=== PATIENT | female | born 1945 | race Caucasian/White ===

== ENCOUNTER 2019-06-21 13:32 | Outpatient (CLI) | payer MEDICARE, SELFPAY ==
--- NOTE | ~2019-06-21 | XR_ITS ---
EXAMINATION: XR chest 2V 06/21/2019 13:52 INDICATION: History of bladder cancer PROCEDURE: PA and lateral views of the chest COMPARISON: Comparison to multiple prior studies sequentially, with oldest reviewed study dated 09/29. FINDINGS: The lungs are clear. The cardiomediastinal silhouette is within normal limits. There are no pleural effusions. There is no pneumothorax suspected. IMPRESSION: 1: NO ACUTE CARDIOPULMONARY DISEASE. Reviewed, dictated and finalized at location A.
== END 2019-06-21 13:33 | disposition home or self-care (01) ==
PROVIDERS: PCP Internal Medicine; Visit Provider Urology
DX: Z85.51 Personal history of malignant neoplasm of bladder (principal)
CPT/HCPCS: 71046

== ENCOUNTER 2019-08-10 08:03 | Outpatient (CLI) | payer MEDICARE, SELFPAY ==
--- NOTE | ~2019-08-10 | XR_ITS ---
XR UGIAC wo kub DATE: 08/10/2019 09:15 INDICATION: Dysphagia. Epigastric abdominal pain. TECHNIQUE: Air-contrast upper gastrointestinal series 1.8 minutes fluoroscopy time DAP: [phone] images COMPARISON: 07/07/2014 upper gastrointestinal series with esophagram; small duodenal bulb ulcer and up to 6 cm sliding hiatal hernia were reported FINDINGS: There is a partially reducible mild sliding hiatal hernia. Spontaneous gastroesophageal ref lux up to the thoracic inlet was noted. There are some tertiary contractions of the esophagus. Status post cholecystectomy. No stricture, mucosal fold thickening, erosion, ulceration or intraluminal mass lesion of the esophag us, stomach or duodenum is detected. The proximal small bowel mucosal pattern is normal. IMPRESSION: Mild partially reducible sliding hiatal hernia with spontaneous gastroesophageal reflux t o thoracic inlet Status post cholecystectomy Reviewed, dictated and finalized at Location [facility]. Reviewed, dictated and finalized at location A. IMPRESSION: Mild partially reducible sliding hiatal hernia with spontaneous gas troesophageal reflux to thoracic inlet Status post cholecystectomy
== END 2019-08-10 08:04 | disposition home or self-care (01) ==
PROVIDERS: PCP Internal Medicine; Visit Provider Internal Medicine Gastroenterology
DX: R10.13 Epigastric pain (principal); K44.9 Diaphragmatic hernia without obstruction or gangrene; Z90.49 Acquired absence of other specified parts of digestive tract
CPT/HCPCS: 74246

== ENCOUNTER 2019-10-28 16:54 | Outpatient (CLI) | payer MEDICARE, SELFPAY ==
--- NOTE | ~2019-10-28 | MM_ITS ---
EXAMINATION: MM screening navi BI w tiarra HISTORY: Screening TECHNIQUE: Craniocaudal and mediolateral oblique 3-D tomosynthesis images were obtained and synthetic 2-D images were generated. CAD analysis was submitted and interpreted. COMPARISON: No prior mammogram is available for comparison at this institution. BREAST PARENCHYMAL COMPOSITION: The breasts are heterogeneously dense, which may obscure small masses . FINDINGS: There is architectural distortion in the upper outer quadrant of the left breast. There is no mammographic evidence for malignancy in the right breast. IMPRESSION: 1. Focal architectural distortion upper outer quadrant of the left breast. 2. Additional mammographic views and possible breast ultrasound are recommended. BI-RADS Category 0: Incomplete: Needs additional imaging evaluation. Reviewed, dictated and finalized at location A. IMPRESSION: 1. Focal architectural distortion upper outer quadrant of the left breast. 2. Additional mammographic views and possible breast ultrasound are recommended . BI-RADS Category 0: Incomplete: Needs additional imaging evaluation.
== END 2019-10-28 16:55 | disposition home or self-care (01) ==
LOC: ANHIMG 16:57
PROVIDERS: PCP Internal Medicine
DX: Z12.31 Encounter for screening mammogram for malignant neoplasm of breast (principal)
CPT/HCPCS: 77063; 77067

== ENCOUNTER 2019-11-04 13:39 | Outpatient (CLI) | payer MEDICARE, SELFPAY ==
--- NOTE | ~2019-11-04 | XR_ITS ---
EXAMINATION: XR chest 2V EXAM DATE: 11/04/2019 14:02 INDICATION: Cough for 10 days. History of asthma. TECHNIQUE: Frontal and lateral projections of the chest obtained and reviewed. Comparison is made to prior examination from 06/21/2019. FINDINGS: The lungs are clear. There are no pleural effusions. The cardiomediastinal silhouette is within normal limits. There is no pneumothorax suspected. The bones and soft tissues are unremarkab le. There is aortic arteriosclerosis. There are cholecystectomy clips. There is no significant int erval change. IMPRESSION: No acute cardiopulmonary findings. Reviewed, dictated and finalized at location A.
== END 2019-11-04 13:40 | disposition home or self-care (01) ==
PROVIDERS: PCP Internal Medicine; Visit Provider Internal Medicine
DX: R05 Cough (principal)
CPT/HCPCS: 71046

== ENCOUNTER 2019-11-23 12:30 | Outpatient (CLI) | payer MEDICARE, SELFPAY ==
--- NOTE | ~2019-11-23 | MMUS_ITS ---
EXAMINATION: MM diagnostic mammo unilat LT, US breast LT limited HISTORY: Architectural distortion of the left breast TECHNIQUE: Additional 3-D tomosynthesis images of the left breast were performed and synthetic 2-D im ages were generated. CAD analysis was submitted and interpreted. High resolution left breast ultrasou nd was performed. COMPARISON: Comparison to multiple prior studies sequentially, with oldest reviewed study dated 05/16. BREAST PARENCHYMAL COMPOSITION: The breasts are heterogenously dense, which may obscure small masses. FINDINGS: MAMMOGRAPHIC FINDINGS: Possible subtle architectural distortion upper outer quadrant of the left breast which is less appare nt with spot compression and mediolateral views and on screening examination. No discrete mass is partha ntified. There are no suspicious calcifications. ULTRASOUND: Limited left breast ultrasound: Normal heterogeneous echotexture without focal solid or cystic mass. IMPRESSION: 1. Probable benign findings of the left breast. Possible architectural distortion upper outer quadran t is less apparent with compression views. No sonographic correlate. 2. Recommend 6 month follow-up diagnostic left mammogram. BI-RADS category 3, probably benign findings. Reviewed, dictated and finalized at location A. IMPRESSION: 1. Probable benign findings of the left breast. Possible architectural distorti on upper outer quadrant is less apparent with compression views. No sonographic correlate. 2. Recommend 6 month follow-up diagnostic left mammogram. BI-RADS category 3, probably benign findings.
== END 2019-11-23 12:31 | disposition home or self-care (01) ==
PROVIDERS: PCP Internal Medicine
DX: R92.8 Other abnormal and inconclusive findings on diagnostic imaging of breast (principal)
CPT/HCPCS: 76642; 77065

== ENCOUNTER 2019-12-25 12:26 | Emergency (ER) | payer MEDICARE, SELFPAY ==
--- NOTE | ~2019-12-25 | XR_ITS ---
EXAMINATION: XR wrist RT min 3V INDICATION: Right wrist pain TECHNIQUE: Four views of the right wrist are obtained. COMPARISON: None available FINDINGS: The bones are osteopenic which limits sensitivity for fracture there is subtle cortical irr egularity involving the scaphoid neck. Severe osteoarthritis at the carpometacarpal joint. There are changes related to prior ulnar styloid avulsion fracture with nonunion. There is soft tissue swelling IMPRESSION: 1. Subtle cortical irregularity of the scaphoid which could reflect nondisplaced fracture. Reviewed, dictated and finalized at location A. [employer] IMPRESSION: 1. Subtle cortical irregularity of the scaphoid which could reflect nondisplace d fracture.
[2019-12-25 12:38] VITALS: BP 139/58; PULSE 107; RESP 20; TEMP 37.2; O2SAT 97
[2019-12-25 12:43] VITALS: BP 139/58; PULSE 107; RESP 20; TEMP 37.2; O2SAT 97
--- NOTE | 2019-12-25 13:00 | ED.GENADULT ---
HPI - General Adult General Chief complaint: Extremity Injury, Upper Stated complaint: INJURED R HAND/WRIST Time Seen by Provider: 12/25/19 13:00 Source: patient Mode of arrival: ambulatory Limitations: no limitations History of Present Illness HPI narrative: 74-year-old female patient presents to the [facility] with complaints of right hand and wrist pain. Patient states that she was going up some stairs yesterday holding some laundry and states she missed the top step tripped and fell forward using her hands to brace her fall. Patient states that her right wrist did not hurt right away but as the day went on it started becoming more painful and noticed that it was swollen. Patient states she did try and take some ibuprofen for the pain. Patient denies any numbness or tingling to the fingertips. Related Data Home Medications Medication Instructions Recorded Confirmed budesonide-formoterol HFA 160 2 puff INHALATION Q12H 01/25/19 12/25/19 mcg-4.5 mcg/actuation aerosol inhaler losartan 50 mg tablet 50 mg PO DAILY 01/25/19 12/25/19 valacyclovir 1 gram tablet 1,000 mg PO TID 01/25/19 12/25/19 amitriptyline 10 mg tablet 30 mg PO DAILY tablet 07/15/19 12/25/19 ferrous sulfate 325 mg (65 mg 325 mg PO DAILY 07/15/19 12/25/19 iron) tablet oxybutynin chloride 10 mg 10 mg PO BID tablet 07/15/19 12/25/19 tablet,extended release 24 hr esomeprazole magnesium 40 mg 40 mg PO BID cap 07/29/19 12/25/19 capsule,delayed release Allergies Allergy/AdvReac Type Severity Reaction Status Date / Time azithromycin Allergy Unknown Swelling Verified 12/25/19 12:39 Sulfa (Sulfonamide Allergy Unknown Rash Verified 12/25/19 12:39 Antibiotics) Review of Systems Review of Systems: Narrative: CONSTITUTIONAL: Denies fever, chills, or sweats. EYES: Denies visual changes, redness, or discharge. ENT: Denies rhinorrhea, congestion, sore throat, or otalgia. CARDIOVASCULAR: Denies chest pain, palpitations, or edema. RESPIRATORY: Denies cough or dyspnea. GASTROINTESTINAL: Denies abdominal pain, nausea, vomiting, or diarrhea. GENITOURINARY: Denies dysuria or hematuria. SKIN: Denies rash or itching. MUSCULOSKELETAL: Denies back pain, joint pain, or myalgia. Right wrist pain NEUROLOGIC: Denies headache, numbness, or weakness. PSYCHIATRIC: Denies anxiety or depression. [facility] Past Medical History Medical History (Updated 12/25/19 @ 13:43 by THEODORA Martínez) Anemia Anxiety Arthritis Basal cell carcinoma of arm Bladder cancer Borderline diabetic Bronchitis Carpal tunnel syndrome of right wrist Endometriosis GERD (gastroesophageal reflux disease) Hepatic artery dissection Hiatal hernia History of angina HTN (hypertension) Hyperlipidemia Ovarian cyst Pneumonia Polyp of urethra Rectal polyp Seasonal allergies Ulcer, esophagus UTI (urinary tract infection) UTI symptoms Surgical History Surgical History History of bladder surgery History of cardiac catheterization History of hysterectomy History of mastectomy Hx of cholecystectomy Hx of tonsillectomy S/P left knee arthroscopy S/P trigger finger release x5 Family History Family History Father Family history of coronary artery disease Acute myocardial infarction Mother Family history of coronary artery disease Other Diabetes mellitus Family history of allergic disorder Family history of cardiovascular disease Family history of kidney disease Family history of malignant neoplasm Hypertension Social History Social History Smoking status: Never smoker Second hand tobacco smoke exposure: No Alcohol intake: never Comments At the time of my signature I agree with nursing past medical history, surgical, social, and family history. There is no relevant family history pertinent to the prese
--- NOTE | 2019-12-25 13:41 | ED.GENADULT ---
HPI - General Adult General Chief complaint: Extremity Injury, Upper Stated complaint: INJURED R HAND/WRIST Time Seen by Provider: 12/25/19 13:00 Source: patient Mode of arrival: ambulatory Limitations: no limitations History of Present Illness HPI narrative: 74-year-old female patient presents to the [facility] with plaints of right wrist pain Related Data Home Medications Medication Instructions Recorded Confirmed budesonide-formoterol HFA 160 2 puff INHALATION Q12H 01/25/19 12/25/19 mcg-4.5 mcg/actuation aerosol inhaler losartan 50 mg tablet 50 mg PO DAILY 01/25/19 12/25/19 valacyclovir 1 gram tablet 1,000 mg PO TID 01/25/19 12/25/19 amitriptyline 10 mg tablet 30 mg PO DAILY tablet 07/15/19 12/25/19 ferrous sulfate 325 mg (65 mg 325 mg PO DAILY 07/15/19 12/25/19 iron) tablet oxybutynin chloride 10 mg 10 mg PO BID tablet 07/15/19 12/25/19 tablet,extended release 24 hr esomeprazole magnesium 40 mg 40 mg PO BID cap 07/29/19 12/25/19 capsule,delayed release Allergies Allergy/AdvReac Type Severity Reaction Status Date / Time azithromycin Allergy Unknown Swelling Verified 12/25/19 12:39 Sulfa (Sulfonamide Allergy Unknown Rash Verified 12/25/19 12:39 Antibiotics) [facility] Past Medical History Medical History (Updated 12/25/19 @ 13:43 by THEODORA Martínez) Anemia Anxiety Arthritis Basal cell carcinoma of arm Bladder cancer Borderline diabetic Bronchitis Carpal tunnel syndrome of right wrist Endometriosis GERD (gastroesophageal reflux disease) Hepatic artery dissection Hiatal hernia History of angina HTN (hypertension) Hyperlipidemia Ovarian cyst Pneumonia Polyp of urethra Rectal polyp Seasonal allergies Ulcer, esophagus UTI (urinary tract infection) UTI symptoms Surgical History Surgical History History of bladder surgery History of cardiac catheterization History of hysterectomy History of mastectomy Hx of cholecystectomy Hx of tonsillectomy S/P left knee arthroscopy S/P trigger finger release x5 Family History Family History Father Family history of coronary artery disease Acute myocardial infarction Mother Family history of coronary artery disease Other Diabetes mellitus Family history of allergic disorder Family history of cardiovascular disease Family history of kidney disease Family history of malignant neoplasm Hypertension Social History Social History Smoking status: Never smoker Second hand tobacco smoke exposure: No Alcohol intake: never Course Reevaluation(s) Date: 12/25/19 Time: 13:44 Vital Signs Vital signs: Vital Signs Temperature 37.2 C 12/25/19 12:38 Pulse Rate 107 H 12/25/19 12:38 Respiratory Rate 12/25/19 12:38 Blood Pressure 139/58 L 12/25/19 12:38 Pulse Oximetry 97 12/25/19 12:38 Temperature 37.2 C 12/25/19 12:43 Pulse Rate 107 H 12/25/19 12:43 Respiratory Rate 20 12/25/19 12:43 Blood Pressure 139/58 L 12/25/19 12:43 Pulse Oximetry 97 12/25/19 12:43 Medical Decision Making Vital Signs Vital Signs: Vital Signs Temperature 37.2 C 12/25/19 12:38 Pulse Rate 107 H 12/25/19 12:38 Respiratory Rate 12/25/19 12:38 Blood Pressure 139/58 L 12/25/19 12:38 Pulse Oximetry 97 12/25/19 12:38 Temperature 37.2 C 12/25/19 12:43 Pulse Rate 107 H 12/25/19 12:43 Respiratory Rate 20 12/25/19 12:43 Blood Pressure 139/58 L 12/25/19 12:43 Pulse Oximetry 97 12/25/19 12:43 Discharge Plan Discharge Clinical Impression: Closed fracture of scaphoid of right wrist Qualifiers: Encounter type: initial encounter Scaphoid bone location: unspecified portion of scaphoid Fracture alignment: nondisplaced Qualified Code(s): S62.001A - Unspecified fracture of navicular [scaphoid] bone of right wrist, initial en
== END 2019-12-25 14:02 | disposition home or self-care (01) ==
PROVIDERS: Emergency Provider Nurse Practitioner Family; PCP Internal Medicine
DX: S62.001A Unspecified fracture of navicular [scaphoid] bone of right wrist, initial encounter for closed fracture (principal); W10.9XXA Fall (on) (from) unspecified stairs and steps, initial encounter; E78.5 Hyperlipidemia, unspecified; I10 Essential (primary) hypertension; K21.9 Gastro-esophageal reflux disease without esophagitis; M19.90 Unspecified osteoarthritis, unspecified site; D64.9 Anemia, unspecified; Z85.51 Personal history of malignant neoplasm of bladder; Z85.828 Personal history of other malignant neoplasm of skin; Z90.10 Acquired absence of unspecified breast and nipple
CPT/HCPCS: 29125; 73110; 99214; G0463

== ENCOUNTER 2020-01-08 11:17 | Outpatient (NON) | payer MEDICARE, SELFPAY ==
[2020-01-09 22:24] LABS: SARS-CoV-2 RNA PCR Negative
== END 2020-01-08 11:18 ==
LOC: ANHCOVIDDT 11:18
PROVIDERS: PCP Internal Medicine; Visit Provider Internal Medicine
DX: R68.89 Other general symptoms and signs (principal); Z20.828 Contact with and (suspected) exposure to other viral communicable diseases
CPT/HCPCS: 87635; C9803; U0003

== ENCOUNTER 2020-03-09 12:35 | Outpatient (CLI) | payer MEDICARE, SELFPAY ==
--- NOTE | ~2020-03-09 | DEXA_ITS ---
Bone Density Report Name: Mouna Rodriguez Age: 74 Sex: Female Ethnicity: White Date of : 1945 Indication: postmenopausal; cancer; asthma or emphysema; hysterectomy; Referring Provider: LIANNA SOLO Study: Bone densitometry was performed. Exam Date: March 09, 2020 Accession number: [id number] Bone Density: Region BMD T-score Z-score Classification AP Spine (L1-L4) 1.016 -0.3 2.1 Normal Femoral Neck (Left) 0.716 -1.2 0.8 Osteopenia Total Hip (Left) 0.838 -0.9 0.9 Normal Total Hip Bilateral Avg 0.802 -1.1 0.6 Osteopenia Femoral Neck (Right) 0.659 -1.7 0.3 Osteopenia Total Hip (Right) 0.766 -1.4 0.3 Osteopenia World Health Organization criteria for BMD impression classify patients as: Normal (T-score at or above -1.0), Osteopenia (T-score between -1.0 and -2.5), or Osteoporosis (T-score at or below -2.5). 10-year Fracture Risk(1): Major Osteoporotic Fracture 11% Hip Fracture 2.3% Reported Risk Factors: [place] (), Neck BMD=0.659, BMI=31.4 (1) FRAX(R) Version 3.08. Fracture probability calculated for an untreated patient. Fracture probability may be lower if the patient has received treatment. Previous Exams: Region Exam Age BMD T-score BMD Change BMD Change Date g/cm2 vs Baseline vs Previous AP Spine(L1-L4) 03/09/2020 74 1.016 -0.3 -0.115(-10.2%) -0.071(-6.5%)# 01/14/2006 60 1.087 0.4 -0.045(-3.9%)* -0.045(-3.9%)* 10/26/2002 56 1.131 0.8 Total Hip(Left) 03/09/2020 74 0.838 -0.9 -0.067(-7.4%)# -0.086(-9.3%)# 01/14/2006 60 0.924 -0.1 0.019(2.1%) 0.019(2.1%) 10/26/2002 56 0.905 -0.3 Total Hip(Right) 03/09/2020 74 0.766 -1.4 -0.125(-14.0%) -0.093(-10.8%) 01/14/2006 60 0.859 -0.7 -0.032(-3.6%)* -0.032(-3.6%)* 10/26/2002 56 0.891 -0.4 *Denotes significance at 95% confidence level, LSC for AP Spine = 0.022 g/cm2, LSC for Total Hip = 0.027 g/cm2 Clinical Information Provided by Patient: Has the following medical conditions: Asthma or Emphysema, Cancer, Hysterectomy Patient maximum height was 64 Menopause Age: 51 Onset of menses at age 14 Number of children 2 Impression: The patient has low bone mass, based on the Right Femoral Neck T-score. The patient has an estimated ten-year risk of hip fracture of 2.3% and an estimated ten-year risk of major fracture of 11%, based on the WHO FRAX algorithm. No significant bone loss was observed. Discussion: BONE DENSITY IS
== END 2020-03-09 12:36 | disposition home or self-care (01) ==
PROVIDERS: PCP Internal Medicine; Visit Provider Internal Medicine
DX: Z78.0 Asymptomatic menopausal state (principal); M85.852 Other specified disorders of bone density and structure, left thigh; M85.851 Other specified disorders of bone density and structure, right thigh
CPT/HCPCS: 77080

== ENCOUNTER 2020-07-31 12:40 | Outpatient (CLI) | payer MEDICARE, SELFPAY ==
--- NOTE | ~2020-07-31 | MM_ITS ---
EXAMINATION: MM diagnostic navi LT w tiarra HISTORY: Follow-up for probably benign left breast architectural distortion. TECHNIQUE: Craniocaudal, mediolateral, and mediolateral oblique 3-D tomosynthesis images of the left breast were performed and synthetic 2-D images were generated. CAD analysis was submitted and interpr eted. COMPARISON: 11/23/2019, 10/28/2019, 05/16/2017 BREAST PARENCHYMAL COMPOSITION: The breasts are heterogeneously dense, which may obscure small masses . FINDINGS: There is an area of stable architectural distortion in the middle third of the outer left b reast at the 3:00 to 4:00 location adjacent to a scar marker, most consistent with changes from prior benign excisional biopsy. There has been no suspicious interval change. No suspicious mass or calcif ication are identified. IMPRESSION: 1. No mammographic evidence of malignancy. 2. Recommend routine screening mammography. BI-RADS Category 2: Benign finding(s). Reviewed, dictated and finalized at location A.
== END 2020-07-31 12:41 | disposition home or self-care (01) ==
LOC: ANHIMG 12:46
PROVIDERS: PCP Internal Medicine
DX: R92.8 Other abnormal and inconclusive findings on diagnostic imaging of breast (principal)
CPT/HCPCS: 77061; 77065; G0279

== ENCOUNTER 2020-11-28 13:19 | Emergency (ER) | payer MEDICARE, SELFPAY ==
[2020-11-28 13:24] VITALS: BP 129/63; PULSE 109; RESP 16; TEMP 37.2; O2SAT 97
--- NOTE | 2020-11-28 13:24 | ED.LOWEXIN ---
HPI - Extremity Injury (Lower) General Chief Complaint: Wound/Laceration Stated Complaint: INJURED R LEG Source: patient and RN notes reviewed Limitations: no limitations History of Present Illness HPI Narrative: The patient, on several medications including for AODM, presents with wound check. Patient states she slipped nearly a week ago and a chair struck her right archibald. This resulted in an abrasion and apparent proximal based flap avulsion. She would like a tetanus shot, and is the wound checked-which is fairly well approximated but slightly red. No fever, streaking, drainage/discharge. Related Data Home Medications Medication Instructions Recorded Confirmed budesonide-formoterol HFA 160 2 puff INHALATION Q12H 01/25/19 09/01/20 mcg-4.5 mcg/actuation aerosol inhaler amitriptyline 10 mg tablet 30 mg PO DAILY tablet 07/15/19 09/01/20 ferrous sulfate 325 mg (65 mg 325 mg PO DAILY 07/15/19 09/01/20 iron) tablet oxybutynin chloride 10 mg 10 mg PO BID tablet 07/15/19 09/01/20 tablet,extended release 24 hr esomeprazole magnesium 40 mg 40 mg PO BID cap 07/29/19 09/01/20 capsule,delayed release valacyclovir 1 gram tablet 1,000 mg PO DAILY 02/23/20 09/01/20 albuterol sulfate 90 mcg/actuation 2 puff INHALATION Q4H PRN g 07/19/20 09/01/20 aerosol inhaler metformin 1,000 mg tablet 1,000 mg PO DAILY tablet 07/19/20 09/01/20 Allergies Allergy/AdvReac Type Severity Reaction Status Date / Time azithromycin Allergy Unknown Swelling Verified 09/01/20 13:03 Sulfa (Sulfonamide Allergy Unknown Rash Verified 09/01/20 13:03 Antibiotics) Review of Systems Review of Systems: General/Constitutional: No weight loss,fever Eyes: N0: Redness,discharge Ears/Nose/Throat: No: Epistaxis,ear discharge Respiratory: Denies: Hemoptysis Gastrointestinal: No Vomiting, Bleeding-rectal Skin: No Lumps, eruption Neurologic: No Focal Weakness,Sz Hematologic: Denies: Petechiae/Purpura Psychiatric: No: Suicida ideationl All Other Systems: Reviewed and Negative [facility] Past Medical History Medical History Anemia Anxiety Arthritis Basal cell carcinoma of arm Bladder cancer Borderline diabetic Bronchitis Carpal tunnel syndrome of right wrist Closed nondisplaced fracture of fifth metatarsal bone of left foot Endometriosis GERD (gastroesophageal reflux disease) Hepatic artery dissection Hiatal hernia History of angina Hoarseness HTN (hypertension) Hyperlipidemia Other fracture of left foot, initial encounter for closed fracture Ovarian cyst Palpitations Pneumonia Pneumonia of left lower lobe due to infectious organism Polyp of urethra Rectal polyp RUQ pain Seasonal allergies Skin cancer Skin neoplasm Ulcer, esophagus UTI (urinary tract infection) UTI symptoms Vision abnormalities Weight loss Surgical History Surgical History History of bladder surgery History of cardiac catheterization History of carpal tunnel release History of hysterectomy History of mastectomy Hx of cholecystectomy Hx of tonsillectomy S/P left knee arthroscopy S/P trigger finger release x5 Family History Family History Father Family history of coronary artery disease Acute myocardial infarction Mother Family history of coronary artery disease Other Arthritis Diabetes mellitus Family history of allergic disorder Family history of cardiovascular disease Family history of kidney disease Family history of malignant neoplasm Hypertension Social History Social History Smoking status: Never smoker Second hand tobacco smoke exposure: No Alcohol intake: current Drinks per week: 2 Comments At time of signature, agree with nursing past medical, surgical, social and family history. There
[2020-11-28] MEDS: TETANUS,DIPHTHERIA,AC PERTUSSIS ADULT (0.5 ML) BOOSTRIX IM (13:38)
== END 2020-11-28 14:04 | disposition home or self-care (01) ==
PROVIDERS: Emergency Provider Emergency Medicine; PCP Internal Medicine
DX: S81.802A Unspecified open wound, left lower leg, initial encounter (principal); W22.8XXA Striking against or struck by other objects, initial encounter; D64.9 Anemia, unspecified; M19.90 Unspecified osteoarthritis, unspecified site; Z85.828 Personal history of other malignant neoplasm of skin; Z85.51 Personal history of malignant neoplasm of bladder; N80.9 Endometriosis, unspecified; K21.9 Gastro-esophageal reflux disease without esophagitis; I20.9 Angina pectoris, unspecified; I10 Essential (primary) hypertension; E78.5 Hyperlipidemia, unspecified
CPT/HCPCS: 90471; 90715; 99213; G0463

== ENCOUNTER 2021-03-26 15:52 | Emergency (ER) | payer MEDICARE, SELFPAY ==
--- NOTE | ~2021-03-26 | XR_ITS ---
XR chest 2V DATE: 03/26/2021 16:47 INDICATION: Cough, diminished breath sounds TECHNIQUE: PA and lateral views COMPARISON: 11/04/2019 PA and lateral chest FINDINGS: Normal heart size. Aortic arch calcification. No hilar or mediastinal enlargement. There is patchy mild infiltrate in the base of the right lower lobe which may be consistent with post erior basilar pneumonia or aspiration pneumonitis. The lungs otherwise appear clear. No pleural effusion or pulmonary vascular congestion or pneumothorax. Status post cholecystectomy. IMPRESSION: Right posterior basilar mild infiltrate, right lower lobe Aortic atherosclerosis Reviewed, dictated and finalized at location A. OF DESIGN
[2021-03-26 16:07] VITALS: BP 142/73; PULSE 107; RESP 16; TEMP 36.7; O2SAT 91
--- NOTE | 2021-03-26 16:07 | ED.URI ---
HPI - URI/Sore Throat General Chief Complaint: Upper Respiratory Infection Stated Complaint: Cough Time Seen by Provider: 03/26/21 16:07 Source: patient and RN notes reviewed History of Present Illness HPI Narrative: Patient is a 75-year-old female who presents the urgent care with complaints of cough and intermittent shortness of breath. Patient states that she has had a nonproductive cough for the last 3 weeks and her transportation security screener is placed her on doxycycline without any improvement. Patient states that she has been taking Mucinex with mild improvement. Patient reports of a history of asthma which caused intermittent shortness of breath at times. Patient has been using her inhaler as needed. Denies of any chest pain, fever, nausea or vomiting. No other acute complaints. No acute distress noted. Patient aware of the plan of care. Some parts of this dictation were generated by voice recognition software and may contain typographical and/or grammatical inaccuracies. Related Data Home Medications Medication Instructions Recorded Confirmed budesonide-formoterol HFA 160 2 puff INHALATION Q12H 01/25/19 03/26/21 mcg-4.5 mcg/actuation aerosol inhaler amitriptyline 10 mg tablet 30 mg PO DAILY tablet 07/15/19 03/26/21 ferrous sulfate 325 mg (65 mg 325 mg PO DAILY 07/15/19 03/26/21 iron) tablet oxybutynin chloride 10 mg 10 mg PO BID tablet 07/15/19 03/26/21 tablet,extended release 24 hr valacyclovir 1 gram tablet 1,000 mg PO DAILY 02/23/20 03/26/21 albuterol sulfate 90 mcg/actuation 2 puff INHALATION Q4H PRN g 07/19/20 03/26/21 aerosol inhaler ascorbic acid (vitamin C) 1,000 mg 1 g PO DAILY 03/13/21 03/26/21 tablet cholecalciferol (vitamin D3) 50 50 mcg PO DAILY 03/13/21 03/26/21 mcg (2,000 unit) capsule Allergies Allergy/AdvReac Type Severity Reaction Status Date / Time azithromycin Allergy Unknown Swelling Verified 03/26/21 15:56 Sulfa (Sulfonamide Allergy Unknown Rash Verified 03/26/21 15:56 Antibiotics) Review of Systems Review of Systems: CONSTITUTIONAL: Denies fever, chills, or sweats. EYES: Denies visual changes, redness, or discharge. ENT: Reports of rhinorrhea, sinus drainage, postnasal drainage CARDIOVASCULAR: Denies chest pain, palpitations, or edema. RESPIRATORY: Reports of harsh cough with intermittent dyspnea GASTROINTESTINAL: Denies abdominal pain, nausea, vomiting, or diarrhea. GENITOURINARY: Denies dysuria or hematuria. SKIN: Denies rash or itching. MUSCULOSKELETAL: Denies back pain, joint pain, or myalgia. NEUROLOGIC: Denies headache, numbness, or weakness. All other systems reviewed are negative, except as documented in HPI. [facility] Past Medical History Medical History Anemia Anxiety Arthritis Basal cell carcinoma of arm Bladder cancer Borderline diabetic Bronchitis Carpal tunnel syndrome of right wrist Closed nondisplaced fracture of fifth metatarsal bone of left foot Endometriosis GERD (gastroesophageal reflux disease) Hepatic artery dissection Hiatal hernia History of angina Hoarseness HTN (hypertension) Hyperlipidemia Other fracture of left foot, initial encounter for closed fracture Ovarian cyst Palpitations Pneumonia Pneumonia of left lower lobe due to infectious organism Polyp of urethra Rectal polyp RUQ pain Seasonal allergies Skin cancer Skin neoplasm Ulcer, esophagus UTI (urinary tract infection) UTI symptoms Vision abnormalities Weight loss Surgical History Surgical History History of bladder surgery History of cardiac catheterization History of carpal tunnel release History of hysterectomy History of mastectomy Hx of cholecystectomy Hx of tonsillectomy S/P left knee arthroscopy S/P trigger finger release x5 Family History Family History Father Family history of coronary chichi
== END 2021-03-26 17:15 | disposition home or self-care (01) ==
PROVIDERS: Emergency Provider Nurse Practitioner Family
DX: J18.1 Lobar pneumonia, unspecified organism (principal); M19.90 Unspecified osteoarthritis, unspecified site; Z85.828 Personal history of other malignant neoplasm of skin; Z85.51 Personal history of malignant neoplasm of bladder; N80.9 Endometriosis, unspecified; K21.9 Gastro-esophageal reflux disease without esophagitis; I10 Essential (primary) hypertension; E78.5 Hyperlipidemia, unspecified; Z90.10 Acquired absence of unspecified breast and nipple
CPT/HCPCS: 71046; 99213; G0463

== ENCOUNTER 2021-03-28 23:53 | Observation (INO) | payer MEDICARE, SELFPAY ==
--- NOTE | ~2021-03-28 | XR_ITS ---
EXAMINATION: XR chest 2V DATE: 03/29/2021 00:53 INDICATION: Shortness of breath TECHNIQUE: PA and lateral views of the chest were obtained. COMPARISON: Chest radiograph dated 03/26/2021 FINDINGS: Mild streaky lingular atelectasis/scarring. No other airspace opacities, pulmonary edema, pleural eff usion or pneumothorax. The cardiomediastinal silhouette is normal. Cholecystectomy clips in the right upper quadrant. IMPRESSION: 1. Mild lingular atelectasis/scarring. Reviewed, dictated and finalized at location A. ARCHITECT
--- NOTE | ~2021-03-28 | CT_ITS ---
EXAMINATION: CT diagnostic chest wo con DATE: 03/29/2021 09:54 INDICATION: Pneumonia with right-sided chest pain TECHNIQUE: Computed tomography (CT) of the chest was performed without intravenous contrast. Addition al 3D reconstructions utilizing coronal maximum intensity projection (MIP) were performed. Automated exposure control and iterative reconstruction technique were employed. The dose-length product was 28 8.19 mGy-cm. COMPARISON: 04/10/2015 FINDINGS: Calcified left lower lobe nodule along with calcified left hilar and mediastinal lymph nodes and a fe w small splenic calcifications, all consistent with old granulomatous disease. Mild discoid atelectas is/scarring at the lingula. Additional minimal linear subpleural atelectasis at the lateral periphery of the right lower lobe. No pneumonia, pulmonary edema or pleural effusion. Heart size is normal. No pericardial effusion. Thoracic aorta is normal in caliber. No pathologically enlarged thoracic lymph adenopathy. Small sliding-type hiatal hernia. Cholecystectomy clips the gallbladder fossa. Bones are unremarkable. IMPRESSION: 1. No pneumonia or other acute cardiopulmonary disease. 2. Small sliding-type hiatal hernia. Reviewed, dictated and finalized at location A. ENGINE OPERATOR
--- NOTE | ~2021-03-28 | NM_ITS ---
EXAMINATION: NM ro stress w perfusion DATE: 03/30/2021 13:58 INDICATION: Left bundle branch block. Epigastric pain. TECHNIQUE: Rest images were obtained following intravenous administration of 10.9 mCi Tc99m tetrofosm in (Myoview). The patient was infused intravenously with Lexiscan (Regadenoson). Then, 33 mCi Tc99m t etrofosmin (Myoview) was administered intravenously, and stress images were obtained. Data was recons tructed into short axis and horizontal and vertical long axis SPECT images. Gated SPECT images were a lso obtained. COMPARISON: None. FINDINGS: Fixed mild to moderate severity perfusion defect involving the apical, apical septal, infer ior apical, lateral apical, mid inferior and mid inferolateral segments consistent with infarct. No r eversible ischemia. There is normal left ventricular chamber size, wall motion and ejection fraction. Left ventricular ejection fraction measures 58%. IMPRESSION: 1. Fixed mild to moderate severity perfusion defect consistent with infarct involving the apical, api stephanie septal, inferior apical, lateral apical, mid inferior and mid inferolateral segments consistent w ith infarct. No reversible ischemia. 2. Left ventricular ejection fraction measuring 58%. Reviewed, dictated and finalized at location A. F ENGINEER IMPRESSION: 1. Fixed mild to moderate severity perfusion defect consistent with infarct inv olving the apical, apical septal, inferior apical, lateral apical, mid inferior and mid inferolateral segments consistent with infarct. No reversible ischemia . 2. Left ventricular ejection fraction measuring 58%.
[2021-03-28 23:55] VITALS: BP 151/76; PULSE 130; RESP 18; TEMP 36.6; O2SAT 98
[2021-03-29] VITALS (61 sets, daily range): BP systolic 116–148; BP diastolic 58–77; PULSE 61–117; RESP 6–28; TEMP 36.4; O2SAT 89–99; BMI 30.8
--- NOTE | 2021-03-29 00:25 | ECG_ITS ---
Measurements Intervals [place] Rate: 107 P: 54 MD: 156 QRS: 47 QRSD: 150 T: 74 QT: 373 QTc: 499 Interpretive Statements SINUS TACHYCARDIA LEFT BUNDLE BRANCH BLOCK BASELINE ARTIFACT- I, II, III, AVR, AVL, AVF, V1-V6 ABNORMAL ECG Electronically Signed On 03-29-2021 6:28:42 [employer]ICE [employer]OP FOREM[employer] by Brennan Worrell D.O.
[2021-03-29 00:45] LABS: Basophils Absolute Auto 0.1 K/mm3 (0.0-0.1); Basophils Percent Auto 0.5 % (0.2-1.2); Eosinophils Percent Auto 0.2 % (0-4.4); Hematocrit 45.8 % (37.0-47.0); Hemoglobin 15.1 g/dL (12.0-15.0); Immature Granulocyte Absolute 0.07 K/mm3 (0.00-0.031); Immature Granulocyte Percent A 0.5 % (0-0.5); Lymphocytes Absolute Auto 3.73 K/mm3 (0.9-3.2); Lymphocytes Percent Auto 28.6 % (18.3-44.2); Mean Corpuscular Hemoglobin 31.9 pg (26-34); Mean Corpuscular Volume 96.8 fl (80-100); Mean Platelet Volume 9.5 fl (7.4-10.4); Monocytes Absolute Auto 0.8 K/mm3 (0.1-0.6); Monocytes Percent Auto 5.9 % (2.6-8.5); Neutrophils Absolute Auto 8.4 K/mm3 (1.3-6.7); Neutrophils Percent Auto 64.3 % (45.5-73.1); Platelet Count Result 407 k/mm3 (150-375); Red Blood Count 4.73 M/mm3 (4.2-5.4); Red Cell Distribution Width 13.4 % (11.5-14.5)
[2021-03-29 01:21] LABS: Alanine Aminotransferase 22 U/L (4-35); Albumin Level 4.4 g/dL (3.5-5.1); Alkaline Phosphatase 103 U/L (38-126); Anion Gap 10 mmol/L (8-16); Aspartate Amino Transferase 24 U/L (14-36); Bilirubin,Total 0.2 mg/dL (0.2-1.3); Blood Urea Nitrogen 22 mg/dL (7-17); Calcium 10.3 mg/dL (8.4-10.2); Carbon Dioxide 24 mmol/L (22-30); Chloride 100 mmol/L (98-107); Estimated CRCL calculation 69 ml/min; Estimated Glomerular Filt Rate > 60; Glucose 127 mg/dL (65-110); Potassium 3.5 mmol/L (3.4-5.0); Sodium 134 mmol/L (137-145)
--- NOTE | 2021-03-29 01:24 | ED.GENADULT ---
HPI - General Adult General Chief complaint: Shortness of Breath/Dyspnea Stated complaint: rt chest pain, recent pneumonia Time Seen by Provider: 03/29/21 00:28 Source: patient Mode of arrival: EMS Limitations: no limitations History of Present Illness HPI narrative: 75-year-old with a history of hypertension, diabetes, anxiety disorder here with complaints of right-sided chest and back pain. Patient states that she woke up with severe pain in the back. She states that she was seen in urgent care and was told that she had pneumonia she denies any pain at this time. No history of nausea or vomiting fever or chills at this time Onset (ago): hour(s) (2) Severity: moderate Pain Consistency: now resolved Exacerbating factors: none Associated symptoms: denies other symptoms Related Data Home Medications Medication Instructions Recorded Confirmed budesonide-formoterol HFA 160 2 puff INHALATION Q12H 01/25/19 03/26/21 mcg-4.5 mcg/actuation aerosol inhaler amitriptyline 10 mg tablet 30 mg PO DAILY tablet 07/15/19 03/26/21 ferrous sulfate 325 mg (65 mg 325 mg PO DAILY 07/15/19 03/26/21 iron) tablet oxybutynin chloride 10 mg 10 mg PO BID tablet 07/15/19 03/26/21 tablet,extended release 24 hr valacyclovir 1 gram tablet 1,000 mg PO DAILY 02/23/20 03/26/21 albuterol sulfate 90 mcg/actuation 2 puff INHALATION Q4H PRN g 07/19/20 03/26/21 aerosol inhaler ascorbic acid (vitamin C) 1,000 mg 1 g PO DAILY 03/13/21 03/26/21 tablet cholecalciferol (vitamin D3) 50 50 mcg PO DAILY 03/13/21 03/26/21 mcg (2,000 unit) capsule Allergies Allergy/AdvReac Type Severity Reaction Status Date / Time azithromycin Allergy Unknown Swelling Verified 03/26/21 15:56 Sulfa (Sulfonamide Allergy Unknown Rash Verified 03/26/21 15:56 Antibiotics) Review of Systems Review of Systems: All systems reviewed & are unremarkable except as noted in HPI and below Constitutional: Constitutional: Reports no additional constitutional complaints Eyes: Eyes: Reports no additional eye complaints ENT: Reports system reviewed and no additional complaints, except as documented Cardiovascular: Cardiovascular: Reports no additional cardiovascular complaints Respiratory: Respiratory: Reports as per HPI Gastrointestinal: Gastrointestinal: Reports no additional gastrointestinal complaints Musculoskeletal: Musculoskeletal: Reports no additional musculoskeletal complaints Integumentary/Breasts: Skin/Breast: Reports system reviewed and no additional complaints, except as docu PMFSH Past Medical History Medical History Anemia Anxiety Arthritis Basal cell carcinoma of arm Bladder cancer Borderline diabetic Bronchitis Carpal tunnel syndrome of right wrist Closed nondisplaced fracture of fifth metatarsal bone of left foot Endometriosis GERD (gastroesophageal reflux disease) Hepatic artery dissection Hiatal hernia History of angina Hoarseness HTN (hypertension) Hyperlipidemia Other fracture of left foot, initial encounter for closed fracture Ovarian cyst Palpitations Pneumonia Pneumonia of left lower lobe due to infectious organism Polyp of urethra Rectal polyp RUQ pain Seasonal allergies Skin cancer Skin neoplasm Ulcer, esophagus UTI (urinary tract infection) UTI symptoms Vision abnormalities Weight loss Surgical History Surgical History History of bladder surgery History of cardiac catheterization History of carpal tunnel release History of hysterectomy History of mastectomy Hx of cholecystectomy Hx of tonsillectomy S/P left knee arthroscopy S/P trigger finger release x5 Family History Family History Father Family history of coronary artery disease Acute myocardial infarction Mother Family history of coronary artery disease Other Arthritis Diabetes mellitus
[2021-03-29 01:33] LABS: NT Pro B Type Natriuretic Pept 218 pg/mL (5-100); Troponin I < 0.012 ng/mL (0.000-0.034)
[2021-03-29 01:39] LABS: D Dimer 0.27 ug/mL (<0.48)
[2021-03-29 01:41] LABS: INR 0.8; Prothrombin Time 11.3 Seconds (11.1-14.7)
[2021-03-29] MEDS: NITROGLYCERIN SL 0.4 MG TABLET SUBLINGUAL (01:58)
[2021-03-29] MEDS: ASPIRIN 81 MG CHEWABLE TABLET 324 MG PO (02:18)
[2021-03-29] MEDS: ENOXAPARIN 80 MG/0.8 ML SYRINGE SUB-Q (02:19)
--- NOTE | 2021-03-29 03:35 | PC.NURSE ---
Pt to nuc med at this time.
[2021-03-29 03:47] LABS: SARS-CoV-2 RNA PCR Negative
[2021-03-29] MEDS: NITROGLYCERIN OINTMENT 1 INCH DOSE TRANSDERM ×2 (06:06→12:28)
[2021-03-29] MEDS: SODIUM CHLORIDE 0.9% IV 1,000 ML 75 ML IV CONT ×2 (06:08→18:10)
[2021-03-29 06:24] LABS: Troponin I < 0.012 ng/mL (0.000-0.034)
--- NOTE | 2021-03-29 08:22 | PC.NURSE ---
Lynda, Cardiology notified of consult for patient.
[2021-03-29 09:14] LABS: Troponin I 0.015 ng/mL (0.000-0.034)
[2021-03-29] MEDS: FAMOTIDINE 20 MG/2 ML VIAL IV PUSH (09:41)
[2021-03-29] MEDS: ASPIRIN 81 MG CHEWABLE TABLET PO (09:41)
--- NOTE | 2021-03-29 14:14 | PC.NURSE ---
dr hoang at bedside
--- NOTE | 2021-03-29 14:31 | PM.CNCAR ---
Assessment and Plan Assessment and plan (1) Flank pain: Code(s): R10.9 - Unspecified abdominal pain Status: Acute Assessment and Plan: Highly atypical for cardiac etiology. She has incidentally found to have left bundle-branch block. She has a normal cardiac catheterization performed in this hospital a few years ago. Because of her new left bundle, will perform a Lexiscan perfusion study tomorrow (2) Benign essential hypertension: Code(s): I10 - Essential (primary) hypertension Status: Acute Assessment and Plan: Continue home meds (3) Left bundle branch block: Code(s): I44.7 - Left bundle-branch block, unspecified Status: Acute Assessment and Plan: New diagnosis. Stress test to be performed and will check a 2D echocardiogram with Doppler (4) Cough: Code(s): R05.9 - Cough, unspecified Status: Acute (5) Hyperlipidemia: Code(s): E78.5 - Hyperlipidemia, unspecified Status: Acute Assessment and Plan: Continue statin History of Present Illness History of Present Illness Consult date/time: 03/29/21 14:31 Requesting physician: Enrrique Pleitez MD Consult reason: chest pain Reason For Visit: chest pain, new onset LBBB Narrative: Date of service 03/29/2021 Reason consultation: Chest pain, left bundle-branch block Requesting provider: Dr. Pleitez History: She is a 75-year-old female who has had a cardiac catheterization the past which has been essentially normal. Catheterization was performed in this hospital less than 10 years ago. She also was admitted and seen by Dr. Skinner in 2019 and had a stress test performed at that time. She came to the hospital because of some posterior right back burning sensation. She has been having some issues with coughing for about [address] Kamara her regular naphthol soaping machine operator sent her to urgent care where she was diagnosed with pneumonia. She was put on prednisone and amoxicillin. She has been coughing severely for several weeks. Last night she developed some right-sided posterior burning/hurting which lasted about 20 minutes. She also checked her heart rate at the time heart rate was elevated. Because of these concerns she came to the hospital for further workup and evaluation. Upon walking into the ER she did feel somewhat short of breath she states that she has been short of breath for several weeks. She has ruled out for myocardial infarction. EKG did show left bundle-branch block. She denies any syncope, presyncope, paroxysmal nocturnal dyspnea, orthopnea, edema or palpitations. She sometimes does have some epigastric pain it radiates into her back and up into her neck. That pain will last for several hours and she drinks soda and she burps and her symptoms are resolved. Review of Systems Review of Systems: All systems reviewed & are unremarkable except as noted in HPI and below Constitutional: Constitutional: Denies weakness Eyes: Eyes: Denies blurry vision ENT: Reports Normal hearing present and Denies tinnitus Cardiovascular: Cardiovascular: Denies chest pain and Reports palpitations Respiratory: Respiratory: Reports cough and Reports dyspnea on exertion Gastrointestinal: Gastrointestinal: Denies abdominal pain Genitourinary: Genitourinary: Denies flank pain Musculoskeletal: Musculoskeletal: Denies back pain and Denies neck pain Integumentary/Breasts: Skin/Breast: Denies dry skin and Denies unusual bruising Neurologic: Denies headache(s) Psychiatric: Psychiatric: Denies anxiety Endocrine: Endocrine: Denies excessive sweating Hematologic/Lymphatic: Hematologic/Lymphatic: Denies easy bleeding Allergic/Immunologic: Allergic/Immunologic: Denies GI upset with certain foods PMFSH Past Medical History Medical History (Updated 03/29/21 @ 14:42 by Jeff Rich MD) Anemia Anxiety Arthritis Basal cell carcinoma of arm Bladder cancer Borderline diabetic Bronchitis
--- NOTE | 2021-03-29 15:57 | PM.IMHP ---
H&P: HPI History of Present Illness Date/Time: 03/29/21 10:57 Chief Complaint: Cough, epigastric pain radiating to chest back stomach Narrative: 75-year-old female with anxiety, hypertension, hyperlipidemia, diabetes, asthma moderate to persistent, GERD, hiatal hernia, iron deficiency anemia, chronic sinusitis, history of bladder cancer, glaucoma, bilateral cataracts, presents to the hospital with chief complaint of cough. She states that she was treated with antibiotics and steroids in the outpatient setting but her cough has not improved over the last 2 months. Cough is present throughout the day and night and is not noted to be more frequent when patient is lying down. She sought medical attention at an urgent care clinic and was told that she had pneumonia she was given additional antibiotic therapy. She presents to the hospital today for ongoing cough and for recurrent pain that radiates to her chest back and abdomen. This pain has been intermittent for approximately 3 years. Pain occurs usually when patient is lying down. She has been seen by multiple physicians and was told that it was likely a symptom associated with her GERD by her GI doctor. She has had negative cardiac catheterization and stress test in the past. Imaging in the ER reveals a sliding hiatal hernia on CT imaging, however, it fails to reveal pneumonic process. Patient is found to have left bundle-branch block on EKG and admission is recommended for cardiology consult. Review of Systems Review of Systems: All systems reviewed & are unremarkable except as noted in HPI and below PMFSH Past Medical History Medical History (Updated 03/29/21 @ 16:34 by Iliana Pacheco MD) Anemia Anxiety Arthritis Basal cell carcinoma of arm Bladder cancer Borderline diabetic Bronchitis Carpal tunnel syndrome of right wrist Closed nondisplaced fracture of fifth metatarsal bone of left foot Endometriosis GERD (gastroesophageal reflux disease) Hepatic artery dissection Hiatal hernia History of angina History of bladder cancer Hoarseness HTN (hypertension) Hyperlipidemia Left bundle branch block Other fracture of left foot, initial encounter for closed fracture Ovarian cyst Palpitations Pneumonia Pneumonia of left lower lobe due to infectious organism Polyp of urethra Rectal polyp RUQ pain Seasonal allergies Skin cancer Skin neoplasm Transitional cell bladder cancer Ulcer, esophagus UTI (urinary tract infection) UTI symptoms Vision abnormalities Weight loss Surgical History Surgical History (Updated 03/29/21 @ 16:34 by Iliana Pacheco MD) H/O transurethral destruction of bladder lesion History of bladder surgery History of cardiac catheterization History of carpal tunnel release History of hysterectomy History of mastectomy Hx of cholecystectomy Hx of tonsillectomy S/P cholecystectomy S/P left knee arthroscopy S/P trigger finger release x5 Family History Family History Father Family history of coronary artery disease Acute myocardial infarction Mother Family history of coronary artery disease Other Arthritis Diabetes mellitus Family history of allergic disorder Family history of cardiovascular disease Family history of kidney disease Family history of malignant neoplasm Hypertension Social History Social History Second hand tobacco smoke exposure: No Alcohol intake: current Drinks per week: 2 Substance use: never Substance use type: does not use Meds Home Medications and Allergies Home Medications Medication Instructions Recorded Confirmed Type budesonide-formoterol HFA 160 2 puff INHALATION Q12H 01/25/19 03/29/21 History mcg-4.5 mcg/actuation aerosol inhaler omega-3 fatty acids 1,000 mg 1,000 mg PO DAILY #90 cap 03/02/19 03/29/21 Rx capsule blood sugar diagnostic #200 each 07/13/19
[2021-03-29] MEDS: hydroCHLOROthiazide 25 MG TABLET BY MOUTH (16:12)
[2021-03-29] MEDS: PANTOPRAZOLE 40 MG TABLET PO (16:12)
[2021-03-29] MEDS: ALPRAZolam (*CRX) 0.5 MG TABLET PO ×2 (16:12→22:16)
[2021-03-29] MEDS: POTASSIUM CHLORIDE 20 MEQ TABLET 40 MEQ PO (16:50)
--- NOTE | 2021-03-29 17:22 | ADMGEN ---
This patient, Mouna Rodriguez, was admitted to IMU Room 213-01. Patient/family oriented to hospital policies and general routines including ID bracelet, bed and alarms, visiting hours, pain management, procedures, bathroom and other care routines, personal items, smoking policy, room service/diet, and visiting hours. Information on how to activate the Rapid Response Team has been discussed. Patient/Family are encouraged to report perceived risks to care and to ask questions if they do not understand what they are told or what they should do.
[2021-03-29 17:37] LABS: Alveolar/Arterial O2 Gradient 31.5 mmHg; Carboxyhemoglobin 0.3 % THb (0-2.0); Device ROOM AIR; Fractional Inspired Oxygen 21 %; HCO3 ABG 27.4 mEq/l (22.0-26.0); Methemoglobin ABG 0.5 %THb (0-1.5); Modified Allen's Test Pass; Oxygen Saturation ABG 94.4 % (95.0-100.0); Oxyhemoglobin 92.2 % THb (90.0-100.0); PCO2 ABG 41.3 mmHg (35.0-45.0); PO2 ABG 68.8 mmHg (80.0-100.0); PO2 FiO2 Ratio Arterial Blood 3.28 %; Site Drawn RIGHT RADIAL; Total Hemoglobin 13.9 g/dL (12.0-18.0)
[2021-03-29] MEDS: methylPREDNISolone SOD SUCC 40 MG VIAL IV PUSH (17:55)
[2021-03-29] MEDS: ATORVASTATIN 40 MG TABLET 80 MG BY MOUTH (17:57)
[2021-03-29] MEDS: ACETAMINOPHEN 325 MG TABLET 650 MG PO (18:05)
[2021-03-29] MEDS: FLUTICASONE/SALMETEROL 115-21 MCG INHALER 1 PUFF 2 PUFF INHALATION (20:14)
[2021-03-29 21:06] LABS: Hemoglobin A1C 6.7 % (<5.7)
[2021-03-29 21:14] LABS: Glucose Point of Care 213 mg/dl (65-105)
[2021-03-29] MEDS: HEPARIN SODIUM 5,000 UNITS/ML VIAL 5000 UNITS SUB-Q (22:15)
[2021-03-30] VITALS (9 sets, daily range): BP systolic 116–143; BP diastolic 43–72; PULSE 70–105; RESP 18–20; TEMP 35.7–36.7; O2SAT 93–100
--- NOTE | 2021-03-30 | ECHO_ITS ---
Patient Info Name: Mouna Rodriguez Age: 75 years : 1945 Gender: Female Ht: 64 in Wt: 169 lbs BSA: 1.88 m2 HR: 78 bpm BP: 116 / 53 mmHg Heart Rhythm: Sinus Rhythm Technical Quality: Good Exam Date: 03/30/2021 8:13 AM Exam Location: [facility] Patient Status: Outpatient Admit Date: 03/29/2021 Staff Ordering Physician: Jeff Rich MD Senior Consultant: Lyubov Mathews RDCS Attending Provider: Haile Ogden MD Referring Physician: Hilario BUSH; Exam Type: CA echo doppler color flow Study Info Indications - LEFT BUNDLE BRANCH BLOCK Complete two-dimensional, color flow and Doppler transthoracic echocardiogram is performed. Strain analysis performed. Summary 1. Complete two-dimensional, color flow and Doppler transthoracic echocardiogram is performed. 2. Strain analysis performed. 3. Left ventricular systolic function is low normal, estimated at 50-55%. 4. Left ventricular chamber dimension is normal. 5. There is mildly increased left ventricular wall thickness. 6. Left ventricular septal wall motion is abnormal with septal motion related to bundle branch block. 7. The left ventricular diastolic function is grade I diastolic dysfunction. 8. Global longitudinal strain is abnormal at -13 %. 9. Left atrial chamber dimension is mildly enlarged. 10. There is mild aortic valve regurgitation. 11. There is mild aortic valve calcification. 12. There is mild mitral valve regurgitation. 13. There is mild tricuspid valve regurgitation. 14. Mild pulmonary hypertension, estimated pulmonary arterial systolic pressure is 36 mmHg. 15. There is mild pulmonic regurgitation. Left Ventricle Left ventricular systolic function is low normal, estimated at 50-55%. Left ventricular chamber dimension is normal. There is mildly increased left ventricular wall thickness. Left ventricular septal wall motion is abnormal with septal motion related to bundle branch block. The left ventricular diastolic function is grade I diastolic dysfunction. Global longitudinal strain is abnormal at -13 %. Right Ventricle Right ventricular chamber dimension is normal. Right ventricular systolic function is normal. Left Atria Left atrial chamber dimension is mildly enlarged. Right Atria Right atrial chamber dimension is normal. Atrial Septum Intact interatrial septum visualized by color flow imaging. Aortic Valve The aortic valve is trileaflet. There is moderate aortic valve sclerosis. There is no aortic valve stenosis. There is mild aortic valve regurgitation. There is mild aortic valve calcification. Pulmonic Valve The pulmonic valve is normal. There is no pulmonic valve stenosis. There is mild pulmonic regurgitation. Mitral Valve The mitral valve has normal leaflets. There is no mitral valve stenosis. There is mild mitral valve regurgitation. Tricuspid Valve The tricuspid valve leaflets are normal. There is no significant tricuspid valve stenosis. There is mild tricuspid valve regurgitation. Mild pulmonary hypertension, estimated pulmonary arterial systolic pressure is 36 mmHg. Pericardium/Pleural The pericardium appears normal. There is no pericardial effusion. Inferior Vena Cava Normal inferior vena cava with <50% collapse upon inspiration consistent with elevated right atrial pressure, 10 mmHg. Aorta The aortic root size at the sinus of Valsalva is normal. Left Ventricular Outflow Tract
--- NOTE | 2021-03-30 08:00 | EST_ITS ---
Patient Info Name: Mouna Rodriguez Age: 75 years : 1945 Gender: Female Ht: 64 in Wt: 179 lbs BSA: 1.94 m2 HR: 96 bpm BP: 148 / 73 mmHg Heart Rhythm: Sinus Rhythm Exam Date: 03/30/2021 11:34 AM Exam Location: [facility] Stress Patient Status: Outpatient Admit Date: 03/29/2021 Staff Ordering Physician: Jeff Rich MD Attending Provider: Haile Ogden MD Exercise Technologist: Griselda Sutherland, CT Nurse: JADEN WALDRON Exam Type: CA stress ro w NM Study Info Indications I44.7 - Left bundle-branch block, unspecified A regadenoson stress test was performed. Summary 1. Please correlate with nuclear medicine images, reported separately. 2. No abnormal ST-T wave changes with lexiscan. 3. Non-diagnostic ECG due to left bundle branch block. Protocol: Lexiscan Stress ECG Details Stage: REST Duration (min): 0 min : 47 sec HR (bpm): 93 SBP (mmHg): 148 DBP (mmHg): 73 Stage: REST Duration (min): 9 min : 34 sec HR (bpm): 100 SBP (mmHg): 148 DBP (mmHg): 73 Stage: STAGE 1 Duration (min): 0 min : 59 sec HR (bpm): 109 SBP (mmHg): 140 DBP (mmHg): 51 Stage: RECOVERY Duration (min): 1 min : 0 sec HR (bpm): 110 SBP (mmHg): 140 DBP (mmHg): 51 Stage: RECOVERY Duration (min): 2 min : 0 sec HR (bpm): 109 SBP (mmHg): 140 DBP (mmHg): 51 Stage: RECOVERY Duration (min): 3 min : 0 sec HR (bpm): 107 SBP (mmHg): 144 DBP (mmHg): 53 Stage: RECOVERY Duration (min): 4 min : 0 sec HR (bpm): 107 SBP (mmHg): 144 DBP (mmHg): 53 Stage: RECOVERY Duration (min): 4 min : 45 sec HR (bpm): 104 SBP (mmHg): 143 DBP (mmHg): 57 Rest HR: 100 bpm Peak HR: 111 bpm Rest Sys BP: 148 mmHg Peak Sys BP: 144 mmHg Max Pred HR: 145 bpm % Max Pred HR: 77 % Target HR: 123 bpm Max RPP: 15,984 bpm*mmHg Target HR Summary: Hemodynamic response to exercise was normal BP Response: Normal blood pressure response Termination Reason: Completed protocol Cardiac Symptoms: None Total Time: 1 min : 0 sec Rest Dash BP: 73 mmHg Peak Dash BP: 53 mmHg Total Dose: 0.4 mg Resting ECG Normal sinus rhythm. Left bundle branch block. Stress ECG No abnormal ST/T wave changes with Lexiscan. Non-diagnostic ECG due to left bundle branch block. Arrhythmias Occasional PVCs. Report Signatures
[2021-03-30] MEDS: HEPARIN SODIUM 5,000 UNITS/ML VIAL 5000 UNITS SUB-Q (08:40)
[2021-03-30] MEDS: OMEGA 3 POLYUNSAT FATTY ACIDS 1 GM CAP PO (08:41)
[2021-03-30] MEDS: ASPIRIN 81 MG CHEWABLE TABLET PO (08:41)
[2021-03-30] MEDS: methylPREDNISolone SOD SUCC 40 MG VIAL IV PUSH (08:41)
[2021-03-30] MEDS: ATORVASTATIN 40 MG TABLET 80 MG BY MOUTH (08:41)
[2021-03-30] MEDS: PANTOPRAZOLE 40 MG TABLET PO (08:41)
[2021-03-30] MEDS: hydroCHLOROthiazide 25 MG TABLET BY MOUTH (08:41)
[2021-03-30] MEDS: amLODIPine BESYLATE 5 MG TABLET PO (08:42)
[2021-03-30] MEDS: FLUTICASONE PROPIONATE 0.05% NA SPR 16 GM BTL (*BKC) 2 SPRAY NASAL (08:42)
[2021-03-30] MEDS: AMITRIPTYLINE HCL 10 MG TABLET 30 MG PO (08:47)
[2021-03-30] MEDS: FLUTICASONE/SALMETEROL 115-21 MCG INHALER 1 PUFF 2 PUFF INHALATION (08:48)
[2021-03-30 09:09] LABS: Glucose Point of Care 99 mg/dl (65-105)
--- NOTE | 2021-03-30 09:14 | PM.PNCARD ---
Progress Note: A&P Assessment and Plan (1) Flank pain: Code(s): R10.9 - Unspecified abdominal pain Status: Acute Assessment and Plan: Highly atypical for cardiac etiology. She has incidentally found to have left bundle-branch block. She has a normal cardiac catheterization performed in this hospital a few years ago. Because of her new left bundle, Lexiscan to be performed this morning. Discontinue nitroglycerin paste. Cardiac workup is benign, she can be discharged from cardiac perspective (2) Benign essential hypertension: Code(s): I10 - Essential (primary) hypertension Status: Acute Assessment and Plan: Continue home meds (3) Left bundle branch block: Code(s): I44.7 - Left bundle-branch block, unspecified Status: Acute Assessment and Plan: New diagnosis. Echo pending (4) Cough: Code(s): R05.9 - Cough, unspecified Status: Deleted (5) Hyperlipidemia: Code(s): E78.5 - Hyperlipidemia, unspecified Status: Acute Assessment and Plan: Continue statin Subjective Date/time seen: 03/30/21 09:14 Interval history: 75-year-old admitted for right posterior burning pain in her back. Also left bundle-branch block noted Date of service 03/30/2021: Feels well today. No chest pain or back pain. No shortness of breath Review of Systems Review of Systems: All systems reviewed & are unremarkable except as noted in HPI and below Constitutional: Constitutional: Denies excessive sweating, Denies headache(s) and Denies weakness Eyes: Eyes: Denies blurry vision ENT: Reports Normal hearing present, Denies headache(s), Denies neck pain and Denies tinnitus Cardiovascular: Cardiovascular: Denies chest pain, Reports palpitations and Reports dyspnea on exertion Respiratory: Respiratory: Reports cough and Reports dyspnea on exertion Gastrointestinal: Gastrointestinal: Denies abdominal pain Genitourinary: Genitourinary: Denies flank pain Musculoskeletal: Musculoskeletal: Denies back pain and Denies neck pain Integumentary/Breasts: Skin/Breast: Denies dry skin and Denies unusual bruising Neurologic: Reports Normal hearing present, Denies headache(s) and Denies weakness Psychiatric: Psychiatric: Denies anxiety Endocrine: Endocrine: Denies excessive sweating and Reports palpitations Hematologic/Lymphatic: Hematologic/Lymphatic: Denies easy bleeding Allergic/Immunologic: Allergic/Immunologic: Denies GI upset with certain foods Exam Narrative: Awake alert. Appears in no acute distress. Appears stated age Const: General: comfortable and no acute distress HENMT: General nose exam: Normal nares present Eyes: Sclera: sclerae normal Neck: Neck: supple and no JVD Lymphatic: lymphadenopathy not noted Chest: Other: No reproducible chest wall pain to palpation Resp: Auscultation: clear to auscultation bilaterally Cardio: Rate: regular rate Rhythm: regular rhythm GI: Auscultation: bowels sounds not normal Skin: General skin exam: normal color Neuro: Cranial nerves: Yes Normal hearing present Cognition (Neuro): normal cognition Speech: normal speech Extrem: General: normal to inspection and no edema Psych: Mental Status: mental status grossly normal Objective Data Vital Signs Vital Signs: Vital Signs - 24 hr 03/29/21 09:15 03/29/21 09:30 03/29/21 09:56 Temperature Pulse Rate 92 85 87 Respiratory Rate 14 14 19 Blood Pressure Pulse Oximetry 95 95 97 03/29/21 10:00 03/29/21 10:15 03/29/21 10:30 Temperature Pulse Rate 89 66 101 H Respiratory Rate 19 14 26 H Blood Pressure Pulse Oximetry 98 95 97 03/29/21 10:45 03/29/21 11:00 03/29/21 11:28 Temperature Pulse Rate 74 61 81 Respiratory Rate 13 16 19 Blood Pressure Pulse Oximetry 95 92 95 03/29/21 11:30 03/29/21 11:46 03/29/21 12:51 Temperature Pulse Rate 86 99 86 Respiratory Rate 21 H 22 H 16 Blood Pressure Pulse Oxime
[2021-03-30 12:34] LABS: Glucose Point of Care 197 mg/dl (65-105)
--- NOTE | 2021-03-30 13:11 | PM.DS ---
DS: Admitting Diagnosis Discharge Date 03/30/21 Admitting Diagnosis (1) Hyperlipidemia: Code(s): E78.5 - Hyperlipidemia, unspecified Status: Acute (2) Left bundle branch block: Code(s): I44.7 - Left bundle-branch block, unspecified Status: Acute (3) Chronic cough: Code(s): R05.3 - Chronic cough Status: Acute (4) DM w/o complication type II: Code(s): E11.9 - Type 2 diabetes mellitus without complications Status: Acute (5) Glaucoma: Code(s): H40.9 - Unspecified glaucoma Status: Acute (6) Moderate persistent asthma: Code(s): J45.40 - Moderate persistent asthma, uncomplicated Status: Acute (7) GERD (gastroesophageal reflux disease): Code(s): K21.9 - Gastro-esophageal reflux disease without esophagitis Status: Acute (8) Obesity: Code(s): E66.9 - Obesity, unspecified Status: Acute (9) Anxiety: Code(s): F41.9 - Anxiety disorder, unspecified Status: Acute (10) Benign essential hypertension: Code(s): I10 - Essential (primary) hypertension Status: Acute Assessment and Plan: DS: Discharge Diagnosis Discharge Diagnosis (1) Moderate persistent asthma: Code(s): J45.40 - Moderate persistent asthma, uncomplicated Status: Acute (2) Chronic cough: Code(s): R05.3 - Chronic cough Status: Acute (3) Hyperlipidemia: Code(s): E78.5 - Hyperlipidemia, unspecified Status: Acute (4) Left bundle branch block: Code(s): I44.7 - Left bundle-branch block, unspecified Status: Acute (5) GERD (gastroesophageal reflux disease): Code(s): K21.9 - Gastro-esophageal reflux disease without esophagitis Status: Acute (6) DM w/o complication type II: Code(s): E11.9 - Type 2 diabetes mellitus without complications Status: Acute (7) Benign essential hypertension: Code(s): I10 - Essential (primary) hypertension Status: Acute (8) Anxiety: Code(s): F41.9 - Anxiety disorder, unspecified Status: Acute (9) Obesity: Code(s): E66.9 - Obesity, unspecified Status: Acute (10) Hiatal hernia: Code(s): K44.9 - Diaphragmatic hernia without obstruction or gangrene Status: Acute DS: Summary Hospital Course Reason for hospitalization: cough and chest pain Hospital Course: 03/29/21 Admit to med surg with tele New LBBB extensive review of medical chart no prior EKGs with this arrhythmia Consult cardiology Serial troponins Change ARB to other class of medication may be contributing to cough Amlodipine 5 mg likely will need to be increased Continue steroids for persistent asthma probable that this is the reason for her chronic cough Patient advised to 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 pt was seen by cardiology and cleared for dc home in stable condition after ACS ruled out and ECHO nonrevealing w lexiscan w poor study quality findings reviewed by cardiology. pt to follow up w Cardiology, Light Cleaner, and PCP after dc cont steroid taper and change of BP med for improvement of chronic cough Status at Discharge Functional status at discharge: independent ambulation Overall status at discharge: patient is back to baseline Time Spent with Patient Time attestation: Total time spent providing and/or coordinating discharge services: Time spent: Greater than 30 minutes Exam Const: General: comfortable and no acute distress HENMT: General nose exam: Normal nares present Mouth: Yes moist mucous membranes Eyes: General: appearance normal, both eyes and all related structures Sclera: sclerae normal EOM: EOMs intact bilaterally Neck: Neck: no JVD Resp: Effort & Inspection: normal respiratory effort Auscultation
== END 2021-03-30 16:13 | disposition home or self-care (01) ==
LOC: ANHED 03-29 02:52 → ANHIMU 03-29 03:47
PROVIDERS: Admitting Provider Internal Medicine; Emergency Provider Family Medicine; PCP Internal Medicine; Visit Provider Hospitalist
DX: J45.40 Moderate persistent asthma, uncomplicated (principal); R05.3 Chronic cough; R10.13 Epigastric pain; R06.02 Shortness of breath; I10 Essential (primary) hypertension; I44.7 Left bundle-branch block, unspecified; E11.9 Type 2 diabetes mellitus without complications; F41.9 Anxiety disorder, unspecified; D64.9 Anemia, unspecified; K21.9 Gastro-esophageal reflux disease without esophagitis; E78.5 Hyperlipidemia, unspecified; K44.9 Diaphragmatic hernia without obstruction or gangrene; D50.9 Iron deficiency anemia, unspecified; H40.9 Unspecified glaucoma; Z85.51 Personal history of malignant neoplasm of bladder; E66.9 Obesity, unspecified; Z68.30 Body mass index [BMI] 30.0-30.9, adult; Z79.51 Long term (current) use of inhaled steroids; Z79.84 Long term (current) use of oral hypoglycemic drugs; Z20.822 Contact with and (suspected) exposure to COVID-19
CPT/HCPCS: 36415; 36600; 71046; 71250; 78452; 80053; 82375; 82805; 82948; 83036; 83050; 83880; 84484; 85025; 85380; 85610; 93005; 93017; 93306; 94640; 96361; 96372; 96374; 96376; 99285; A9270; A9502; C9803; G0378; J1644; J1650; J2785; J2920; J7030; U0003; U0005

== ENCOUNTER 2021-04-25 00:30 | Emergency (ER) | payer MEDICARE, SELFPAY ==
[2021-04-25] VITALS (29 sets, daily range): BP systolic 122–155; BP diastolic 58–104; PULSE 95–122; RESP 10–28; TEMP 36.8; O2SAT 92–98
--- NOTE | ~2021-04-25 | CT_ITS ---
EXAMINATION: CTA chest PE protocol DATE: 04/25/2021 02:08 INDICATION: Chest pain. Tachycardia. TECHNIQUE: Computed tomography angiography (CTA) of the chest was performed with 100 mL Omnipaque-350 intravenous contrast timed to evaluate the pulmonary arteries. Coronal maximum intensity projection 3D-reconstructions were created by the technologist. Automated exposure control and iterative reconst ruction technique were employed. The dose-length product was 693.23 mGy-cm. COMPARISON: Chest CT 03/29/2021 FINDINGS: The lungs demonstrate mild atelectasis. Calcified left lung nodules and calcified left izabella r lymph nodes are consistent with old granulomatous disease. There is mild scarring at the lung apice s. No pleural effusion. The heart size is normal. No pericardial effusion. There is no pulmonary embo jinny. There are changes of cholecystectomy. There is a small sliding hiatal hernia. There is mild thor acic spondylosis. There are benign bone islands in T4 spinous process and T6 vertebral body. IMPRESSION: 1. No pulmonary embolus. 2. Small sliding hiatal hernia. Reviewed, dictated and finalized at location A. ORK SYSTEMS INTEGRATOR
--- NOTE | ~2021-04-25 | XR_ITS ---
EXAMINATION: XR chest 2V DATE: 04/25/2021 01:20 INDICATION: Weakness. TECHNIQUE: Frontal and lateral views of the chest were obtained. COMPARISON: Chest 2 views 03/29/2021, chest CT 04/25/2021 FINDINGS: There is mild scarring at the lung apices. There is mild atelectasis at the lung bases. No pleural effusion or pneumothorax. The heart size is normal. Surgical clips in the right upper quadran t are likely from cholecystectomy. IMPRESSION: 1. Mild atelectasis at the lung bases and mild scarring at the lung apices. Reviewed, dictated and finalized at location A. E FARM AGENT TEAM MEMBER
--- NOTE | 2021-04-25 00:40 | ECG_ITS ---
Measurements Intervals [place] Rate: 115 P: 70 KS: 166 QRS: 35 QRSD: 148 T: 63 QT: 361 QTc: 501 Interpretive Statements SINUS TACHYCARDIA LEFT BUNDLE BRANCH BLOCK [120+ ms QRS DURATION, 80+ ms Q/S IN V1/V2, 85+ ms R IN I/aVL/V5/V6] ABNORMAL ECG COMPARED TO ECG 03/29/2021 00:31:03 NO SIGNIFICANT CHANGES Electronically Signed On 04-25-2021 13:14:04 ORACLE DATABASE ANALYST by Munir Rodriguez M.D.
[2021-04-25 01:11] LABS: Basophils Percent Auto 0.3 % (0.2-1.2); Eosinophils Percent Auto 0.1 % (0-4.4); Hematocrit 42.9 % (37.0-47.0); Hemoglobin 14.1 g/dL (12.0-15.0); Immature Granulocyte Absolute 0.03 K/mm3 (0.00-0.031); Immature Granulocyte Percent A 0.4 % (0-0.5); Lymphocytes Absolute Auto 1.47 K/mm3 (0.9-3.2); Lymphocytes Percent Auto 21.8 % (18.3-44.2); Mean Corpuscular HGB Conc 32.9 g/dl (32-36); Mean Corpuscular Hemoglobin 31.7 pg (26-34); Mean Corpuscular Volume 96.4 fl (80-100); Mean Platelet Volume 8.7 fl (7.4-10.4); Monocytes Absolute Auto 0.2 K/mm3 (0.1-0.6); Monocytes Percent Auto 3.1 % (2.6-8.5); Neutrophils Percent Auto 74.3 % (45.5-73.1); Platelet Count Result 420 k/mm3 (150-375); Red Blood Count 4.45 M/mm3 (4.2-5.4); Red Cell Distribution Width 13.2 % (11.5-14.5); White Blood Count 6.8 K/mm3 (4.5-10.0)
[2021-04-25] MEDS: SODIUM CHLORIDE 0.9% IV 1,000 ML 999 ML IV CONT (01:12)
--- NOTE | 2021-04-25 01:12 | ED.ARRPALP ---
HPI - Arrhythmia/Palpitations General Chief Complaint: Arrhythmia/Palpitations Stated Complaint: fast heart rate Time Seen by Provider: 04/25/21 00:45 Source: patient, RN notes reviewed and old records reviewed Mode of arrival: ambulatory Limitations: no limitations History of Present Illness HPI narrative: This is a 75 year old female with history anxiety, hyperlipidemia who presents for evaluation of rapid heart rate. Patient states she was sitting when she felt weak. She reports sweating so she checked her heart rate. She reports heart rate of 135 on her monitor. She denies having chest pain, shortness of breath, or palpitations with these symptoms. She could not feel her heart racing. She reports lightheadedness when she stood she. She was afraid because she lives at home alone so she came to hospital. She took 1 of her xanax and she feels much better. Related Data Home Medications Medication Instructions Recorded Confirmed budesonide-formoterol HFA 160 2 puff INHALATION Q12H 01/25/19 04/17/21 mcg-4.5 mcg/actuation aerosol inhaler ferrous sulfate 325 mg (65 mg 325 mg PO DAILY 07/15/19 04/17/21 iron) tablet oxybutynin chloride 10 mg 10 mg PO BID tablet 07/15/19 04/17/21 tablet,extended release 24 hr valacyclovir 1 gram tablet 1,000 mg PO DAILY 02/23/20 04/17/21 albuterol sulfate 90 mcg/actuation 2 puff INHALATION Q4H PRN g 07/19/20 04/17/21 aerosol inhaler ascorbic acid (vitamin C) 1,000 mg 1 g PO DAILY 03/13/21 04/17/21 tablet cholecalciferol (vitamin D3) 50 50 mcg PO DAILY 03/13/21 04/17/21 mcg (2,000 unit) capsule amitriptyline 100 mg PO HS 04/25/21 04/25/21 Allergies Allergy/AdvReac Type Severity Reaction Status Date / Time azithromycin Allergy Unknown Swelling Verified 04/25/21 00:44 Sulfa (Sulfonamide Allergy Unknown Rash Verified 04/25/21 00:44 Antibiotics) Review of Systems Review of Systems: All systems reviewed & are unremarkable except as noted in HPI and below Constitutional: Constitutional: Denies chills, Reports fatigue and Denies fever(s) Cardiovascular: Cardiovascular: Denies chest pain, Reports rapid heart rate and Denies radiating jaw, neck or arm pain Respiratory: Respiratory: Denies cough and Denies dyspnea Gastrointestinal: Gastrointestinal: Denies abdominal pain, Denies diarrhea, Denies nausea and Denies vomiting Musculoskeletal: Musculoskeletal: Denies back pain [facility] Past Medical History Medical History Anemia Anxiety Arthritis Basal cell carcinoma of arm Bladder cancer Borderline diabetic Bronchitis Carpal tunnel syndrome of right wrist Closed nondisplaced fracture of fifth metatarsal bone of left foot Endometriosis GERD (gastroesophageal reflux disease) Hepatic artery dissection Hiatal hernia History of angina History of bladder cancer Hoarseness HTN (hypertension) Hyperlipidemia Left bundle branch block Other fracture of left foot, initial encounter for closed fracture Ovarian cyst Palpitations Pneumonia Pneumonia of left lower lobe due to infectious organism Polyp of urethra Rectal polyp RUQ pain Seasonal allergies Skin cancer Skin neoplasm Transitional cell bladder cancer Ulcer, esophagus UTI (urinary tract infection) UTI symptoms Vision abnormalities Weight loss Surgical History Surgical History H/O transurethral destruction of bladder lesion History of bladder surgery History of cardiac catheterization History of carpal tunnel release History of hysterectomy History of mastectomy Hx of cholecystectomy Hx of tonsillectomy S/P cholecystectomy S/P left knee arthroscopy S/P trigger finger release x5 Family History Family History Father Family history of coronary artery disease Acute myocardial infarction Mother Family history of coronary artery
[2021-04-25 01:23] LABS: Partial Thromboplastin Time 28.6 SECONDS (22.3-36.8)
[2021-04-25 01:24] LABS: Alanine Aminotransferase 26 U/L (4-35); Albumin Level 4.6 g/dL (3.5-5.1); Alkaline Phosphatase 110 U/L (38-126); Anion Gap 12 mmol/L (8-16); Aspartate Amino Transferase 28 U/L (14-36); Bilirubin,Total 0.3 mg/dL (0.2-1.3); Blood Urea Nitrogen 13 mg/dL (7-17); Calcium 10.1 mg/dL (8.4-10.2); Carbon Dioxide 26 mmol/L (22-30); Chloride 96 mmol/L (98-107); Estimated CRCL calculation 82 ml/min; Estimated Glomerular Filt Rate > 60; Glucose 271 mg/dL (65-110); Magnesium 1.5 mg/dL (1.6-2.3); Potassium 3.8 mmol/L (3.4-5.0); Sodium 134 mmol/L (137-145)
[2021-04-25 01:28] LABS: INR 0.9; Prothrombin Time 11.4 Seconds (11.1-14.7)
[2021-04-25 01:33] LABS: Glucose Point of Care 247 mg/dl (65-105)
[2021-04-25 01:35] LABS: Troponin I < 0.012 ng/mL (0.000-0.034)
[2021-04-25 01:38] LABS: Lactic Acid Reflex 2.8 mmol/L (0.7-2.1)
[2021-04-25 01:40] LABS: D Dimer 0.51 ug/mL (<0.48)
[2021-04-25] MEDS: MAGNESIUM SULF 1 GM/D5W 100 ML 1 GM/100 ML BAG IVPB (01:57)
[2021-04-25 02:29] LABS: Thyroid Stimulating Hormone Reflex 0.498 uIU/mL (0.465-4.68)
[2021-04-25 04:24] LABS: Reflex Lactic Acid Yes or No Add Lactic
== END 2021-04-25 03:40 | disposition home or self-care (01) ==
PROVIDERS: Emergency Provider General Practice; PCP Internal Medicine
DX: R00.0 Tachycardia, unspecified (principal); J42 Unspecified chronic bronchitis; E83.42 Hypomagnesemia; R73.9 Hyperglycemia, unspecified; D64.9 Anemia, unspecified; K21.9 Gastro-esophageal reflux disease without esophagitis; I10 Essential (primary) hypertension; E78.5 Hyperlipidemia, unspecified; M19.90 Unspecified osteoarthritis, unspecified site; F41.9 Anxiety disorder, unspecified; Z85.828 Personal history of other malignant neoplasm of skin; R73.03 Prediabetes; Z87.01 Personal history of pneumonia (recurrent); Z87.442 Personal history of urinary calculi; Z85.51 Personal history of malignant neoplasm of bladder; Z90.10 Acquired absence of unspecified breast and nipple; Z79.82 Long term (current) use of aspirin; Z79.84 Long term (current) use of oral hypoglycemic drugs; I44.7 Left bundle-branch block, unspecified; K44.9 Diaphragmatic hernia without obstruction or gangrene
CPT/HCPCS: 36415; 71046; 71275; 80053; 82948; 83605; 83735; 84443; 84484; 85025; 85380; 85610; 85730; 93005; 96365; 99284; J3475; J7030; Q9967

== ENCOUNTER → 2021-09-11 13:25 | Outpatient (REF) | payer MEDICARE, SELFPAY | LOC: ANHLAB 13:25 | PROVIDERS: PCP Internal Medicine; Visit Provider Nurse Practitioner | DX: D49.2 Neoplasm of unspecified behavior of bone, soft tissue, and skin (principal) | CPT/HCPCS: 88305 ==

== ENCOUNTER 2021-09-27 18:14 | Emergency (ER) | payer MEDICARE, SELFPAY ==
--- NOTE | ~2021-09-27 | XR_ITS ---
XR ankle LT min 3V 09/27/2021 18:39 INDICATION: Left ankle pain PROCEDURE: 4 views left ankle COMPARISON: No prior studies for comparison. FINDINGS: Fracture, dislocation or subluxation is not identified. There is a small degenerative calca shade enthesophyte. There is mild lateral soft tissue swelling. No foreign bodies are identified. IMPRESSION: 1: NO ACUTE BONE OR JOINT ABNORMALITY IDENTIFIED. Reviewed, dictated and finalized at location A.
[2021-09-27 18:21] VITALS: BP 139/67; PULSE 110; RESP 18; TEMP 37.7; O2SAT 93
--- NOTE | 2021-09-27 18:21 | ED.EXTPRO ---
HPI - Extremity Problem General Chief complaint: Extremity Problem,Nontraumatic Stated complaint: left ankle/foot swelling/pain Time Seen by Provider: 09/27/21 18:23 Source: patient and RN notes reviewed Mode of arrival: ambulatory Limitations: no limitations History of Present Illness HPI Narrative: 75-year-old female presents with concern for left ankle and foot pain. She reports noticing it was swollen yesterday but not necessarily painful. Reports that she woke up today and the pain started, and then continued to worsen throughout the day. She reports after walking in [employer] this evening she could hardly walk on it . She reports over the weekend she was at an event wearing heels, standing on her feet all day, reports yesterday she stood up and slightly rolled her ankle, however it was not painful immediately afterwards she reports ibuprofen helps the pain. She denies fever, open skin, rash. She denies general malaise. MD Complaint: extremity pain Related Data Home Medications Medication Instructions Recorded Confirmed oxybutynin chloride 10 mg 10 mg PO BID 07/15/19 09/27/21 tablet,extended release 24 hr valacyclovir 1 gram tablet 1,000 mg PO DAILY 02/23/20 09/27/21 ascorbic acid (vitamin C) 1,000 mg 1 g PO DAILY 03/13/21 09/27/21 tablet cholecalciferol (vitamin D3) 50 50 mcg PO DAILY 03/13/21 09/27/21 mcg (2,000 unit) capsule amitriptyline 100 mg tablet 100 mg PO HS 04/25/21 09/27/21 albuterol sulfate 90 mcg/actuation inhalation 09/27/21 aerosol inhaler fluticasone fur. 200 mcg-umeclid inhalation 09/27/21 62.5 mcg-vilant 25 mcg inhalat.powder (Trelegy Ellipta) Allergies Allergy/AdvReac Type Severity Reaction Status Date / Time azithromycin Allergy Unknown Swelling Verified 09/27/21 18:20 Sulfa (Sulfonamide Allergy Unknown Rash Verified 09/27/21 18:20 Antibiotics) Review of Systems Review of Systems: CONSTITUTIONAL: Reports malaise, fatigue. Denies chills, sweats, or fever. CARDIOVASCULAR: Denies chest pain, palpitations, or edema. HEENT: Reports mild rhinorrhea RESPIRATORY: Denies cough or dyspnea. SKIN: Denies rash or itching, bruising, redness, swelling. MUSCULOSKELETAL: Reports left ankle pain, swelling, foot swelling NEUROLOGIC: Denies numbness, weakness All systems reviewed & are unremarkable except as noted in HPI and below PMFSH Past Medical History Medical History Anemia Anxiety Arthritis Basal cell carcinoma of arm Bladder cancer Borderline diabetic Bronchitis Carpal tunnel syndrome of right wrist Closed nondisplaced fracture of fifth metatarsal bone of left foot Endometriosis GERD (gastroesophageal reflux disease) Hepatic artery dissection Hiatal hernia History of angina History of bladder cancer Hoarseness HTN (hypertension) Hyperlipidemia Left bundle branch block Other fracture of left foot, initial encounter for closed fracture Ovarian cyst Palpitations Pneumonia Pneumonia of left lower lobe due to infectious organism Polyp of urethra Rectal polyp RUQ pain Seasonal allergies Skin cancer Skin neoplasm Transitional cell bladder cancer Ulcer, esophagus UTI (urinary tract infection) UTI symptoms Vision abnormalities Weight loss Surgical History Surgical History H/O transurethral destruction of bladder lesion History of bladder surgery History of cardiac catheterization History of carpal tunnel release History of hysterectomy History of mastectomy Hx of cholecystectomy Hx of tonsillectomy S/P cholecystectomy S/P left knee arthroscopy S/P trigger finger release x5 Family History Family History Father Family history of coronary artery disease Acute myocardial infarction Mother Family history of coronary artery disease Other Arthritis Diabetes mellitus Family history of
== END 2021-09-27 19:30 | disposition home or self-care (01) ==
PROVIDERS: Emergency Provider Nurse Practitioner; PCP Internal Medicine
DX: M25.572 Pain in left ankle and joints of left foot (principal); M25.472 Effusion, left ankle; Z20.822 Contact with and (suspected) exposure to COVID-19; N80.9 Endometriosis, unspecified; K21.9 Gastro-esophageal reflux disease without esophagitis; I10 Essential (primary) hypertension; E78.5 Hyperlipidemia, unspecified; Z85.828 Personal history of other malignant neoplasm of skin; Z85.51 Personal history of malignant neoplasm of bladder; I20.9 Angina pectoris, unspecified
CPT/HCPCS: 73610; 87426; 99213; C9803; G0463

== ENCOUNTER 2022-12-02 12:53 | Outpatient (NON) | payer MEDICARE, SELFPAY | END 2022-12-02 12:54 | disposition home or self-care (01) | LOC: ANHLAB 12-04 12:57 | PROVIDERS: PCP Nurse Practitioner Family; Visit Provider Nurse Practitioner | DX: D48.5 Neoplasm of uncertain behavior of skin (principal) | CPT/HCPCS: 88305 ==

== ENCOUNTER 2024-01-01 01:41 | Day surgery (SDC) | payer MEDICARE, SELFPAY ==
[2023-12-23 13:52] VITALS: BMI 23.9
--- NOTE | 2024-01-01 10:16 | WPDANESEPPF ---
Anes - Initial Pre Proc Eval Procedure: Operation Date: 01/01/24 11:30 Proposed Procedures p Colonoscopy - Flaco Reddy MD Date/Time: 01/01/24 10:16 Surgeon: Flaco Reddy MD Pre Op Diagnosis: Personal Hx. Colon polyps Patient Data Age: 78 Gender: F Height: 1.63 m Weight: 63.3 kg Allergies Allergy/AdvReac Type Severity Reaction Status Date / Time azithromycin Allergy Unknown Swelling Verified 01/01/24 10:11 Sulfa (Sulfonamide Allergy Unknown Rash Verified 01/01/24 10:11 Antibiotics) Home Medications Medication Instructions Recorded Confirmed Type blood sugar diagnostic #200 ea 07/13/19 01/01/24 Rx oxybutynin chloride 10 mg 10 mg PO BID 07/15/19 01/01/24 History tablet,extended release 24 hr lancets (OneTouch UltraSoft #50 ea 12/24/19 01/01/24 Rx Lancets) aspirin 81 mg chewable tablet 81 mg PO DAILY@0800 30 days #30 03/30/21 01/01/24 Rx (Children's Aspirin) tabs amitriptyline 100 mg tablet 100 mg PO HS 04/25/21 01/01/24 History fluticasone fur. 200 mcg-umeclid 200 inh inhalation DAILY 03/01/22 01/01/24 History 62.5 mcg-vilant 25 mcg inhalat.powder (Trelegy Ellipta) fluticasone propionate 50 2 spray intranasal DAILY PRN 03/19/22 01/01/24 History mcg/actuation nasal Allergy Symptoms spray,suspension (Flonase Allergy Relief) valacyclovir 1 gram tablet 1,000 mg PO DAILY PRN Cold Sores 03/19/22 01/01/24 History blood sugar diagnostic #100 ea 06/23/23 01/01/24 Rx fluconazole 150 mg tablet 150 mg PO ONCE #3 tabs 06/25/23 01/01/24 Rx atorvastatin 80 mg tablet See Rx Instructions .Route 08/04/23 01/01/24 Rx .COMPLEX #100 tabs triamcinolone acetonide 0.1 % 1 applic topical BID PRN rash #30 09/17/23 01/01/24 Rx topical cream grams hydrochlorothiazide 25 mg tablet See Rx Instructions .Route 10/16/23 01/01/24 Rx .COMPLEX #90 tabs albuterol sulfate 90 mcg/actuation 2 inh inhalation ONCE PRN 12/03/23 01/01/24 Rx aerosol inhaler shortness of breath #8.5 grams metformin 1,000 mg tablet 1,000 mg PO DAILY #100 tabs 12/03/23 01/01/24 Rx alprazolam 0.5 mg tablet 0.5 mg PO TID PRN anxiety #90 tabs 12/17/23 01/01/24 Rx losartan 50 mg tablet See Rx Instructions .Route 12/17/23 01/01/24 Rx .COMPLEX #100 tabs sennosides 8.6 mg tablet (Senna 17.2 mg PO PC PRN constipation 12/23/23 01/01/24 History Laxative) Patient hx anesthesia problems: none Family hx anesthesia problems: none Results Review: All pre-operative results and documents have been reviewed as part of the pre-operative evaluation. [facility] Past Medical History Medical History Anemia Anxiety Arthritis Basal cell carcinoma of arm Bladder cancer Borderline diabetic Bronchitis Carpal tunnel syndrome of right wrist Chronic cholecystitis without calculus Closed nondisplaced fracture of fifth metatarsal bone of left foot DM type 2 (diabetes mellitus, type 2) Dysfunctional gallbladder Endometriosis GERD (gastroesophageal reflux disease) Hepatic artery dissection Hiatal hernia History of angina History of bladder cancer Hoarseness HTN (hypertension) Left bundle branch block Other fracture of left foot, initial encounter for closed fracture Ovarian cyst Palpitations Pneumonia Pneumonia of left lower lobe due to infectious organism Polyp of urethra Rectal polyp RUQ pain Seasonal allergies Skin cancer Skin neoplasm Transitional cell bladder cancer Ulcer, esophagus UTI (urinary tract infection) UTI symptoms Vision abnormalities Weight loss Surgical History Surgical History H/O transurethral destruction of bladder lesion History of bladder surgery History of cardiac catheterization History of carpal tunnel release History of hysterectomy History of mastectomy Hx of cholecystectomy Hx of tonsillectomy S/P cholecystectomy S/P left knee arthroscopy S/P trigger finger release x5 Family History Family History Father Family history of coronary artery disease Acute myocardial infarction Mother Family history of coronary artery disease Other Arthritis Diabetes mellitus Family history of allergic disorder Family history of cardiovascular disease Family history of kidney disease Family history of malignant neoplasm Hypertension Social History Social History Smoking status: Never smoker Second hand tobacco smoke exposure: No Alcohol intake: current Drinks per week: 3 Alcohol use details: wine occas Substance use: never Substance use type: does not use Do You Feel Safe in your Home?: Yes Lack of Transportation: No Lack of Food: Never True Current Housing: I Have Housing Concerned About Future Housing: No Difficulty Paying Gas/Electric Bills: No Difficulty Paying for Meds: No Currently Unemployed: No Education: High School Diploma/GED Difficulty w/ Childcare or Family Care: No Living arrangements: alone Spiritual care concerns: No Anes - Eval Final PreProcedure Day of Procedure 01/01/24 10:16 Patient weight: normal Heart: regular rate and rhythm Lungs: clear to auscultation Airway: Mallampati scale class II Neurological: alert and oriented Last oral intake: >/= 8 hours ASA classification: III Emergent: no Anesthetic plan: proceed Anesthesia type and monitoring: general GIVS and standard monitoring Results Review: All pre-operative results and documents have been reviewed as part of the pre-operative evaluation. Informed Consent: The patient's anesthetic plan and its attendant risks and benefits were discussed with the patient/family/POA. Questions were solicited and answers provided to the satisfaction of the patient/family/POA.
[2024-01-01] MEDS: LACTATED RINGERS 1,000 ML 150 ML IV CONT (10:19)
[2024-01-01 10:21] VITALS: BP 116/44; PULSE 96; RESP 16; TEMP 35.9; O2SAT 96; BMI 24.5
--- NOTE | 2024-01-01 10:26 | PM.HPGS ---
History of Present Illness History of Present Illness Consent: Risks, benefits, and alternatives have been discussed and questions answered. Patient agrees to proceed with procedure. Chief complaint: Personal Hx. Colon polyps Narrative: Mouna Rodriguez is a 78 year old female with colon polyp in 2019 Review of Systems Review of Systems: All systems reviewed & are unremarkable except as noted in HPI and below PMFSH Past Medical History Medical History Anemia Anxiety Arthritis Basal cell carcinoma of arm Bladder cancer Borderline diabetic Bronchitis Carpal tunnel syndrome of right wrist Chronic cholecystitis without calculus Closed nondisplaced fracture of fifth metatarsal bone of left foot DM type 2 (diabetes mellitus, type 2) Dysfunctional gallbladder Endometriosis GERD (gastroesophageal reflux disease) Hepatic artery dissection Hiatal hernia History of angina History of bladder cancer Hoarseness HTN (hypertension) Left bundle branch block Other fracture of left foot, initial encounter for closed fracture Ovarian cyst Palpitations Pneumonia Pneumonia of left lower lobe due to infectious organism Polyp of urethra Rectal polyp RUQ pain Seasonal allergies Skin cancer Skin neoplasm Transitional cell bladder cancer Ulcer, esophagus UTI (urinary tract infection) UTI symptoms Vision abnormalities Weight loss Surgical History Surgical History H/O transurethral destruction of bladder lesion History of bladder surgery History of cardiac catheterization History of carpal tunnel release History of hysterectomy History of mastectomy Hx of cholecystectomy Hx of tonsillectomy S/P cholecystectomy S/P left knee arthroscopy S/P trigger finger release x5 Family History Family History Father Family history of coronary artery disease Acute myocardial infarction Mother Family history of coronary artery disease Other Arthritis Diabetes mellitus Family history of allergic disorder Family history of cardiovascular disease Family history of kidney disease Family history of malignant neoplasm Hypertension Social History Social History Smoking status: Never smoker Second hand tobacco smoke exposure: No Alcohol intake: current Drinks per week: 3 Alcohol use details: wine occas Substance use: never Substance use type: does not use Do You Feel Safe in your Home?: Yes Lack of Transportation: No Lack of Food: Never True Current Housing: I Have Housing Concerned About Future Housing: No Difficulty Paying Gas/Electric Bills: No Difficulty Paying for Meds: No Currently Unemployed: No Education: High School Diploma/GED Difficulty w/ Childcare or Family Care: No Living arrangements: alone Spiritual care concerns: No Meds Home Medications and Allergies Home Medications Medication Instructions Recorded Confirmed Type blood sugar diagnostic #200 ea 07/13/19 01/01/24 Rx oxybutynin chloride 10 mg 10 mg PO BID 07/15/19 01/01/24 History tablet,extended release 24 hr lancets (OneTouch UltraSoft #50 ea 12/24/19 01/01/24 Rx Lancets) aspirin 81 mg chewable tablet 81 mg PO DAILY@0800 30 days #30 03/30/21 01/01/24 Rx (Children's Aspirin) tabs amitriptyline 100 mg tablet 100 mg PO HS 04/25/21 01/01/24 History fluticasone fur. 200 mcg-umeclid 200 inh inhalation DAILY 03/01/22 01/01/24 History 62.5 mcg-vilant 25 mcg inhalat.powder (Trelegy Ellipta) fluticasone propionate 50 2 spray intranasal DAILY PRN 03/19/22 01/01/24 History mcg/actuation nasal Allergy Symptoms spray,suspension (Flonase Allergy Relief) valacyclovir 1 gram tablet 1,000 mg PO DAILY PRN Cold Sores 03/19/22 01/01/24 History blood sugar diagnostic #100 ea 06/23/23 01/01/24 Rx fluconazole 150 mg tablet 150 mg PO ONCE #3 tabs 06/25/23 01/01/24 Rx atorvastatin 80 mg tablet See Rx Instructions .Route 08/04/23 01/01/24 Rx .COMPLEX #100 tabs triamcinolone acetonide 0.1 % 1 applic topical BID PRN rash #30 09/17/23 01/01/24 Rx topical cream grams hydrochlorothiazide 25 mg tablet See Rx Instructions .Route 10/16/23 01/01/24 Rx .COMPLEX #90 tabs albuterol sulfate 90 mcg/actuation 2 inh inhalation ONCE PRN 12/03/23 01/01/24 Rx aerosol inhaler shortness of breath #8.5 grams metformin 1,000 mg tablet 1,000 mg PO DAILY #100 tabs 12/03/23 01/01/24 Rx alprazolam 0.5 mg tablet 0.5 mg PO TID PRN anxiety #90 tabs 12/17/23 01/01/24 Rx losartan 50 mg tablet See Rx Instructions .Route 12/17/23 01/01/24 Rx .COMPLEX #100 tabs sennosides 8.6 mg tablet (Senna 17.2 mg PO PC PRN constipation 12/23/23 01/01/24 History Laxative) Allergies Allergy/AdvReac Type Severity Reaction Status Date / Time azithromycin Allergy Unknown Swelling Verified 01/01/24 10:11 Sulfa (Sulfonamide Allergy Unknown Rash Verified 01/01/24 10:11 Antibiotics) Exam Const: General: comfortable and no acute distress HENMT: Face/Nose/Sinus: Normal nares present Eyes: General: appearance normal, both eyes and all related structures Neck: Neck: no JVD Resp: Auscultation: clear to auscultation bilaterally Cardio: Rate: regular rate Rhythm: regular rhythm GI: Inspection: non-distended GI Palp: Yes Soft to palpation Skin: General skin exam: normal color Neuro: General: gait normal Speech: normal speech Extrem: General: normal to inspection Psych: Mental Status: mental status grossly normal Assessment and Plan Assessment and plan (1) Hx of adenomatous colonic polyps: Code(s): Z86.010 - Personal history of colon polyps Status: Acute Assessment and Plan: colonoscopy
[2024-01-01 10:28] LABS: Glucose Point of Care 85 mg/dl (65-105)
[2024-01-01 10:54] VITALS: BP 94/47; PULSE 85; RESP 16; O2SAT 95
[2024-01-01 11:04] VITALS: BP 113/48; PULSE 82; RESP 18; O2SAT 96
[2024-01-01 11:14] VITALS: BP 121/56; PULSE 83; RESP 16; O2SAT 100
== END 2024-01-01 11:34 | disposition home or self-care (01) ==
PROVIDERS: PCP Nurse Practitioner Family; Referring Provider Nurse Practitioner; Visit Provider Internal Medicine Gastroenterology
PROC: 0DJD8ZZ Inspection of Lower Intestinal Tract, Via Natural or Artificial Opening Endoscopic (ICD-10-PCS; CPT 45378; principal; 2024-01-01 11:30)
DX: Z12.11 Encounter for screening for malignant neoplasm of colon (principal); K63.5 Polyp of colon; K57.30 Diverticulosis of large intestine without perforation or abscess without bleeding; Z79.82 Long term (current) use of aspirin; Z79.51 Long term (current) use of inhaled steroids; Z79.84 Long term (current) use of oral hypoglycemic drugs; I10 Essential (primary) hypertension; E11.9 Type 2 diabetes mellitus without complications; K21.9 Gastro-esophageal reflux disease without esophagitis; F41.9 Anxiety disorder, unspecified; Z85.51 Personal history of malignant neoplasm of bladder
CPT/HCPCS: 45385; 82948; 88305; J2003; J2704; J7120

== ENCOUNTER 2024-03-12 14:31 | Emergency (ER) | payer MEDICARE, SELFPAY ==
--- NOTE | ~2024-03-12 | XR_ITS ---
EXAMINATION: XR hip LT 2V w AP pelvis DATE: 03/12/2024 15:30 INDICATION: Left hip pain post fall TECHNIQUE: Anteroposterior view of the pelvis and anteroposterior and frog-leg lateral views of the l eft hip were obtained. COMPARISON: CT dated 01/28/2019 FINDINGS: Bone alignment is normal. No fracture. Moderate osteoarthritis at the bilateral glenohumeral joints. Mild bilateral sacral iliac osteoarthritis. Mild lower lumbar spondylosis. IMPRESSION: 1. Moderate bilateral hip osteoarthritis. No acute osseous abnormality. Reviewed, dictated and finalized at location A. RACTOR BUYER
[2024-03-12 14:33] VITALS: BP 107/39; PULSE 91; RESP 16; TEMP 36.4; O2SAT 100
--- OUTSIDE RECORDS SUMMARY | 2024-03-12 14:34 | XMS_ITS | Encounter Summary ---
Author Organization [facility] Healthcare Address [address] [place] [address] Care Team Providers Care Appeals Board Referee Name Role Phone LexAxel jenkins Primary Care Provider [phone] Suellen Martinez NP Primary Care Provider [phone] Encounter Details Date Type Department Care Team (Late st Contact Info) Description 10/06/2019 E-Visit [facility] Health[facility]/ Physicians [address] [place], [place] [id number] Latricia Chun, DRY PAN OPERATOR [address] [address] RE: COVID-19 Evaluation Social History Tobacco Use Types Packs/Day Years Used Date Smoking Tobacco: Never Smokeless Tobacco: Never Alcohol Use Standard Drinks/Week Comments Yes 0 (1 standard drink = 0.6 oz pur e alcohol) occasional Comments No Sex and Gender Information Value Date Recorded Sex Assigned at Not on file Legal Sex Female 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 10/07/2019 10/07/2019 10/21/2019 3:0 7 AM CDT documented as of this encounter Care Teams Appeals Board Referee Relationship Specialty Start Date End Date Axel Burnett DO PCP - General Internal Medicine 02/03/19 07/01/23 Suellen Martinez NP [address] [place] [address] PCP - General Nurse Practitioner 07/02/23 documented as of this encounter
--- OUTSIDE RECORDS SUMMARY | 2024-03-12 14:35 | XMS_ITS | Encounter Summary ---
Author Organization [facility] Address [address] [place] [address] Care Team Providers Care End Frazer Name Role Phone Axel Burnett DO Primary Care Provider [phone] Lion Allen MD Primary Care Provider [phone] Encounter Details Date Type Department Care Team (Late Contact Info) Description 03/06/2021 Telephone [facility] [address] [place] [address] Harriet Cazares MD [address] [place] [id number] Social History Tobacco Use Types Packs/Day Years Used Date Smoking Tobacco: Never Smokeless Tobacco: Never Sex and Gender Information Value Date Recorded Sex Assigned at Not on file Gender Identity Not on file Sexual Orientation Not on file documented as of this encounter Plan of Treatment Upcoming Encounters Date Type Department Care Team (Late Contact Info) Description 04/13/2024 2:40 PM GLASS VIAL FILLER Office Visit [facility] [address] [address] [place] [address] Harriet Cazares MD [address] [facility] [address] [place] [address] documented as of this encounter Visit Diagnoses Not on filedocumented in this encounter Care Teams End Frazer Relationship Specialty Start Date End Date Axel Burnett DO [address] [place] [address] PCP - General 11/09/18 12/23/22 Lion Allen [place] [address] PCP - General Ophthalmology 12/24/22 documented as of this encounter
--- OUTSIDE RECORDS SUMMARY | 2024-03-12 14:35 | XMS_ITS | Encounter Summary ---
Author Organization [facility] Address [address] [place] [address] Phone Care Team Providers Care Burlap Spreader Name Role Phone Axel Burnett DO Primary Care Provider [phone] Suellen Martinez NP Primary Care Provider [phone] Encounter Details Date Type Department Care Team (Latest Contact Info) Description 03/30/2021 Orders Only [facility] Scanning, Provider Social History Tobacco Use Types Packs/Day Years Used Date Smoking Tobacco: Never Smokeless Tobacco: Never Alcohol Use Standard Drinks/Week Comments Yes 0 (1 standard drink = 0.6 oz pur e alcohol) occasional Comments No Sex and Gender Information Value Date Recorded Sex Assigned at Not on file Legal Sex Female 2:34 AM 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 Gender Identity Not on file Sexual Orientation Not on file documented as of this encounter Plan of Treatment Not on file documented as of this encounter Procedures Procedure Name Priority Date/Time Associated Diagnosis Comments CARDIOLOGY DOCUMENT SCAN 03/30/2021 documented in this encounter Results * Cardiology Document Scan (03/30/2021) Anatomical Region Laterality Modality Other us Provider Scanning CV CARDIAC SERVICES PROCEDURES Final Result documented in this encounter Visit Diagnoses Not on filedocumented in this encounter Care Teams Burlap Spreader Relationship Specialty Start Date End Date Axel Burnett DO PCP - General Internal Medicine 02/03/19 07/01/23 Suellen Martinez NP [address] [place] [address] PCP - General Nurse Practitioner 07/02/23 documented as of this encounter
--- OUTSIDE RECORDS SUMMARY | 2024-03-12 14:35 | XMS_ITS | Clinical Summary ---
Author Organization [facility] Address [address] [place] [phone] Phone Care Team Providers Care Veterinary Nurse Name Role Phone Jeremy Bal MD Primary Care Provider + Social History Tobacco Use Types Packs/Day Years Used Date Smoking Tobacco: Never Assessed Comments Unknown Sex and Gender Information Value Date Recorded Sex Assigned at Not on file Legal Sex Female 5:29 AM PROCESS AUTOMATION ENGINEER Gender Identity Not on file Sexual Orientation Not on file Plan of Treatment Health Maintenance Due Date Last Done Comments DTAP/TDAP/TD VACCINES (1 - Tdap) 1964 PNEUMOCOCCAL VACCINE 65+ YEARS (1 of 1 - PCV) 12/07/18 96 ZOSTER VACCINE (1 of 2) 12/08/1995 OSTEOPOROSIS SCREENING 2010 RSV VACCINE (60+ or ) (1 - 1-dose 75+ series) 2020 INFLUENZA VACCINE (#1) 2023 Insurance MEDICARE PART A AND B [facility] [facility] Care Teams Veterinary Nurse Relationship Specialty Start Date End Date Jeremy Bal MD PCP - General Internal Medicine 03/02/12
--- OUTSIDE RECORDS SUMMARY | 2024-03-12 14:35 | XMS_ITS | Referral Summary ---
Author Organization [facility] Address [address] [facility] [place] [address] Care Team Providers Care Coating Operator Name Role Phone Lion Allen MD Primary Care Provider [phone] Source Comments [facility],non-owned Affiliates and Associated Physician Practices is amultiple site organization consisting of ambulatory clinics and hospital sitesin [place], [place], [place] and [place]. This disclosure is being madepursuant to the Care Everywhere program and may not contain all information available regarding this patient. Last updated 17.[facility] Encounters Date Type Department Care Team Description 03/02/2024 Telephone [facility] - WELDING ROBOT OPERATOR [address] [place] [address] Harriet Cazares MD Patient Requested Call 01/28/2024 Travel 01/09/2024 Telephone [facility] - WELDING ROBOT OPERATOR [address] [place] [address] Harriet Cazares MD Refill Request 12/17/2023 Refill [facility] - WELDING ROBOT OPERATOR [address] [place] [address] Harriet Cazares MD Refill Request from Last 3 Months Allergies Active Allergy Reactions Criticality Noted Date Comments Sulfa Drugs Rash Medium 07/18/2017 Azithromycin Swelling Medium 07/18/2017 Medications * Be aware that medications may not be up to date on this document. Alwaysverify current medications with the patient. Medication Sig Dispensed Refills Start Date End Date Status oxybutynin (DITROPAN) 5 MG tablet Take 1 (one) tablet by mouth 3 times daily Active metFORMIN (GLUCOPHAGE) 1000 MG tablet Take 1 (one) tablet by mouth 2 times daily with morning and evening meal Active atorvastatin (LIPITOR) 80 MG tablet Take 1 (one) tablet by mouth at bedtime Active fluticasone propionate (Flonase) 50 MCG/ACT nasal spray [place] 2 (two) sprays into each nostril once daily Active latanoprost (XALATAN) 0.005 % ophthalmic solution Instill 1 (one) drop into both eyes at bedtime 03/25/2020 Active ALPRAZolam (XANAX) 0.5 MG tablet Take 1 (one) tablet by mouth anxiety 04/02/2020 Active hydroCHLOROthiazid e (HYDRODIURIL) 25 MG tablet Take 1 (one) tablet by mouth once daily 05/17/2020 Active potassium chloride ER (KLOR-CON) 10 MEQ tablet Take 1 (one) tablet by mouth once daily 05/17/2020 Active amLODIPine (NORVASC) 10 MG tablet Take 1 (one) tablet by mouth once daily 03/30/2021 Active ferrous sulfate 325 (65 FE) MG tablet Take 1 (one) tablet by mouth once daily 11/07/2021 Active glipiZIDE (Glucotrol) 5 MG tablet Take 0.5 (one-half) tablet by mouth every morning 11/09/2021 Active naproxen (Naprosyn) 500 MG tablet Take 1 (one) tablet by mouth 2 times daily as needed 03/19/2022 Active losartan (Cozaar) 50 MG tablet Take 1 (one) tablet by mouth once daily 05/18/2022 Active famotidine (Pepcid) 40 MG tablet Take 1 (one) tablet by mouth once daily Active triamcinolone acetonide (Kenalog) 0.1 % ointmentIndication s:History of candidiasis MIX WITH THE NYSTATIN OINTMENT AND APPLY DAILY 30 g 3 06/04/2022 Active Trelegy Ellipta 200-62.5-25 MCG/ACT inhaler Inhale 1 (one) puff by mouth once daily 11/25/2022 Active amitriptyline (Elavil) 100 MG tabletIndications: Vulvodynia One tablet by mouth twice daily 180 tablet 3 10/29/2023 Active fluconazole (Diflucan) 200 MG tabletIndications: History of candidiasis One by mouth every other day for three doses. 3 tablet 11/10/2023 Active nystatin (Mycostatin) 267244 UNIT/GM ointmentIndication s:History of candidiasis MIX WITH TRIAMCINOLONE OINTMENT AND APPLY TO VULVAR TISSUES ONCE DAILY 30 g 3 12/03/2023 Active valACYclovir (Valtrex) 1 GM tabletIndications: Herpes simplex infection of genitourinary system TAKE 1 TABLET BY MOUTH EVERY DAY 90 tablet 12/17/2023 Active boric acid 600 mg capsuleIndications :History of candidiasis Compounded Boric Acid vaginal suppositories. Poison if taken by mouth. Use one in the vagina as directed. 15 capsule 03/02/2024 Active boric acid 600 mg capsuleIndications :History of candidiasis Compounded Boric Acid vaginal suppositories. Poison if taken by mouth. Use one in the vagina as directed. 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 (FLUAD QUADRIVALENT; 65Y+) (AIIV4) 11/08/2019 INFLUENZA VACCINE, ADJUVANTE D, TRIV. (FLUAD TRIVALENT; 65Y+) (AIIV3) 11/19/2017 INFLUENZA VACCINE, HIGH-DOSE , QUADR. (FLUZONE HIGH-DOSE QUADRIVALENT; 65Y+), 0.7 ML (HD-IIV4) 12/11/2018 Zoster Hzv Vacc Recombinant Inj Im 07/11/2018 Social History Tobacco Use Types Packs/Day Years Used Date Smoking Tobacco: Never Passive Smoke Exposure: Never Smokeless Tobacco: Never Tobacco Cessation:Counseling Given: Not Answered PHQ-2 Answer Date Recorded Patient Health Questionnaire-2 Score 1 01/21/2024 Sex and Gender Information Value Date Recorded Sex Assigned at Not on file Gender Identity Not on file Sexual Orientation Not on file Last Filed Vital Signs Vital Sign Reading Time Taken Comments Blood Pressure 120/64 12/24/2022 1:58 PM MOBILE HOME SERVICER Pulse - - Temperature 36.6 ??C (97.9 ??F) 12/24/2022 1:58 PM CS T Respiratory Rate - - Oxygen Saturation - - Inhaled Oxygen Concentration - - Weight 81.5 kg (179 lb 9.6 oz) 12/24/2022 1:58 P M MOBILE HOME SERVICER Height 162.6 cm (5' 4.02 ) 12/24/2022 1:58 PM CS T Body Mass Index 30.81 12/24/2022 1:58 PM MOBILE HOME SERVICER Plan of Treatment Upcoming Encounters Date Type Department Care Team (Late st Contact Info) Description 04/13/2024 2:40 PM MOBILE HOME SERVICER Office Visit [facility] - WELDING ROBOT OPERATOR [address], [facility] [address] [place] [address] Harriet Cazares MD [address] [facility] [address] [place] [address] Care Teams Coating Operator Relationship Specialty Start Date End Date Lion Allen MD [place] [address] PCP - General Ophthalmology 12/24/22
--- OUTSIDE RECORDS SUMMARY | 2024-03-12 14:35 | XMS_ITS | Encounter Summary ---
Author Organization [facility] Address [address] [place] [address] Phone Care Team Providers Care Clay Products Machine Operator Name Role Phone Jeremy Bal MD Primary Care Provider [phone] Axel Burnett DO Primary Care Provider [phone] Suellen Martinez NP Primary Care Provider [phone] Encounter Details Date Type Department Care Team (Latest Contact Info) Description 04/22/2013 Orders Only [facility] Scanning, Provider Social History Tobacco Use Types Packs/Day Years Used Date Smoking Tobacco: Never Comments Unknown Sex and Gender Information Value Date Recorded Sex Assigned at Not on file Legal Sex Female 2:34 AM PLASTERER HELPER Gender Identity Not on file Sexual Orientation Not on file documented as of this encounter Plan of Treatment Not on file documented as of this encounter Procedures Procedure Name Priority Date/Time Associated Diagnosis Comments CARDIOLOGY DOCUMENT SCAN 04/22/2013 documented in this encounter Results * Cardiology Document Scan (04/22/2013) Anatomical Region Laterality Modality Other us Provider Scanning CV CARDIAC SERVICES PROCEDURES Final Result documented in this encounter Visit Diagnoses Not on filedocumented in this encounter Additional Health Concerns Infection Onset Date Last Indicated Resolved Time COVID: Suspected 10/07/2019 10/07/2019 10/07/2019 10:41 PM CDT Respiratory Infection (VLADIMIR), contact + droplet Comment:Automatically added due to negative COVID-19 result. 10/07/2019 10/07/2019 10/21/2019 3:0 7 AM CDT documented as of this encounter Care Teams Clay Products Machine Operator Relationship Specialty Start Date End Date Jeremy Bal MD [address] [place] [address] PCP - General 10/30/11 02/02/19 Axel Burnett DO [address] [place] [address] PCP - General Internal Medicine 02/03/19 07/01/23 Suellen Martinez NP [address] [place] [address] PCP - General Nurse Practitioner 07/02/23 documented as of this encounter
--- OUTSIDE RECORDS SUMMARY | 2024-03-12 14:35 | XMS_ITS | Encounter Summary ---
Author Organization [facility] Address [address] [place] [address] Care Team Providers Care Bulb Inspector Name Role Phone Jeremy Bal MD Primary Care Provider + Encounter Details Date Type Department Care Team (Latest Contact Info) Description 02/13/2007 Outpatient Historical HIS COMPLIANCE TESTER Joon Ji MD [address] [place] [address] Nonspecific Abnormal Electrocardiogram (ECG) (EKG) Social History Tobacco Use Types Packs/Day Years Used Date Smoking Tobacco: Never Assessed Comments Unknown Sex and Gender Information Value Date Recorded Sex Assigned at Not on file Legal Sex Female 5:29 AM DIRECTOR MEDICAL Gender Identity Not on file Sexual Orientation Not on file documented as of this encounter Plan of Treatment Not on file documented as of this encounter Visit Diagnoses Diagnosis Nonspecific abnormal electrocardiogram (ECG) (EKG) documented in this encounter Care Teams Bulb Inspector Relationship Specialty Start Date End Date Jeremy Bal MD PCP - General Internal Medicine 03/02/12 documented as of this encounter
--- OUTSIDE RECORDS SUMMARY | 2024-03-12 14:35 | XMS_ITS | Clinical Summary ---
Author Organization [facility] Address Formerly [facility] [place] [address] Care Team Providers Care Title I Assistant Name Role Phone MichelleSuellen Casandra MORENO Primary Care Provider [phone] Allergies Active Allergy Reactions Criticality Noted Date Comments Azithromycin Other (See comments),Swelling Medium 07/18/2017 Reaction: SWELLING OF MOUTH AND TONGUE, Sulfa (Sulfonamide Antibiotics) Rash,Other (See comments) Low 09/10/2022 Reaction: RASH, Medications ALPRAZolam (XANAX) 0.5 mg tabletIndication s:anxiety Take 1 tablet (0.5 mg total) by mouth nightly as needed 05/27/19 19 Active atorvastatin (LIPITOR) 80 mg tabletIndication s:hyperlipidemia Take 1 tablet (80 mg total) by mouth nightly 1 03/13/19 19 Active fluticasone (FLONASE) 50 mcg/actuation nasal sprayIndications :Allergic Rhinitis Administer 1 spray into each nostril ranch cook before breakfast 2 05/07/19 19 Active hydroCHLOROthiaz partha (HYDRODIURIL) 25 mg tabletIndication s:hypertension Take 1 tablet (25 mg total) by mouth ranch cook before breakfast 0 04/13/19 19 Active latanoprost (XALATAN) 0.005 % ophthalmic solutionIndicati ons:ocular hypertension Administer 1 drop into both eyes nightly 11 04/23/19 19 Active metFORMIN (GLUCOPHAGE) 1,000 mg tabletIndication s:type 2 diabetes mellitus Take 1 tablet (1,000 mg total) by mouth 2 (two) times a day with meals 0 05/14/19 19 Active albuterol HFA (PROVENTIL HFA,VENTOLIN HFA,PROAIR HFA) 90 mcg/actuation inhalerIndicatio ns:Acute Asthma Attack Inhale 2 puffs every 4 (four) hours as needed Active esomeprazole DR (NexIUM) 40 mg capsule Take 1 capsule (40 mg total) by mouth daily before breakfast 11/26/19 18 Active nystatin ointmentIndicati ons:cutaneous candidiasis Apply 1 application (deactivated) topically 2 (two) times a day as needed 11/12/19 19 Active triamcinolone (KENALOG) 0.1 % ointmentIndicati ons:Skin Inflammation Apply 1 application (deactivated) topically daily as needed 3 11/12/19 19 Active valACYclovir (VALTREX) 1 gram tabletIndication s:fever blisters Take 1 tablet (1,000 mg total) by mouth ranch cook before breakfast 12/02/19 19 Active OneTouch Delica Plus Lancet 33 gauge misc 09/26/19 20 Active potassium chloride ER 10 mEq CR tablet 08/26/19 20 Active amitriptyline (ELAVIL) 10 mg tablet 1 tablet (10 mg total) 09/26/19 20 Active aspirin 81 mg chewable tablet TAKE 1 TABLET BY MOUTH EVERY DAY FOR 30 DAYS 03/30/19 22 Active ascorbic acid (VITAMIN C) 1,000 mg tablet Take 1 tablet (1,000 mg total) by mouth daily Active ferrous sulfate 325 mg (65 mg of elemental iron) tabletIndication s:Iron Deficiency Anemia Take 1 tablet (325 mg total) by mouth daily with breakfast Active jccsa-3-pev-epa- dpa-fish oil 1,050-1,200 mg capsule 1 capsule Active amphotericin B, bulk, powder INSERT ONE IN THE VAGINA NIGHTLY FOR 14 DAYS. 10/07/19 21 Active fluticasone-umec lidin-vilanter (Trelegy Ellipta) 200-62.5-25 mcg inhaler 09/14/19 22 Active OneTouch Ultra Test strip USE (1) STRIP TO TEST BLOOD SUGAR TWICE A DAY 10/02/19 22 Active colchicine (COLCRYS) 0.6 mg tablet TAKE 2 TABLETS BY MOUTH NOW THEN TAKE 1 TABLET IN 1 HOUR 09/28/19 22 Active ipratropium (ATROVENT) 42 mcg (0.06 %) nasal spray SPRAY 2 SPRAYS BY INTRANASAL ROUTE 3 TIMES A DAY NEEDED 10/10/19 22 Active losartan (COZAAR) 50 mg tablet Take 1 tablet (50 mg total) by mouth daily 08/27/19 22 Active traZODone (DESYREL) 50 mg tablet 50 MG ORALLY EVERY DAY AT BEDTIME NEEDED FOR SLEEP 09/15/19 22 Active glipiZIDE (GLUCOTROL) 5 mg tablet Take 0.5 tablets (2.5 mg total) by mouth ranch cook before breakfast 11/10/19 22 Active fluconazole (DIFLUCAN) 150 mg tabletIndication s:Antibiotic-ind uced yeast infection Take 1 tablet (150 mg total) by mouth as directed Take one tab at end of antibiotic treatment if you have yeast infection symptoms. Repeat in 7 days if symptoms persist. 2 tablet 02/04/20 22 Active oxybutynin (DITROPAN) 5 mg tablet 01/31/20 22 Active levoFLOXacin (LEVAQUIN) 500 mg tablet Take 1 tablet (500 mg total) by mouth daily 03/04/19 24 Active Linzess 72 mcg capsule 05/14/19 24 Active neomycin-polymyx in B-dexAMETHasone (MAXITROL) 3.5 mg/g-10,000 unit/g-0.1 % ointment APPLY SMALL AMOUNT TO THE EYELID TWICE DAILY Active Mounjaro 2.5 mg/0.5 mL pen injector INJECT 2.5 MG (0.5 ML) SUBCUTANEOUSLY WEEKLY FOR 4 WEEKS 02/19/19 24 Active diclofenac sodium (Voltaren) 1 % gelIndications:A cute pain of left knee Apply 2 g topically 4 (four) times a day for 7 days 100 g 07/02/19 24 Active Active Problems Problem Noted Date Diagnosed Date Anxiety 12/09/2022 Hyperlipidemia 12/09/2022 COVID 09/10/2022 Type 2 diabetes mellitus 12/04/2021 Allergic rhinitis 09/13/2021 Essential hypertension 09/13/2021 Moderate persistent asthma 09/13/2021 LBBB (left bundle branch block) 05/28/2021 Fracture of lower leg 10/01/2019 Closed fracture of metatarsal bone 10/01/2019 Left carpal tunnel syndrome 09/03/2019 Overview (09/03/2019): Added automatically from request for surgery [id number] Trigger finger, left index finger 09/03/2019 Overview (09/03/2019): Added automatically from request for surgery [id number] 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 History of candidiasis 11/25/2017 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 Jennifer glabrata infection 04/20/2014 Arthralgia of hip 06/19/2011 Encounters Date Type Department Care Team Description 01/26/2024 1:15 PM CHECKING DEPARTMENT SUPERVISOR Office Visit [facility] [address] [facility] 2[address] Floor [address] [place] [phone] Derek Parsons PA Primary osteoarthritis of left knee (Primary Dx) 01/05/2024 5:30 PM CHECKING DEPARTMENT SUPERVISOR Office Visit [facility] Medical [facility] at [address] [address] Basilia Daniels NP Foreign body in nose, initial encounter (Primary Dx) 12/26/2023 2:28 PM CHECKING DEPARTMENT SUPERVISOR - 12/26/2023 11:59 PM CHECKING DEPARTMENT SUPERVISOR Hospital Encounter [facility] ([facility]) [address] [place] [address] Discharge Disposition: Discharge to home or self care 12/26/2023 11:30 AM CHECKING DEPARTMENT SUPERVISOR Office Visit [facility] [address] [place] [address] [facility] [address]th [place] [address] [place] [address] Joon Srivastava MD PhD LBBB (left bundle branch block) (Primary Dx); Essential hypertension; Type 2 diabetes mellitus without complication, unspecified whether television receiver analyzer insulin use (HCC) 12/26/2023 Telephone [facility] [address] [place] [address] [facility] [address] [place] [address] [place] [address] Jono Srivastava MD PhD Medical Records Request 12/24/2023 6:20 PM CHECKING DEPARTMENT SUPERVISOR - 12/24/2023 11:59 PM CHECKING DEPARTMENT SUPERVISOR Hospital Encounter [facility] ([facility]) [address] [place] [address] Discharge Disposition: Discharge to home or self care 12/23/2023 Telephone [facility] [address] [facility] 8th [place] [address] [place] [id number] Jenae Pérez from Last 3 Months Surgical History Surgery Date Site/Laterality Comments CARPAL TUNNEL RELEASE Right CHOLECYSTECTOMY HYSTERECTOMY BLADDER SURGERY 02/17/2014 - 02/16/2015 TONSILECTOMY, ADENOIDECTOMY, BILATERAL MYRINGOTOMY AND TUBES 02/17/1949 - 02/16/1950 Bilateral TRIGGER FINGER RELEASE Multiple KNEE SURGERY 02/18/2000 - 02/16/2001 Left Medical History Medical History Date Comments Asthma Diabetes mellitus (HCC) GERD (gastroesophageal reflux disease) Hiatal hernia Hypercholesteremia Hypertension Anemia Bladder cancer (HCC) Skin cancer LBBB (left bundle branch block) Family History Medical History Relation Name Comments Arthritis Brother Hypertension Brother Arthritis Father Heart disease Father Hypertension Father Heart disease Mother Arthritis Sister Anesthesia problems Neg Hx Relation Name Status Comments Brother Father (Age 76) Mother (Age 83) Sister Social History Tobacco Use Types Packs/Day Years Used Date Smoking Tobacco: Never Smokeless Tobacco: Never Tobacco Cessation:Counseling Given: Not Answered Alcohol Use Standard Drinks/Week Comments Yes 0 (1 standard drink = 0.6 oz pur e alcohol) occasional Comments No Sex and Gender Information Value Date Recorded Sex Assigned at Not on file Legal Sex Female 2:34 AM CHECKING DEPARTMENT SUPERVISOR Gender Identity Not on file Sexual Orientation Not on file Obstetrics History Last Filed Vital Signs Vital Sign Reading Time Taken Comments Blood Pressure 108/62 01/05/2024 5:32 PM CHECKING DEPARTMENT SUPERVISOR Pulse 92 01/05/2024 5:32 PM CHECKING DEPARTMENT SUPERVISOR Temperature 36.9 ??C (98.4 ??F) 01/05/2024 5:32 PM CS T Respiratory Rate 16 01/05/2024 5:32 PM CHECKING DEPARTMENT SUPERVISOR Oxygen Saturation 96% 01/05/2024 5:32 PM CHECKING DEPARTMENT SUPERVISOR Inhaled Oxygen Concentration - - Weight 64.4 kg (142 lb) 01/05/2024 5:32 PM CHECKING DEPARTMENT SUPERVISOR Height 162.6 cm (5' 4 ) 12/26/2023 11:01 AM CHECKING DEPARTMENT SUPERVISOR Body Mass Index 24.37 12/26/2023 11:01 AM CHECKING DEPARTMENT SUPERVISOR Plan of Treatment Health Maintenance Due Date Last Done Comments Albumin Creatinine Ratio, Urine 1945 Depression Screening 1945 Hemoglobin A1C 1945 Hepatitis C Screening 1945 Osteoporosis Screening-Bone Density Scan 1945 eGFR 1945 Dilated Eye Exam 1945 Foot Exam 1945 Pneumococcal vaccine 65+ (1 of 2 - PCV) 12/08/1951 DTaP/Tdap/Td Vaccine (1 - Tdap) 1956 Hepatitis B Screening 12/08/1963 Well Visit 65+ 2010 Fall Risk Assessment 09/21/2020 09/22/2019 Lipid Panel 05/16/2022 05/16/2021 Influenza Vaccine (#1) 2023 0, 11/19/2017, 12/22/2016, Additional history exists Zoster Vaccine Completed 07/16/2018, 06/18, 11/18/2017 Procedures Procedure Name Priority Date/Time Associated Diagnosis Comments VA ARTHROCENTESIS ASPIR&/INJ MAJOR JT/BURSA W/O US Routine 01/26/2024 1:15 PM CHECKING DEPARTMENT SUPERVISOR Primary osteoarthritis of left knee NM OUTSIDE REFERENCE Routine 12/26/2023 2:28 PM CHECKING DEPARTMENT SUPERVISOR IR OUTSIDE REFERENCE Routine 12/24/2023 6:20 PM CHECKING DEPARTMENT SUPERVISOR POCT LIPID PANEL Routine 05/16/2021 3:44 PM CDT Lipid screening from Last 3 Months or Most Recently Relevant to Health Maintenance Results * VA ARTHROCENTESIS ASPIR&/INJ MAJOR JT/BURSA W/O US (01/26/2024 1:15 PM CHECKING DEPARTMENT SUPERVISOR) Narrative Bola Moulton MD - 01/26/2024 1:15 PM CHECKING DEPARTMENT SUPERVISOR Derek Parsons PA ? 01/26/2024 ??2:01 PM Large Joint Injection: L knee Performed by: Derek Parsons PA Authorized by: Derek Parsons PA ?? Large Joint Injection/Aspiration: ??Consent Given by: ??Patient ??Timeout: prior to procedure the correct patient, procedure, and site was verified ?Verbal consent obtained: Yes ?? Supporting Documentation: ??Indications: ??Pain Procedure Details: ??Location: ??Knee ??Site: ??L knee ??Prep: patient was prepped using a clean technique (Betadine and alcohol) ??Needle Size: ??22 G ??Approach: ??Posterior ??Ultrasound guided: No ?Fluroscopic guidance: No ?Medications: ??40 mg methylPREDNISolone acetate 40 mg/mL; 2 mL BUPivacaine HCl 0.25 % (2.5 mg/mL) ??Patient tolerance: ??Patient tolerated the procedure well with no immediate complications Derek DAS IN CLINIC/BEDSIDE ORDERABLES Fi nal Result * NM Outside Reference (12/26/2023 2:28 PM CHECKING DEPARTMENT SUPERVISOR) Impressions [facility] - 12/26/2023 2:28 PM CHECKING DEPARTMENT SUPERVISOR These images are for Reference purposes only and have not been reviewed by [facility]. ??There will be no report generated by a [facility]. Narrative [facility] - 12/26/2023 2:28 PM CHECKING DEPARTMENT SUPERVISOR EXAMINATION: ??Images For Reference Purposes Only Joon Srivastava MD PhD IMG NM PROCEDURES Final Result Performing Organization Address [facility] de Phone Number [email or web address] * IR Outside Reference (12/24/2023 6:20 PM CHECKING DEPARTMENT SUPERVISOR) Impressions [facility] - 12/24/2023 6:20 PM CHECKING DEPARTMENT SUPERVISOR These images are for Reference purposes only and have not been reviewed by [facility]. ??There will be no report generated by a [facility]iologist. Narrative [facility] - 12/24/2023 6:20 PM CHECKING DEPARTMENT SUPERVISOR EXAMINATION: ??Images For Reference Purposes Only Joon Srivastava MD PhD IMG IR PROCEDURES Final Result Performing Organization Address [facility] de Phone Number [email or web address] * POCT lipid panel (05/16/2021 3:44 PM CDT) Cholesterol, POC 175 mg/dL Comment:GLU = 125 HDL, POC 51 mg/dL Triglycerides, POC 191 mg/dL LDL Cholesterol POC 86 mg/dL Chol/HDL Ratio, POC 3.4 Non-HDL Cholesterol, POC 124 mg/dL Cholesterol Total, POC 175 mg/dL Capillary blood 05/16/2021 3 :44 PM CDT Ana Laura Wallace NP POINT OF CARE TEST ORDERABLE S Final Result from Last 3 Months or Most Recently Relevant to Health Maintenance Insurance [facility] MEDICARE GOLD [facility] MEDICARE GOLD [employer] MEDICARE GOLD Care Teams Title I Assistant Relationship Specialty Start Date End Date Suellen Martinez NP [address] [place] [address] PCP - General Nurse Practitioner 07/02/23
--- OUTSIDE RECORDS SUMMARY | 2024-03-12 14:35 | XMS_ITS | Data Portability ---
Author Organization [facility] Address [address] [place] [address] Assessment No assessment recorded. Plan of Treatment Reminders Order Date Submit Date Provider Last Modified By Organization Details Last Modified Time Details Appointments None recorded. 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 Procedures None recorded. Surgeries None recorded. Imaging None recorded. Medication Orders None recorded. Patient TargetsNo targets recorded. Patient Instructions Encounter Date Encounter Id Patient Instructions Last Modified By Organization Details Last Modified Time 07/08/2019 [id number] Reviewed the following recommendations: -Stay home and separate from others as much as possible. -Monitor your symptoms and seek medical attention for trouble breathing, persistent chest pain, confusion, or bluish lips or face. -Wear a mask if you must be around other people. -Wash your hands often for 20 seconds with soap and water and clean high-touch surfaces daily -You may discontinue home isolation if your symptoms are improving, it has been 7 days since symptoms started, and you have been fever free for at least 3 days. [email or web address] Not available 07/08/2019 13:03:33 Reason for Referral None Reported. 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 A negat shari resul t does not precl ude the possi bilit y of 2019- nCoV infec tion since the adequ acy of sampl e colle ction and/o r low viral burde n may resul t in the prese nce of viral nucle ic acids level s below the jackie tical sensi tivit y of this test metho d. 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 Emerg ency Use Autho rizat ion and has been verif ied by [facility] . This test is only autho rized for the durat ion of the decla ratio n and the circu mstan tj that exist to justi fy the autho rizat ion of the emerg ency use of in vitro diagn ostic tests for the detec tion of SARS- CoV-2 virus and/o r diagn osis of COVID -19 infec tion under secti on 564 (b) (1) of the Act. 11 U.S.C . 360bb b-3 (b) (1), unles s the autho rizat ion is termi nated or revok ed soone r. 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 This testi ng was perfo rmed in the [facility] [employer] [place] [address] (CLIA Licen se #[id number] 5, CAP #[id number], AU-ID #[id number]). 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 Medical Equipment None Reported. Medications Name Sig Start Date Stop Date Status Note LastModified by Organization Details LastModified Time losartan 50 mg tablet TAKE 1 TABLET BY MOUTH DAILY active Not Available Not Available Not Available latanoprost 0.005 % eye drops INSTILL 1 DROP IN BOTH EYES EVERY NIGHT AT BEDTIME active Not Available Not Available N ot Available fluconazole 100 mg tablet active Not Available Not Available Not Available atorvastatin 80 mg tablet TAKE 1 TABLET BY MOUTH DAILY active Not Available Not Available Not Available doxycycline hyclate 100 mg capsule TAKE 1 CAPSULE BY MOUTH TWICE DAILY active Not Available Not Available No t Available nystatin 100,000 unit/gram topical ointment MIX WITH TRIAMCINOLO NE OINTMENT AND APPLY TO VULVAR TISSUES ONCE DAILY active Not Available Not Available N ot Available fluconazole 150 mg tablet TAKE 1 TABLET BY MOUTH 1 TIME active Not Available Not Available No t Available valacyclovir 1 gram tablet TAKE 1 TABLET BY MOUTH EVERY DAY active Not Available Not Available No t Available fluconazole 200 mg tablet TAKE 1 TABLET BY MOUTH EVERY OTHER DAY FOR 3 DOSES active Not Available Not Available Not Available famotidine 40 mg tablet TK 1 T PO D active Not Available Not Avail able Not Available prednisone 20 mg tablet TAKE 2 TABLETS BY MOUTH DAILY FOR 5 DAYS THEN TAKE 1 TABLET BY MOUTH DAILY FOR 5 DAYS active Not Available Not Available N ot Available penicillin V potassium 500 mg tablet TAKE 1 TABLET BY MOUTH EVERY 6 HOURS UNTIL ALL TAKEN active Not Available Not Available No t Available potassium chloride ER 10 mEq tablet,exten ded release TAKE 1 TABLET BY MOUTH DAILY WITH A MEAL active Not Available Not Available Not Available ciprofloxaci n 500 mg tablet TAKE 1 TABLET BY MOUTH TWICE DAILY FOR 5 DAYS active Not Available Not Available No t Available amitriptylin e 50 mg tablet TAKE 1 TABLET BY MOUTH AT BEDTIME active Not Available Not Available No t Available alprazolam 0.5 mg tablet TAKE 1 TABLET BY MOUTH THREE TIMES DAILY NEEDED FOR ANXIETY active Not Available Not Available Not Available amitriptylin e 25 mg tablet active Not Available Not Available Not Available doxycycline monohydrate 100 mg capsule TK 1 C PO BID active Not Available Not Available No t Available metformin 1,000 mg tablet TAKE 1 TABLET BY MOUTH TWICE DAILY active Not Available Not Available No t Available esomeprazole magnesium 40 mg capsule,nicolás yed release TAKE 1 CAPSULE BY MOUTH TWICE DAILY active Not Available Not Available No t Available triamcinolon e acetonide 0.1 % topical ointment MIX WITH THE NYSTATIN OINTMENT AND APPLY TO THE AFFECTED AREA DAILY active Not Available Not Available N ot Available hydrochlorot hiazide 25 mg tablet TAKE 1 TABLET BY MOUTH DAILY active Not Available Not Available Not Available methylpredni solone 4 mg tablets in a dose pack FOLLOW PACKAGE DIRECTIONS active Not Available Not Available N ot Available albuterol sulfate HFA 90 mcg/actuatio n aerosol inhaler INHALE 2 PUFFS BY MOUTH EVERY 4 HOURS NEEDED active Not Available Not Available No t Available oxybutynin chloride 5 mg tablet TAKE 1 TABLET BY MOUTH THREE TIMES DAILY active Not Available Not Available Not Available cefdinir 300 mg capsule TAKE 1 CAPSULE BY MOUTH EVERY 12 HOURS. DO NOT TAKE WITHIN 4 HOURS OF IRON TABLETS active Not Available Not Available No t Available fluticasone propionate 50 mcg/actuatio n nasal spray,suspen darcie USE 2 SPRAYS INTO EACH NOSTRIL ONCE DAILY active Not Available Not Available N ot Available amitriptylin e 100 mg tablet TAKE 1 TABLET BY MOUTH AT BEDTIME active Not Available Not Available No t Available amoxicillin 875 mg-potassium clavulanate 125 mg tablet TAKE 1 TABLET BY MOUTH TWICE DAILY WITH THE MORNING AND EVENING MEAL FOR 5 DAYS active Not Available Not Available No t Available neomycin 3.5 mg/g-polymyx in B 10,000 unit/g-dexam eth 0.1 % eye oint APPLY SMALL AMOUNT TO THE EYELID TWICE DAILY active Not Available Not Available Not Available nitrofuranto in monohydrate/ macrocrystal s 100 mg capsule TAKE 1 CAPSULE BY MOUTH TWICE DAILY FOR 7 DAYS active Not Available Not Available No t Available Symbicort 160 mcg-4.5 mcg/actuatio n HFA aerosol inhaler INHALE 2 PUFFS BY MOUTH TWICE DAILY active Not Available Not Available No t Available Vitals None Recorded Social History None recorded. Functional Status None recorded. Mental Status None recorded. Family History Nothing Reported. Medical History No medical history recorded. Past Encounters Encounter ID Performer Location Encounter Start Date Encounter Closed Date Diagnosis/Indication Diagnosis SNOMED-CT Code Diagnosis ICD10 Code Diagnosis Note [id number] NEISHA FERRO NP [employer] [address] [place] [address] 07/08/2019 11:51:39 07/09/2019 07:40:59 Viral screening 966995820 Z11.59 Health Concerns Section Related Observation LastModified by Organization Detai ls LastModified Time None Recorded Concern Status LastModified by Organization Details LastModified Time None Recorded Advance Directives Directive None Recorded Payers Encounter Date Sequence Insurance Name Policy Number Policy Barker Covered Member ID Barker Member ID Guarantor Name 07/08/2019 2 AETYOLANDE (O) [id number] Mouna Rodriguez [id number] Monua Rodirguez Notes Date Note Type Note Provider Name and Address Organization Details Recorded Time 07/08/2019 text/html COVID ScreeningReported bypatient.Onset/Durati on of fever:no fever Associated Symptoms:no cough; no shortness of breath ComorbiditiesDiabetes; age greater than 65 years oldCOVID-19 Symptoms June 2019Reported bypatient.COVID-19 Signs and Symptomscough resolved; fever resolved; shortness of breath resolved; chills resolved; repeated shaking with chills resolved; muscle pain resolved; headache resolved; sore throat resolved; loss of taste or smell resolved; vomiting or diarrhea resolved; fatigue resolved; anorexia resolved Associated Symptoms:no sputum production; no wheezing; no runny nose; no vomiting; no diarrhea; no body aches; no nausea; no change in mental status; no hypotension; no tachycardia pt has a hx of diabetes and wants testing NEISHA FERRO NP Attn: Accounting,[address] [facility], [place], [address], [facility] 07/08/2019 13:04:26
--- OUTSIDE RECORDS SUMMARY | 2024-03-12 14:35 | XMS_ITS | Data Portability ---
Author Organization [place] [facility],, Renetta manzano Address [address] [place] [address] Assessment No assessment recorded. Plan of Treatment Reminders Order Date Submit Date Provider Last Modified By Organization Details Last Modified Time Details Appointments ESTABLISH ED PATIENT VISIT 2024 02:00P M ABDOUL Jackson Not available Not available Not available Lab None recorded. Referral None recorded. Procedures None recorded. Surgeries None recorded. Imaging None recorded. Medication Orders Trelegy Ellipta 200 mcg-62.5 mcg-25 mcg powder for inhalatio n [address]/[facility]259, [address] [place], [address], 05/15/2022 14:29:21 prednison e 20 mg tablet [facility] [address], [address] [place], [address], 06/10/2023 20:39:57 fluconazo le 200 mg tablet 2022 [facility]23 [facility] [address], [address] [place], [address], 12/10/2023 17:25:35 amoxicill in 875 mg-potass ium clavulana te 125 mg tablet 2022 023 [facility] [address], [address] [place], [address], 12/10/2023 17:25:14 Trelegy Ellipta 200 mcg-62.5 mcg-25 mcg powder for inhalatio n [address]/[facility]acy #3259, [address] [place], [address], 12/04/2022 16:43:17 prednison e 20 mg tablet [address]/Ph[facility]acy #3259, [address] [place], [address], 06/10/2023 20:39:57 Trelegy Ellipta 200 mcg-62.5 mcg-25 mcg powder for inhalatio n [address]/[facility] #3259, [address] [place], [address], 06/10/2023 15:30:03 Patient TargetsNo targets recorded. Patient Instructions Encounter Date Encounter Id Patient Instructions Last Modified By Organization Details Last Modified Time 05/15/2022 [id number] spirometry testing* Not avai lable 05/15/2022 14:25:37 Side effects of inhaled corticosteroids were reviewed with emphasis placed on oral candidiasis and dysphonia. Rinsing the mouth after utilization should decrease the incidence of oral candidiasis significantly. Sometimes use of the spacer may improve symptoms of dysphonia. Not available 05/15/2022 14:29:09 12/04/2022 [id number] Penicillin and cephalosporin side effects were reviewed with emphasis on gastrointestinal problems such as diarrhea and allergic reactions.Probiotics maybe helpful in preventing the GI side effects. Allergic reactions may be severe. Discontinue the medication and call the office if rash, fever, or mouth sores develop. Oral steroids side effects were reviewed with emphasis on weight gain, increased appetite, mood changes, heartburn, hypertension, diabetes, thinning of the bones, hip damage such as aseptic necrosis, glaucoma, cataracts, and infection. Side effects of inhaled corticosteroids were reviewed with emphasis placed on oral candidiasis and dysphonia. Rinsing the mouth after utilization should decrease the incidence of oral candidiasis significantly. Sometimes use of the spacer may improve symptoms of dysphonia. Not available 12/09/2022 06:56:36 06/10/2023 [id number] spirometry testing* Not avai lable 06/10/2023 15:43:21 Side effects of inhaled corticosteroids were reviewed with emphasis placed on oral candidiasis and dysphonia. Rinsing the mouth after utilization should decrease the incidence of oral candidiasis significantly. Sometimes use of the spacer may improve symptoms of dysphonia. Not available 06/10/2023 20:43:50 12/10/2023 [id number] spirometry testing* Not avai lable 12/10/2023 17:28:31 Reason for Referral None Reported. Results Created Date Observation Date Name Description Value Unit Range Abnormal Flag Note LastModifiedBy Organization Detail LastModifiedTime 05/16/1905/15/2022 aylin metry testi ng* fev1 101 Not Available [facility] [address] [facility] [address], [place], [address], 05/15/2022 14:10:47 05/16/19 23 05/15/2022 aylin metry testi ng* fvc 98 Not Available [facility] [address] [facility] [address], [place], [address], 05/15/2022 14:10:47 05/16/19 23 05/15/2022 aylin metry testi ng* % reversibilit y Not Available [facility] [address] [facility] [address], [place], [address], 05/15/2022 14:10:47 06/10/19 24 06/10/2023 aylin metry testi ng* fev1 82 Not Available [facility] [address] [facility] [address], [place], [address], 06/10/2023 15:30:14 06/10/19 24 06/10/2023 aylin metry testi ng* fvc 79 Not Available [facility] [address], [place], [address], 06/10/2023 15:30:14 06/10/1906/10/2023 aylin metry testi ng* % reversibilit y Not Available [facility] [address], [place], [address], 06/10/2023 15:30:14 12/10/1912/10/2023 aylin metry testi ng* fev1 101 Not Available [facility] [address], [place], [address], 12/10/2023 16:08:53 12/10/1912/10/2023 aylin metry testi ng* fvc 96 Not Available [facility] [address], [place], [address], 12/10/2023 16:08:53 12/10/1912/10/2023 aylin metry testi ng* % reversibilit y Not Available [facility] [address], [place], [address], 12/10/2023 16:08:53 05/16/19 aylin metry testi ng* No observ ation record ed. Not Available 05/15 14:25:10 06/10/19 aylin metry testi ng* No observ ation record ed. Not Available 06/09 15:43:09 12/10/19 aylin metry testi ng* No observ ation record ed. Not Available 12/09 16:39:42 Result Notes None recorded. Problems Name Problem SNOMED Code Status Onset Date Resolution Date Notes Provider Name and Address Organization Details Recorded Time Type 2 diabetes mellitus 69139172 Active 2022 ABDOUL Jackson [address], [place], [address], [place] [facility], 3 07:02:32 Hyperlipidemia 37026927 Active [address], [place], [address], [place] [facility], 3 07:03:12 Anxiety 41257882 Active [address], [place], [address], [place] [facility], 3 07:03:18 Moderate persistent asthma 049224754 Active [address], [place], [address], [place] [facility], 2 13:04:26 Allergic rhinitis 29444980 Active [address], [place], [address], [place] [facility], 2 13:04:46 Essential hypertension 15413947 Active [address], [place], [address], [place] [facility], 2 13:04:54 Problem Notes None recorded. Procedures Surgical History None recorded. Imaging Results Imaging Date Name Status LastModified by Organiz ation Details LastModified Time 05/15/2022 spirometry testing* completed Information not available 05/15/2022 14:25:10 06/10/2023 spirometry testing* completed Information not available 06/10/2023 15:43:09 12/10/2023 spirometry testing* completed Information not available 12/10/2023 16:39:42 Procedure Notes None recorded. Medical Equipment None Reported. Allergies Allergen ID Allergen Name Allergen Category Reaction Reaction Severity Criticality Documentation Date Start Date Code Code System Note Provider Name and Address Organization Details Recorded Time 13370 Substance with sulfonami de structure and antibacte rial mechanism of action (substanc e) medicatio n Not available Not available Not available 09/13/2021 77401 8003 SNOMED charisma escobar [place], [place] [facility], 2 12:46:48 [id number] azithromy alexandre medicatio n Not available Not available Not available 09/13/2021 [id number] RxNorm charisma escobar [place] [facility], 2 12:47:00 Medications Name Sig Start Date Stop Date Status Note LastModified by Organization Details LastModified Time boric acid 600mg caps use vaginally as directed, poison if taken by mouth active Not Available Not Available No t Available boric acid 600mg capsules Compounde d Boric Acid vaginal supposito huy. Poison if taken by mouth. Use one in the vagina as directed. 12/09 completed Not Available Not Available Not Available losartan 50 mg tablet TAKE 1 TABLET BY MOUTH EVERY DAY active Not Available Not Available No t Available latanoprost 0.005 % eye drops INSTILL 1 DROP INTO BOTH EYES AT BEDTIME active Not Available Not Available No t Available fluconazole 100 mg tablet TAKE 1 TABLET BY MOUTH ONCE 12/09 completed Not Available Not Available Not Available atorvastati n 80 mg tablet TAKE 1 TABLET BY MOUTH EVERY DAY active Not Available Not Available No t Available prednisone 10 mg tablet PLEASE SEE ATTACHED FOR DETAILED DIRECTION S 09/13 completed Not Available Not Available Not Available doxycycline hyclate 100 mg capsule TAKE 1 CAPSULE BY MOUTH TWICE DAILY 09/13 completed Not Available Not Available Not Available clindamycin HCl 300 mg capsule TAKE 1 CAPSULE BY MOUTH THREE TIMES A DAY FOR 10 DAYS 12/09 completed Not Available Not Available Not Available albuterol sulfate 2.5 mg/3 mL (0.083 %) solution for nebulizatio n USE 1 VIAL VIA NEBULIZER EVERY 4 TO 6 HOURS NEEDED J45.40 06/09 completed Not Available Not Available Not Available trazodone 50 mg tablet 50 MG ORALLY EVERY DAY AT BEDTIME NEEDED FOR SLEEP 12/09 completed Not Available Not Available Not Available nystatin 100,000 unit/gram topical ointment MIX WITH TRIAMCINO LONE OINTMENT AND APPLY TO VULVAR TISSUES ONCE DAILY active Not Available Not Available No t Available fluconazole 150 mg tablet TAKE 1 TABLET BY MOUTH ONCE. MAY REPEAT IN 72 HOURS IF STILL SYMPTOMAT IC 12/09 completed Not Available Not Available Not Available benzonatate 200 mg capsule TAKE 1 CAPSULE BY MOUTH THREE TIMES A DAY NEEDED FOR COUGH 06/09 completed Not Available Not Available Not Available valacyclovi r 1 gram tablet TAKE 1 TABLET BY MOUTH EVERY DAY active Not Available Not Available No t Available fluconazole 200 mg tablet ONE BY MOUTH EVERY OTHER DAY FOR THREE DOSES. 12/09 completed Not Available Not Available Not Available famotidine 40 mg tablet TAKE 1 TABLET BY MOUTH EVERY DAY AT BEDTIME active Not Available Not Available No t Available prednisone 20 mg tablet TAKE 2 TABLETS BY MOUTH EVERY DAY FOR 5 DAYS 06/09 completed Not Available Not Available Not Available potassium chloride ER 10 mEq tablet,exte nded release TAKE 1 TABLET BY MOUTH DAILY WITH A MEAL 12/09 completed Not Available Not Available Not Available amitriptyli ne 50 mg tablet TAKE 1 TABLET BY MOUTH EVERYDAY AT BEDTIME 12/09 completed Not Available Not Available Not Available triamcinolo ne acetonide 0.1 % topical cream APPLY TOPICALLY TWICE A DAY NEEDED FOR RASH active Not Available Not Available No t Available alprazolam 0.5 mg tablet TAKE 1 TABLET BY MOUTH THREE TIMES A DAY NEEDED FOR ANXIETY active Not Available Not Available No t Available amitriptyli ne 25 mg tablet TAKE 1 TABLET BY MOUTH EVERY DAY AT LUNCH TIME. 09/13 completed Not Available Not Available Not Available OneTouch Ultra Test strips USE (1) STRIP TO TEST BLOOD SUGAR TWICE A DAY active Not Available Not Available No t Available amlodipine 10 mg tablet TAKE 1 TABLET BY MOUTH EVERY DAY 12/09 completed Not Available Not Available Not Available benzonatate 100 mg capsule TAKE 1 CAPSULE BY MOUTH THREE TIMES A DAY NEEDED FOR COUGH 06/09 completed Not Available Not Available Not Available doxycycline monohydrate 100 mg capsule TAKE 1 CAPSULE BY MOUTH TWICE A DAY 09/13 completed Not Available Not Available Not Available cephalexin 500 mg capsule TAKE ONE CAPSULE (500MG) BY MOUTH FOUR TIMES DAILY FOR 7 DAYS 12/09 completed Not Available Not Available Not Available ferrous sulfate 325 mg (65 mg iron) tablet TAKE 1 TABLET BY MOUTH EVERY DAY active Not Available Not Available No t Available metformin 1,000 mg tablet TAKE 1 TABLET BY MOUTH EVERY DAY active Not Available Not Available No t Available esomeprazol e magnesium 40 mg capsule,del ayed release TAKE 1 CAPSULE BY MOUTH EVERY DAY active Not Available Not Available No t Available triamcinolo ne acetonide 0.1 % topical ointment MIX WITH THE NYSTATIN OINTMENT AND APPLY DAILY 06/09 completed Not Available Not Available Not Available Advair Diskus 500 mcg-50 mcg/dose powder for inhalation Inhale 1 puff twice a day by inhalatio n route. 06/09 completed Not Available Not Available Not Available gabapentin 300 mg capsule TAKE 2 (TWO) CAPSULES BY MOUTH 2 TIMES DAILY 06/09 completed Not Available Not Available Not Available Senna Laxative 8.6 mg tablet TAKE 2 TABLETS BY MOUTH TWICE A DAY NEEDED FOR CONSTIPAT ION 06/09 completed Not Available Not Available Not Available magnesium citrate oral solution 150 ML ORALLY ONCE A SINGLE DOSE. MAY REPEAT IN 8 HOURS IF NO BM. active Not Available Not Available No t Available aspirin 81 mg chewable tablet TAKE 1 TABLET BY MOUTH EVERY DAY FOR 30 DAYS active Not Available Not Available No t Available hydrochloro thiazide 25 mg tablet TAKE 1 TABLET BY MOUTH EVERY DAY active Not Available Not Available No t Available mupirocin 2 % topical ointment APPLY TO AFFECTED AREA 3 TIMES A DAY 09/13 completed Not Available Not Available Not Available levofloxaci n 500 mg tablet TAKE 1 TABLET BY MOUTH EVERY DAY 06/09 completed Not Available Not Available Not Available methylpredn isolone 4 mg tablets in a dose pack TAKE 6 TABLETS ON DAY 1 DIRECTED ON PACKAGE AND DECREASE BY 1 TAB EACH DAY FOR A TOTAL OF 6 DAYS 12/09 completed Not Available Not Available Not Available albuterol sulfate HFA 90 mcg/actuati on aerosol inhaler INHALE 2 PUFFS ONCE NEEDED FOR SHORTNESS OF BREATH active Not Available Not Available No t Available ipratropium bromide 42 mcg (0.06 %) nasal spray USE 2 SPRAYS INTRANASA LLY FOUR TIMES DAILY ADMINISTE R INTO EACH NOSTRIL active Not Available Not Available No t Available colchicine 0.6 mg tablet TAKE 2 TABLETS BY MOUTH NOW THEN TAKE 1 TABLET IN 1 HOUR 12/09 completed Not Available Not Available Not Available oxybutynin chloride 5 mg tablet TAKE 1 TABLET BY MOUTH THREE TIMES A DAY NEEDED active Not Available Not Available No t Available fluticasone propionate 50 mcg/actuati on nasal spray,suspe nsion USE2 SPRAYS BOTH NOSTRILS DAILY 06/09 completed Not Available Not Available Not Available amitriptyli ne 100 mg tablet TAKE 1 TABLET BY MOUTH TWICE A DAY active Not Available Not Available No t Available glipizide 5 mg tablet TAKE 1/2 TABLET (2.5 MG) BY MOUTH IN THE MORNING WITH BREAKFAST 06/09 completed Not Available Not Available Not Available naproxen 500 mg tablet TAKE 1 TABLET BY MOUTH TWICE A DAY NEEDED FOR PAIN 12/09 completed Not Available Not Available Not Available amoxicillin 875 mg-potassiu m clavulanate 125 mg tablet TAKE 1 TABLET BY MOUTH TWICE A DAY 12/09 completed Not Available Not Available Not Available amoxicillin 500 mg-potassiu m clavulanate 125 mg tablet TAKE 1 TABLET BY MOUTH TWICE A DAY 09/13 completed Not Available Not Available Not Available neomycin 3.5 mg/g-polymy javier B 10,000 unit/g-dexa meth 0.1 % eye oint APPLY SMALL AMOUNT TO THE EYELID TWICE DAILY 09/13 completed Not Available Not Available Not Available nitrofurant oin monohydrate /macrocryst als 100 mg capsule TAKE 1 CAPSULE BY MOUTH TWICE A DAY 12/09 completed Not Available Not Available Not Available Symbicort 160 mcg-4.5 mcg/actuati on HFA aerosol inhaler INHALE 2 PUFFS BY MOUTH TWICE A DAY DIRECTED 10/21 completed Not Available Not Available Not Available diclofenac 1 % topical gel APPLY 2 G TOPICALLY 4 (FOUR) TIMES A DAY FOR 7 DAYS active Not Available Not Available No t Available Purelax 17 gram/dose oral powder 17 G BY MOUTH DAILY 06/09 completed Not Available Not Available Not Available Spiriva Respimat 1.25 mcg/actuati on solution for inhalation INHALE 2 PUFFS INTO THE LUNGS EVERY DAY 06/09 completed Not Available Not Available Not Available Trelegy Ellipta 200 mcg-62.5 mcg-25 mcg powder for inhalation INHALE 1 PUFF EVERY DAY BY INHALATIO N ROUTE active Not Available Not Available No t Available BinaxNOW COVID-19 Ag Self Test kit TEST DIRECTED TODAY 05/15 completed Not Available Not Available Not Available Paxlovid 300 mg (150 mg x 2)-100 mg tablets in a dose pack TAKE 2 TABLETS (NIRMATRE LVIR) AND TAKE 1 TABLET (RITONAVI R) BY MOUTH TWICE A DAY FOR 5 DAYS 12/09 completed Not Available Not Available Not Available Mounjaro 7.5 mg/0.5 mL subcutaneou s pen injector INJECT 7.5 MG (0.5 ML) SUBCUTANE OUSLY WEEKLY active Not Available Not Available No t Available Mounjaro 5 mg/0.5 mL subcutaneou s pen injector INJECT 5MG (0.5ML) BY SUBCUTANE OUS ROUTE WEEKLY active Not Available Not Available No t Available Mounjaro 2.5 mg/0.5 mL subcutaneou s pen injector INJECT 2.5 MG (0.5 ML) SUBCUTANE OUSLY WEEKLY FOR 4 WEEKS active Not Available Not Available No t Available Vitals Date Recorded Body height Body mass index (BMI) Body weight Heart rate Oxygen saturation Oxygen saturation in Arterial blood by Pulse oximetry Respiratory rate Body temperature Systolic blood pressure Diastolic blood pressure Provider Name and Address Organization Details Last Updated DateTime 3 162.56 cm 31.4 kg/m2 73228.4 g 95 /min 95 % 95 % 18 /min 97.1 [degF] 138 mm[Hg] 70 mm[Hg] dwayne [place] [facility], 3 14:00:10 Date Recorded Body height Heart rate Oxygen saturation Oxygen saturation in Arterial blood by Pulse oximetry Respiratory rate Body temperature Systolic blood pressure Diastolic blood pressure Provider Name and Address Organization Details Last Updated DateTime 3 162.56 cm 86 /min 95 % 95 % 18 /min 97.9 [degF] 140 mm[Hg] 86 mm[Hg] dwayne [place] [facility], 3 16:44:23 Date Recorded Body height Body mass index (BMI) Body weight Heart rate Oxygen saturation Oxygen saturation in Arterial blood by Pulse oximetry Respiratory rate Body temperature Systolic blood pressure Diastolic blood pressure Provider Name and Address Organization Details Last Updated DateTime 3 162.56 cm 31.2 kg/m2 94034.8 1 g 105 /min 95 % 95 % 18 /min 97.1 [degF] 126 mm[Hg] 74 mm[Hg] [place] [facility], 3 16:31:00 Date Recorded Body height Body mass index (BMI) Body weight Heart rate Oxygen saturation Oxygen saturation in Arterial blood by Pulse oximetry Respiratory rate Body temperature Systolic blood pressure Diastolic blood pressure Provider Name and Address Organization Details Last Updated DateTime 4 162.56 cm 28.3 kg/m2 46016.7 4 g 100 /min 99 % 99 % 18 /min 97 [degF] 122 mm[Hg] 80 mm[Hg] [place] [facility], 4 15:12:50 Date Recorded Body height Body mass index (BMI) Body weight Heart rate Oxygen saturation Oxygen saturation in Arterial blood by Pulse oximetry Respiratory rate Systolic blood pressure Diastolic blood pressure Provider Name and Address Organization Details Last Updated DateTime 4 162.56 cm 25.4 kg/m2 65348.6 7 g 107 /min 96 % 96 % 18 /min 100 mm[Hg] 60 mm[Hg] Jackie Srivastava [place] [facility], 4 15:52:17 Social History Question Answer Notes LastModified by Organizat ion Details LastModified Time Tobacco Smoking Status Never Smoker dwayne marquez [place] [facility], 05/15/2022 14:00:34 Do You Have An Advance Directive? Yes Information not available 12/09/2022 What Is Your Level Of Alcohol Consumption? Occasional [email or web address] Information not available 05/15/2022 What Was The Date Of Your Most Recent Tobacco Screening? 12/10/2023 Information not available 12/10/2023 Do You Use Any Illicit Or Recreational Drugs? No [email or web address] Information not available 09/13/2021 Do You Or Have You Ever Used Any Other Forms Of Tobacco Or Nicotine? No [email or web address] Information not available 09/13/2021 Sex: Unknown Functional Status None recorded. Mental Status None recorded. Family History Nothing Reported. Medical History Condition Response Diabetes Y Anxiety Disorder Y Coronary Artery Disease N Gout N Arthritis N Kidney Stones N Hyperthyroidism N Tuberculosis N Cancer N Diverticulitis N Stroke N Asthma Y Allergies Y COPD N Depression N Stress N Hypothyroidism N GERD/Reflux Y High Cholesterol Y Liver Disease N Heart Disease N Pulmonary Embolism N Fibromyalgia N Hypertension Y Osteoporosis N Kidney Disease N Gynecological HistoryNo gynecological history recorded. Obstetrics History GPAL:G 0 P 0 0 0 0 Past Encounters Encounter ID Performer Location Encounter Start Date Encounter Closed Date Diagnosis/Indication Diagnosis SNOMED-CT Code Diagnosis ICD10 Code Diagnosis Note [id number] ABDOUL Jackson OFFICE [address] [place] [id number] 09/13/2021 12:14:47 09/13/2021 15:00:34 Allergic rhinitis 15502620 J30.9 The patient's symptoms are compatible with allergic rhinitis. Skin testing confirmed the allergic nature of this condition. The three fundamenta l therapeuti c strategies were discussed with the patient. These include allergen avoidance, pharmacolo gic interventi on with intranasal corticoste roids, antihistam dahiana, and potentiall y intranasal antihistam dahiana. She will continue on her fluticason e nasal spray and try Zee 180 mg tablets; 1 tablet by mouth twice daily. Moderate p ersistent asthma 214653504 J45.40 Patient was placed on a 2-week sample of Trelegy 200/62.5/2 5 mcg with directions on use; 1 inhalation once daily. She was instructed to stop her Symbicort while taking the Trelegy. She will return in 2 weeks to obtain repeat PFTs. Although her PFTs obtained during today's visit showed stable lung function, she reports a lot of symptoms. She will call prior to then should her symptoms increase or worsen. [id number] ABDOUL Jackson OFFICE [address] [place] [id number] 10/09/2021 14:58:18 10/09/2021 15:43:44 Allergic rhinitis 08855750 J30.9 She will continue on her fluticason e nasal spray and try Zee 180 mg tablets; 1 tablet by mouth twice daily. Posterior rhinorrhea 758 95757 R09.82 Patient prescribed ipratropiu m bromide 0.06% nasal spray with instructio ns on use. She will call the office should her copious amounts of nasal drip. Asthma 713222172 J45.90 9 PFTs show increased lung function. She denies any increased albuterol use nor does she have any night time awakenings due to her asthma symptoms since starting on the Trelegy. Therefore she will continue on Trelegy 200/62.5/2 5 mcg; 1 inhalation once daily. She will return in 6 months for her asthma evaluation . [id number] ABDOUL Jackson OFFICE [address] [place] [id number] 11/06/2021 14:34:49 11/06/2021 17:09:00 Moderate persistent asthma 761314223 J45.40 PFTs show increased lung function. She denies any night time awakenings due to her asthma symptoms and her albuterol use throughout the day is limited. She will therefore continue on her current treatment regimen including Trelegy 200/62.5/2 5 mcg; 1 inhalation once daily. She will return to the office in 6 months for follow up. Allergic rhinitis 060735 04 J30.9 She will continue on her fluticason e and ipratropiu m bromide 0.06% nasal sprays and try Zee 180 mg tablets; 1 tablet by mouth twice daily. [id number] Nemo Lockett MD OFFICE [address] [place] [id number] 01/17/2022 09:42:27 01/17/2022 10:30:19 Viral upper respiratory tract infection 553881629 J06.9 This is day 4 of an upper respirator y infection and she is improving. She should use guaifenesi n with plenty of water as an expectoran t. She can use Tylenol for muscle aches and headache. She should continue her fluticason e nasal spray but avoid the ipratropiu m now while the mucus is very thick. Moderate p ersistent asthma 781913178 J45.40 Unable to afford Trelegy. I converted her to Advair plus Spiriva yesterday. If these options remain unaffordab le she will call her insurance plan and ask about most affordable ICS/LABA and LAMA options. I shared these terms with the patient [id number] ABDOUL Jackson OFFICE [address] [place] [id number] 8 05/15/2022 13:23:32 05/15/2022 14:29:17 Moderate persistent asthma 678904513 J45.40 PFTs show increased lung function. She denies any night time awakenings due to her asthma symptoms and her albuterol use throughout the day is limited. She will therefore continue on her current treatment regimen including Trelegy 200/62.5/2 5 mcg; 1 inhalation once daily. She will return to the office in 6 months for follow up. Allergic rhinitis [id number] J30.9 She will continue on her fluticason e and ipratropiu m bromide 0.06% nasal sprays and try Zee 180 mg tablets; 1 tablet by mouth twice daily. [id number] Rafita holcomb MD OFFICE [address] [place] [address] [id number] 8 08/08/2022 16:01:54 08/08/2022 16:57:36 Moderate persistent asthma [id number] J45.40 Appears to be at baseline. She is going to be heading on a cruise between [facility] in [place] and was wondering if she had some prednisone e so she can take this with her. She will continue on her baseline medicines [id number] ABDOUL Jackson OFFICE [address] [place] [address] [id number] 8 12/04/2022 15:44:21 12/04/2022 17:04:27 Moderate persistent asthma [id number] J45.40 The patient is having a flare in her asthma. This is characteri zed by increased beta agonist use, cough, and wheezing. This probably been triggered by a viral infection. Therapy will consist of a burst of oral corticoste roids as well as increasing doses of short acting beta agonist. An antibiotic will be added because of purulent sputum production . She will call with any persistent or worsening symptoms. Acute bronchitis [id number] J20.9 The patient's symptoms are most compatible with an acute bronchitis with cough productive of purulent secretions , fever and chills. The patient was begun on an antibiotic . If symptoms do not respond promptly a chest x-ray will be obtained. She will call with any persistent or worsening symptoms. Candidiasis of vagina [id number] B37.31 Patient prescribed fluconazol e200 mg to treat her symptoms. [id number] ABDOUL Jackson OFFICE [address] [place] [address] [id number] 06/10/2023 14:35:28 06/10/2023 15:55:07 Moderate persistent asthma [id number] J45.40 The patient is having a flare in her asthma. This is characteri zed by increased beta agonist use, cough, and wheezing. This probably been triggered by a viral infection. Therapy will consist of a burst of oral corticoste roids as well as increasing doses of short acting beta agonist. An antibiotic will be added because of purulent sputum production . She will call with any persistent or worsening symptoms. [id number] ABDOUL Jackson OFFICE [address] [place] [address] [id number] 8 12/10/2023 15:30:38 12/10/2023 16:31:51 Moderate persistent asthma [id number] J45.40 The patient's asthma is doing extremely well. She is not having any nocturnal awakenings and her short acting beta agonist use during the day is limited. I will continue the patient on Trelegy 200/62.5/2 5 mcg; 1 inhalation once daily and albuterol as needed.She will return to the office in 6 months for follow up. Allergic rhinitis [id number] J30.9 She will try Zee 180 mg tablets; 1 - 2 times daily. Type 2 tessa betes mellitus [id number] E11.9 Congratula kelly on recent weight loss. Health Concerns Section Related Observation LastModified by Organization Detai ls LastModified Time None Recorded Concern Status LastModified by Organization Details LastModified Time None Recorded Advance Directives Directive Y: Payers Encounter Date Sequence Insurance Name Policy Number Policy Barker Covered Member ID Barker Member ID Guarantor Name 05/15/2022 1 [employer] (MEDICARE REPLACEMENT HMO) [id number] L Mouna Rodriguez [id number] Mouna Rodriguez 08/08/2022 1 [employer] (MEDICARE REPLACEMENT HMO) [id number] L Mouna Rodriguez [id number] Mouna Rodriguez 12/04/2022 1 [employer] (MEDICARE REPLACEMENT HMO) [id number] L Mouna Rodriguez [id number] Mouna Rodriguez 06/10/2023 1 [employer] (MEDICARE REPLACEMENT HMO) [id number] Taylor Rodriguez [id number] Mouna Rodriguez 12/10/2023 1 [employer] (MEDICARE REPLACEMENT HMO) [id number] Taylor Rodriguez [id number] Mouna Rodriguez Notes Date Note Type Note Provider Name and Address Organization Details Recorded Time 05/15/2022 text/html ACT TestReported bypatient.Asthma Control TestIn the past 4 weeks, how much time did your asthma keep you from getting as much done as you would like? (5); How often have you had shortness of breath5; How often did your asthma symptoms wake you up5; How often did you use your rescue inhaler5; How would you rate your asthma control5; total score 25 Mouna, a delightful 76 year-old female comes to the office for follow up of her moderate persistent asthma. She currently controls her asthma symptoms with Trelegy 200/62.5/25 mcg; 1 inhalation once daily. She denies any night time awakenings due to her asthma symptoms and her albuterol use throughout the day is limited. She credits her good control of her asthma symptoms with her Trelegy use.She also has a PMH of allergic rhinitis for which she controls with medications. She denies any increase in her allergic rhinitis symptoms currently.She denies any other health concerns at this visit. Renetta Manzano NP-C [address], [place], [address], [facility], 05/15/2022 14:42:34 08/08/2022 text/html ACT TestReported bypatient.Asthma Control TestIn the past 4 weeks, how much time did your asthma keep you from getting as much done as you would like? (5); How often have you had shortness of breath3; How often did your asthma symptoms wake you up5; How often did you use your rescue inhaler3; How would you rate your asthma control4; total score 20 Mouna comes in for follow-up of her asthma. She has been doing relatively well but did require a burst of steroids for a presumed sinus infection/asthma exacerbation. She is presently taking trelegy 1 puff per day But needing her short acting beta agonist once to twice a day. Does sleep through the night. Rafita Birch MD [address], [place], [address], [facility], 08/08/2022 17:15:03 12/04/2022 text/html ACT TestReported bypatient.Asthma Control TestIn the past 4 weeks, how much time did your asthma keep you from getting as much done as you would like? (3); How often have you had shortness of breath3; How often did your asthma symptoms wake you up3; How often did you use your rescue inhaler3; How would you rate your asthma control3; total score 15 Mouna, a delightful 77 year-old female returns to the office with concerns of increased cough, wheezing, and shortness of breath. She denies any fever but notes that her asthma is flaring. She has a PMH of moderate persistent asthma for which she controls with Trelegy 200/62.5/25 mcg; 1 inhalation once daily. Her asthma symptoms have disrupted her sleep. She has been using a lot more albuterol lately as well due to her increased asthma symptoms.She notes that when she coughs she produces discolored mucus. She recalls having a fever about one week ago but hasn't had one since then.No other health concerns were discussed at this visit. [address], [place], [address], [facility], 12/09/2022 07:05:27 06/10/2023 text/html ACT TestReported bypatient.Asthma Control TestIn the past 4 weeks, how much time did your asthma keep you from getting as much done as you would like? (5); How often have you had shortness of breath5; How often did your asthma symptoms wake you up5; How often did you use your rescue inhaler4; How would you rate your asthma control4; total score 23 Mouna, a delightful 77 year-old female returns to the office for follow up of her moderate persistent asthma for which she controls with Trelegy 200/62.5/25 mcg; 1 inhalation once daily. She notes that although she loves the Trelegy it is becoming too expensive for her. She notes that when she is on the Trelegy she has no symptoms nor does she have any increase in albuterol use. She notes that she had an upper respiratory infection at the end of February and early March this year. She was treated with Levaquin and benzonatate. She notes that her symptoms completely resolved.She denies any other health concerns at this visit. [address], [place], [address], [facility], 06/10/2023 20:46:25 12/10/2023 text/html ACT TestReported bypatient.Asthma Control TestIn the past 4 weeks, how much time did your asthma keep you from getting as much done as you would like? (4); How often have you had shortness of breath4; How often did your asthma symptoms wake you up4; How often did you use your rescue inhaler4; How would you rate your asthma control4; total score 20 Mouna, a delightful 78 year-old female returns to the office for follow up of her moderate persistent asthma and allergic rhinitis. She notes that she went on two different trips over the summer and Fall, one to [facility] in [place] and the other to [place]. On both trips she was able to breathe better through her nose and her lungs. However she notes that once back in [place], her symptoms seem to return almost immediately. She notes that her post nasal drip is the worst of the symptoms.She controls her PMH of moderate persistent asthma with Trelegy 200/62.5/25 mcg; 1 inhalation once daily and albuterol as needed. She denies any night time awakenings and her albuterol use throughout the day is limited.She is curious what she can take to control her allergic rhinitis symptoms.She denies any symptoms consistent with an infection including discolored secretions, fever, or chills.To note, she has lost well over 50 pounds since starting Mounjaro several months ago. Obviously she feels good about this.No other health concerns were discussed at this visit. [address], [place], [address], [place] [facility], 12/10/2023 17:32:51 OBGyn Episode No OBEpisode recorded.
--- OUTSIDE RECORDS SUMMARY | 2024-03-12 14:35 | XMS_ITS | Patient Health Summary ---
Author Organization [facility] Address [address] [place] [address] Care Team Providers Care Traffic Control Technician Name Role Phone Lion Allen MD Primary Care Provider [phone] Note from [facility],non-owned Affiliates and Associated Physician Practices is amultiple site organization consisting of ambulatory clinics and hospital sitesin [place], [place], [place]. This disclosure is being madepursuant to the Care Everywhere program and may not contain all information available regarding this patient. Last updated 17.[facility] Allergies * Sulfa Drugs(Rash) -Medium Criticality * Azithromycin(Swelling) -Medium Criticality Medications * Be aware that medications may not be up to date on this document. Always verify current medications with the patient. * oxybutynin (DITROPAN) 5 MG tablet Take 1 (one) tablet by mouth 3 times daily * metFORMIN (GLUCOPHAGE) 1000 MG tablet Take 1 (one) tablet by mouth 2 times daily with morning and evening meal * atorvastatin (LIPITOR) 80 MG tablet Take 1 (one) tablet by mouth at bedtime * fluticasone propionate (Flonase) 50 MCG/ACT nasal spray Creede 2 (two) sprays into each nostril once daily * latanoprost (XALATAN) 0.005 % ophthalmic solution(Started 03/25/2020) Instill 1 (one) drop into both eyes at bedtime * ALPRAZolam (XANAX) 0.5 MG tablet(Started 04/02/2020) Take 1 (one) tablet by mouth anxiety * hydroCHLOROthiazide (HYDRODIURIL) 25 MG tablet(Started 05/17/2020) Take 1 (one) tablet by mouth once daily * potassium chloride ER (KLOR-CON) 10 MEQ tablet(Started 05/17/2020) Take 1 (one) tablet by mouth once daily * amLODIPine (NORVASC) 10 MG tablet(Started 03/30/2021) Take 1 (one) tablet by mouth once daily * ferrous sulfate 325 (65 FE) MG tablet(Started 11/07/2021) Take 1 (one) tablet by mouth once daily * glipiZIDE (Glucotrol) 5 MG tablet(Started 11/09/2021) Take 0.5 (one-half) tablet by mouth every morning * naproxen (Naprosyn) 500 MG tablet(Started 03/19/2022) Take 1 (one) tablet by mouth 2 times daily as needed * losartan (Cozaar) 50 MG tablet(Started 05/18/2022) Take 1 (one) tablet by mouth once daily * famotidine (Pepcid) 40 MG tablet Take 1 (one) tablet by mouth once daily * triamcinolone acetonide (Kenalog) 0.1 % ointment(Started 06/04/2022) MIX WITH THE NYSTATIN OINTMENT AND APPLY DAILY 3 refills by 06/04/2023 * Trelegy Ellipta 200-62.5-25 MCG/ACT inhaler(Started 11/25/2022) Inhale 1 (one) puff by mouth once daily * amitriptyline (Elavil) 100 MG tablet(Started 10/29/2023) One tablet by mouth twice daily 3 refills by 10/28/2024 * fluconazole (Diflucan) 200 MG tablet(Started 11/10/2023) One by mouth every other day for three doses. * nystatin (Mycostatin) 470745 UNIT/GM ointment(Started 12/03/2023) MIX WITH TRIAMCINOLONE OINTMENT AND APPLY TO VULVAR TISSUES ONCE DAILY 3 refills by 12/02/2024 * valACYclovir (Valtrex) 1 GM tablet(Started 12/17/2023) TAKE 1 TABLET BY MOUTH EVERY DAY * boric acid 600 mg capsule(Started 03/02/2024) Compounded Boric Acid vaginal suppositories. Poison if taken by mouth. Use one in the vagina as directed. Ended Medications* boric acid 600 mg capsule(Started 01/09/2024)(Discontinued) Compounded Boric Acid vaginal suppositories. Poison if taken by mouth. Use one in the vagina as directed. 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 (FLUAD QUADRIVALENT; 65Y+) (AIIV4)(Given 11/08/2019) * INFLUENZA VACCINE, ADJUVANTED, TRIV. (FLUAD TRIVALENT; 65Y+) (AIIV3)(Given 11/19/2017) * INFLUENZA VACCINE, HIGH-DOSE, QUADR. (FLUZONE HIGH-DOSE QUADRIVALENT; 65Y+), 0.7 ML (HD-IIV4)(Given 12/11/2018) * Zoster Hzv Vacc Recombinant Inj Im(Given 07/11/2018) Social History Tobacco Use Types Packs/Day Years [...] Comments Blood Pressure 120/64 12/24/2022 1:58 PM FUEL CELL BUILDER Pulse - - Temperature 36.6 ??C (97.9 ??F) 12/24/2022 1:58 PM CS T Respiratory Rate - - Oxygen Saturation - - Inhaled Oxygen Concentration - - Weight 81.5 kg (179 lb 9.6 oz) 12/24/2022 1:58 P M FUEL CELL BUILDER Height 162.6 cm (5' 4.02 ) 12/24/2022 1:58 PM CS T Body Mass Index 30.81 12/24/2022 1:58 PM FUEL CELL BUILDER Procedures * CULTURE YEAST WITH DIRECT FLUORESCENT JUAN(Performed 12/24/2022) Performed for Herpes simplex infection of genitourinary system * CULTURE URINE(Performed 06/24/2022) Performed for Acute cystitis without hematuria * CULTURE URINE(Performed 04/26/2022) Performed for Acute cystitis without hematuria * WET PREP - POINT OF CARE (AMB) [facility](Performed 08/30/2020) Performed for Natalee glabrata infection * PH FLUID - POCT (AMB) [facility](Performed 08/30/2020) Performed for Natalee glabrata infection * FUNGUS UJAN - POINT OF CARE (AMB) [facility](Performed 08/30/2020) Performed for Natalee glabrata infection * MAMMOGRAM(Performed 07/31/2020) * CULTURE URINE(Performed 04/25/2020) Performed for Dysuria * PROC INCISION AND DRAINAGE(Performed 04/18/2020) Performed for Vulvar abscess * MAMMOGRAM(Performed 11/23/2019) * CULTURE URINE(Performed 11/09/2018) Performed for Dysuria * PH FLUID - POCT (AMB) [facility](Performed 07/12/2014) * FUNGUS JUAN - POINT OF CARE (AMB) [facility](Performed 07/12/2014) * WET PREP - POINT OF CARE (AMB) [facility](Performed 07/12/2014) * CULTURE FUNGUS OTHER+FUNGUS SMEAR(Performed 06/01/2014) * CULTURE FUNGUS OTHER+FUNGUS SMEAR(Performed 05/12/2014) * SUSCEPTIBILITY YEAST(Performed 05/12/2014) * FUNGUS JUAN - POINT OF CARE (AMB) [facility](Performed 05/03/2014) * WET PREP - POINT OF CARE (AMB) [facility](Performed 05/03/2014) * PH FLUID - POCT (AMB) [facility](Performed 05/03/2014) * CULTURE FUNGUS OTHER+FUNGUS SMEAR(Performed 04/12/2014) * FUNGUS JUAN - POINT OF CARE (AMB) [facility](Performed 04/11/2014) * WET PREP - POINT OF CARE (AMB) [facility](Performed 04/11/2014) * PH FLUID - POCT (AMB) [facility](Performed 04/11/2014) * FUNGUS JUAN - POINT OF CARE (AMB) [facility](Performed 03/14/2014) * WET PREP - POINT OF CARE (AMB) [facility](Performed 03/14/2014) * CULTURE URINE COMPREHENSIVE(Performed 01/18/2014) * FUNGUS JUAN - POINT OF CARE (AMB) [facility](Performed 01/04/2014) * WET PREP - POINT OF CARE (AMB) [facility](Performed 01/04/2014) * PH FLUID - POCT (AMB) [facility](Performed 01/04/2014) * CULTURE FUNGUS OTHER+FUNGUS SMEAR(Performed 01/04/2014) * GROSS + MICRO EXAM(Performed 11/21/1998) Results * CULTURE YEAST WITH DIRECT FLUORESCENT JUAN (12/24/2022 2:02 PM FUEL CELL BUILDER) Smear [facility] Comment: ??CULTURE, YEAST, W/DIRECT FLUORESCENT JUAN ?Micro Number: ?[id number] ??Test Status: ? Final ??Specimen Source: ?? Genital ??Specimen Quality: ??Adequate ??Smear: ? No yeast seen ??Result: ?No yeast isolated Test Performed at: [id number] ??[id number] PATRICE VALENCIA MD Microbiology SPECIMEN FROM GENITAL SYSTEM / Unknown 12/24/2022 2:02 PM FUEL CELL BUILDER 12/25/2022 4:46 AM FUEL CELL BUILDER Harriet Cazares MD LAB - MICROBIOLOGY ORDERABLES [address] [address] * CULTURE URINE (06/24/2022 2:16 PM CDT) Only the most recent of4 resultswithin the time period is included. Urine Culture Routine Final report [facility] INSURANCE BILL Result 1 No growth [facility] INSURANCE BILL Urine URINE SPECIMEN OBTAINED BY CLEAN CATCH PROCEDURE / Unknown 06/24/2022 2:16 PM CDT 06/24/2022 Narrative Resulting Agency Comment Lab Testing performed at: [facility] [address] ??[facility] [id number] Harriet Cazares MD LAB - MICROBIOLOGY ORDERABLES [facility] INSURANCE BILL [address] [place] [address] * PH FLUID - POCT (AMB) [facility] (08/30/2020) Only the most recent of5 resultswithin the time period is included. pH Vaginal 4.5 Fluid ENTIRE VAGINA / Unknown 08/30/2020 Harriet Cazares MD LAB - POINT OF CAR E ORDERABLES * WET PREP - POINT OF CARE (AMB) [facility] (08/30/2020) Only the most recent of6 resultswithin the time period is included. pH Wet Prep 4.5 Yeast Wet Prep buds Trichomonas Wet Prep None Bacteria Wet Prep neg Whiff Test neg BODY FLUID SPECIMEN / Unknown 08/30/2020 Harriet Cazares MD LAB - POINT OF CAR E ORDERABLES * FUNGUS JUAN - POINT OF CARE ([facility]) [facility] (08/30/2020) Only the most recent of6 resultswithin the time period is included. JUAN Prep Yes Comment:bud Fluid BODY FLUID SPECIMEN / Unknown 08/30/2020 Harriet Cazares MD LAB - POINT OF CAR E ORDERABLES * MAMMOGRAM (07/31/2020) Only the most recent of2 resultswithin the time period is included. Anatomical Region Laterality Modality Other Historical Provider SCANNING ONLY * PROC INCISION AND DRAINAGE (04/18/2020 9:18 AM FUEL CELL BUILDER) Narrative Harriet Harding MD - 04/18/2020 9:18 AM FUEL CELL BUILDER Harriet Harding MD ? 04/18/2020 ??9:20 AM Procedure Note: Pre-operative diagnosis: ??Vulvar abscess Post-operative diagnosis: ZAIRE Procedure Details: The risks, benefits, and alternatives were discussed in detail with the patient ??She states understanding of the risks, and requests to proceed with the procedure. All her questions were answered to her satisfaction, and she understands and agrees to appropriate follow up appointments. ??ICF obtained. The patient was placed in a dorsal lithotomy position. ??The abscess site was cleaned with multiple swabs of Betadine (unless allergic to topical iodine, in which case hibiclens was used). The abscess site was infiltrated with 1% lidocaine. ?? A scalpel was used to incise the abscess and purulent material expressed. ?? Assessment and Plan 1. ??Vulvar abscess: ??Drained. 2. ??Post care instructions: Keep site clean. ??Rinse with water after urination. To do sitz baths twice daily. ??Cautioned that small amount of bleeding with increased activity could occur. To call for increasing size, pain or swelling. 3. ??The patient tolerated the procedure well. Harriet Cazares MD PROCEDURE/MINOR GRIMES RGICAL ORDERABLES * CULTURE FUNGUS OTHER+FUNGUS SMEAR (06/01/2014 6:00 AM CDT) Only the most recent of4 resultswithin the time period is included. Smear SEE NOTE [facility] ([facility]) Comment: ??CULTURE, FUNGUS W/SMEAR NOT HAIR, SKIN, BLOOD ?MICRO NUMBER: ?[id number] ??TEST STATUS: ? FINAL ??SPECIMEN SOURCE: ?? VULVA ??SPECIMEN QUALITY: ??ADEQUATE ??SMEAR: ? No fungal elements seen. ??RESULT: ?No fungal growth at 4 Weeks NO COLLECTION DATE RECEIVED. WE HAVE USED THE DATE THE SPECIMEN WAS RECEIVED BY THIS LABORATORY THE COLLECTION DATE. IF THIS IS INCORRECT, PLEASE CONTACT CLIENT SERVICES. PHONE NUMBER: [phone] Test Performed at: [id number] ??[id number] PATRICE VALENCIA MD Other (qualifier value) 06/01/2014 6:00 AM CDT 05/04/2014 6:19 AM CDT Narrative [facility] ([facility]) - 06/01/2014 6:00 AM CDT Please check for all natalee species including natalee glabrata Please check for sensitivities even for natalee albicans result Please check for sensitivities for these drugs: 1. Anidulafungin 2. Micafungin 3. Caspofungin 4. 5-Flucytosine 5. Posaconazole 6. Voriconazole 7. Itraconazole 8. Fluconazole 9. Amphotericin B Specimen Type->Other vulvar Harriet Cazares MD LAB - MICROBIOLOGY ORDERABLES [facility] ([facility]) * SUSCEPTIBILITY YEAST (05/12/2014 7:00 AM CDT) Specimen Source VULVAR [facility] ([facility]) Identification NATALEE GLABRATA [facility] ([facility]) Amphotericin B 0.500 mcg/mL [facility] ([facility]) Anidulafungin FABIOLA 0.030 S mcg/mL [facility] ([facility]) Caspofungin 0.060 S mcg/mL [facility] ([facility]) Fluconazole 16 SD mcg/mL [facility] ([facility]) Flucytosine <=0.060 S mcg/mL [facility] ([facility]) Itraconazole 0.500 SD mcg/mL [facility] ([facility]) Micafungin FABIOLA <=0.008 S mcg/mL [facility]) Posaconazole 1 S mcg/mL [facility] ([facility]) Voriconazole 0.250 S mcg/mL [facility] ([facility]) Additional Information [facility] ([facility]) Comment: Drug concentrations are expressed in mcg/mL. S = Susceptible SD = Susceptible, Dose Dependent I = Intermediate R = Resistant NS = Non Susceptible FABIOLA interpretations are based on recent publications and CLSI guidelines. Amphotericin MICs >1 mcg/mL are considered R, lower MICs are reported with no interpretation. Susceptible-Dose Dependent (SD): susceptibility of the azole is dependent on achieving maximum blood levels. This test was performed using a kit that has not been cleared or approved by the FDA. The analytical performance characteristics of this test have been determined by [facility]. This test should not be used for diagnosis without confirmation by other medically established means. Test Performed at: [facility] [address] [place] [address] ??[id number] HORTENCIA ROY MD 05/12/2014 7:00 AM CDT 04/11/2014 11:06 PM FUEL CELL BUILDER Harriet Cazares MD LAB - MICROBIOLOGY ORDERABLES Performing Organization Address [facility]/ZIP Co de Phone Number [facility] ([facility]) * (ABNORMAL) CULTURE URINE COMPREHENSIVE (01/18/2014 12:42 PM FUEL CELL BUILDER) Culture SEE NOTE(A) [facility] ([facility]) Comment: ??CULTURE, URINE, SPECIAL ?MICRO NUMBER: ?[id number] ??TEST STATUS: ? FINAL ??SPECIMEN SOURCE: ?? OTHER (SPECIFY) ??SPECIMEN QUALITY: ??ADEQUATE ??RESULT: ?1,000-10,000 CFU/mL of Gram negative bacilli isolated ? 1,000-10,000 CFU/mL of Gram positive cocci isolated ? Strain 1 ? 1,000-10,000 CFU/mL of Gram positive cocci isolated ? Strain 2 ??COMMENT: ? May represent colonizers from external and ? internal genitalia. No further testing (including ? susceptibility) will be performed. Test Performed at: [id number] ??[id number] PATRICE VALENCIA MD Urine specimen (specimen) 01/18/2014 12:42 PM FUEL CELL BUILDER 01/18/2014 12:43 PM FUEL CELL BUILDER Harriet Cazares MD LAB - MICROBIOLOGY ORDERABLES Performing Organization Address [facility] Co de Phone Number [facility] ([facility]) * GROSS + MICRO EXAM (11/21/1998 1:10 PM CDT) Result CASE NUMBER [id number] Comment: ORDERING PHYSICIAN ??HIRAM CASTILLO SPECIMEN TYPE ?Uterus w/wo tubes Date ? 11/21/1998 Physician ?Thatch Gross Description ? The specimen is received in a formalin-filled container, labeled with the patient's name and cervix, uterus, right and left fallopian tubes and ovaries . ??The specimen consists of a uterus with attached cervix and left fallopian tube and ovary. ??The right fallopian tube and ovary are received separate. ??The uterus measures approximately 5.5 x 6 x 4 cm. ??The cervix measures approximately 3.5 cm long. ??The ectocervix measures approximately 3.5 cm in diameter. ??The ectocervical mucosa is grossly free of lesions. ??The left fallopian tube measures 5 cm long x approximately 0.6 cm in diameter and is grossly unremarkable. ??The left ovary measures approximately 3 cm in largest diameter and is grossly unremarkable. ??The uterine serosal surface is shiny and glistening without focal lesions. ??The right fallopian tube measures approximately 5.5 cm long x 1.2 cm in largest diameter. ??The right ovary measures approximately 3 cm in largest diameter and is grossly unremarkable. ?? Sections of the right ovary and right fallopian tube are submitted in cassette A. ??Random sections of the left ovary and fallopian tube are submitted in cassette B. ??The uterus weighs 160 grams. ??The endocervical canal is mucoid and homogeneous without focal lesions. ?? Cassette C has cervix at 12 o'clock ??cassette D has cervix at 6 o'clock. ??The endometrial cavity measures approximately 3 x 4 x less than 1 cm. ??The endometrial mucosa is irregular with areas of hyperemia. ??The posterior transmural sections are submitted in cassettes E and F. ??Anterior transmural sections are submitted in cassettes G, H and I. ??A single rounded well-circumscribed whorled rubbery mass is identified on the posterior myometrium, it measures approximately 1.5 cm in largeset diameter. ??A technical sales representative section of this mass is submitted in cassette J. ? /lmj Microscopic Exam ? Both ovaries and fallopian tubes are histologically unremarkable. The ectocervical stratified squamous epithelium and the stroma are histologically unremarkable. ??There is a mild chronic inflammatory infiltrate in the endocervix. ??Small focus of endocervical duct hyperplasia is identified. ??There is no evidence of atypia or dysplasia. The endometrial mucosa is thick with tortuous glands lined by tall epithelium with abundant eosinophilic cytoplasm. ??Subnuclear vacuoles are identified (consistent with secretory endometrium). ?? Endometrial polyps are identified in sections H and I. ?? The myometrium reveals foci of adenomyosis. ??The myometrial mass consists of interlacing bundles of smooth muscle cells without evidence of atypia or increased mitotic activity. Diagnosis ?I. ??Uterus and bilateral adnexa, hysterectomy, bilateral ?salpingo-oophorectomy ?A. ??Ovaries and fallopian tubes, bilateral ?1. ??No pathologic diagnosis. ?B. ??Endometrium ?1. ??Endometrial polyps ?2. ??secretory endometrium. ?C. ??Myometrium ?1. ??Adenomyosis. ?2. ??Leiomyoma (1.5 cm.). ?D. ??Cervix ?1. ??Chronic cervicitis, mild. Clinical Quality Assurance Associate ? bk Pathologist ?Ema Arthur M.D. [place]. ?11/22/1998 1532 <6> CPT code ? 8307/81928 MISCELLANEOUS SAMPLES / Unknown 11/21/1998 1:10 PM CDT 11/21/1998 1:10 PM CDT Historical Provider LAB - PATHOLOGY/C YTOLOGY ORDERABLES Care Teams Traffic Control Technician Relationship Specialty Start Date End Date Lion Allen MD [address] [place] [address] PCP - General Ophthalmology 12/24/22
--- OUTSIDE RECORDS SUMMARY | 2024-03-12 14:35 | XMS_ITS | Continuity of Care Document ---
Author Organization [facility] Address [address] [place] [address] Phone Care Team Providers Care Chemical Compounder Helper Name Role Phone Bren Juarez Unavailable Unavailable Procedures Procedure Date Office/outpatient Visit, Est Office/outpatient Visit, Est Visual Field Examination(s) Office/outpatient Visit, Est Office/outpatient Visit, Est Visual Field Examination(s) Office/outpatient Visit, Est Office/outpatient Visit, Est Office/outpatient Visit, Est Corneal Pachymetry Fundus Photography W/ Report Visual Field Examination(s) Advance Directives Directive Yes / No Effective Date File Name No Information Encounters Encounter Description Practice Location Reason(s) For Visit Diagnoses Date Provider Providers Copied on Encounter Office/outpat ient Visit, [facility], [address] [place] [address] [address], [place], [place], [id number], [place] tel:[phone] [facility] [place] No Information 2-201 0 Ann Correia. [address] [facility] [place] , [address], [place], [address], [place]. tel:[phone] Office/outpat ient Visit, [facility], [address] [place] [address] [address], [place], [place], [id number], [place] tel:[phone] SEC [place] [facility] No Information 201 0 Ann Duckworth [address] , [address], [place], [place], [facility], [place]. tel:[phone] [facility], [address] [place] [address] [address], [place], [place], [id number], [place] tel:[phone] [facility] [place] No Information 200 9 Ann Duck[address] , [address], [place], [place], [facility], [place]. tel:[phone] Referring Provider: Bren Hylton, [facility] [address], [place], [facility]. tel:[phone] Office/outpat ient Visit, [facility], [address] [place] [address] [address], [place], [place], [address], [place] tel:[phone] [facility] [place] No Information 9 Ann Duckworth [facility] , [address], [place], [facility], [place]. tel:[phone] Office/outpat ient Visit, [facility], [address] [place] [address] [address], [place], [place], [id number], [place] tel:[phone] [facility] [place] No Information 9 Lianne Alvarez. [address] , [address], [place], [facility], [place]. tel:[phone] [facility], [address] [place] [address] [address], [place], [place], [address], [place] tel:[phone] [facility] No Information 9-200 8 Ann Coreria. [address] , [address], [place], [facility], [place]. tel:[phone] Referring Provider: Archana [facility] [address], [place], [facility]. tel:[phone] [facility], [address] [place] [address] [address], [place], [place], [address], [phone] SEC [facility] No Information Dimitry-0 5-200 8 Juarez Bren. [address] [facility] , [address], [place], [facility], . tel:[phone] Office/outpat ient Visit, [facility], [address] [place] [address] [address], [place], [place], [id number], tel:[phone] [facility] [place] No Information Dec-2 0-200 7 Juarez Bren. [address] [place], [place] [address]ate [place] , [address], [place], [facility], . tel:[phone] Office/outpat ient Visit, [facility], [address] [place] [address] [address], [place], [place], [address], [place] [phone] [facility] No Information Jasson-1 6-200 7 Lianne Alvarez. [address] [place] [address] , [address], [place], [place], [facility], . tel:[phone] Referring Provider: Antonio Boggs [facility] [address], [place], [facility]. tel:[phone] [facility], [address] [place] [address] [address], [place], [place], [address], [place] tel:[phone] SEC [facility] No Information Mar-0 8-200 7 Lianne Alvarez. [facility] [address], [place], [facility], . tel:[phone] Referring Provider: Antonio Boggs [facility] [address], [place], [facility]. tel:[phone] Family History Family Member Type Diagnosis Age At Onset No Information Payers Payer name Insurance type Covered democrat ID Authoriza tion(s) No Information Social History Type Description Quantity Date Captured Comments Sex Female Smoking Status No Information Chief Complaint And Reason For Visit No Information Reason For Referral Reason For Referral No Information History Of Present Illness Encounter Date Complaint History Of Prese nt Illness No Information Functional Status Date Functional Assessmen t No Information Instructions Date Instruction Additional Infor mation No Information Assessments Type Assessment Date No Information Patient Care Teams Name Effective Dates (start - stop) Status Members No Information
--- OUTSIDE RECORDS SUMMARY | 2024-03-12 14:35 | XMS_ITS | Clinical Summary ---
Author Organization [facility] Address [address] [place] [address] Care Team Providers Care Assistant Teacher Primary Name Role Phone Lion Allen MD Primary Care Provider [phone] Source Comments [facility],non-owned Affiliates and Associated Physician Practices is amultiple site organization consisting of ambulatory clinics and hospital sitesin [place], [place], [place] and [place]. This disclosure is being madepursuant to the Care Everywhere program and may not contain all information available regarding this patient. Last updated 17.[facility] Allergies Active Allergy Reactions Criticality Noted Date [...] fluticasone propionate (Flonase) 50 MCG/ACT nasal spray [place] 2 (two) sprays into each nostril once [...] doses. 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 Encounters Date Type Department Care Team Description 03/02/2024 Telephone [facility] - INVESTIGATION SPECIALIST [address] [facility] [address] [place] [address] Harriet Cazares MD Patient Requested Call 01/28/2024 Travel 01/09/2024 Telephone [facility] - INVESTIGATION SPECIALIST [address] [place] [address] Harriet Cazares MD Refill Request 12/17/2023 Refill [facility] - INVESTIGATION SPECIALIST [address] [place] [address] Harriet Cazares MD Refill Request from Last 3 Months Immunizations Name Administration Dates Next Due INFLUENZA [...] Comments Blood Pressure 120/64 12/24/2022 1:58 PM GUN STOCK MAKER Pulse - - Temperature 36.6 ??C (97.9 ??F) 12/24/2022 1:58 PM CS T Respiratory Rate - - Oxygen Saturation - - Inhaled Oxygen Concentration - - Weight 81.5 kg (179 lb 9.6 oz) 12/24/2022 1:58 P M GUN STOCK MAKER Height 162.6 cm (5' 4.02 ) 12/24/2022 1:58 PM CS T Body Mass Index 30.81 12/24/2022 1:58 PM GUN STOCK MAKER Plan of Treatment Upcoming Encounters Date Type Department Care Team (Late st Contact Info) Description 04/13/2024 2:40 PM GUN STOCK MAKER Office Visit [facility] - INVESTIGATION SPECIALIST [address], [facility] [address] [place] [address] Harriet Cazares MD [address] [address] [place] [address] Health Maintenance Due Date Last Done Comments BONE DENSITY TESTING 1945 HEPATITIS C SCREENING 12/03/1963 DTAP/TDAP/TD VACCINES (1 - Tdap) 1964 PNEUMOCOCCAL VACCINE 50+ (1 of 2 - PCV) 1964 ZOSTER VACCINE (2 of 2) 09/05/2018 07/11/2018 Respiratory Syncytial Virus (RSV) Vaccine Pt: or over 60 yrs (1 - 1-dose 75+ series) 2020 DIABETES RETINOPATHY SCREENING 12/04/2021 10/26/2018 DIABETES-FOOT EXAM WITH MONOFILAMENT 12/04/2021 DIABETES-HGB A1C 12/04/2021 DIABETES-SERUM CREATININE 09/11/2023 09/10/2022 COVID-19 VACCINE ( season) 2023 11/17/2021, 05/27/2021, 12/14/2020, Additional history exists INFLUENZA VACCINE (#1) 2023 2, 11/28/2020, 11/08/2019, Additional history exists DEPRESSION SCREENING 02/18/2024 12/24/2022 DIABETES - URINE PROTEIN SCREENING 02/18/2024 MEDICARE AWV ? CALENDAR YEAR 2024 HEPATITIS B VACCINE Aged Out No longe r eligible based on patient's age to complete this topic HIB VACCINE Aged Out No longer eligi ble based on patient's age to complete this topic HPV VACCINE Aged Out No longer eligi ble based on patient's age to complete this topic MENINGOCOCCAL (Group B) VACCINE Aged Out No longer eligible based on patient's age to complete this topic MENINGOCOCCAL VACCINE Aged Out No claudy lucho eligible based on patient's age to complete this topic Care Teams Assistant Teacher Primary Relationship Specialty Start Date End Date Lion Allen MD [address] [place] [address] [place] [address] PCP - General Ophthalmology 12/24/22
--- OUTSIDE RECORDS SUMMARY | 2024-03-12 14:35 | XMS_ITS | Referral Summary ---
Author Organization [facility] Address [address] [place] [address] Care Team Providers Care Intervention Teacher Name Role Phone Michelle Suellensai Guajardo NP Primary Care Provider [phone] Encounters Date Type Department Care Team Description 01/26/2024 1:15 PM LEAVE MANAGER Office Visit [facility] Orthopaedic Surgery [address] 2nd [address] [place] [address] Derek Parsons PA Primary osteoarthritis of left knee (Primary Dx) 01/05/2024 5:30 PM LEAVE MANAGER Office Visit [facility] Care at [address] [address] Basilia Daniels NP Foreign body in nose, initial encounter (Primary Dx) 12/26/2023 2:28 PM LEAVE MANAGER - 12/26/2023 11:59 PM LEAVE MANAGER Hospital Encounter [facility] [address] [place] [address] Discharge Disposition: Discharge to home or self care 12/26/2023 Telephone [facility] Cardiology [address] [place] [address] 8th [place] [address] [place] [address] Joon Srivastava MD PhD Medical Records Request 12/26/2023 11:30 AM LEAVE MANAGER Office Visit [facility] Cardiology [address] [place] [address] 8th [place] [address] [place] [address] Joon Srivastava MD PhD LBBB (left bundle branch block) (Primary Dx); Essential hypertension; Type 2 diabetes mellitus without complication, unspecified whether snf insulin use (HCC) 12/24/2023 6:20 PM LEAVE MANAGER - 12/24/2023 11:59 PM LEAVE MANAGER Hospital Encounter [facility] [address] [place] [address] Discharge Disposition: Discharge to home or self care 12/23/2023 Telephone [facility] Cardiology [address] [facility] 8th [place] [address] [place] [address] Jenae Pérez from Last 3 Months Allergies Active Allergy [...] Rhinitis Administer 1 spray into each nostril automation design engineer before breakfast 2 05/07/19 19 Active hydroCHLOROthiaz partha (HYDRODIURIL) 25 mg tabletIndication s:hypertension Take 1 tablet (25 mg total) by mouth automation design engineer before breakfast 0 04/13/19 19 Active latanoprost [...] 1 tablet (1,000 mg total) by mouth automation design engineer before breakfast 12/02/19 19 Active OneTouch Delica [...] total) by mouth daily with breakfast Active mllvq-[id number]-qjw-epa- dpa-fish oil 1,050-1,200 mg capsule 1 capsule [...] 0.5 tablets (2.5 mg total) by mouth automation design engineer before breakfast 11/10/19 22 Active fluconazole (DIFLUCAN) [...] (09/03/2019): Added automatically from request for surgery [id number] Trigger finger, left index finger 09/03/2019 Overview (09/03/2019): Added automatically from request for surgery [id number] 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 History of candidiasis 11/25/2017 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 Jennifer glabrata infection 04/20/2014 Arthralgia of hip 06/19/2011 Social History Tobacco Use Types Packs/Day Years Used Date Smoking Tobacco: Never Smokeless Tobacco: Never Tobacco Cessation:Counseling Given: Not Answered Alcohol Use Standard Drinks/Week Comments Yes 0 (1 standard drink = 0.6 oz pur e alcohol) occasional Comments No Sex and Gender Information Value Date Recorded Sex Assigned at Not on file Legal Sex Female 2:34 AM LEAVE MANAGER Gender Identity Not on file Sexual Orientation Not on file Last Filed Vital Signs Vital Sign Reading Time Taken Comments Blood Pressure 108/62 01/05/2024 5:32 PM LEAVE MANAGER Pulse 92 01/05/2024 5:32 PM LEAVE MANAGER Temperature 36.9 ??C (98.4 ??F) 01/05/2024 5:32 PM CS T Respiratory Rate 16 01/05/2024 5:32 PM LEAVE MANAGER Oxygen Saturation 96% 01/05/2024 5:32 PM LEAVE MANAGER Inhaled Oxygen Concentration - - Weight 64.4 kg (142 lb) 01/05/2024 5:32 PM LEAVE MANAGER Height 162.6 cm (5' 4 ) 12/26/2023 11:01 AM LEAVE MANAGER Body Mass Index 24.37 12/26/2023 11:01 AM LEAVE MANAGER Plan of Treatment Not on file Procedures Procedure Name Priority Date/Time Associated Diagnosis Comments MS ARTHROCENTESIS ASPIR&/INJ MAJOR JT/BURSA W/O US Routine 01/26/2024 1:15 PM LEAVE MANAGER Primary osteoarthritis of left knee NM OUTSIDE REFERENCE Routine 12/26/2023 2:28 PM LEAVE MANAGER IR OUTSIDE REFERENCE Routine 12/24/2023 6:20 PM LEAVE MANAGER POCT LIPID PANEL Routine 05/16/2021 3:44 PM CDT Lipid screening from Last 3 Months or Most Recently Relevant to Health Maintenance Results * MS ARTHROCENTESIS ASPIR&/INJ MAJOR JT/BURSA W/O US (01/26/2024 1:15 PM LEAVE MANAGER) Narrative Bola Moulton MD - 01/26/2024 1:15 PM LEAVE MANAGER Derek Parsons PA ? 01/26/2024 ??2:01 PM [...] the procedure well with no immediate complications us Derek DAS IN CLINIC/BEDSIDE ORDERABLES Fi nal Result * NM Outside Reference (12/26/2023 2:28 PM LEAVE MANAGER) Impressions [facility] - 12/26/2023 2:28 PM LEAVE MANAGER These images are for Reference purposes only and have not been reviewed by [facility]. ??There will be no report generated by a [facility] Radiologist. Narrative [facility] - 12/26/2023 2:28 PM LEAVE MANAGER EXAMINATION: ??Images For Reference Purposes Only us Joon Srivastava MD PhD IMG NM PROCEDURES Final Result [facility] * IR Outside Reference (12/24/2023 6:20 PM LEAVE MANAGER) Impressions [facility] - 12/24/2023 6:20 PM LEAVE MANAGER These images are for Reference purposes only and have not been reviewed by [facility]. ??There will be no report generated by a [facility] Radiologist. Narrative [facility] - 12/24/2023 6:20 PM LEAVE MANAGER EXAMINATION: ??Images For Reference Purposes Only us Joon Srivastava MD PhD IMG IR PROCEDURES Final Result [facility] * POCT lipid panel (05/16/2021 3:44 PM CDT) Cholesterol, POC 175 mg/dL Comment:GLU = 125 HDL, POC 51 mg/dL Triglycerides, POC 191 mg/dL LDL Cholesterol POC 86 mg/dL Chol/HDL Ratio, POC 3.4 Non-HDL Cholesterol, POC 124 mg/dL Cholesterol Total, POC 175 mg/dL Capillary blood 05/16/2021 3 :44 PM CDT us Ana Laura Wallace NP POINT OF CARE TEST ORDERABLE S Final Result from Last 3 Months or Most Recently Relevant to Health Maintenance Insurance [facility] MEDICARE GOLD [facility] MEDICARE GOLD [employer] MEDICARE GOLD Care Teams Intervention Teacher Relationship Specialty Start Date End Date Suellen Martinez NP [address] [place] [address] PCP - General Nurse Practitioner 07/02/23
--- NOTE | 2024-03-12 14:51 | ED.FALL ---
HPI - Fall General Chief Complaint: Fall Stated Complaint: glf, left hip pain Time Seen by Provider: 03/12/24 14:40 Focused HPI: Patient is a 78-year-old female who presents to the ER following a fall. She reports she stumbled over her own feet and landed on her left hip. Patient endorses left hip pain and is having difficulty with range of motion. She also endorses of laceration on her left forearm but has full range of motion. Patient denies hitting her head, loss of consciousness. She denies use of blood thinners and reports she has a history of low blood pressure. Patient rates her hip pain at a 2/10 when she is not moving. She denies any neurological changes, one-sided weakness/tingling, abdominal pain, chest pain, recent signs/symptoms of illness. GENERAL: Well-appearing, well-nourished, and in no acute distress. HEAD: Normocephalic, atraumatic. CHEST: Clear to auscultation. ?No respiratory distress. HEART: Regular rate and rhythm.? NEURO: ?Alert and oriented x3. Patient screened in triage and initial orders placed.? ?Additional care and disposition to be based upon?diagnostic testing and treatment. Related Data Home Medications ?Medication ?Instructions ?Recorded ?Confirmed ?Last Taken ?Type oxybutynin chloride 10 mg 10 mg PO BID 07/15/19 03/02/24 12/30/23 History tablet,extended release 24 hr amitriptyline 100 mg tablet 100 mg PO HS 04/25/21 03/02/24 12/30/23 History fluticasone fur. 200 mcg-umeclid 200 inh inhalation DAILY 03/01/22 03/02/24 12/31/23 History 62.5 mcg-vilant 25 mcg inhalat.powder (Trelegy Ellipta) fluticasone propionate 50 2 spray intranasal DAILY PRN 03/19/22 03/02/24 12/31/23 History mcg/actuation nasal Allergy Symptoms spray,suspension (Flonase Allergy Relief) valacyclovir 1 gram tablet 1,000 mg PO DAILY PRN Cold Sores 03/19/22 03/02/24 Unknown History sennosides 8.6 mg tablet (Senna 17.2 mg PO PC PRN constipation 12/23/23 03/02/24 Unknown History Laxative) tirzepatide 7.5 mg/0.5 mL 7.5 mg subcut WEEKLY 03/02/24 03/02/24 Unknown History subcutaneous pen injector (Mounjaro) Allergies Allergy/AdvReac Type Severity Reaction Status Date / Time azithromycin Allergy Unknown Swelling Verified 03/12/24 14:32 Sulfa (Sulfonamide Allergy Unknown Rash Verified 03/12/24 14:32 Antibiotics) [facility] Past Medical History Medical History DM type 2 (diabetes mellitus, type 2) Left bundle branch block Other fracture of left foot, initial encounter for closed fracture Closed nondisplaced fracture of fifth metatarsal bone of left foot Palpitations Pneumonia of left lower lobe due to infectious organism RUQ pain Skin neoplasm Skin cancer Hoarseness Vision abnormalities Weight loss UTI symptoms Hepatic artery dissection Chronic cholecystitis without calculus Dysfunctional gallbladder History of bladder cancer Transitional cell bladder cancer Basal cell carcinoma of arm Anxiety Borderline diabetic Carpal tunnel syndrome of right wrist Arthritis Bladder cancer UTI (urinary tract infection) Polyp of urethra Ovarian cyst Endometriosis GERD (gastroesophageal reflux disease) Hiatal hernia Rectal polyp Ulcer, esophagus Pneumonia Bronchitis HTN (hypertension) Seasonal allergies History of angina Anemia Surgical History Surgical History H/O transurethral destruction of bladder lesion History of carpal tunnel release S/P cholecystectomy S/P trigger finger release x5 S/P left knee arthroscopy History of bladder surgery History of mastectomy History of cardiac catheterization Hx of tonsillectomy History of hysterectomy Hx of cholecystectomy Family History Family History Father Family history of coronary artery disease Acute myocardial infarction Mother Family history of coronary artery disease Other Arthritis Diabetes mellitus Family history of allergic disorder Family history of cardiovascular disease Family history of kidney disease Family history of malignant neoplasm Hypertension Social History Social History Smoking status: Never smoker Second hand tobacco smoke exposure: No Alcohol intake: current Drinks per week: 3 Alcohol use details: wine occas Substance use: never Substance use type: does not use Do You Feel Safe in your Home?: Yes Lack of Transportation: No Lack of Food: Never True Current Housing: I Have Housing Concerned About Future Housing: No Difficulty Paying Gas/Electric Bills: No Difficulty Paying for Meds: No Currently Unemployed: No Education: High School Diploma/GED Difficulty w/ Childcare or Family Care: No Living arrangements: alone Occupation/Education: retired Gender identity (if verbalized by the patient): Female Sexual Orientation (if Verbalized by the Patient): Straight or Heterosexual Spiritual care concerns: No Agree to blood products: Yes Course Vital Signs Vital signs: Vital Signs Temperature 36.4 C 03/12/24 14:33 Pulse Rate 91 03/12/24 14:33 Respiratory Rate 16 03/12/24 14:33 Blood Pressure 107/39 L 03/12/24 14:33 Pulse Oximetry 100 03/12/24 14:33 Oxygen Delivery Room Air 03/12/24 14:33 Temperature 36.4 C 03/12/24 14:33 Pulse Rate 85 03/12/24 15:45 Respiratory Rate 16 03/12/24 15:45 Blood Pressure 111/49 L 03/12/24 15:45 Pulse Oximetry 100 03/12/24 15:45 Oxygen Delivery Room Air 03/12/24 14:33 Discharge Plan Discharge Clinical Impression: Fall, Hip pain, left Patient Disposition: Home, Self-Care Condition: Stable Instructions: Hip Pain (ED) Additional Instructions: RETURN IF SYMPTOMS ARE WORSENING , CALL YOUR FAMILY PHYSICIAN FOR APPOINTMENT, TAKE TYLENOL, IBUPROFEN NEEDED FOR ACHES AND PAIN, CONTINUE HOME MEDICATIONS. Patient Language: Nepali Prescriptions: No Action Trelegy Ellipta 200-62.5-25 mcg blister with device 200 inh INHALATION DAILY valacyclovir 1 gram tablet 1,000 mg PO DAILY PRN (Reason: Cold Sores) Mounjaro 7.5 mg/0.5 mL pen injector 7.5 mg subcut WEEKLY esomeprazole magnesium 40 mg capsule,delayed release(DR/EC) 40 mg PO DAILY Qty: 90 4RF oxybutynin chloride 10 mg tablet extended release 24hr 10 mg PO BID fluticasone propionate [Flonase Allergy Relief] 50 mcg/actuation spray,suspension 2 spray intranasal DAILY PRN (Reason: Allergy Symptoms) Rx Instructions: administer into each nostril aspirin [Children's Aspirin] 81 mg Tablet,Chewable 81 mg PO DAILY@0800 30 Days Qty: 30 0RF sennosides [Senna Laxative] 8.6 mg tablet 17.2 mg PO PC PRN (Reason: constipation) amitriptyline 100 mg tablet 100 mg PO HS (DME) blood sugar diagnostic Strip See Rx Instructions .ROUTE .MEDSUPPLY Qty: 200 1RF Rx Instructions: Test Blood Sugar twice daily (DME) lancets [OneTouch UltraSoft Lancets] [facility] See Rx Instructions .ROUTE .MEDSUPPLY Qty: 50 0RF Rx Instructions: Use to check blood sugars twice daily (DME) blood sugar diagnostic Strip See Rx Instructions .ROUTE .MEDSUPPLY Qty: 100 1RF Rx Instructions: Use (1) strip to test blood sugar twice a day atorvastatin 80 mg tablet See Rx Instructions .ROUTE .COMPLEX Qty: 100 1RF Dose Instruction: TAKE 1 TABLET BY MOUTH EVERY DAY Rx Instructions: TAKE 1 TABLET BY MOUTH EVERY DAY hydrochlorothiazide 25 mg tablet See Rx Instructions .ROUTE .COMPLEX Qty: 90 1RF Dose Instruction: TAKE 1 TABLET BY MOUTH EVERY DAY Rx Instructions: TAKE 1 TABLET BY MOUTH EVERY DAY albuterol sulfate 90 mcg/actuation HFA aerosol inhaler 2 inh INHALATION ONCE PRN (Reason: shortness of breath) Qty: 8.5 1RF metformin 1,000 mg tablet 1,000 mg PO DAILY Qty: 100 1RF losartan 50 mg tablet See Rx Instructions .ROUTE .COMPLEX Qty: 100 1RF Dose Instruction: TAKE 1 TABLET BY MOUTH EVERY DAY Rx Instructions: TAKE 1 TABLET BY MOUTH EVERY DAY polyethylene glycol 3350 [Miralax] 17 gram/dose powder 17 g PO DAILY Qty: 510 1RF triamcinolone acetonide 0.1 % cream See Rx Instructions .ROUTE .COMPLEX Qty: 30 3RF Dose Instruction: APPLY TOPICALLY TWICE A DAY NEEDED FOR RASH Rx Instructions: APPLY TOPICALLY TWICE A DAY NEEDED FOR RASH alprazolam 0.5 mg tablet 0.5 mg PO TID PRN (Reason: anxiety) Qty: 90 0RF Follow-up/Referrals: Suellen Martinez APRN [Primary Care Provider] -
[2024-03-12 15:45] VITALS: BP 111/49; PULSE 85; RESP 16; O2SAT 100
[2024-03-12] MEDS: KETOROLAC (*BKC) 60 MG/2 ML VIAL IM (15:46)
--- NOTE | 2024-03-12 16:26 | ED.FALL ---
HPI - Fall General Chief Complaint: Fall Stated Complaint: glf, left hip pain Time Seen by Provider: 03/12/24 14:40 Source: patient and family Mode of arrival: ambulatory Limitations: no limitations History of Present Illness HPI Narrative: PATIENT TRIPPED ON HER OWN FEET AT HOME LANDED ON THE LEFT HIP. DENIES OTHER INJURIES. PRIOR TO ARRIVAL. Related Data Home Medications ?Medication ?Instructions ?Recorded ?Confirmed ?Last Taken ?Type oxybutynin chloride 10 mg 10 mg PO BID 07/15/19 03/02/24 12/30/23 History tablet,extended release 24 hr amitriptyline 100 mg tablet 100 mg PO HS 04/25/21 03/02/24 12/30/23 History fluticasone fur. 200 mcg-umeclid 200 inh inhalation DAILY 03/01/22 03/02/24 12/31/23 History 62.5 mcg-vilant 25 mcg inhalat.powder (Trelegy Ellipta) fluticasone propionate 50 2 spray intranasal DAILY PRN 03/19/22 03/02/24 12/31/23 History mcg/actuation nasal Allergy Symptoms spray,suspension (Flonase Allergy Relief) valacyclovir 1 gram tablet 1,000 mg PO DAILY PRN Cold Sores 03/19/22 03/02/24 Unknown History sennosides 8.6 mg tablet (Senna 17.2 mg PO PC PRN constipation 12/23/23 03/02/24 Unknown History Laxative) tirzepatide 7.5 mg/0.5 mL 7.5 mg subcut WEEKLY 03/02/24 03/02/24 Unknown History subcutaneous pen injector (Mounjaro) Allergies Allergy/AdvReac Type Severity Reaction Status Date / Time azithromycin Allergy Unknown Swelling Verified 03/12/24 14:32 Sulfa (Sulfonamide Allergy Unknown Rash Verified 03/12/24 14:32 Antibiotics) Review of Systems Review of Systems: All systems reviewed & are unremarkable except as noted in HPI and below PMFSH Past Medical History Medical History DM type 2 (diabetes mellitus, type 2) Left bundle branch block Other fracture of left foot, initial encounter for closed fracture Closed nondisplaced fracture of fifth metatarsal bone of left foot Palpitations Pneumonia of left lower lobe due to infectious organism RUQ pain Skin neoplasm Skin cancer Hoarseness Vision abnormalities Weight loss UTI symptoms Hepatic artery dissection Chronic cholecystitis without calculus Dysfunctional gallbladder History of bladder cancer Transitional cell bladder cancer Basal cell carcinoma of arm Anxiety Borderline diabetic Carpal tunnel syndrome of right wrist Arthritis Bladder cancer UTI (urinary tract infection) Polyp of urethra Ovarian cyst Endometriosis GERD (gastroesophageal reflux disease) Hiatal hernia Rectal polyp Ulcer, esophagus Pneumonia Bronchitis HTN (hypertension) Seasonal allergies History of angina Anemia Surgical History Surgical History H/O transurethral destruction of bladder lesion History of carpal tunnel release S/P cholecystectomy S/P trigger finger release x5 S/P left knee arthroscopy History of bladder surgery History of mastectomy History of cardiac catheterization Hx of tonsillectomy History of hysterectomy Hx of cholecystectomy Family History Family History Father Family history of coronary artery disease Acute myocardial infarction Mother Family history of coronary artery disease Other Arthritis Diabetes mellitus Family history of allergic disorder Family history of cardiovascular disease Family history of kidney disease Family history of malignant neoplasm Hypertension Social History Social History Smoking status: Never smoker Second hand tobacco smoke exposure: No Alcohol intake: current Drinks per week: 3 Alcohol use details: wine occas Substance use: never Substance use type: does not use Do You Feel Safe in your Home?: Yes Lack of Transportation: No Lack of Food: Never True Current Housing: I Have Housing Concerned About Future Housing: No Difficulty Paying Gas/Electric Bills: No Difficulty Paying for Meds: No Currently Unemployed: No Education: High School Diploma/GED Difficulty w/ Childcare or Family Care: No Living arrangements: alone Occupation/Education: retired Gender identity (if verbalized by the patient): Female Sexual Orientation (if Verbalized by the Patient): Straight or Heterosexual Spiritual care concerns: No Agree to blood products: Yes Exam Narrative: GENERAL APPEARANCE: WELL-DEVELOPED, WELL-NOURISHED SKIN: NORMAL COLOR HEAD: NORMOCEPHALIC, NONTRAUMATIC EYES: CLEAR CONJUNCTIVA ENT: OROPHARYNX NORMAL, EARS NORMAL, NOSE NORMAL NECK: SUPPLE, NONTENDER CHEST AND RESPIRATORY: AIRWAY PATENT, NO RESPIRATORY DISTRESS, NO ACCESSORY MUSCLE USE HEART: REGULAR RATE/RHYTHM ABDOMEN: SOFT, NONTENDER, NO ORGANOMEGALY, QUIET BOWEL SOUNDS VASCULAR: NORMAL PERIPHERAL PULSES, NORMAL CAPILLARY REFILL. MUSCULOSKELETAL: NORMAL RANGE OF MOTION, NONTENDER BACK NEUROLOGIC: ALERT AND ORIENTED ?3, INTERNAL SALES IS NORMAL TESTED, NO GROSS MOTOR DEFICIT Course Vital Signs Vital signs: Vital Signs Temperature 36.4 C 03/12/24 14:33 Pulse Rate 91 03/12/24 14:33 Respiratory Rate 16 03/12/24 14:33 Blood Pressure 107/39 L 03/12/24 14:33 Pulse Oximetry 100 03/12/24 14:33 Oxygen Delivery Room Air 03/12/24 14:33 Temperature 36.4 C 03/12/24 14:33 Pulse Rate 85 03/12/24 15:45 Respiratory Rate 16 03/12/24 15:45 Blood Pressure 111/49 L 03/12/24 15:45 Pulse Oximetry 100 03/12/24 15:45 Oxygen Delivery Room Air 03/12/24 14:33 MDM - Fall Imaging Data Radiologist's impression: Impressions Hip/Pelvis X-Ray 03/12/24 15:34 IMPRESSION: 1. Moderate bilateral hip osteoarthritis. No acute osseous abnormality. Discharge Plan Discharge Clinical Impression: Fall, Hip pain, left Patient Disposition: Home, Self-Care Condition: Stable Instructions: Hip Pain (ED) Additional Instructions: RETURN IF SYMPTOMS ARE WORSENING , CALL YOUR FAMILY PHYSICIAN FOR APPOINTMENT, TAKE TYLENOL, IBUPROFEN NEEDED FOR ACHES AND PAIN, CONTINUE HOME MEDICATIONS. Patient Language: Occitan Prescriptions: No Action Trelegy Ellipta 200-62.5-25 mcg blister with device 200 inh INHALATION DAILY valacyclovir 1 gram tablet 1,000 mg PO DAILY PRN (Reason: Cold Sores) Mounjaro 7.5 mg/0.5 mL pen injector 7.5 mg subcut WEEKLY esomeprazole magnesium 40 mg capsule,delayed release(DR/EC) 40 mg PO DAILY Qty: 90 4RF oxybutynin chloride 10 mg tablet extended release 24hr 10 mg PO BID fluticasone propionate [Flonase Allergy Relief] 50 mcg/actuation spray,suspension 2 spray intranasal DAILY PRN (Reason: Allergy Symptoms) Rx Instructions: administer into each nostril aspirin [Children's Aspirin] 81 mg Tablet,Chewable 81 mg PO DAILY@0800 30 Days Qty: 30 0RF sennosides [Senna Laxative] 8.6 mg tablet 17.2 mg PO PC PRN (Reason: constipation) amitriptyline 100 mg tablet 100 mg PO HS (DME) blood sugar diagnostic Strip See Rx Instructions .ROUTE .MEDSUPPLY Qty: 200 1RF Rx Instructions: Test Blood Sugar twice daily (DME) lancets [OneTouch UltraSoft Lancets] [facility] See Rx Instructions .ROUTE .MEDSUPPLY Qty: 50 0RF Rx Instructions: Use to check blood sugars twice daily (DME) blood sugar diagnostic Strip See Rx Instructions .ROUTE .MEDSUPPLY Qty: 100 1RF Rx Instructions: Use (1) strip to test blood sugar twice a day atorvastatin 80 mg tablet See Rx Instructions .ROUTE .COMPLEX Qty: 100 1RF Dose Instruction: TAKE 1 TABLET BY MOUTH EVERY DAY Rx Instructions: TAKE 1 TABLET BY MOUTH EVERY DAY hydrochlorothiazide 25 mg tablet See Rx Instructions .ROUTE .COMPLEX Qty: 90 1RF Dose Instruction: TAKE 1 TABLET BY MOUTH EVERY DAY Rx Instructions: TAKE 1 TABLET BY MOUTH EVERY DAY albuterol sulfate 90 mcg/actuation HFA aerosol inhaler 2 inh INHALATION ONCE PRN (Reason: shortness of breath) Qty: 8.5 1RF metformin 1,000 mg tablet 1,000 mg PO DAILY Qty: 100 1RF losartan 50 mg tablet See Rx Instructions .ROUTE .COMPLEX Qty: 100 1RF Dose Instruction: TAKE 1 TABLET BY MOUTH EVERY DAY Rx Instructions: TAKE 1 TABLET BY MOUTH EVERY DAY polyethylene glycol 3350 [Miralax] 17 gram/dose powder 17 g PO DAILY Qty: 510 1RF triamcinolone acetonide 0.1 % cream See Rx Instructions .ROUTE .COMPLEX Qty: 30 3RF Dose Instruction: APPLY TOPICALLY TWICE A DAY NEEDED FOR RASH Rx Instructions: APPLY TOPICALLY TWICE A DAY NEEDED FOR RASH alprazolam 0.5 mg tablet 0.5 mg PO TID PRN (Reason: anxiety) Qty: 90 0RF Follow-up/Referrals: Suellen Martinez APRN [Primary Care Provider] -
--- OUTSIDE RECORDS SUMMARY | 2024-03-12 16:41 | XMS_ITS | Continuity of Care Document ---
Author Organization [facility] Address [address] [place] [address] Phone Care Team Providers Care Civil Estimator Name Role Phone Bren Juarez Unavailable Unavailable [...] Providers Copied on Encounter Office/outpat ient Visit, [facility], [address] [place] [address] [address], [place], [place], [id number], [place] tel:[phone] [facility] [place] No Information 2-201 0 Ann Correia. [address] [facility] [place] , [address], [place], [address], [place]. tel:[phone] Office/outpat ient Visit, [facility], [id number] [place] [address] [address], [place], [place], [id number], [place] tel:[phone] SEC [facility] No Information 201 0 Ann Duck[address] , [address], [place], [place], [facility], [place]. tel:[phone] [facility], [address] [place] [address] [address], [place], [place], [id number], [place] tel:[phone] [facility] [place] No Information 200 9 Ann [address] , [address], [place], [place], [facility], [place]. tel:[phone] Referring Provider: Bren Hylton, [facility] [address], [place], [place], [facility]. tel:[phone] Office/outpat ient Visit, [facility], [id number] [place] [address] [address], [place], [place], [id number], [place] tel:[phone] [facility] [place] No Information 9 Ann Duckworth [facility] , [address], [place], [place], [facility], [place]. tel:[phone] Office/outpat ient Visit, [facility], [address] [place] [address] [address], [place], [place], [id number], [place] tel:[phone] [facility] [place] No Information 9 Lianne Alvarez. [address] , [address], [place], [place], [facility], [place]. tel:[phone] [facility], [address] [place] [address] [address], [place], [place], [address], [place] tel:[phone] [facility] No Information 9-200 8 Ann Correia. [address] , [address], [place], [place], [facility], [place]. tel:[phone] Referring Provider: Archana [facility] [address], [place], [place], [facility]. tel:[phone] [facility], [address] [place] [address] [address], [place], [place], [id number], [phone] SEC [facility] No Information Dimitry-0 5-200 8 Juarez Bren. [address] [facility] , [address], [place], [place], [facility], . tel:[phone] Office/outpat ient Visit, [facility], [address] [place] [address] [address], [place], [place], [id number], tel:[phone] SEC [facility] [place] No Information Dec-2 0-200 7 Juarez Bren. [address] [place] [address]ate [place] , [address], [place], [place], [facility], . tel:[phone] Office/outpat ient Visit, [facility], [address] [place] [address] [address], [place], [place], [id number], [place] [phone] [facility] No Information Jasson-1 6-200 7 Lianne Alvarez. [address] [place] [address] , [address], [place], [place], [facility], . tel:[phone] Referring Provider: Antonio Boggs [facility] [address], [place], [place], [facility]. tel:[phone] [facility], [address] [place] [address] [address], [place], [place], [id number], [place] tel:[phone] SEC [facility] No Information Mar-0 8-200 7 Lianne Alvarez. [facility] [address], [place], [facility], . tel:[phone] Referring Provider: Antonio Boggs [facility] [address], [place], [place], [facility]. tel:[phone] Family History Family Member Type Diagnosis Age At Onset No Information Payers Payer name Insurance type Covered green party ID Authoriza tion(s) No Information Social History [...]
--- OUTSIDE RECORDS SUMMARY | 2024-03-12 16:41 | XMS_ITS | Encounter Summary ---
Author Organization [facility] Address [address] [place] [address] Phone Care Team Providers Care Cooker Meal Name Role Phone Jeremy Bal MD Primary Care Provider [phone] Axel Burnett DO Primary Care Provider [phone] Suellen Martinez NP Primary Care Provider [phone] Encounter Details Date Type Department Care Team (Latest Contact Info) Description 04/22/2013 Orders Only [facility] Scanning, Provider Social History Tobacco Use Types Packs/Day Years Used Date Smoking Tobacco: Never Comments Unknown Sex and Gender Information Value Date Recorded Sex Assigned at Not on file Legal 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
--- OUTSIDE RECORDS SUMMARY | 2024-03-12 16:41 | XMS_ITS | Encounter Summary ---
Author Organization [facility] Address [address] [place] [address] Care Team Providers Care Speaker Mounter Name Role Phone LexAxel jenkins Primary Care Provider Suellen Martinez NP Primary Care Provider [phone] Encounter Details Date Type Department Care Team (Late st Contact Info) Description 10/06/2019 E-Visit [facility] [address] [place], [place] [id number] Latricia Chun, EQUIPMENT PLANNER [address] [address] RE: COVID-19 Evaluation Social History Tobacco Use Types Packs/Day Years Used Date Smoking Tobacco: Never Smokeless Tobacco: Never Alcohol Use Standard Drinks/Week Comments Yes 0 (1 standard drink = 0.6 oz pur e alcohol) occasional Comments No Sex and Gender Information Value Date Recorded Sex Assigned at Not on file 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
--- OUTSIDE RECORDS SUMMARY | 2024-03-12 16:41 | XMS_ITS | Encounter Summary ---
Author Organization [facility] Address [address] [place] [address] Care Team Providers Care Electrotype Finisher Name Role Phone Axel Burnett DO Primary Care Provider [phone] Lion Allen MD Primary Care Provider [phone] Encounter Details Date Type Department Care Team (Late Contact Info) Description 03/06/2021 Telephone [facility] [address] [place] [address] Harriet Cazares MD [address] [phone] Social History Tobacco Use Types Packs/Day Years Used Date Smoking Tobacco: Never Smokeless Tobacco: Never Sex and Gender Information Value Date Recorded Sex Assigned at Not on file Gender Identity Not on file Sexual Orientation Not on file documented as of this encounter Plan of Treatment Upcoming Encounters Date Type Department Care Team (Late Contact Info) Description 04/13/2024 2:40 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 SOFTWARE 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 Office Visit [facility] - PARKING OFFICER [address] [address] [place] [address] Harriet Cazares MD [address] [facility] [address] [place] [address] documented as of this encounter Visit Diagnoses Not on filedocumented in this encounter Care Teams Electrotype Finisher Relationship Specialty Start Date End Date Axel Burnett DO [address] [place] [address] PCP - General 11/09/18 12/23/22 Lion Allen MD [facility] [place] [address] PCP - General Ophthalmology 12/24/22 documented as of this encounter
--- OUTSIDE RECORDS SUMMARY | 2024-03-12 16:41 | XMS_ITS | Encounter Summary ---
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
--- OUTSIDE RECORDS SUMMARY | 2024-03-12 16:41 | XMS_ITS | Clinical Summary ---
Author Organization [facility] Address [address] [place] [phone] Phone Care Team Providers Care Design Engineer Products Name Role Phone Jeremy Bal MD Primary Care Provider + Social History Tobacco Use Types Packs/Day Years Used Date Smoking Tobacco: Never Assessed Comments Unknown Sex and Gender Information Value Date Recorded Sex Assigned at Not on file Legal Sex Female 5:29 AM SENIOR LOSS CONTROL SPECIALIST Gender Identity Not on file Sexual [...] 2023 Insurance MEDICARE PART A AND B [employer] [facility] Care Teams Design Engineer Products Relationship Specialty Start Date End Date Jeremy Bal MD PCP - General Internal Medicine 03/02/12
--- OUTSIDE RECORDS SUMMARY | 2024-03-12 16:43 | XMS_ITS | Patient Health Summary ---
Author Organization [facility] Address [address] [facility] [place] [address] Care Team Providers Care Digester Cook Name Role Phone Lion Allen MD Primary Care Provider [phone] Note from [facility] [place],non-owned Affiliates and Associated Physician Practices is amultiple site organization consisting of ambulatory clinics and hospital sitesin [place], [place], [place] and [place]. This disclosure is being madepursuant to the Care Everywhere program and may not contain all information available regarding this patient. Last updated 17.[facility] Allergies * Sulfa Drugs(Rash) -Medium Criticality * [...] fluticasone propionate (Flonase) 50 MCG/ACT nasal spray [place] 2 (two) sprays into each nostril once [...] day for three doses. * nystatin (Mycostatin) 187775 UNIT/GM ointment(Started 12/03/2023) MIX WITH TRIAMCINOLONE OINTMENT [...] Comments Blood Pressure 120/64 12/24/2022 1:58 PM BLOCK HAND Pulse - - Temperature 36.6 ??C (97.9 ??F) 12/24/2022 1:58 PM CS T Respiratory Rate - - Oxygen Saturation - - Inhaled Oxygen Concentration - - Weight 81.5 kg (179 lb 9.6 oz) 12/24/2022 1:58 P M BLOCK HAND Height 162.6 cm (5' 4.02 ) 12/24/2022 1:58 PM CS T Body Mass Index 30.81 12/24/2022 1:58 PM BLOCK HAND Procedures * CULTURE YEAST WITH DIRECT FLUORESCENT [...] Performed for Natalee glabrata infection * FUNGUS JUAN - POINT OF CARE (AMB) [facility](Performed 08/30/2020) [...] WITH DIRECT FLUORESCENT JUAN (12/24/2022 2:02 PM BLOCK HAND) Smear [facility] Comment: ??CULTURE, YEAST, W/DIRECT FLUORESCENT JUAN ?Micro Number: ?[id number] ??Test Status: ? Final ??Specimen Source: ?? Genital ??Specimen Quality: ??Adequate ??Smear: ? No yeast seen ??Result: ?No yeast isolated Test Performed at: [facility] ??[id number] PATRICE VALENCIA MD Microbiology SPECIMEN FROM GENITAL SYSTEM / Unknown 12/24/2022 2:02 PM BLOCK HAND 12/25/2022 4:46 AM BLOCK HAND Harriet Cazares MD LAB - MICROBIOLOGY ORDERABLES [address] [address] * CULTURE URINE (06/24/2022 2:16 PM CDT) Only the most recent of4 resultswithin the time period is included. Urine Culture Routine Final report [facility] INSURANCE BILL Result 1 No growth [facility] INSURANCE BILL Urine URINE SPECIMEN OBTAINED BY CLEAN CATCH PROCEDURE / Unknown 06/24/2022 2:16 PM CDT 06/24/2022 Narrative Resulting Agency Comment Lab [facility] performed at: [facility] [address] [facility] ??[facility] [id number] Harriet Cazares MD LAB - MICROBIOLOGY ORDERABLES [facility] INSURANCE BILL [address] [place] [address] * PH FLUID - POCT (AMB) [facility] [...] FUNGUS JUAN - POINT OF CARE ([facility]) [facility] (08/30/2020) Only the most recent of6 [...] PROC INCISION AND DRAINAGE (04/18/2020 9:18 AM BLOCK HAND) Narrative Harriet Harding MD - 04/18/2020 9:18 AM BLOCK HAND Harriet Harding MD ? 04/18/2020 ??9:20 AM [...] period is included. Smear SEE NOTE [facility] ([facility]) Comment: ??CULTURE, FUNGUS W/SMEAR NOT HAIR, SKIN, BLOOD ?MICRO NUMBER: ?[id number] ??TEST STATUS: ? FINAL ??SPECIMEN SOURCE: ?? VULVA ??SPECIMEN QUALITY: ??ADEQUATE ??SMEAR: ? No fungal elements seen. ??RESULT: ?No fungal growth at 4 Weeks NO COLLECTION DATE RECEIVED. WE HAVE USED THE DATE THE SPECIMEN WAS RECEIVED BY THIS LABORATORY THE COLLECTION DATE. IF THIS IS INCORRECT, PLEASE CONTACT CLIENT SERVICES. PHONE NUMBER: [phone] Test Performed at: [facility] ??[id number] PATRICE VALENCIA MD Other (qualifier value) 06/01/2014 6:00 AM CDT 05/04/2014 6:19 AM CDT Narrative [facility] ([facility]) - 06/01/2014 6:00 AM CDT Please check for all natalee species including natalee glabrata Please check for sensitivities even for natalee albicans result Please check for sensitivities for these drugs: 1. Anidulafungin 2. Micafungin 3. Caspofungin 4. 5-Flucytosine 5. Posaconazole 6. Voriconazole 7. Itraconazole 8. Fluconazole 9. Amphotericin B Specimen Type->Other vulvar Harriet Cazares MD LAB - MICROBIOLOGY ORDERABLES [facility] ([facility]) * SUSCEPTIBILITY YEAST (05/12/2014 7:00 AM CDT) Specimen Source VULVAR [facility] ([facility]) Identification NATALEE GLABRATA [facility] ([facility]) Amphotericin B 0.500 mcg/mL [facility] ([facility]) Anidulafungin FABIOLA 0.030 S mcg/mL [facility] ([facility]) Caspofungin 0.060 S mcg/mL [facility] ([facility]) Fluconazole 16 SD mcg/mL [facility] ([facility]) Flucytosine <=0.060 S mcg/mL [facility] ([facility]) Itraconazole 0.500 SD mcg/mL [facility] ([facility]) Micafungin FABIOLA <=0.008 S mcg/mL [facility] ([facility]) Posaconazole 1 S mcg/mL [facility]) Voriconazole 0.250 S mcg/mL [facility] ([facility]) Additional Information [facility] ([facility]) Comment: Drug concentrations are expressed in [...] of this test have been determined by [facility]. This test should not be used for diagnosis without confirmation by other medically established means. Test Performed at: [facility] [address] [place] [address] ??[id number] HORTENCIA ROY MD 05/12/2014 7:00 AM CDT 04/11/2014 11:06 PM BLOCK HAND Harriet Cazares MD LAB - MICROBIOLOGY ORDERABLES Performing Organization Address [facility]/ZIP Co de Phone Number [facility] ([facility]) * (ABNORMAL) CULTURE URINE COMPREHENSIVE (01/18/2014 12:42 PM BLOCK HAND) Culture SEE NOTE(A) [facility] ([facility]) Comment: ??CULTURE, URINE, SPECIAL ?MICRO NUMBER: ?[id number] ??TEST STATUS: ? FINAL ??SPECIMEN SOURCE: ?? [...] susceptibility) will be performed. Test Performed at: [facility] ??[id number] PATRICE VALENCIA MD Urine specimen (specimen) 01/18/2014 12:42 PM BLOCK HAND 01/18/2014 12:43 PM BLOCK HAND Harriet Cazares MD LAB - MICROBIOLOGY ORDERABLES Performing Organization Address [facility] Co de Phone Number [facility] ([facility]) * GROSS + MICRO EXAM (11/21/1998 [...] approximately 1.5 cm in largeset diameter. ??A telesales representative section of this mass is submitted [...] cm.). ?D. ??Cervix ?1. ??Chronic cervicitis, mild. Health Administration Teacher ? bk Pathologist ?Ema Arthur M.D. [place]. ?11/22/1998 1532 <6> CPT code ? 8307/18494 MISCELLANEOUS SAMPLES / Unknown 11/21/1998 1:10 PM CDT 11/21/1998 1:10 PM CDT Historical Provider LAB - PATHOLOGY/C YTOLOGY ORDERABLES Care Teams Digester Cook Relationship Specialty Start Date End Date Lion Allen MD [address] [place] [address] PCP - General Ophthalmology 12/24/22
--- OUTSIDE RECORDS SUMMARY | 2024-03-12 16:43 | XMS_ITS | Clinical Summary ---
Author Organization [facility] Address [facility] [place] [address] Care Team Providers Care Pharmaceutical Sales Specialist Name Role Phone MichelleSuellen Casandra MORENO Primary Care Provider Allergies Active Allergy Reactions Criticality Noted Date [...] Rhinitis Administer 1 spray into each nostril utilities ground worker before breakfast 2 05/07/19 19 Active hydroCHLOROthiaz partha (HYDRODIURIL) 25 mg tabletIndication s:hypertension Take 1 tablet (25 mg total) by mouth utilities ground worker before breakfast 0 04/13/19 19 Active latanoprost [...] 1 tablet (1,000 mg total) by mouth utilities ground worker before breakfast 12/02/19 19 Active OneTouch Delica [...] total) by mouth daily with breakfast Active xnsuy-7-bhp-epa- dpa-fish oil 1,050-1,200 mg capsule 1 capsule [...] 0.5 tablets (2.5 mg total) by mouth utilities ground worker before breakfast 11/10/19 22 Active fluconazole (DIFLUCAN) [...] (09/03/2019): Added automatically from request for surgery [id number] Trigger finger, left index finger 09/03/2019 Overview (09/03/2019): Added automatically from request for surgery [id number] 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 History of candidiasis 11/25/2017 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 Jennifer glabrata infection 04/20/2014 Arthralgia of hip 06/19/2011 Encounters Date Type Department Care Team Description 01/26/2024 1:15 PM LABOR CREW SUPERVISOR Office Visit [facility] Orthopaedic Surgery [address] [facility] 2nd Floor [address] [place] [phone] Derek Parsons PA Primary osteoarthritis of left knee (Primary Dx) 01/05/2024 5:30 PM LABOR CREW SUPERVISOR Office Visit [facility] Medical [facility] at [address] [address] Basilia Daniels NP Foreign body in nose, initial encounter (Primary Dx) 12/26/2023 2:28 PM LABOR CREW SUPERVISOR - 12/26/2023 11:59 PM LABOR CREW SUPERVISOR Hospital Encounter [facility] ([facility]) [address] [place] [address] Discharge Disposition: Discharge to home or self care 12/26/2023 11:30 AM LABOR CREW SUPERVISOR Office Visit [facility] Cardiology [address] [place] [address] Advanced Medicine 8th [place] [address] [place] [address] Joon Srivastava MD PhD LBBB (left bundle branch block) (Primary Dx); Essential hypertension; Type 2 diabetes mellitus without complication, unspecified whether long term care phlebotomist insulin use (HCC) 12/26/2023 Telephone [facility] Cardiology [address] [place] [address] Advanced Medicine 8th [place] [address] [place] [address] Joon Srivastava MD PhD Medical Records Request 12/24/2023 6:20 PM LABOR CREW SUPERVISOR - 12/24/2023 11:59 PM LABOR CREW SUPERVISOR Hospital Encounter [facility] ([facility]) [address] [place] [address] Discharge Disposition: Discharge to home or self care 12/23/2023 Telephone [facility] Cardiology [address] [facility] 8th [place] [address] [place] [phone] Jenae Pérez from Last 3 Months Surgical [...] on file Legal Sex Female 2:34 AM LABOR CREW SUPERVISOR Gender Identity Not on file Sexual Orientation Not on file Obstetrics History Last Filed Vital Signs Vital Sign Reading Time Taken Comments Blood Pressure 108/62 01/05/2024 5:32 PM LABOR CREW SUPERVISOR Pulse 92 01/05/2024 5:32 PM LABOR CREW SUPERVISOR Temperature 36.9 ??C (98.4 ??F) 01/05/2024 5:32 PM CS T Respiratory Rate 16 01/05/2024 5:32 PM LABOR CREW SUPERVISOR Oxygen Saturation 96% 01/05/2024 5:32 PM LABOR CREW SUPERVISOR Inhaled Oxygen Concentration - - Weight 64.4 kg (142 lb) 01/05/2024 5:32 PM LABOR CREW SUPERVISOR Height 162.6 cm (5' 4 ) 12/26/2023 11:01 AM LABOR CREW SUPERVISOR Body Mass Index 24.37 12/26/2023 11:01 AM LABOR CREW SUPERVISOR Plan of Treatment Health Maintenance Due [...] Procedure Name Priority Date/Time Associated Diagnosis Comments [place] ARTHROCENTESIS ASPIR&/INJ MAJOR JT/BURSA W/O US Routine 01/26/2024 1:15 PM LABOR CREW SUPERVISOR Primary osteoarthritis of left knee NM OUTSIDE REFERENCE Routine 12/26/2023 2:28 PM LABOR CREW SUPERVISOR IR OUTSIDE REFERENCE Routine 12/24/2023 6:20 PM LABOR CREW SUPERVISOR POCT LIPID PANEL Routine 05/16/2021 3:44 PM CDT Lipid screening from Last 3 Months or Most Recently Relevant to Health Maintenance Results * [place] ARTHROCENTESIS ASPIR&/INJ MAJOR JT/BURSA W/O US (01/26/2024 1:15 PM LABOR CREW SUPERVISOR) Narrative Bola Moulton MD - 01/26/2024 1:15 PM LABOR CREW SUPERVISOR Derek Parsons PA ? 01/26/2024 ??2:01 [...] * NM Outside Reference (12/26/2023 2:28 PM LABOR CREW SUPERVISOR) Impressions [facility] - 12/26/2023 2:28 PM LABOR CREW SUPERVISOR These images are for Reference purposes only and have not been reviewed by [facility] Radiology. ??There will be no report generated by a [facility] Radiologist. Narrative [facility] - 12/26/2023 2:28 PM LABOR CREW SUPERVISOR EXAMINATION: ??Images For Reference Purposes Only Joon Srivastava MD PhD IMG NM PROCEDURES Final Result Performing Organization Address [facility] de Phone Number [email or web address] * IR Outside Reference (12/24/2023 6:20 PM LABOR CREW SUPERVISOR) Impressions [facility] - 12/24/2023 6:20 PM LABOR CREW SUPERVISOR These images are for Reference purposes only and have not been reviewed by [facility] Radiology. ??There will be no report generated by a [facility] Radiologist. Narrative [facility] - 12/24/2023 6:20 PM LABOR CREW SUPERVISOR EXAMINATION: ??Images For Reference Purposes Only Joon Srivastava MD PhD IMG IR PROCEDURES Final Result Performing Organization Address [facility] de Phone Number [email or web address] * POCT lipid [...] Most Recently Relevant to Health Maintenance Insurance [employer] MEDICARE GOLD [employer] MEDICARE GOLD [employer] MEDICARE GOLD Care Teams Pharmaceutical Sales Specialist Relationship Specialty Start Date End Date Suellen Martinez NP [address] [place] [address] PCP - General Nurse Practitioner 07/02/23
--- OUTSIDE RECORDS SUMMARY | 2024-03-12 16:43 | XMS_ITS | Referral Summary ---
Author Organization [facility] Address [address] [place] [address] Care Team Providers Care Senior Staff Psychologist Name Role Phone Michelle Suellensai Guajardo NP Primary Care Provider [phone] Encounters Date Type Department Care Team Description 01/26/2024 1:15 PM TEAR DOWN MAN Office Visit [facility] Orthopaedic Surgery [address] [facility] 2nd Floor [address] [place] [address] Derek Parsons PA Primary osteoarthritis of left knee (Primary Dx) 01/05/2024 5:30 PM TEAR DOWN MAN Office Visit [facility] at [address] [address] Basilia Daniels NP Foreign body in nose, initial encounter (Primary Dx) 12/26/2023 2:28 PM TEAR DOWN MAN - 12/26/2023 11:59 PM TEAR DOWN MAN Hospital Encounter [facility] [address] [place] [address] Discharge Disposition: Discharge to home or self care 12/26/2023 Telephone [facility] Cardiology [address] [place] [address] 8th [place] [address] [place] [address] Joon Srivastava MD PhD Medical Records Request 12/26/2023 11:30 AM TEAR DOWN MAN Office Visit [facility] Cardiology [address] [place] [address] 8th [place] [address] [place] [address] Joon Srivastava MD PhD LBBB (left bundle branch block) (Primary Dx); Essential hypertension; Type 2 diabetes mellitus without complication, unspecified whether retirement insulin use (HCC) 12/24/2023 6:20 PM TEAR DOWN MAN - 12/24/2023 11:59 PM TEAR DOWN MAN Hospital Encounter [facility]) [address] [place] [address] Discharge Disposition: Discharge to home or self care 12/23/2023 Telephone [facility] Cardiology [address] [facility] 8th [place] [address] [place] [address] Jenae Pérez from Last 3 Months Allergies [...] Rhinitis Administer 1 spray into each nostril bladder changer before breakfast 2 05/07/19 19 Active hydroCHLOROthiaz partha (HYDRODIURIL) 25 mg tabletIndication s:hypertension Take 1 tablet (25 mg total) by mouth bladder changer before breakfast 0 04/13/19 19 Active latanoprost [...] 1 tablet (1,000 mg total) by mouth bladder changer before breakfast 12/02/19 19 Active OneTouch Delica [...] total) by mouth daily with breakfast Active mmkwi-1-gqz-epa- dpa-fish oil 1,050-1,200 mg capsule 1 capsule [...] 0.5 tablets (2.5 mg total) by mouth bladder changer before breakfast 11/10/19 22 Active fluconazole (DIFLUCAN) [...] (09/03/2019): Added automatically from request for surgery [id number] Trigger finger, left index finger 09/03/2019 Overview (09/03/2019): Added automatically from request for surgery [id number] 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 History of candidiasis [...] on file Legal Sex Female 2:34 AM TEAR DOWN MAN Gender Identity Not on file Sexual Orientation Not on file Last Filed Vital Signs Vital Sign Reading Time Taken Comments Blood Pressure 108/62 01/05/2024 5:32 PM TEAR DOWN MAN Pulse 92 01/05/2024 5:32 PM TEAR DOWN MAN Temperature 36.9 ??C (98.4 ??F) 01/05/2024 5:32 PM CS T Respiratory Rate 16 01/05/2024 5:32 PM TEAR DOWN MAN Oxygen Saturation 96% 01/05/2024 5:32 PM TEAR DOWN MAN Inhaled Oxygen Concentration - - Weight 64.4 kg (142 lb) 01/05/2024 5:32 PM TEAR DOWN MAN Height 162.6 cm (5' 4 ) 12/26/2023 11:01 AM TEAR DOWN MAN Body Mass Index 24.37 12/26/2023 11:01 AM TEAR DOWN MAN Plan of Treatment Not on file Procedures Procedure Name Priority Date/Time Associated Diagnosis Comments [place] ARTHROCENTESIS ASPIR&/INJ MAJOR JT/BURSA W/O US Routine 01/26/2024 1:15 PM TEAR DOWN MAN Primary osteoarthritis of left knee NM OUTSIDE REFERENCE Routine 12/26/2023 2:28 PM TEAR DOWN MAN IR OUTSIDE REFERENCE Routine 12/24/2023 6:20 PM TEAR DOWN MAN POCT LIPID PANEL Routine 05/16/2021 3:44 PM CDT Lipid screening from Last 3 Months or Most Recently Relevant to Health Maintenance Results * [place] ARTHROCENTESIS ASPIR&/INJ MAJOR JT/BURSA W/O US (01/26/2024 1:15 PM TEAR DOWN MAN) Narrative Bola Moulton MD - 01/26/2024 1:15 PM TEAR DOWN MAN Derek Parsons PA ? 01/26/2024 ??2:01 PM [...] * NM Outside Reference (12/26/2023 2:28 PM TEAR DOWN MAN) Impressions [facility] - 12/26/2023 2:28 PM TEAR DOWN MAN These images are for Reference purposes only and have not been reviewed by [facility] Radiology. ??There will be no report generated by a [facility] Radiologist. Narrative [facility] - 12/26/2023 2:28 PM TEAR DOWN MAN EXAMINATION: ??Images For Reference Purposes Only us Joon Srivastava MD PhD IMG NM PROCEDURES Final Result [email or web address] * IR Outside Reference (12/24/2023 6:20 PM TEAR DOWN MAN) Impressions [facility] - 12/24/2023 6:20 PM TEAR DOWN MAN These images are for Reference purposes only and have not been reviewed by [facility] Radiology. ??There will be no report generated by a [facility] Radiologist. Narrative [facility] - 12/24/2023 6:20 PM TEAR DOWN MAN EXAMINATION: ??Images For Reference Purposes Only us [...] Most Recently Relevant to Health Maintenance Insurance [employer] MEDIC[employer] GOLD [employer] MEDIC[employer] GOLD [employer] MEDICARE GOLD Care Teams Senior Staff Psychologist Relationship Specialty Start Date End Date Suellen Martinez NP [address] [place] [address] PCP - General Nurse Practitioner 07/02/23
--- OUTSIDE RECORDS SUMMARY | 2024-03-12 16:43 | XMS_ITS | Referral Summary ---
Author Organization [facility] Address [address] [facility] [address] Care Team Providers Care Care Provider Name Role Phone Lion Allen MD Primary Care Provider [phone] Source Comments [facility],non-owned Affiliates and Associated Physician Practices is amultiple site organization consisting of ambulatory clinics and hospital sitesin [place], [place], [place] and [place]. This disclosure is being madepursuant to the Care Everywhere program and may not contain all information available regarding this patient. Last updated 17.[facility] Encounters Date Type Department Care Team Description 03/02/2024 Telephone [facility] - INVESTMENT ACCOUNTANT [address] [place] [address] Harriet Cazares MD Patient Requested Call 01/28/2024 Travel 01/09/2024 Telephone [facility] - INVESTMENT ACCOUNTANT [address] [place] [address] Harriet Cazares MD Refill Request 12/17/2023 Refill [facility] - INVESTMENT ACCOUNTANT [address], [address] [place] [address] Harriet Cazares MD Refill Request [...] fluticasone propionate (Flonase) 50 MCG/ACT nasal spray [place] 2 (two) sprays into each nostril once [...] doses. 3 tablet 11/10/2023 Active nystatin (Mycostatin) 133816 UNIT/GM ointmentIndication s:History of candidiasis MIX WITH [...] Comments Blood Pressure 120/64 12/24/2022 1:58 PM LINING REPAIRER Pulse - - Temperature 36.6 ??C (97.9 ??F) 12/24/2022 1:58 PM CS T Respiratory Rate - - Oxygen Saturation - - Inhaled Oxygen Concentration - - Weight 81.5 kg (179 lb 9.6 oz) 12/24/2022 1:58 P M LINING REPAIRER Height 162.6 cm (5' 4.02 ) 12/24/2022 1:58 PM CS T Body Mass Index 30.81 12/24/2022 1:58 PM LINING REPAIRER Plan of Treatment Upcoming Encounters Date Type Department Care Team (Late st Contact Info) Description 04/13/2024 2:40 PM LINING REPAIRER Office Visit [facility] - INVESTMENT ACCOUNTANT [address], [facility] [address] [place] [address] Harriet Cazares MD [address] [facility] [address] [place] [address] Care Teams Care Provider Relationship Specialty Start Date End Date Lion Allen [place] [address] PCP - General Ophthalmology 12/24/22
--- OUTSIDE RECORDS SUMMARY | 2024-03-12 16:43 | XMS_ITS | Encounter Summary ---
Author Organization [facility] Address [address] [place] [address] Care Team Providers Care Spring Bender Name Role Phone Jeremy Bal MD Primary Care Provider + Encounter Details Date Type Department Care Team (Latest Contact Info) Description 02/13/2007 Outpatient Historical HIS CARD AUTOMOTIVE GENERAL SALES MANAGER Joon Rolle MD [address] [facility] [address] [place] [address] Nonspecific Abnormal Electrocardiogram (ECG) (EKG) Social History Tobacco Use Types Packs/Day Years Used Date Smoking Tobacco: Never Assessed Comments Unknown Sex and Gender Information Value Date Recorded Sex Assigned at Not on file Legal Sex Female 5:29 AM GASTROINTESTINAL TECHNICIAN Gender Identity Not on file Sexual Orientation Not on file documented as of this encounter Plan of Treatment Not on file documented as of this encounter Visit Diagnoses Diagnosis Nonspecific abnormal electrocardiogram (ECG) (EKG) documented in this encounter Care Teams Spring Bender Relationship Specialty Start Date End Date Jeremy Bal MD PCP - General Internal Medicine 03/02/12 documented as of this encounter
--- OUTSIDE RECORDS SUMMARY | 2024-03-12 16:43 | XMS_ITS | Clinical Summary ---
Author Organization [facility] Address [address] [place] [address] Care Team Providers Care Co Op Name Role Phone Lion Allen MD Primary Care Provider [phone] Source Comments [facility],non-owned Affiliates and Associated Physician Practices is amultiple site organization consisting of ambulatory clinics and hospital sitesin [place], [place], [place] and [place]. This disclosure is being madepursuant to the Care Everywhere program and may not contain all information available regarding this patient. Last updated 17.[facility] Allergies Active Allergy Reactions Criticality Noted Date [...] fluticasone propionate (Flonase) 50 MCG/ACT nasal spray [place] 2 (two) sprays into each nostril once [...] doses. 3 tablet 11/10/2023 Active nystatin (Mycostatin) 980791 UNIT/GM ointmentIndication s:History of candidiasis MIX WITH [...] Description 03/02/2024 Telephone [facility] - TECHNICAL INTERN [address] [facility] [address] [place] [address] Harriet Cazares MD Patient Requested Call 01/28/2024 Travel 01/09/2024 Telephone [facility] - TECHNICAL INTERN [address] [place] [address] Harriet Cazares MD Refill Request 12/17/2023 Refill [facility] - TECHNICAL INTERN [address] [place] [address] Harriet Cazares MD Refill Request from Last [...] Comments Blood Pressure 120/64 12/24/2022 1:58 PM FRAME CLEANER Pulse - - Temperature 36.6 ??C (97.9 ??F) 12/24/2022 1:58 PM CS T Respiratory Rate - - Oxygen Saturation - - Inhaled Oxygen Concentration - - Weight 81.5 kg (179 lb 9.6 oz) 12/24/2022 1:58 P M FRAME CLEANER Height 162.6 cm (5' 4.02 ) 12/24/2022 1:58 PM CS T Body Mass Index 30.81 12/24/2022 1:58 PM FRAME CLEANER Plan of Treatment Upcoming Encounters Date Type Department Care Team (Late st Contact Info) Description 04/13/2024 2:40 PM FRAME CLEANER Office Visit [facility] - TECHNICAL INTERN [address], [facility] [address] [place] [address] Harriet Cazares MD [address] [facility] [address] [place] [address] Health Maintenance Due Date Last [...] age to complete this topic Care Teams Co Op Relationship Specialty Start Date End Date Lion Allen MD [address] [place] [address] [place] [address] PCP - General Ophthalmology 12/24/22
--- OUTSIDE RECORDS SUMMARY | 2024-03-12 16:43 | XMS_ITS | Encounter Summary ---
Author Organization [facility] Address [address] [place] [address] Care Team Providers Care Slitting And Shipping Supervisor Name Role Phone Jeremy Bal MD Primary Care Provider + Encounter Details Date Type Department Care Team (Latest Contact Info) Description 02/13/2007 Outpatient Historical HIS HAND ALMOND BLANCHER Joon Ji MD [address] [facility] [address] [place] [address] Nonspecific Abnormal Electrocardiogram (ECG) (EKG) Social History Tobacco Use Types Packs/Day Years Used Date Smoking Tobacco: Never Assessed Comments Unknown Sex and Gender Information Value Date Recorded Sex Assigned at Not on file Legal Sex Female 5:[address] MAGISTRATE Gender Identity Not on file Sexual Orientation Not on file documented as of this encounter Plan of Treatment Not on file documented as of this encounter Visit Diagnoses Diagnosis Nonspecific abnormal electrocardiogram (ECG) (EKG) documented in this encounter Care Teams Slitting And Shipping Supervisor Relationship Specialty Start Date End Date Jeremy Bal MD PCP - General Internal Medicine 03/02/12 documented as of this encounter
== END 2024-03-12 19:29 | disposition home or self-care (01) ==
PROVIDERS: Emergency Provider Emergency Medicine; PCP Nurse Practitioner Family
DX: S79.912A Unspecified injury of left hip, initial encounter (principal); E11.9 Type 2 diabetes mellitus without complications; I10 Essential (primary) hypertension; K21.9 Gastro-esophageal reflux disease without esophagitis; K44.9 Diaphragmatic hernia without obstruction or gangrene; M16.0 Bilateral primary osteoarthritis of hip; Z87.01 Personal history of pneumonia (recurrent); Z85.828 Personal history of other malignant neoplasm of skin; Z85.51 Personal history of malignant neoplasm of bladder; Z86.0100 Personal history of colon polyps, unspecified; Z87.440 Personal history of urinary (tract) infections; Z86.2 Personal history of diseases of the blood and blood-forming organs and certain disorders involving the immune mechanism; Z90.49 Acquired absence of other specified parts of digestive tract; Z90.10 Acquired absence of unspecified breast and nipple; Z90.710 Acquired absence of both cervix and uterus; W01.0XXA Fall on same level from slipping, tripping and stumbling without subsequent striking against object, initial encounter
CPT/HCPCS: 73502; 96372; 99283; J1885

== ENCOUNTER 2024-03-31 11:22 | Outpatient (CLI) | payer MEDICARE, SELFPAY ==
--- NOTE | ~2024-03-31 | XR_ITS ---
EXAMINATION: XR hip LT 2V w AP pelvis DATE: 03/31/2024 11:48 INDICATION: Unspecified fall. TECHNIQUE: An anteroposterior view of the pelvis and 2 views of left hip were obtained. COMPARISON: Pelvis and left hip radiographs 03/12/2024 FINDINGS: Alignment is normal. No fracture. There is moderate osteoarthritis of the hips. There is mi ld lumbar spondylosis. IMPRESSION: 1. Moderate osteoarthritis of the hips. Reviewed, dictated and finalized at location A. E REPAIRER RECLAMATION
--- NOTE | ~2024-03-31 | XR_ITS ---
EXAMINATION: XR lumbar spine 2-3V DATE: 03/31/2024 11:48 INDICATION: Fall TECHNIQUE: Anteroposterior and lateral views of the lumbar spine, and cone-down lateral view of the l umbosacral junction were obtained. COMPARISON: CT dated 10/14/2015 FINDINGS: Alignment is normal. Vertebral body heights are normal. Small degenerative endplate osteophytes with relatively preserved disc spaces throughout the lumbar spine. Moderate to severe lower lumbar facet o steoarthritis with mild to moderate facet osteoarthritis in the mid to upper lumbar spine. Chronic cecilia ne island at the L1 spinous process. Cholecystectomy clips in right upper quadrant. Moderate osteoart hritis at the bilateral hips and mild osteoarthritis at the bilateral sacral iliac joints. IMPRESSION: 1. Mild lumbar spondylosis with moderate to severe lower lumbar facet osteoarthritis. Reviewed, dictated and finalized at location A. NING MULE OPERATOR IMPRESSION: 1. Mild lumbar spondylosis with moderate to severe lower lumbar facet osteoarth ritis.
--- OUTSIDE RECORDS SUMMARY | 2024-03-31 12:10 | XMS_ITS | Encounter Summary ---
Author Organization [facility] Address [address] [place] [address] Care Team Providers Care Braker Passenger Train Name Role Phone LexAxel jenkins Primary Care Provider Suellen Martinez NP Primary Care Provider Encounter Details Date Type Department Care Team (Late st Contact Info) Description 10/06/2019 E-Visit [facility] HealthCare/ Physicians [address] [place], [place] [id number] Latricia Chun, LIFTER [address] [address] RE: COVID-19 Evaluation Social History Tobacco Use Types Packs/Day Years Used Date Smoking Tobacco: Never Smokeless Tobacco: Never Alcohol Use Standard Drinks/Week Comments Yes 0 (1 standard drink = 0.6 oz pur e alcohol) occasional Comments No Sex and Gender Information Value Date Recorded Sex Assigned at Not on file Legal Sex Female 2:34 AM DIMENSION SPECIFICATION INSPECTOR Gender Identity Not on file Sexual Orientation [...] documented as of this encounter Care Teams Braker Passenger Train Relationship Specialty Start Date End Date Axel Burnett DO PCP - General Internal Medicine 02/03/19 07/01/23 Suellen Martinez NP [address] [place] [address] PCP - General Nurse Practitioner 07/02/23 documented as of this encounter
--- OUTSIDE RECORDS SUMMARY | 2024-03-31 12:10 | XMS_ITS | Referral Summary ---
Author Organization [facility] Address [address] [place] [address] Care Team Providers Care Construction Rigger Name Role Phone Suellen Martinez NP Primary Care Provider [phone] Encounters Date Type Department Care Team Description 01/26/2024 1:15 PM MARINE DESIGNER Office Visit [facility] Orthopaedic Surgery [address] [place] [address] [address]nd [address] [place] [address] Derek Parsons PA Primary osteoarthritis of left knee (Primary Dx) 01/05/2024 5:30 PM MARINE DESIGNER Office Visit [facility] Medical Group [facility] Care at [address] [address] Basilia Daniels NP Foreign body in nose, initial encounter (Primary Dx) from Last 3 Months Allergies Active Allergy [...] Rhinitis Administer 1 spray into each nostril director wholesale before breakfast 2 05/07/19 19 Active hydroCHLOROthiaz partha (HYDRODIURIL) 25 mg tabletIndication s:hypertension Take 1 tablet (25 mg total) by mouth director wholesale before breakfast 0 04/13/19 19 Active latanoprost [...] 1 tablet (1,000 mg total) by mouth director wholesale before breakfast 12/02/19 19 Active OneTouch Delica [...] total) by mouth daily with breakfast Active baxcq-8-pxe-epa- dpa-fish oil 1,050-1,200 mg capsule 1 capsule [...] 0.5 tablets (2.5 mg total) by mouth director wholesale before breakfast 11/10/19 22 Active fluconazole (DIFLUCAN) [...] (09/03/2019): Added automatically from request for surgery [id number] Trigger finger, left index finger 09/03/2019 Overview (09/03/2019): Added automatically from request for surgery [id number] 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 History of candidiasis [...] on file Legal Sex Female 2:34 AM MARINE DESIGNER Gender Identity Not on file Sexual Orientation Not on file Last Filed Vital Signs Vital Sign Reading Time Taken Comments Blood Pressure 108/62 01/05/2024 5:32 PM MARINE DESIGNER Pulse 92 01/05/2024 5:32 PM MARINE DESIGNER Temperature 36.9 C (98.4 F) 01/05/2024 5:32 PM MARINE DESIGNER Respiratory Rate 16 01/05/2024 5:32 PM MARINE DESIGNER Oxygen Saturation 96% 01/05/2024 5:32 PM MARINE DESIGNER Inhaled Oxygen Concentration - - Weight 64.4 kg (142 lb) 01/05/2024 5:32 PM MARINE DESIGNER Height 162.6 cm (5' 4 ) 12/26/2023 11:01 AM MARINE DESIGNER Body Mass Index 24.37 12/26/2023 11:01 AM MARINE DESIGNER Plan of Treatment Not on file Procedures Procedure Name Priority Date/Time Associated Diagnosis Comments NM ARTHROCENTESIS ASPIR&/INJ MAJOR JT/BURSA W/O US Routine 01/26/2024 1:15 PM MARINE DESIGNER Primary osteoarthritis of left knee POCT LIPID PANEL Routine 05/16/2021 3:44 PM CDT Lipid screening from Last 3 Months or Most Recently Relevant to Health Maintenance Results * NM ARTHROCENTESIS ASPIR&/INJ MAJOR JT/BURSA W/O US (01/26/2024 1:15 PM MARINE DESIGNER) Narrative Bola Moulton MD - 01/26/2024 1:15 PM MARINE DESIGNER Derek Parsons PA 01/26/2024 2:01 PM Large Joint Injection: L knee Performed by: Derek Parsons PA Authorized by: Derek Parsons PA Large Joint Injection/Aspiration: Consent Given by: Patient Timeout: prior to procedure the correct patient, procedure, and site was verified Verbal consent obtained: Yes Supporting Documentation: Indications: Pain Procedure Details: Location: Knee Site: L knee Prep: patient was prepped using a clean technique (Betadine and alcohol) Needle Size: 22 G Approach: Posterior Ultrasound guided: No Fluroscopic guidance: No Medications: 40 mg methylPREDNISolone acetate 40 mg/mL; 2 mL BUPivacaine HCl 0.25 % (2.5 mg/mL) Patient tolerance: Patient tolerated the procedure well with no immediate complications Result [facility] Derek DAS IN CLINIC/BEDSIDE ORDERABLES Fi nal Result * POCT lipid panel (05/16/2021 3:44 PM CDT) Cholesterol, POC 175 mg/dL Comment:GLU = 125 HDL, POC 51 mg/dL Triglycerides, POC 191 mg/dL LDL Cholesterol POC 86 mg/dL Chol/HDL Ratio, POC 3.4 Non-HDL Cholesterol, POC 124 mg/dL Cholesterol Total, POC 175 mg/dL Capillary blood 05/16/2021 3 :44 PM CDT Ana Laura Wallace RAZOR SHARPENER POINT OF CARE TEST ORDERABLE S Final Result from Last 3 Months or Most Recently Relevant to Health Maintenance Insurance AETNA MEDICARE GOLD AETNA MEDICARE GOLD AETNA MEDICARE GOLD Care Teams Construction Rigger Relationship Specialty Start Date End Date Suellen Martinez NP [address] [place] [address] PCP - General Nurse Practitioner 07/02/23
--- OUTSIDE RECORDS SUMMARY | 2024-03-31 12:10 | XMS_ITS | Encounter Summary ---
Author Organization [facility] Address [address] [facility] [place] [address] Care Team Providers Care Asphalt Surface Heater Operator Name Role Phone Axel Burnett DO Primary Care Provider [phone] Lion Allen MD Primary Care Provider [phone] Encounter Details Date Type Department Care Team (Late Contact Info) Description 03/06/2021 Telephone [facility] [address] [place] [address] Harriet Cazares MD [address] [place] [phone] Social History Tobacco Use Types Packs/Day Years Used Date Smoking Tobacco: Never Smokeless Tobacco: Never Sex and Gender Information Value Date Recorded Sex Assigned at Not on file Gender Identity Not on file Sexual Orientation Not on file documented as of this encounter Plan of Treatment Upcoming Encounters Date Type Department Care Team (Late Contact Info) Description 04/13/2024 2:40 PM CREW MANAGER Office Visit [facility] - LUMBER PILER OPERATOR [address] [address] [place] [address] Harriet Cazares MD [address] [facility] [address] [place] [address] documented as of this encounter Visit Diagnoses Not on filedocumented in this encounter Care Teams Asphalt Surface Heater Operator Relationship Specialty Start Date End Date Axel Burnett DO [address] [place] [address] PCP - General 11/09/18 12/23/22 Lion [place] [address] PCP - General Ophthalmology 12/24/22 documented as of this encounter
--- OUTSIDE RECORDS SUMMARY | 2024-03-31 12:10 | XMS_ITS | Clinical Summary ---
Author Organization [facility] Address [facility] [place] [address] Care Team Providers Care Diesel Scoop Operator Name Role Phone MichelleSuellen Casandra MORENO Primary Care Provider [phone] Allergies Active Allergy Reactions Criticality Noted Date [...] Administer 1 spray into each nostril director executive communications before breakfast 2 05/07/19 19 Active hydroCHLOROthiaz partha (HYDRODIURIL) 25 mg tabletIndication s:hypertension Take 1 tablet (25 mg total) by mouth director executive communications before breakfast 0 04/13/19 19 Active latanoprost [...] tablet (1,000 mg total) by mouth director executive communications before breakfast 12/02/19 19 Active OneTouch Delica [...] total) by mouth daily with breakfast Active temvv-9-ava-epa- dpa-fish oil 1,050-1,200 mg capsule 1 capsule [...] tablets (2.5 mg total) by mouth director executive communications before breakfast 11/10/19 22 Active fluconazole (DIFLUCAN) [...] (09/03/2019): Added automatically from request for surgery [id number] Trigger finger, left index finger 09/03/2019 Overview (09/03/2019): Added automatically from request for surgery [id number] 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 History of candidiasis 11/25/2017 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 Jennifer glabrata infection 04/20/2014 Arthralgia of hip 06/19/2011 Encounters Date Type Department Care Team Description 01/26/2024 1:15 PM CORPORATE COMMUNICATIONS INTERN Office Visit [facility] Orthopaedic Surgery [address] [facility] [address] [place] [address] Derek Parsons PA Primary osteoarthritis of left knee (Primary Dx) 01/05/2024 5:30 PM CORPORATE COMMUNICATIONS INTERN Office Visit [facility] Medical Group [facility] Care at [address] [phone] Basilia Daniels, JOSH Foreign body in nose, initial encounter (Primary Dx) from Last 3 Months Surgical History Surgery [...] on file Legal Sex Female 2:34 AM CORPORATE COMMUNICATIONS INTERN Gender Identity Not on file Sexual Orientation Not on file Obstetrics History Last Filed Vital Signs Vital Sign Reading Time Taken Comments Blood Pressure 108/62 01/05/2024 5:32 PM CORPORATE COMMUNICATIONS INTERN Pulse 92 01/05/2024 5:32 PM CORPORATE COMMUNICATIONS INTERN Temperature 36.9 C (98.4 F) 01/05/2024 5:32 PM CORPORATE COMMUNICATIONS INTERN Respiratory Rate 16 01/05/2024 5:32 PM CORPORATE COMMUNICATIONS INTERN Oxygen Saturation 96% 01/05/2024 5:32 PM CORPORATE COMMUNICATIONS INTERN Inhaled Oxygen Concentration - - Weight 64.4 kg (142 lb) 01/05/2024 5:32 PM CORPORATE COMMUNICATIONS INTERN Height 162.6 cm (5' 4 ) 12/26/2023 11:01 AM CORPORATE COMMUNICATIONS INTERN Body Mass Index 24.37 12/26/2023 11:01 AM CORPORATE COMMUNICATIONS INTERN Plan of Treatment Health Maintenance Due Date [...] Procedure Name Priority Date/Time Associated Diagnosis Comments [place] ARTHROCENTESIS ASPIR&/INJ MAJOR JT/BURSA W/O US Routine 01/26/2024 1:15 PM CORPORATE COMMUNICATIONS INTERN Primary osteoarthritis of left knee POCT LIPID PANEL Routine 05/16/2021 3:44 PM CDT Lipid screening from Last 3 Months or Most Recently Relevant to Health Maintenance Results * [place] ARTHROCENTESIS ASPIR&/INJ MAJOR JT/BURSA W/O US (01/26/2024 1:15 PM CORPORATE COMMUNICATIONS INTERN) Narrative Bola Moulton MD - 01/26/2024 1:15 PM CORPORATE COMMUNICATIONS INTERN Derek Parsons PA 01/26/2024 2:01 PM Large [...] to Health Maintenance Insurance AETNA MEDICARE GOLD [facility] MEDICARE [facility] AETNA MEDICARE GOLD Care Teams Diesel Scoop Operator Relationship Specialty Start Date End Date Suellen Martinez NP [address] [place] [address] PCP - General Nurse Practitioner 07/02/23
--- OUTSIDE RECORDS SUMMARY | 2024-03-31 12:10 | XMS_ITS | Encounter Summary ---
Author Organization [facility] Address [address] [place] [address] Care Team Providers Care Laborer Starch Factory Name Role Phone Jeremy Bal MD Primary Care Provider + Encounter Details Date Type Department Care Team (Latest Contact Info) Description 02/13/2007 Outpatient Historical HIS INTERNET MARKETING DIRECTOR Joon Ji MD [address] [facility] [address] [place] [address] Nonspecific Abnormal Electrocardiogram (ECG) (EKG) Social History Tobacco Use Types Packs/Day Years Used Date Smoking Tobacco: Never Assessed Comments Unknown Sex and Gender Information Value Date Recorded Sex Assigned at Not on file Legal Sex Female 5:29 AM MDS RN Gender Identity Not on file Sexual Orientation Not on file documented as of this encounter Plan of Treatment Not on file documented as of this encounter Visit Diagnoses Diagnosis Nonspecific abnormal electrocardiogram (ECG) (EKG) documented in this encounter Care Teams Laborer Starch Factory Relationship Specialty Start Date End Date Jeremy Bal MD PCP - General Internal Medicine 03/02/12 documented as of this encounter
--- OUTSIDE RECORDS SUMMARY | 2024-03-31 12:10 | XMS_ITS | Continuity of Care Document ---
Author Organization [facility] Address [address] [facility] [address] [place] [address] Phone Care Team Providers Care Obiee Lead Developer Name Role Phone Bren Juarez Unavailable Unavailable [...] Providers Copied on Encounter Office/outpat ient Visit, [facility] [place] [facility], [address] [place] [address] [address], [place], [place], [address], [place] tel:[phone] [facility] [place] No Information 2-201 0 Ann Correia. [address] [facility] [place] , [address], [place], [address], [place]. tel:[phone] Office/outpat ient Visit, [facility] [place], [address] [place] [address] [address], [place], [place], [address], [place] tel:[phone] SEC [place] [facility] No Information 201 0 Ann Duckworth [address] , [address], [place], [place], [facility], [place]. tel:[phone] [facility], [address] [place] [address] [address], [place], [place], [address], [place] tel:[phone] [facility] [place] No Information 200 9 Ann Duck[address] , [address], [place], [facility], [place]. tel:[phone] Referring Provider: Bren Hylton, [facility] [address], [place], [facility]. tel:[phone] Office/outpat ient Visit, [facility] [place] [facility], [address] [place] [address] [address], [place], [place], [address], [place] tel:[phone] [facility] [place] No Information 9 Ann Duckworth [facility] , [address], [place], [facility], [place]. tel:[phone] Office/outpat ient Visit, [facility] [place], [address] [place] [address] [address], [place], [place], [address], [place] tel:[phone] [facility] [place] No Information 9 Lianne Alvarez. [address] , [address], [place], [facility], [place]. tel:[phone] [facility], [address] [place] [address] [address], [place], [place], [address], [place] tel:[phone] [facility] No Information 9-200 8 Ann Correia. [address] , [address], [place], [facility], [place]. tel:[phone] Referring Provider: [facility] [address], [place], [facility]. tel:[phone] [facility], [address] [place] [address] [address], [place], [place], [address], [phone] SEC [facility] No Information Dimitry-0 5-200 8 Juarez Bren. [address] [facility] , [address], [place], [facility], . tel:[phone] Office/outpat ient Visit, [facility], [address] [place] [address] [address], [place], [place], [address], tel:[phone] SEC [facility] [place] No Information Dec-2 0-200 7 Juarez Bren. [address] [place], [place] [address]ate [place] , [address], [place], [facility], . tel:[phone] Office/outpat ient Visit, [facility], [address] [place] [address] [address], [place], [place], [address], [place] [phone] SEC [facility] No Information Jasson-1 6-200 7 Lianne Alvarez. [address] [place] [address] , [address], [place], [facility], . tel:[phone] Referring Provider: Antonio Boggs [facility] [address], [place], [facility]. tel:[phone] [facility], [address] [place] [address] [address], [place], [place], [address], [place] tel:[phone] SEC [facility] No Information Mar-0 8-200 7 Lianne Alvarez. [facility] [address], [place], [facility], . tel:[phone] Referring Provider: Antonio Boggs [facility] [address], [place], [facility]. tel:[phone] Family History Family Member Type Diagnosis Age [...]
--- OUTSIDE RECORDS SUMMARY | 2024-03-31 12:10 | XMS_ITS | Clinical Summary ---
Author Organization [facility] Address [address] [place] [address] Care Team Providers Care Aquaculture Farmer Name Role Phone Lion Allen MD Primary Care Provider [phone] Source Comments [facility],non-owned Affiliates and Associated Physician Practices is amultiple site organization consisting of ambulatory clinics and hospital sitesin [place], [place], [place] and [place]. This disclosure is being madepursuant to the Care Everywhere program and may not contain all information available regarding this patient. Last updated 17.[facility] Allergies Active Allergy Reactions Criticality Noted Date [...] fluticasone propionate (Flonase) 50 MCG/ACT nasal spray [place] 2 (two) sprays into each nostril once [...] twice daily 180 tablet 3 10/29/2023 Active nystatin (Mycostatin) 876251 UNIT/GM ointmentIndication s:History of candidiasis MIX WITH TRIAMCINOLONE OINTMENT AND APPLY TO VULVAR TISSUES ONCE DAILY 30 g 3 12/03/2023 Active valACYclovir (Valtrex) 1 GM tabletIndications: Herpes simplex infection of genitourinary system TAKE 1 TABLET BY MOUTH EVERY DAY 90 tablet 12/17/2023 Active fluconazole (Diflucan) 200 MG tabletIndications: History of candidiasis One by mouth every other day for three doses. 3 tablet 03/29/2024 Active boric acid 600 mg capsuleIndications :History of candidiasis On capsule in the vagina as needed. 15 capsule 2 03/30/2024 Active fluconazole (Diflucan) 200 MG tabletIndications: History of candidiasis One by mouth every other day for three doses. 3 tablet 11/10/2023 03/29/19 25 Discontinu ed(Reorder ) boric acid 600 mg capsuleIndications :History of candidiasis Compounded Boric Acid vaginal suppositories. Poison if taken by mouth. Use one in the vagina as directed. 30 capsule 01/09/2024 03/02/19 25 Discontinu ed(Reorder ) boric acid 600 mg capsuleIndications :History of candidiasis Compounded Boric Acid vaginal suppositories. Poison if taken by mouth. Use one in the vagina as directed. 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 Encounters Date Type Department Care Team Description 03/30/2024 Refill [facility] - HOLE DIGGER OPERATOR [address] [place] [address] Harriet Cazares MD MEDICATION REFILL 03/29/2024 Telephone [facility] - HOLE DIGGER OPERATOR [address] [place] [address] Harriet Cazares MD Med Question 03/02/2024 Telephone [facility] - HOLE DIGGER OPERATOR [address] [place] [address] Harriet Cazares MD Patient Requested Call 01/28/2024 Travel 01/09/2024 Telephone [facility] - HOLE DIGGER OPERATOR [address] [place] [address] Harriet Cazares MD Refill Request from Last [...] Comments Blood Pressure 120/64 12/24/2022 1:58 PM HOUSING DIRECTOR Pulse - - Temperature 36.6 C (97.9 F) 12/24/2022 1:58 PM HOUSING DIRECTOR Respiratory Rate - - Oxygen Saturation - - Inhaled Oxygen Concentration - - Weight 81.5 kg (179 lb 9.6 oz) 12/24/2022 1:58 P M HOUSING DIRECTOR Height 162.6 cm (5' 4.02 ) 12/24/2022 1:58 PM CS T Body Mass Index 30.81 12/24/2022 1:58 PM HOUSING DIRECTOR Plan of Treatment Upcoming Encounters Date Type Department Care Team (Late st Contact Info) Description 04/13/2024 2:40 PM HOUSING DIRECTOR Office Visit [facility] - HOLE DIGGER OPERATOR [address], [facility] [address] [place] [address] Harriet Cazares MD [address] [facility] [address] [place] [address] Health Maintenance Due Date Last [...] Additional history exists INFLUENZA VACCINE (#1) 2023 , 11/28/2020, 11/08/2019, Additional history exists DEPRESSION SCREENING 02/18/2024 12/24/2022 DIABETES - URINE PROTEIN SCREENING 02/18/2024 MEDICARE AWV CALENDAR YEAR 2024 HEPATITIS B VACCINE Aged [...] age to complete this topic Care Teams Aquaculture Farmer Relationship Specialty Start Date End Date Lion Allen MD [address] [place] [address] PCP - General Ophthalmology 12/24/22
--- OUTSIDE RECORDS SUMMARY | 2024-03-31 12:10 | XMS_ITS | Data Portability ---
Author Organization [place] [facility],, Renetta manzano Address [address] [place] [address] Assessment No assessment recorded. Plan of Treatment [...] mcg powder for inhalatio n [address] [address], [address] [place], [address], 05/15/2022 14:29:21 prednison e 20 mg tablet 2022 023 [facility], [address] [place], [address], 06/10/2023 20:39:57 fluconazo le 200 mg tablet 2022 023 [facility], [address] [place], [address], 12/10/2023 17:25:35 amoxicill in 875 mg-potass ium clavulana te 125 mg tablet 2022 023 [facility], [address] [place], [address], 12/10/2023 17:25:14 Trelegy Ellipta 200 mcg-62.5 mcg-25 mcg powder for inhalatio n [address], [address] [place], [address], 12/04/2022 16:43:17 prednison e 20 mg tablet [address], [address] [place], [address], 06/10/2023 20:39:57 Trelegy Ellipta 200 mcg-62.5 mcg-25 mcg powder for inhalatio n [address], [address] [place], [address], 06/10/2023 15:30:03 Patient TargetsNo targets recorded. Patient Instructions Encounter Date Encounter Id Patient Instructions Last Modified By Organization Details Last Modified Time 05/15/2022 [id number] spirometry testing* Not avai lable 05/15/2022 14:25:37 Side effects of inhaled corticosteroids were reviewed with emphasis placed on oral candidiasis and dysphonia. Rinsing the mouth after utilization should decrease the incidence of oral candidiasis significantly. Sometimes use of the spacer may improve symptoms of dysphonia. Not available 05/15/2022 14:29:09 12/04/2022 [id number] Penicillin and cephalosporin side effects were reviewed [...] of dysphonia. Not available 12/09/2022 06:56:36 06/10/2023 [id number] spirometry testing* Not avai lable 06/10/2023 15:43:21 Side effects of inhaled corticosteroids were reviewed with emphasis placed on oral candidiasis and dysphonia. Rinsing the mouth after utilization should decrease the incidence of oral candidiasis significantly. Sometimes use of the spacer may improve symptoms of dysphonia. Not available 06/10/2023 20:43:50 12/10/2023 [id number] spirometry testing* Not avai lable 12/10/2023 17:28:31 Reason for Referral None Reported. Results Created Date Observation Date Name Description Value Unit Range Abnormal Flag Note LastModifiedBy Organization Detail LastModifiedTime 05/16/1905/15/2022 aylin metry testi ng* fev1 101 Not Available [facility] [address] [facility] [address], [place], [address], 05/15/2022 14:10:47 05/16/19 23 05/15/2022 aylni metry testi ng* fvc 98 Not Available [facility] [address] [facility] [address], [place], [address], 05/15/2022 14:10:47 05/16/19 23 05/15/2022 aylin metry testi ng* % reversibilit y Not Available [facility] [address] [facility] [address], [place], [address], 05/15/2022 14:10:47 06/10/19 24 06/10/2023 aylin metry testi ng* fev1 82 Not Available [facility] [address] [facility] [address], [place], [address], 06/10/2023 15:30:14 06/10/19 24 06/10/2023 aylin metry testi ng* fvc 79 Not Available [facility] [address], [place], [address], 06/10/2023 15:30:14 06/10/1906/10/2023 aylin metry testi ng* % reversibilit y Not Available [facility] [address], [place], [address], 06/10/2023 15:30:14 12/10/1912/10/2023 aylin metry testi ng* fev1 101 Not Available [facility] [address], [place], [address], 12/10/2023 16:08:53 12/10/1912/10/2023 aylin metry testi ng* fvc 96 Not Available [facility] [address], [place], [address], 12/10/2023 16:08:53 12/10/1912/10/2023 aylin metry testi ng* % reversibilit y Not Available [facility] [address], [place], [address], 12/10/2023 16:08:53 05/16/19 aylin metry testi ng* [...] Details Recorded Time Type 2 diabetes mellitus 58440876 Active 2022 ABDOUL Jackson [address], [place], [address], [place] [facility], 3 07:02:32 Hyperlipidemia 75842183 Active [address], [place], [address], [place] [facility], 3 07:03:12 Anxiety 38330645 Active [address], [place], [address], [place] [facility], 3 07:03:18 Moderate persistent asthma 388635360 Active [address], [place], [address], [place] [facility], 2 13:04:26 Allergic rhinitis 26887593 Active [address], [place], [address], [place] [facility], 2 13:04:46 Essential hypertension 04745491 Active [address], [place], [address], [place] [facility], [...] Name and Address Organization Details Recorded Time 83356 Substance with sulfonami de structure and antibacte rial mechanism of action (substanc e) medicatio n Not available Not available Not available 09/13/2021 29710 8003 SNOMED charisma escobar [place], [place] [facility], 2 12:46:48 04236 azithromy alexandre medicatio n Not available Not available Not available 09/13/2021 84062 RxNorm charisma escobar [place], [place] [facility] [...] Updated DateTime 3 162.56 cm 31.4 kg/m2 22872.4 g 95 /min 95 % 95 % [...] Updated DateTime 3 162.56 cm 31.2 kg/m2 30781.8 1 g 105 /min 95 % 95 [...] Updated DateTime 4 162.56 cm 28.3 kg/m2 51880.7 4 g 100 /min 99 % 99 [...] Updated DateTime 4 162.56 cm 25.4 kg/m2 38212.6 7 g 107 /min 96 % 96 [...] Is Your Level Of Alcohol Consumption? Occasional [email or web address] Information not available 05/15/2022 What Was The Date Of Your Most Recent Tobacco Screening? 12/10/2023 [email or web address] Information not available 12/10/2023 Do You Use Any Illicit Or Recreational Drugs? No [email or web address] Information not available 09/13/2021 Do You Or Have You Ever Used Any Other Forms Of Tobacco Or Nicotine? No [email or web address] Information not available 09/13/2021 Sex: Unknown Functional Status None recorded. Mental Status None recorded. Family History Nothing Reported. Medical History Condition Response Anxiety Disorder Y Diabetes Y Coronary Artery Disease N Gout N Arthritis N Kidney Stones N Hyperthyroidism N Tuberculosis N Cancer N Stroke N Diverticulitis N Asthma Y Allergies Y Hypothyroidism N Stress N Depression N COPD N GERD/Reflux Y High Cholesterol Y Liver Disease N Heart Disease N Pulmonary Embolism N Fibromyalgia N Hypertension Y Osteoporosis N Kidney Disease N Gynecological HistoryNo gynecological history recorded. Obstetrics History GPAL:G 0 P 0 0 0 0 Past Encounters Encounter ID Performer Location Encounter Start Date Encounter Closed Date Diagnosis/Indication Diagnosis SNOMED-CT Code Diagnosis ICD10 Code Diagnosis Note [id number] A[facility]OUL Jackson OFFICE [address] [place] [address] 09/13/2021 12:14:47 09/13/2021 15:00:34 Allergic rhinitis 15308444 J30.9 The patient's symptoms are compatible with [...] mouth twice daily. Moderate p ersistent asthma 730453049 J45.40 Patient was placed on a 2-week [...] then should her symptoms increase or worsen. [id number] ABDOUL Jackson OFFICE [address] [place] [address] 8 10/09/2021 14:58:18 10/09/2021 15:43:44 Allergic rhinitis 90601683 J30.9 She will continue on her fluticason e nasal spray and try Zee 180 mg tablets; 1 tablet by mouth twice daily. Posterior rhinorrhea 758 96436 R09.82 Patient prescribed ipratropiu m bromide 0.06% nasal spray with instructio ns on use. She will call the office should her copious amounts of nasal drip. Asthma 634303649 J45.90 9 PFTs show increased lung function. She denies any increased albuterol use nor does she have any night time awakenings due to her asthma symptoms since starting on the Trelegy. Therefore she will continue on Trelegy 200/62.5/2 5 mcg; 1 inhalation once daily. She will return in 6 months for her asthma evaluation . [id number] ABDOUL Jackson OFFICE [address] [place] [address] 11/06/2021 14:34:49 11/06/2021 17:09:00 Moderate persistent asthma 835472753 J45.40 PFTs show increased lung function. She denies any night time awakenings due to her asthma symptoms and her albuterol use throughout the day is limited. She will therefore continue on her current treatment regimen including Trelegy 200/62.5/2 5 mcg; 1 inhalation once daily. She will return to the office in 6 months for follow up. Allergic rhinitis 948636 04 J30.9 She will continue on her fluticason e and ipratropiu m bromide 0.06% nasal sprays and try Zee 180 mg tablets; 1 tablet by mouth twice daily. [id number] Nemo Lockett MD OFFICE [address] [place] [address] 01/17/2022 09:42:27 01/17/2022 10:30:19 Viral upper respiratory tract infection 480094719 J06.9 This is day 4 of an upper respirator y infection and she is improving. She should use guaifenesi n with plenty of water as an expectoran t. She can use Tylenol for muscle aches and headache. She should continue her fluticason e nasal spray but avoid the ipratropiu m now while the mucus is very thick. Moderate p ersistent asthma 801341259 J45.40 Unable to afford Trelegy. I converted her to Advair plus Spiriva yesterday. If these options remain unaffordab le she will call her insurance plan and ask about most affordable ICS/LABA and LAMA options. I shared these terms with the patient [id number] ABDOUL Jackson OFFICE [address] [place] [id number] 8 05/15/2022 13:23:32 05/15/2022 14:29:17 Moderate persistent asthma 274414416 J45.40 PFTs show increased lung function. She denies any night time awakenings due to her asthma symptoms and her albuterol use throughout the day is limited. She will therefore continue on her current treatment regimen including Trelegy 200/62.5/2 5 mcg; 1 inhalation once daily. She will return to the office in 6 months for follow up. Allergic rhinitis 058829 04 J30.9 She will continue on her fluticason e and ipratropiu m bromide 0.06% nasal sprays and try Zee 180 mg tablets; 1 tablet by mouth twice daily. [id number] Rafita holcomb MD OFFICE [address] [place] [id number] 8 08/08/2022 16:01:54 08/08/2022 16:57:36 Moderate persistent asthma 345852107 J45.40 Appears to be at baseline. She is going to be heading on a cruise between [facility] in [place] and was wondering if she had some prednisone e so she can take this with her. She will continue on her baseline medicines [id number] ABDOUL Jackson OFFICE [address] [place] [id number] 8 12/04/2022 15:44:21 12/04/2022 17:04:27 Moderate persistent asthma 177707598 J45.40 The patient is having a flare [...] any persistent or worsening symptoms. Acute bronchitis 9172979 2 J20.9 The patient's symptoms are most compatible with an acute bronchitis with cough productive of purulent secretions , fever and chills. The patient was begun on an antibiotic . If symptoms do not respond promptly a chest x-ray will be obtained. She will call with any persistent or worsening symptoms. Candidiasis of vagina 72 527945 B37.31 Patient prescribed fluconazol e200 mg to treat her symptoms. [id number] ABDOUL Jackson OFFICE [address] [place] [id number] 8 06/10/2023 14:35:28 06/10/2023 15:55:07 Moderate persistent asthma 670072534 J45.40 The patient is having a flare [...] call with any persistent or worsening symptoms. [id number] ABDOUL Jackson OFFICE [address] [place] [id number] 8 12/10/2023 15:30:38 12/10/2023 16:31:51 Moderate persistent asthma 451151002 J45.40 The patient's asthma is doing extremely well. She is not having any nocturnal awakenings and her short acting beta agonist use during the day is limited. I will continue the patient on Trelegy 200/62.5/2 5 mcg; 1 inhalation once daily and albuterol as needed.She will return to the office in 6 months for follow up. Allergic rhinitis 487786 04 J30.9 She will try Zee 180 mg tablets; 1 - 2 times daily. Type 2 tessa betes mellitus 91702730 E11.9 Congratula kelly on recent weight loss. Health Concerns Section Related Observation LastModified by Organization Detai ls LastModified Time None Recorded Concern Status LastModified by Organization Details LastModified Time None Recorded Advance Directives Directive Y: Payers Encounter Date Sequence Insurance Name Policy Number Policy Barker Covered Member ID Barker Member ID Guarantor Name 05/15/2022 1 [employer] (MEDICARE REPLACEMENT HMO) [id number] L Mouna Rodriguez [id number] Mouna Rodriguez 08/08/2022 1 [employer] (MEDICARE REPLACEMENT HMO) [id number] L Mouna Rodriguez [id number] Mouna Rodriguez 12/04/2022 1 [employer] (MEDICARE REPLACEMENT HMO) [id number] L Mouna Rodriguez [id number] Mouna Rodriguez 06/10/2023 1 [employer] (MEDICARE REPLACEMENT HMO) [id number] Taylor Rodriguez [id number] Mouna Rodriguez 12/10/2023 1 [employer] (MEDICARE REPLACEMENT HMO) [id number] Taylor Rodriguez [id number] Mouna Rodriguez Notes Date Note Type Note [...] Manzano NP-C [address], [place], [address], [facility], 05/15/2022 14:42:34 [...] Rafita Birch MD [address], [place], [address], [facility], 08/08/2022 17:15:03 [...] at this visit. [address], [place], [address], [facility], 12/09/2022 07:05:27 [...] at this visit. [address], [place], [address], [facility], 06/10/2023 20:46:25 [...] over the summer and Fall, one to [facility] in [place] and the other to [place]. On both trips she was able to breathe better through her nose and her lungs. However she notes that once back in [place], her symptoms seem to return almost immediately. [...] at this visit. [address], [place], [address], [place] [facility], 12/10/2023 17:32:51 OBGyn Episode No OBEpisode recorded.
--- OUTSIDE RECORDS SUMMARY | 2024-03-31 12:10 | XMS_ITS | Referral Summary ---
Author Organization [facility] Address [address] [facility] [place] [address] Care Team Providers Care Trim Setter Helper Name Role Phone Lion Allen MD Primary Care Provider [phone] Source Comments [facility],non-owned Affiliates and Associated Physician Practices is amultiple site organization consisting of ambulatory clinics and hospital sitesin [place], [place], [place] and [place]. This disclosure is being madepursuant to the Care Everywhere program and may not contain all information available regarding this patient. Last updated 17.[facility] [employer] Encounters Date Type Department Care Team Description 03/30/2024 Refill [facility] - ELECTRICAL PROSPECTOR [address] [place] [phone] Harriet Cazares MD MEDICATION REFILL 03/29/2024 Telephone [facility] - ELECTRICAL PROSPECTOR [address] [place] [phone] Harriet Cazares MD Med Question 03/02/2024 Telephone [facility] - ELECTRICAL PROSPECTOR [address] [place] [address] Harriet Cazares MD Patient Requested Call 01/28/2024 Travel 01/09/2024 Telephone [facility] - ELECTRICAL PROSPECTOR [address] [place] [phone] Harriet Cazares MD Refill Request from Last [...] fluticasone propionate (Flonase) 50 MCG/ACT nasal spray [place] 2 (two) sprays into each nostril once [...] 180 tablet 3 10/29/2023 Active nystatin (Mycostatin) 196219 UNIT/GM ointmentIndication s:History of candidiasis MIX WITH [...] Comments Blood Pressure 120/64 12/24/2022 1:58 PM CUT IN STATION OPERATOR Pulse - - Temperature 36.6 C (97.9 F) 12/24/2022 1:58 PM CUT IN STATION OPERATOR Respiratory Rate - - Oxygen Saturation - - Inhaled Oxygen Concentration - - Weight 81.5 kg (179 lb 9.6 oz) 12/24/2022 1:58 P M CUT IN STATION OPERATOR Height 162.6 cm (5' 4.02 ) 12/24/2022 1:58 PM CS T Body Mass Index 30.81 12/24/2022 1:58 PM CUT IN STATION OPERATOR Plan of Treatment Upcoming Encounters Date Type Department Care Team (Late st Contact Info) Description 04/13/2024 2:40 PM CUT IN STATION OPERATOR Office Visit [facility] - ELECTRICAL PROSPECTOR [address], [facility] [address] [place] [address] Harriet Cazares MD [address] [facility] [address] [place] [address] Care Teams Trim Setter Helper Relationship Specialty Start Date End Date Lion Allen MD [address] [place] [id number] PCP - General Ophthalmology 12/24/22
--- OUTSIDE RECORDS SUMMARY | 2024-03-31 12:10 | XMS_ITS | Clinical Summary ---
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
--- OUTSIDE RECORDS SUMMARY | 2024-03-31 12:10 | XMS_ITS | Patient Health Summary ---
Author Organization [facility] Address [address] [facility] [place] [address] Care Team Providers Care Core Piler Name Role Phone Lion Allen MD Primary Care Provider [phone] Note from [facility],non-owned Affiliates and Associated Physician Practices is amultiple site organization consisting of ambulatory clinics and hospital sitesin [place], [place], [place] and [place]. This disclosure is being madepursuant to the Care Everywhere program and may not contain all information available regarding this patient. Last updated 17.[facility] Allergies * Sulfa Drugs(Rash) -Medium Criticality * [...] fluticasone propionate (Flonase) 50 MCG/ACT nasal spray [place] 2 (two) sprays into each nostril once [...] twice daily 3 refills by 10/28/2024 * nystatin (Mycostatin) 686705 UNIT/GM ointment(Started 12/03/2023) MIX WITH TRIAMCINOLONE OINTMENT AND APPLY TO VULVAR TISSUES ONCE DAILY 3 refills by 12/02/2024 * valACYclovir (Valtrex) 1 GM tablet(Started 12/17/2023) TAKE 1 TABLET BY MOUTH EVERY DAY * fluconazole (Diflucan) 200 MG tablet(Started 03/29/2024) One by mouth every other day for three doses. * boric acid 600 mg capsule(Started 03/30/2024) On capsule in the vagina as needed. 2 refills by 03/30/2025 Ended Medications* fluconazole (Diflucan) 200 MG tablet(Started 11/10/2023) (Discontinued) One by mouth every other day for three doses. * boric acid 600 mg capsule(Started 01/09/2024)(Discontinued) Compounded Boric Acid vaginal suppositories. Poison if taken by mouth. Use one in the vagina as directed. * boric acid 600 mg capsule(Started 03/02/2024)(Discontinued) Compounded Boric Acid vaginal suppositories. Poison if [...] Comments Blood Pressure 120/64 12/24/2022 1:58 PM ELECTRICIAN SHIP Pulse - - Temperature 36.6 C (97.9 F) 12/24/2022 1:58 PM ELECTRICIAN SHIP Respiratory Rate - - Oxygen Saturation - - Inhaled Oxygen Concentration - - Weight 81.5 kg (179 lb 9.6 oz) 12/24/2022 1:58 P M ELECTRICIAN SHIP Height 162.6 cm (5' 4.02 ) 12/24/2022 1:58 PM CS T Body Mass Index 30.81 12/24/2022 1:58 PM ELECTRICIAN SHIP Procedures * CULTURE YEAST WITH DIRECT FLUORESCENT [...] WITH DIRECT FLUORESCENT JUAN (12/24/2022 2:02 PM ELECTRICIAN SHIP) Smear [facility] Comment: CULTURE, YEAST, W/DIRECT FLUORESCENT JUAN Micro Number: [id number] Test Status: Final Specimen Source: Genital Specimen Quality: Adequate Smear: No yeast seen Result: No yeast isolated Test Performed at: [facility] [id number] PATRICE VALENCIA MD Microbiology SPECIMEN FROM GENITAL SYSTEM / Unknown 12/24/2022 2:02 PM ELECTRICIAN SHIP 12/25/2022 4:46 AM ELECTRICIAN SHIP Harriet Cazares MD LAB - MICROBIOLOGY ORDERABLES [address] [address] * CULTURE URINE (06/24/2022 2:16 PM CDT) Only the most recent of4 resultswithin the time period is included. Urine Culture Routine Final report [facility] INSURANCE BILL Result 1 No growth [facility] INSURANCE BILL Urine URINE SPECIMEN OBTAINED BY CLEAN CATCH PROCEDURE / Unknown 06/24/2022 2:16 PM CDT 06/24/2022 Narrative Resulting Agency Comment [facility] [address] [facility] [id number] Harriet Cazares MD LAB - MICROBIOLOGY ORDERABLES [facility] INSURANCE BILL [address] [place] [address] * PH FLUID - POCT (AMB) [facility] [...] FUNGUS JUAN - POINT OF CARE (AMB) [facility] (08/30/2020) [...] PROC INCISION AND DRAINAGE (04/18/2020 9:18 AM ELECTRICIAN SHIP) Narrative Harriet Harding MD - 04/18/2020 9:18 AM ELECTRICIAN SHIP Harriet Harding MD 04/18/2020 9:20 AM Procedure Note: Pre-operative diagnosis: Vulvar abscess Post-operative diagnosis: ZAIRE Procedure Details: The risks, benefits, and alternatives were discussed in detail with the patient She states understanding of the risks, and requests to proceed with the procedure. All her questions were answered to her satisfaction, and she understands and agrees to appropriate follow up appointments. ICF obtained. The patient was placed in a dorsal lithotomy position. The abscess site was cleaned with multiple swabs of Betadine (unless allergic to topical iodine, in which case hibiclens was used). The abscess site was infiltrated with 1% lidocaine. A scalpel was used to incise the abscess and purulent material expressed. Assessment and Plan 1. Vulvar abscess: Drained. 2. Post care instructions: Keep site clean. Rinse with water after urination. To do sitz baths twice daily. Cautioned that small amount of bleeding with increased activity could occur. To call for increasing size, pain or swelling. 3. The patient tolerated the procedure well. Harriet Cazares MD PROCEDURE/MINOR GRIMES RGICAL ORDERABLES * CULTURE FUNGUS OTHER+FUNGUS SMEAR (06/01/2014 6:00 AM CDT) Only the most recent of4 resultswithin the time period is included. Smear SEE NOTE [facility] ([facility]) Comment: CULTURE, FUNGUS W/SMEAR NOT HAIR, SKIN, BLOOD MICRO NUMBER: [id number] TEST STATUS: FINAL SPECIMEN SOURCE: VULVA SPECIMEN QUALITY: ADEQUATE SMEAR: No fungal elements seen. RESULT: No fungal growth at 4 Weeks NO COLLECTION DATE RECEIVED. WE HAVE USED THE DATE THE SPECIMEN WAS RECEIVED BY THIS LABORATORY THE COLLECTION DATE. IF THIS IS INCORRECT, PLEASE CONTACT CLIENT SERVICES. PHONE NUMBER: [phone] Test Performed at: [facility] [address] PATRICE VALENCIA MD Other (qualifier value) 06/01/2014 6:00 AM CDT 05/04/2014 6:19 AM CDT Narrative [facility] ([facility]) - 06/01/2014 6:00 AM CDT Please check for all natalee species including natalee glabrata Please check for sensitivities even for natalee albicans result Please check for sensitivities for these drugs: 1. Anidulafungin 2. Micafungin 3. Caspofungin 4. 5-Flucytosine 5. Posaconazole 6. Voriconazole 7. Itraconazole 8. Fluconazole 9. Amphotericin B Specimen Type->Other vulvar Harriet Cazares MD LAB - MICROBIOLOGY ORDERABLES Performing Organization Address [facility]/ZIP Co de Phone Number [facility] ([facility]) * SUSCEPTIBILITY YEAST (05/12/2014 7:00 AM CDT) Specimen Source VULVAR [facility] ([facility]) Identification NATALEE GLABRATA [facility] ([facility]) Amphotericin B 0.500 mcg/mL [facility] ([facility]) Anidulafungin FABIOLA 0.030 S mcg/mL [facility] ([facility]) Caspofungin 0.060 S mcg/mL [facility] ([facility]) Fluconazole 16 SD mcg/mL [facility] ([facility]) Flucytosine <=0.060 S mcg/mL [facility] ([facility]) Itraconazole 0.500 SD mcg/mL [facility] ([facility]) Micafungin FABIOLA <=0.008 S mcg/mL [facility] ([facility]) Posaconazole 1 S mcg/mL [facility] ([facility]) Voriconazole 0.250 S mcg/mL [facility] ([facility]) Additional Information [facility] ([facility]) Comment: Drug concentrations are expressed in mcg/mL. [...] of this test have been determined by [employer]. This test should not be used for diagnosis without confirmation by other medically established means. Test Performed at: [facility] [address] [place] [id number] HORTENCIA ROY MD 05/12/2014 7:00 AM CDT 04/11/2014 11:06 PM ELECTRICIAN SHIP Harriet Cazares MD LAB - MICROBIOLOGY ORDERABLES Performing Organization Address [facility] Co de Phone Number [facility] ([facility]) * (ABNORMAL) CULTURE URINE COMPREHENSIVE (01/18/2014 12:42 PM ELECTRICIAN SHIP) Culture SEE NOTE(A) [facility] ([facility]) Comment: CULTURE, URINE, SPECIAL MICRO NUMBER: [id number] TEST STATUS: FINAL SPECIMEN SOURCE: OTHER (SPECIFY) SPECIMEN QUALITY: ADEQUATE RESULT: 1,000-10,000 CFU/mL of Gram negative bacilli isolated 1,000-10,000 CFU/mL of Gram positive cocci isolated Strain 1 1,000-10,000 CFU/mL of Gram positive cocci isolated Strain 2 COMMENT: May represent colonizers from external and internal genitalia. No further testing (including susceptibility) will be performed. Test Performed at: [facility] [address] PATRICE VALENCIA MD Urine specimen (specimen) 01/18/2014 12:42 PM ELECTRICIAN SHIP 01/18/2014 12:43 PM ELECTRICIAN SHIP Harriet Cazares MD LAB - MICROBIOLOGY ORDERABLES [facility] ([facility]) * GROSS + MICRO EXAM (11/21/1998 1:10 PM CDT) Result CASE NUMBER [id number] Comment: ORDERING PHYSICIAN HIRAM CASTILLO SPECIMEN TYPE Uterus w/wo tubes Date 11/21/1998 Physician Lizeth Gross Description The specimen is received in a formalin-filled container, labeled with the patient's name and cervix, uterus, right and left fallopian tubes and ovaries . The specimen consists of a uterus with attached cervix and left fallopian tube and ovary. The right fallopian tube and ovary are received separate. The uterus measures approximately 5.5 x 6 x 4 cm. The cervix measures approximately 3.5 cm long. The ectocervix measures approximately 3.5 cm in diameter. The ectocervical mucosa is grossly free of lesions. The left fallopian tube measures 5 cm long x approximately 0.6 cm in diameter and is grossly unremarkable. The left ovary measures approximately 3 cm in largest diameter and is grossly unremarkable. The uterine serosal surface is shiny and glistening without focal lesions. The right fallopian tube measures approximately 5.5 cm long x 1.2 cm in largest diameter. The right ovary measures approximately 3 cm in largest diameter and is grossly unremarkable. Sections of the right ovary and right fallopian tube are submitted in cassette A. Random sections of the left ovary and fallopian tube are submitted in cassette B. The uterus weighs 160 grams. The endocervical canal is mucoid and homogeneous without focal lesions. Cassette C has cervix at 12 o'clock cassette D has cervix at 6 o'clock. The endometrial cavity measures approximately 3 x 4 x less than 1 cm. The endometrial mucosa is irregular with areas of hyperemia. The posterior transmural sections are submitted in cassettes E and F. Anterior transmural sections are submitted in cassettes G, H and I. A single rounded well-circumscribed whorled rubbery mass is identified on the posterior myometrium, it measures approximately 1.5 cm in largeset diameter. A employment representative section of this mass is submitted in cassette J. /lmj Microscopic Exam Both ovaries and fallopian tubes are histologically unremarkable. The ectocervical stratified squamous epithelium and the stroma are histologically unremarkable. There is a mild chronic inflammatory infiltrate in the endocervix. Small focus of endocervical duct hyperplasia is identified. There is no evidence of atypia or dysplasia. The endometrial mucosa is thick with tortuous glands lined by tall epithelium with abundant eosinophilic cytoplasm. Subnuclear vacuoles are identified (consistent with secretory endometrium). Endometrial polyps are identified in sections H and I. The myometrium reveals foci of adenomyosis. The myometrial mass consists of interlacing bundles of smooth muscle cells without evidence of atypia or increased mitotic activity. Diagnosis I. Uterus and bilateral adnexa, hysterectomy, bilateral salpingo-oophorectomy A. Ovaries and fallopian tubes, bilateral 1. No pathologic diagnosis. B. Endometrium 1. Endometrial polyps 2. secretory endometrium. C. Myometrium 1. Adenomyosis. 2. Leiomyoma (1.5 cm.). D. Cervix 1. Chronic cervicitis, mild. Cyber Security Systems Engineer bk Pathologist Eam Arthur M.D. [employer]. 11/22/1998 1532 <6> CPT code 8307/00432 MISCELLANEOUS SAMPLES / Unknown 11/21/1998 1:10 PM CDT 11/21/1998 1:10 PM CDT Historical Provider LAB - PATHOLOGY/C YTOLOGY ORDERABLES Care Teams Core Piler Relationship Specialty Start Date End Date Lion Allen MD [address] [place] [id number] PCP - General Ophthalmology 12/24/22
--- OUTSIDE RECORDS SUMMARY | 2024-03-31 12:10 | XMS_ITS | Encounter Summary ---
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
--- OUTSIDE RECORDS SUMMARY | 2024-03-31 12:10 | XMS_ITS | Encounter Summary ---
Author Organization [facility] Address [address] [place] [address] Care Team Providers Care Food Service Coordinator Name Role Phone Jeremy Bal MD Primary Care Provider + Encounter Details Date Type Department Care Team (Latest Contact Info) Description 02/13/2007 Outpatient Historical HIS CARD CATH LAB NURSE Joon Rolle MD [address] [facility] [address] [place] [address] Nonspecific Abnormal Electrocardiogram (ECG) (EKG) Social History Tobacco Use Types Packs/Day Years Used Date Smoking Tobacco: Never Assessed Comments Unknown Sex and Gender Information Value Date Recorded Sex Assigned at Not on file Legal Sex Female 5:29 AM CRYSTALIZER TENDER Gender Identity Not on file Sexual Orientation Not on file documented as of this encounter Plan of Treatment Not on file documented as of this encounter Visit Diagnoses Diagnosis Nonspecific abnormal electrocardiogram (ECG) (EKG) documented in this encounter Care Teams Food Service Coordinator Relationship Specialty Start Date End Date Jeremy Bal MD PCP - General Internal Medicine 03/02/12 documented as of this encounter
--- OUTSIDE RECORDS SUMMARY | 2024-03-31 12:10 | XMS_ITS | Encounter Summary ---
Author Organization [facility] Address [address] [place] [address] Phone Care Team Providers Care Industrial Engineering Technologist Name Role Phone Jeremy Bal MD Primary Care Provider [phone] Axel Burnett DO Primary Care Provider [phone] Suellen Martinez NP Primary Care Provider [phone] Encounter Details Date Type Department Care Team (Latest Contact Info) Description 04/22/2013 Orders Only [facility] Scanning, Provider Social History Tobacco Use Types Packs/Day Years Used Date Smoking Tobacco: Never Comments Unknown Sex and Gender Information Value Date Recorded Sex Assigned at Not on file Legal 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
--- OUTSIDE RECORDS SUMMARY | 2024-03-31 12:10 | XMS_ITS | Data Portability ---
Author Organization [facility] [place] [facility] Address [address] [place] [address] Assessment No assessment recorded. Plan of Treatment Reminders Order Date Submit Date Provider Last Modified By Organization Details Last Modified Time Details Appointments None recorded. Lab SARS CoV 2 RNA (COVID-19), QL, software support engineer-PCR, respiratory specimen - maurepas 2019 020 [facility] (Lab), [address] [place], [address], 0 19:32:54 Referral None recorded. Procedures None recorded. Surgeries None recorded. Imaging None recorded. Medication Orders None recorded. Patient TargetsNo targets recorded. Patient Instructions Encounter Date Encounter Id Patient Instructions Last Modified By Organization Details Last Modified Time 07/08/2019 [id number] Reviewed the following recommendations: -Stay home and [...] CoV 2 RNA (COVI D-19) , QL, software support engineer-P CR, respi rator y speci men sars - cov - 2 PCR NEGATI VE mL Not Available [facility] (Lab) [address] [facility], [place], [address], 07/09/2019 19:32:54 07/08/19 20 07/08/2019 SARS CoV 2 RNA (COVI D-19) , QL, software support engineer-P CR, respi rator y speci men covidcom1 [...] of this test metho d. Not Available [facility] (Lab) [address] [facility], [place], [address], 07/09/2019 19:32:54 07/08/19 20 07/08/2019 SARS CoV 2 RNA (COVI D-19) , QL, software support engineer-P CR, respi rator y speci men covidcom2 Posit shari resul ts are indic ative of the prese nce of SARS- CoV-2 RNA and do not rule out bacte rial infec tion or co-in fecti on with other virus es. Not Available [facility] (Lab) [address] [facility], [place], [address], 07/09/2019 19:32:54 07/08/19 20 07/08/2019 SARS CoV 2 RNA (COVI D-19) , QL, software support engineer-P CR, respi rator y speci men covidcom3 Test resul ts shoul d be used along with other clini stephanie obser vatio ns, patie nt histo ry, epide miolo gical infor matio n and labor atory data in isi carpenter the diagn osis. Not Available [facility] (Lab) [address] [facility], [place], [address], 07/09/2019 19:32:54 05/21/20 20 07/08/2019 SARS CoV 2 RNA (COVI D-19) , QL, software support engineer-P CR, respi rator y speci men covidcom4 This test has recei bethany [facility] Emerg ency Use Autho rizat ion and has been verif ied by [facility] at[employer] . This test is only autho rized [...] or revok ed soone r. Not Available [facility] (Lab) [address] [place], [address], 07/09/2019 19:32:54 07/08/19 20 07/08/2019 SARS CoV 2 RNA (COVI D-19) , QL, software support engineer-P CR, respi rator y speci men covidcom5 [facility] is certi fied under CLIA- 88 as quali fied to perfo rm high compl exity testi ng. This testi ng was perfo rmed in the [facility] [employer] [place] [address] (CLIA Licen se #[id number] 5, CAP #[id number], AU-ID #[id number]). Not Available [facility] (Lab) [address] [place], [address], 07/09/2019 19:32:54 07/08/19 20 07/08/2019 SARS CoV 2 RNA (COVI D-19) , QL, software support engineer-P CR, respi rator y speci men covidcom6 Facts heet for healt hcare provi ders: https ://ww w.fda .gov/ media /1362 56/do wnloa d Facts heet for mya nts: https ://ww w.fda .gov/ media /1362 57/do wnloa d Not Available [facility] (Lab) [address], [place], [address], 07/09/2019 19:32:54 Result Notes None recorded. Medical [...] SNOMED-CT Code Diagnosis ICD10 Code Diagnosis Note [id number] NEISHA FERRO NP [employer] [address] [place] [address] 07/08/2019 11:51:39 07/09/2019 07:40:59 Viral screening [id number] Z11.59 Health Concerns Section Related Observation LastModified by Organization Detai ls LastModified Time None Recorded Concern Status LastModified by Organization Details LastModified Time None Recorded Advance Directives Directive None Recorded Payers Encounter Date Sequence Insurance Name Policy Number Policy Barker Covered Member ID Barker Member ID Guarantor Name 07/08/2019 2 AETYOLANDE (O) [id number] Mouna Rodriguez [id number] Mouna Rodriguez Notes Date Note Type Note [...] testing NEISHA FERRO NP Attn: Accounting,[address] [facility], [place], [address], [facility] 07/08/2019 13:04:26
--- OUTSIDE RECORDS SUMMARY | 2024-03-31 12:10 | XMS_ITS | Encounter Summary ---
Author Organization [facility] Address [address] [place] [address] Care Team Providers Care Satellite Television Installer Name Role Phone Lion Allen MD Primary Care Provider [phone] Reason for Visit * Reason Onset Date Comments MEDICATION REFILL 03/30/2024 Encounter Details Date Type Department Care Team (Late st Contact Info) Description 03/30/2024 Refill [facility] - WARP TYING MACHINE KNOTTER [address] [facility] [address] [place] [phone] Harriet Cazares MD [address] [place] [address] MEDICATION REFILL Social History Tobacco Use Types Packs/Day Years Used Date Smoking Tobacco: Never Passive Smoke Exposure: Never Smokeless Tobacco: Never PHQ-2 Answer Date Recorded Patient Health Questionnaire-2 Score 1 01/21/2024 Sex and Gender Information Value Date Recorded Sex Assigned at Not on file Gender Identity Not on file Sexual Orientation Not on file documented as of this encounter Miscellaneous Notes * Telephone Encounter - Maame Hogue RN - 03/30/2024 3:38 PM FARMWORKER POULTRY Last seen 12/24/2022 Has 04/13/2024 pending WORKER POULTRY documented in this encounter Plan of Treatment Upcoming Encounters Date Type Department Care Team (Late st Contact Info) Description 04/13/2024 2:40 PM FARMWORKER POULTRY Office Visit [facility] - WARP TYING MACHINE KNOTTER [address] [place] [address] Harriet Cazares MD [address] [facility] [address] [place] [address] documented as of this encounter Visit Diagnoses Diagnosis History of candidiasis Personal history of other infectious and parasitic disease documented in this encounter Care Teams Satellite Television Installer Relationship Specialty Start Date End Date Lion Allen MD [address] [place] [address] PCP - General Ophthalmology 12/24/22 documented as of this encounter
== END 2024-03-31 11:23 | disposition home or self-care (01) ==
PROVIDERS: PCP Nurse Practitioner Family; Visit Provider Nurse Practitioner Family
DX: M47.896 Other spondylosis, lumbar region (principal); M16.0 Bilateral primary osteoarthritis of hip; W19.XXXA Unspecified fall, initial encounter
CPT/HCPCS: 72100; 73502

== ENCOUNTER 2024-07-05 16:47 | Emergency (ER) | payer MEDICARE, SELFPAY ==
--- NOTE | ~2024-07-05 | XR_ITS ---
EXAM: XR soft tissue neck DATE: 07/05/2024 17:09 HISTORY: possible foreign body . COMPARISON: None available. FINDINGS: Normal mineralization. No fracture or dislocation. No lytic or blastic lesion. Degenerativ e changes in the cervical spine. Patent airways. Normal epiglottis shadow. Normal prevertebral soft t issues. IMPRESSION: No radiopaque foreign body detected. Reviewed, dictated and finalized at location K.
--- NOTE | ~2024-07-05 | XR_ITS ---
EXAMINATION: XR chest 2V Exam Date/Time: 07/05/2024 17:00 CDT HISTORY: possible foreign body Comparison: 04/25/2021. RESULT: Lines, tubes, and devices: Cholecystectomy clips. Lungs and pleura: Clear. Cardiomediastinal silhouette: Stable. Other: No acute osseous or upper abdominal finding. IMPRESSION: No acute cardiopulmonary process. Reviewed, dictated and finalized at location K.
--- OUTSIDE RECORDS SUMMARY | 2024-07-05 16:50 | XMS_ITS | Encounter Summary ---
Author Organization [facility] Address [address] [facility] [place] [address] Care Team Providers Care Inspector Multifocal Lens Name Role Phone LexAxel Taylor CASTILLO Primary Care Provider [phone] Lion Allen MD Primary Care Provider Encounter Details Date Type Department Care Team (Late Contact Info) Description 03/06/2021 Telephone [facility] [address] [place] [address] Harriet Cazares MD [address] [address] Social History Tobacco Use Types Packs/Day Years Used Date Smoking Tobacco: Never Smokeless Tobacco: Never Comments No Sex and Gender Information Value Date Recorded Sex Assigned at Not on file Legal Sex Female 6:20 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 DIRECTOR COMBAT PLANS 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 Gender Identity Not on file Sexual Orientation Not on file documented as of this encounter Plan of Treatment Upcoming Encounters Date Type Department Care Team (Late Contact Info) Description 12/14/2024 2:00 PM CDT Office Visit [facility] - COMMUNICATION CLERK [address], [facility] [address] [place] [address] Harriet Cazares MD [address] [facility] [address] [place] [address] documented as of this encounter Visit Diagnoses Not on filedocumented in this encounter Care Teams Inspector Multifocal Lens Relationship Specialty Start Date End Date Axel Burnett DO [address] [facility] [address] [place] [address] PCP - General 11/09/18 12/23/22 Lion Allen MD [address] [place] [address] PCP - General Ophthalmology 12/24/22 documented as of this encounter
--- OUTSIDE RECORDS SUMMARY | 2024-07-05 16:50 | XMS_ITS | Referral Summary ---
Author Organization [facility] Address [address] [place] [address] Care Team Providers Care Court Assistant Name Role Phone Suellen Martinez NP Primary Care Provider [phone] Encounters Date Type Department Care Team Description 06/25/2024 2:00 PM CDT - 06/25/2024 11:59 PM CDT Hospital Encounter [id number] [address] [facility] [address] [place] [phone] Hip pain, left; Primary osteoarthritis of left knee Discharge Disposition: Discharge to home or self care 06/25/2024 2:30 PM CDT Office Visit [facility] Orthopaedic Surgery [address] [facility] [address] [place] [address] Nancy Sanchez NP Primary osteoarthritis of left knee (Primary Dx); Hip pain, left; Closed displaced fracture of greater trochanter of left femur, initial encounter (HCC); Primary osteoarthritis of left hip; Chronic pain of left knee from Last 3 Months Allergies Active Allergy [...] Rhinitis Administer 1 spray into each nostril cargo bracer before breakfast 2 05/07/19 19 Active hydroCHLOROthiaz partha (HYDRODIURIL) 25 mg tabletIndication s:hypertension Take 1 tablet (25 mg total) by mouth cargo bracer before breakfast 0 04/13/19 19 Active latanoprost [...] 1 tablet (1,000 mg total) by mouth cargo bracer before breakfast 12/02/19 19 Active OneTouch Delica [...] total) by mouth daily with breakfast Active ceoak-3-haf-epa- dpa-fish oil 1,050-1,200 mg capsule 1 capsule [...] 0.5 tablets (2.5 mg total) by mouth cargo bracer before breakfast 11/10/19 22 Active fluconazole (DIFLUCAN) [...] 7 days 100 g 07/02/19 24 Active Hospital, Clinic, or Other Facility Administered Medication Ordered Dose Route Frequency Start Date End Date Status BUPivacaine HCl (MARCAINE) 0.5 % (5 mg/mL) injection 6 mLIndications:Primar y osteoarthritis of left knee 6 mL OTHER One-Time Injection 06/25/2024 5 Ended triamcinolone (KENALOG) 40 mg/mL injection 80 mgIndications:Primar y osteoarthritis of left knee 80 mg intra-artic One-Time Injection 06/25/2024 5 Ended Active Problems Problem Noted Date Diagnosed Date Anxiety 12/09/2022 Hyperlipidemia 12/09/2022 COVID 09/10/2022 Type 2 diabetes mellitus 12/04/2021 Allergic rhinitis 09/13/2021 Essential hypertension 09/13/2021 Moderate persistent asthma 09/13/2021 LBBB (left bundle branch block) 05/28/2021 Fracture of lower leg 10/01/2019 Closed fracture of metatarsal bone 10/01/2019 Left carpal tunnel syndrome 09/03/2019 Overview (09/03/2019): Added automatically from request for surgery [id number] Trigger finger, left index finger 09/03/2019 Overview (09/03/2019): Added automatically from request for surgery [id number] 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 History of candidiasis [...] on file Legal Sex Female 2:34 AM PLANER HAND Gender Identity Female 06/28/2024 10:24 AM CDT Sexual Orientation Not on file Last Filed Vital Signs Vital Sign Reading Time Taken Comments Blood Pressure 108/62 01/05/2024 5:32 PM PLANER HAND Pulse 92 01/05/2024 5:32 PM PLANER HAND Temperature 36.9 C (98.4 F) 01/05/2024 5:32 PM PLANER HAND Respiratory Rate 16 01/05/2024 5:32 PM PLANER HAND Oxygen Saturation 96% 01/05/2024 5:32 PM PLANER HAND Inhaled Oxygen Concentration - - Weight 64.4 kg (142 lb) 01/05/2024 5:32 PM PLANER HAND Height 162.6 cm (5' 4 ) 12/26/2023 11:01 AM PLANER HAND Body Mass Index 24.37 12/26/2023 11:01 AM PLANER HAND Plan of Treatment Not on file Procedures Procedure Name Priority Date/Time Associated Diagnosis Comments XR KNEE LEFT 4 OR MORE VIEWS Schedule Routine, Read Routine (OP Routine) 06/25/2024 2:35 PM CDT Primary osteoarthritis of left knee XR HIP LEFT W PELVIS 2 OR 3 VIEWS Schedule Routine, Read Routine (OP Routine) 06/25/2024 2:35 PM CDT Hip pain, left [place] ARTHROCENTESIS ASPIR&/INJ MAJOR JT/BURSA W/O US Routine 06/25/2024 2:30 PM CDT Primary osteoarthritis of left knee POCT LIPID PANEL Routine 05/16/2021 3:44 PM CDT Lipid screening from Last 3 Months or Most Recently Relevant to Health Maintenance Results * XR Hip Left 2 or 3 Views W Pelvis (06/25/2024 2:35 PM CDT) Anatomical Region Laterality Modality Lower Extremities, Hip, Pelvis Left C omputed Radiography 06/25/2024 2:45 PM CDT Impressions 06/25/2024 2:45 PM CDT 1. Nondisplaced, possibly subacute left greater trochanter fracture. MRI can be obtained to detect occult intertrochanteric extension. 2. Moderate bilateral hip osteoarthritis. 3. Moderate to severe left knee tricompartmental osteoarthritis with chondrocalcinosis. Electronically signed by: Roger Saab M.D. Narrative 06/25/2024 2:45 PM CDT EXAMINATION: XR HIP LEFT 2 OR 3 VIEWS W PELVIS, XR KNEE LEFT 4 OR MORE VIEWS HISTORY: Left hip and knee pain FINDINGS: Left hip: 3 view examination of the left hip is correlated with CT from 01/28/2019. There is moderate bilateral hip osteoarthritis, slightly greater on the left than the right. There is heterotopic ossification at the greater trochanters bilaterally. There is a nondisplaced fracture of the left greater tuberosity with surrounding sclerosis, possibly subacute. Intertrochanteric extension is not evident. Left knee: 4 view examination of the left knee is compared with a study dated 07/02/2023. There is unchanged, moderate to severe tricompartmental left knee osteoarthritis with posterior loose bodies and a trace joint effusion. There is chondrocalcinosis in the knee and no fracture. Procedure Note Roger Saab MD - 06/25/2024 EXAMINATION: XR HIP LEFT 2 OR 3 VIEWS W PELVIS, XR KNEE LEFT 4 OR MORE VIEWS HISTORY: Left hip and knee pain FINDINGS: Left hip: 3 view examination of the left hip is correlated with CT from 01/28/2019. There is moderate bilateral hip osteoarthritis, slightly greater on the left than the right. There is heterotopic ossification at the greater trochanters bilaterally. There is a nondisplaced fracture of the left greater tuberosity with surrounding sclerosis, possibly subacute. Intertrochanteric extension is not evident. Left knee: 4 view examination of the left knee is compared with a study dated 07/02/2023. There is unchanged, moderate to severe tricompartmental left knee osteoarthritis with posterior loose bodies and a trace joint effusion. There is chondrocalcinosis in the knee and no fracture. IMPRESSION: 1. Nondisplaced, possibly subacute left greater trochanter fracture. MRI can be obtained to detect occult intertrochanteric extension. 2. Moderate bilateral hip osteoarthritis. 3. Moderate to severe left knee tricompartmental osteoarthritis with chondrocalcinosis. Electronically signed by: Roger Saab M.D. us Nancy Sanchez NP IMG XR PROCEDURES Final R esult * XR Knee Left 4 or More Views (06/25/2024 2:35 PM CDT) Anatomical Region Laterality Modality Lower Extremities, Knee Left Computed Radiography 06/25/2024 2:45 PM CDT Impressions 06/25/2024 2:45 PM CDT 1. Nondisplaced, possibly subacute left greater trochanter fracture. MRI can be obtained to detect occult intertrochanteric extension. 2. Moderate bilateral hip osteoarthritis. 3. Moderate to severe left knee tricompartmental osteoarthritis with chondrocalcinosis. Electronically signed by: Roger Saab M.D. Narrative 06/25/2024 2:45 PM CDT EXAMINATION: XR HIP LEFT 2 OR 3 VIEWS W PELVIS, XR KNEE LEFT 4 OR MORE VIEWS HISTORY: Left hip and knee pain FINDINGS: Left hip: 3 view examination of the left hip is correlated with CT from 01/28/2019. There is moderate bilateral hip osteoarthritis, slightly greater on the left than the right. There is heterotopic ossification at the greater trochanters bilaterally. There is a nondisplaced fracture of the left greater tuberosity with surrounding sclerosis, possibly subacute. Intertrochanteric extension is not evident. Left knee: 4 view examination of the left knee is compared with a study dated 07/02/2023. There is unchanged, moderate to severe tricompartmental left knee osteoarthritis with posterior loose bodies and a trace joint effusion. There is chondrocalcinosis in the knee and no fracture. Procedure Note Roger Saab MD - 06/25/2024 EXAMINATION: XR HIP LEFT 2 OR 3 VIEWS W PELVIS, XR KNEE LEFT 4 OR MORE VIEWS HISTORY: Left hip and knee pain FINDINGS: Left hip: 3 view examination of the left hip is correlated with CT from 01/28/2019. There is moderate bilateral hip osteoarthritis, slightly greater on the left than the right. There is heterotopic ossification at the greater trochanters bilaterally. There is a nondisplaced fracture of the left greater tuberosity with surrounding sclerosis, possibly subacute. Intertrochanteric extension is not evident. Left knee: 4 view examination of the left knee is compared with a study dated 07/02/2023. There is unchanged, moderate to severe tricompartmental left knee osteoarthritis with posterior loose bodies and a trace joint effusion. There is chondrocalcinosis in the knee and no fracture. IMPRESSION: 1. Nondisplaced, possibly subacute left greater trochanter fracture. MRI can be obtained to detect occult intertrochanteric extension. 2. Moderate bilateral hip osteoarthritis. 3. Moderate to severe left knee tricompartmental osteoarthritis with chondrocalcinosis. Electronically signed by: Roger Saab M.D. us Nancy Sanchez FACULTY ADMINISTRATOR IMG XR PROCEDURES Final R esult * [place] ARTHROCENTESIS ASPIR&/INJ MAJOR JT/BURSA W/O US (06/25/2024 2:30 PM CDT) Narrative Nancy Sanchez NP - 06/25/2024 2:30 PM CDT Nancy Sanchez NP 06/25/2024 3:24 PM Large Joint Injection: L knee Performed by: Nancy Sanchez NP Authorized by: Nancy Sanchez NP Large Joint Injection/Aspiration: Consent Given by: Patient Site marked: the procedure site was marked Timeout: prior to procedure the correct patient, procedure, and site was verified Verbal consent obtained: Yes Written consent obtained: Yes Supporting Documentation: Indications: Pain Procedure Details: Location: Knee Site: L knee Prep: patient was prepped using a clean technique Needle Size: 21 G Approach: Anterolateral Ultrasound guided: No Fluroscopic guidance: No Medications: 6 mL BUPivacaine HCl 0.5 % (5 mg/mL); 80 mg triamcinolone 40 mg/mL Patient tolerance: Patient tolerated the procedure well with no immediate complications us Nancy Sanchez FACULTY ADMINISTRATOR IN CLINIC/BEDSIDE ORDERAB LES Final Result * POCT lipid panel (05/16/2021 3:44 [...] Most Recently Relevant to Health Maintenance Insurance [facility] MEDICARE [facility] MEDICARE [facility] [employer]ET[employer] MEDICARE GOLD Care Teams Court Assistant Relationship Specialty Start Date End Date Suellen Martinez NP [address] [place] [address] PCP - General Nurse Practitioner 07/02/23
--- OUTSIDE RECORDS SUMMARY | 2024-07-05 16:50 | XMS_ITS | Encounter Summary ---
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
--- OUTSIDE RECORDS SUMMARY | 2024-07-05 16:50 | XMS_ITS | Clinical Summary ---
Author Organization [facility] Address [facility] [place] [address] Care Team Providers Care Miller Rod Mill Name Role Phone Suellen Martinez NP Primary Care Provider [phone] Allergies Active Allergy Reactions Criticality Noted Date [...] Rhinitis Administer 1 spray into each nostril early morning babysitter before breakfast 2 05/07/19 19 Active hydroCHLOROthiaz partha (HYDRODIURIL) 25 mg tabletIndication s:hypertension Take 1 tablet (25 mg total) by mouth early morning babysitter before breakfast 0 04/13/19 19 Active latanoprost [...] 1 tablet (1,000 mg total) by mouth early morning babysitter before breakfast 12/02/19 19 Active OneTouch Delica [...] total) by mouth daily with breakfast Active pnwmd-5-gok-epa- dpa-fish oil 1,050-1,200 mg capsule 1 capsule [...] 0.5 tablets (2.5 mg total) by mouth early morning babysitter before breakfast 11/10/19 22 Active fluconazole (DIFLUCAN) [...] (09/03/2019): Added automatically from request for surgery [id number] Trigger finger, left index finger 09/03/2019 Overview (09/03/2019): Added automatically from request for surgery [id number] 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 History of candidiasis 11/25/2017 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 Jennifer glabrata infection 04/20/2014 Arthralgia of hip 06/19/2011 Encounters Date Type Department Care Team Description 06/25/2024 2:30 PM CDT Office Visit [facility] Orthopaedic Surgery [address] [facility] [address] [place] [address] Nancy Sanchez NP Primary osteoarthritis of left knee (Primary Dx); Hip pain, left; Closed displaced fracture of greater trochanter of left femur, initial encounter (HCC); Primary osteoarthritis of left hip; Chronic pain of left knee 06/25/2024 2:00 PM CDT - 06/25/2024 11:59 PM CDT Hospital Encounter [facility] [address] [place] [address] [address] [place] [phone] Hip pain, left; Primary osteoarthritis of left knee Discharge Disposition: Discharge to home or self care from Last 3 Months Surgical History Surgery [...] on file Legal Sex Female 2:34 AM EP TECH Gender Identity Female 06/28/2024 10:24 AM CDT Sexual Orientation Not on file Obstetrics History Last Filed Vital Signs Vital Sign Reading Time Taken Comments Blood Pressure 108/62 01/05/2024 5:32 PM EP TECH Pulse 92 01/05/2024 5:32 PM EP TECH Temperature 36.9 C (98.4 F) 01/05/2024 5:32 PM EP TECH Respiratory Rate 16 01/05/2024 5:32 PM EP TECH Oxygen Saturation 96% 01/05/2024 5:32 PM EP TECH Inhaled Oxygen Concentration - - Weight 64.4 kg (142 lb) 01/05/2024 5:32 PM EP TECH Height 162.6 cm (5' 4 ) 12/26/2023 11:01 AM EP TECH Body Mass Index 24.37 12/26/2023 11:01 AM EP TECH Plan of Treatment Health Maintenance Due Date Last Done Comments Albumin Creatinine Ratio, Urine 1945 Depression Screening 1945 Hemoglobin A1C 1945 Hepatitis C Screening 1945 Osteoporosis Screening-Bone Density Scan 1945 eGFR 1945 Dilated Eye Exam 1945 Foot Exam 1945 DTaP/Tdap/Td Vaccine (1 - Tdap) 1956 Hepatitis B Screening 12/08/1963 Pneumococcal vaccine 65+ (1 of 2 - PCV) 1964 Well Visit 65+ 2010 Fall Risk Assessment 09/21/2020 09/22/2019 Lipid Panel 05/16/2022 05/16/2021 Influenza Vaccine (Season Ended) 2024 11/08/2019, 11/19/2017, 12/22/2016, Additional history exists Zoster Vaccine Completed 07/16/2018, 06/18, 11/18/2017 Procedures Procedure Name Priority Date/Time Associated Diagnosis Comments XR KNEE LEFT 4 OR MORE VIEWS Schedule Routine, Read Routine (OP Routine) 06/25/2024 2:35 PM CDT Primary osteoarthritis of left knee XR HIP LEFT W PELVIS 2 OR 3 VIEWS Schedule Routine, Read Routine (OP Routine) 06/25/2024 2:35 PM CDT Hip pain, left [place] ARTHROCENTESIS ASPIR&/INJ MAJOR JT/BURSA W/O US Routine [...] chondrocalcinosis. Electronically signed by: Roger Saab M.D. Nancy Sanchez NP IMKaren XR PROCEDURES Final R esult * XR [...] chondrocalcinosis. Electronically signed by: Roger Saab M.D. Nancy Sanchez LEAD PRINTER IMG XR PROCEDURES Final R esult * DE ARTHROCENTESIS ASPIR&/INJ MAJOR JT/BURSA W/O US (06/25/2024 [...] the procedure well with no immediate complications Nancy Sanchez LEAD PRINTER IN CLINIC/BEDSIDE ORDERAB LES Final Result * [...] Most Recently Relevant to Health Maintenance Insurance T MEDICARE GOLD TNA MEDICARE GOLD TNA MEDICARE GOLD Care Teams Miller Rod Mill Relationship Specialty Start Date End Date Suellen Martinez NP [address] [place], [place] [id number] PCP - General Nurse Practitioner 07/02/23
--- OUTSIDE RECORDS SUMMARY | 2024-07-05 16:50 | XMS_ITS | Encounter Summary ---
Author Organization [facility] Address [address] [place] [address] Care Team Providers Care Middle School Coach Name Role Phone Axel Burnett Primary Care Provider [phone] Suellen Martinez NP Primary Care Provider [phone] Encounter Details Date Type Department Care Team (Late st Contact Info) Description 10/06/2019 E-Visit [facility]/ Physicians [address] [place], [place] [id number] Latricia Chun, ACTUARY [address] [address] RE: COVID-19 Evaluation Social History Tobacco Use Types Packs/Day Years Used Date Smoking Tobacco: Never Smokeless Tobacco: Never Alcohol Use Standard Drinks/Week Comments Yes 0 (1 standard drink = 0.6 oz pur e alcohol) occasional Comments No Sex and Gender Information Value Date Recorded Sex Assigned at Not on file Legal Sex Female 2:34 AM VIDEO GAME ENGINEER Gender Identity Female 06/28/2024 10:24 AM [...] documented as of this encounter Care Teams Middle School Coach Relationship Specialty Start Date End Date Axel Burnett DO PCP - General Internal Medicine 02/03/19 07/01/23 Suellen Martinez NP [address] [place] [address] PCP - General Nurse Practitioner 07/02/23 documented as of this encounter
--- OUTSIDE RECORDS SUMMARY | 2024-07-05 16:50 | XMS_ITS | Data Portability ---
Author Organization [facility] Address [address] [place] [address] Assessment No assessment recorded. Plan of Treatment Reminders Order Date Submit Date Provider Last Modified By Organization Details Last Modified Time Details Appointments None recorded. Lab SARS CoV 2 RNA (COVID-19), QL, patient care secretary-PCR, respiratory specimen - [place] 2019 020 [facility] (Lab), [address] [place], [address], 0 19:32:54 Referral None recorded. Procedures None recorded. Surgeries None recorded. Imaging None recorded. Medication Orders None recorded. Patient TargetsNo targets recorded. Patient Instructions Encounter Date Encounter Id Patient Instructions Last Modified By Organization Details Last Modified Time 07/08/2019 [id number] Reviewed the following recommendations: -Stay home and [...] CoV 2 RNA (COVI D-19) , QL, patient care secretary-P CR, respi rator y speci men sars - cov - 2 PCR NEGATI VE mL Not Available [facility] (Lab) [address] [facility], [place], [address], 07/09/2019 19:32:54 07/08/19 20 07/08/2019 SARS CoV 2 RNA (COVI D-19) , QL, patient care secretary-P CR, respi rator y speci men covidcom1 [...] of this test metho d. Not Available [facility] (Lab) [address] [facility], [place], [address], 07/09/2019 19:32:54 07/08/19 20 07/08/2019 SARS CoV 2 RNA (COVI D-19) , QL, patient care secretary-P CR, respi rator y speci men covidcom2 Posit shari resul ts are indic ative of the prese nce of SARS- CoV-2 RNA and do not rule out bacte rial infec tion or co-in fecti on with other virus es. Not Available [facility] (Lab) [address] [facility], [place], [address], 07/09/2019 19:32:54 07/08/19 20 07/08/2019 SARS CoV 2 RNA (COVI D-19) , QL, patient care secretary-P CR, respi rator y speci men covidcom3 Test resul ts shoul d be used along with other clini stephanie obser vatio ns, patie nt histo ry, epide miolo gical infor matio n and labor atory data in isi carpenter the diagn osis. Not Available [facility] (Lab) [address] [facility], [place], [address], 07/09/2019 19:32:54 05/21/20 20 07/08/2019 SARS CoV 2 RNA (COVI D-19) , QL, patient care secretary-P CR, respi rator y speci men covidcom4 This test has recei bethany [facility] Emerg ency Use Autho rizat ion and [facility]if [facility] . This test is only autho rized [...] or revok ed soone r. Not Available [facility] (Lab) [address] [place], [address], 07/09/2019 19:32:54 07/08/19 20 07/08/2019 SARS CoV 2 RNA (COVI D-19) , QL, patient care secretary-P CR, respi rator y speci men covidcom5 [facility] [employer] is certi fied under CLIA- 88 as quali fied to perfo rm high compl exity testi ng. This testi ng was perfo rmed in the [facility] [employer] [place] [address] (CLIA Licen se #[id number] [id number] 5, CAP #[id number], AU-ID #[id number]). Not Available [facility] (Lab) [address] [place], [address], 07/09/2019 19:32:54 07/08/19 20 07/08/2019 SARS CoV 2 RNA (COVI D-19) , QL, patient care secretary-P CR, respi rator y speci men covidcom6 Facts heet for healt hcare provi ders: https ://ww w.fda .gov/ media /1362 56/do wnloa d Facts heet for mya nts: https ://ww w.fda .gov/ media /1362 57/do wnloa d Not Available [facility] (Lab) [address], [place], [address], 07/09/2019 19:32:54 Result Notes None recorded. Medical [...] SNOMED-CT Code Diagnosis ICD10 Code Diagnosis Note [id number] MD Noemy De La Cruz lula [address] [place] [address] 07/08/2019 11:51:39 07/09/2019 07:40:59 Viral screening 145799766 Z11.59 Health Concerns Section Related Observation LastModified by Organization Detai ls LastModified Time None Recorded Concern Status LastModified by Organization Details LastModified Time None Recorded Advance Directives Directive None Recorded Payers Encounter Date Sequence Insurance Name Policy Number Policy Barker Covered Member ID Barker Member ID Guarantor Name 07/08/2019 2 AETYOLANDE ([id number]) [id number] Mouna Rodriguez [id number] Mouna Rodriguez Notes Date Note Type Note [...] testing NEISHA FERRO NP Attn: Accounting,[address] [facility], [place], [address], [facility] 07/08/2019 13:04:26
--- OUTSIDE RECORDS SUMMARY | 2024-07-05 16:50 | XMS_ITS | Encounter Summary ---
Author Organization [facility] Address [address] [place] [address] Care Team Providers Care Wash Test Checker Name Role Phone Jeremy Bal MD Primary Care Provider + Encounter Details Date Type Department Care Team (Latest Contact Info) Description 02/13/2007 Outpatient Historical HIS CARD ENGINE MAINTENANCE MECHANIC Joon Rolle MD [address] [facility] [address] [place] [address] Nonspecific Abnormal Electrocardiogram (ECG) (EKG) Social History Tobacco Use Types Packs/Day Years Used Date Smoking Tobacco: Never Assessed Comments Unknown Sex and Gender Information Value Date Recorded Sex Assigned at Not on file Legal Sex Female 5:29 AM PATIENT INFORMATION COORDINATOR Gender Identity Not on file Sexual Orientation Not on file documented as of this encounter Plan of Treatment Not on file documented as of this encounter Visit Diagnoses Diagnosis Nonspecific abnormal electrocardiogram (ECG) (EKG) documented in this encounter Care Teams Wash Test Checker Relationship Specialty Start Date End Date Jeremy Bal MD PCP - General Internal Medicine 03/02/12 documented as of this encounter
--- OUTSIDE RECORDS SUMMARY | 2024-07-05 16:50 | XMS_ITS | Clinical Summary ---
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
--- OUTSIDE RECORDS SUMMARY | 2024-07-05 16:50 | XMS_ITS | Data Portability ---
Author Organization [place] [facility],, Renetta manzano Address [address] [place] [address] Assessment No assessment recorded. Plan of Treatment Reminders Order Date Submit Date Provider Last Modified By Organization Details Last Modified Time Details Appointments ESTABLISH ED PATIENT VISIT 2024 12:30P M ABDOUL Jackson Not available Not available Not available Lab None recorded. Referral None recorded. Procedures None recorded. Surgeries None recorded. Imaging None recorded. Medication Orders Trelegy Ellipta 200 mcg-62.5 mcg-25 mcg powder for inhalatio n [address]/Pharmacy #3259, [address] [place], [address], 06/09/2024 15:34:29 Trelegy Ellipta 200 mcg-62.5 mcg-25 mcg powder for inhalatio n [address]/Pharmacy [address]3259, [address] [place], [address], 06/10/2023 15:30:03 fluconazo le 200 mg tablet [address]/Pharmacy #3259, [address] [place], [address], 06/09/2024 15:20:02 amoxicill in 875 mg-potass ium clavulana te 125 mg tablet [address]/Pharmacy #3259, [address] [place], [address], 06/09/2024 15:13:27 Trelegy Ellipta 200 mcg-62.5 mcg-25 mcg powder for inhalatio n 2022 023 [facility]/Pharmacy #3259, [address] [place], [address], 12/04/2022 16:43:17 prednison e 20 mg tablet 2022 023 [facility]/Pharmacy #3259, [address] [place], [address], 06/10/2023 20:39:57 prednison e 20 mg tablet 2022 023 [facility] [address] [place], [address], 06/10/2023 20:39:57 Patient TargetsNo targets recorded. Patient Instructions Encounter Date Encounter Id Patient Instructions Last Modified By Organization Details Last Modified Time 12/04/2022 [id number] Penicillin and cephalosporin side effects were reviewed [...] of dysphonia. Not available 12/09/2022 06:56:36 06/10/2023 [id number] spirometry testing* Not avai lable 06/10/2023 15:43:21 Side effects of inhaled corticosteroids were reviewed with emphasis placed on oral candidiasis and dysphonia. Rinsing the mouth after utilization should decrease the incidence of oral candidiasis significantly. Sometimes use of the spacer may improve symptoms of dysphonia. Not available 06/10/2023 20:43:50 12/10/2023 [id number] spirometry testing* Not avai lable 12/10/2023 17:28:31 06/09/2024 [id number] Side effects of inhaled corticosteroids were reviewed with emphasis placed on oral candidiasis and dysphonia. Rinsing the mouth after utilization should decrease the incidence of oral candidiasis significantly. Sometimes use of the spacer may improve symptoms of dysphonia. Not available 06/09/2024 15:34:49 Reason for Referral None Reported. Results Created Date Observation Date Name Description Value Unit Range Abnormal Flag Note LastModifiedBy Organization Detail LastModifiedTime 06/10/19 24 06/10/2023 aylin metry testi ng* fev1 82 Not Available [facility] [address] [facility] [address], [place], [address], 06/10/2023 15:30:14 06/10/19 24 06/10/2023 aylin metry testi ng* fvc 79 Not Available [facility] [address] [facility] [address], [place], [address], 06/10/2023 15:30:14 06/10/19 24 06/10/2023 aylin metry testi ng* % reversibilit y Not Available [facility] [address] [facility] [address], [place], [address], 06/10/2023 15:30:14 12/10/19 24 12/10/2023 aylin metry testi ng* fev1 101 Not Available [facility] [address], [place], [address], 12/10/2023 16:08:53 12/10/1912/10/2023 aylin metry testi ng* fvc 96 Not Available [facility] [address], [place], [address], 12/10/2023 16:08:53 12/10/1912/10/2023 aylin metry testi ng* % reversibilit y Not Available [facility] [address], [place], [address], 12/10/2023 16:08:53 06/10/19 aylin metry testi ng* No observ ation record ed. Not Available 06/09 15:43:09 12/10/19 aylin metry testi ng* No observ ation record ed. Not Available 12/09 16:39:42 Result Notes None recorded. Problems Name Problem SNOMED Code Status Onset Date Resolution Date Notes Provider Name and Address Organization Details Recorded Time Type 2 diabetes mellitus 82414095 Active [address], [place], [address], [place] [facility], 3 07:02:32 Hyperlipidemia 12609064 Active [address], [place], [address], [place] [facility], 3 07:03:12 Anxiety 98870579 Active [address], [place], [address], [place] [facility], 3 07:03:18 Moderate persistent asthma 942488205 Active [address], [place], [address], [place] [facility], 2 13:04:26 Allergic rhinitis 49379029 Active [address], [place], [address], [place] [facility], 2 13:04:46 Essential hypertension 81586822 Active 2021 Renetta Manzano, MARYC [address], [place], [address] [facility] [place] [facility], 2 13:04:54 Problem Notes None recorded. Procedures Surgical History None recorded. Imaging Results Imaging Date Name Status LastModified by Organiz ation Details LastModified Time 06/10/2023 spirometry testing* completed Information not available 06/10/2023 15:43:09 12/10/2023 spirometry testing* completed Information not available 12/10/2023 16:39:42 Procedure Notes None recorded. Medical Equipment None Reported. Allergies Allergen ID Allergen Name Allergen Category Reaction Reaction Severity Criticality Documentation Date Start Date Code Code System Note Provider Name and Address Organization Details Recorded Time 83435 Substance with sulfonami de structure and antibacte rial mechanism of action (substanc e) medicatio n Not available Not available Not available 09/13/2021 11136 8003 SNOMED charisma marquez [place] [facility], 2 12:46:48 44158 azithromy alexandre medicatio n Not available Not available Not available 09/13/2021 30924 RxNorm charisma marquez [place] [facility], 2 12:47:00 [...] Not Available Not Available No t Available cyclobenzap rine 10 mg tablet TAKE 1 TABLET BY MOUTH EVERY DAY AT BEDTIME NEEDED FOR MUSCLE SPASM active Not Available Not Available No t [...] completed Not Available Not Available Not Available ibuprofen 800 mg tablet TAKE 1 TABLET ORALLY THREE TIMES A DAY NEEDED FOR PAIN active Not Available Not Available No t [...] mg capsule TAKE 1 CAPSULE BY MOUTH 3 TIMES A DAY NEEDED FOR COUGH 06/09 completed Not Available Not Available Not Available valacyclovi r 1 gram tablet TAKE 1 TABLET BY MOUTH EVERY DAY active Not Available Not Available No t Available fluconazole 200 mg tablet TAKE 1 TABLET BY MOUTH EVERY OTHER DAY X3 DOSES 06/09 completed Not Available Not Available Not [...] WITH THE NYSTATIN OINTMENT AND APPLY DAILY active Not Available Not Available No t Available Advair Diskus 500 mcg-50 mcg/dose powder [...] completed Not Available Not Available Not Available polyethylen e glycol 3350 17 gram/dose oral powder TAKE 17G BY MOUTH DAILY active Not Available Not Available No t Available levofloxaci n 500 mg tablet TAKE 1 TABLET BY MOUTH EVERY DAY 06/09 completed Not Available Not Available Not Available methylpredn isolone 4 mg tablets in a dose pack TAKE 6 TABLETS ON DAY 1 DIRECTED ON PACKAGE AND DECREASE BY 1 TAB EACH DAY FOR A TOTAL OF 6 DAYS active Not Available Not Available No t Available albuterol sulfate HFA 90 mcg/actuati on [...] clavulanate 125 mg tablet TAKE 1 TABLET ORALLY TWICE A DAY FOR 7 DAYS 06/09 completed Not Available Not Available [...] Not Available Not Available No t Available Spiriva Respimat 1.25 mcg/actuati on solution for inhalation INHALE 2 PUFFS INTO THE LUNGS EVERY DAY 06/09 completed Not Available Not Available Not Available Trelegy Ellipta 200 mcg-62.5 mcg-25 mcg powder for inhalation INHALE 1 PUFF EVERY DAY BY INHALATIO N ROUTE 2024 active Not Available Not Available Not [facility] Ag Self Test kit TEST DIRECTED [...] mg/0.5 mL subcutaneou s pen injector INJECT 7.5MG SUBCUTANE OUSLY WEEKLY active Not Available Not Available No t Available Mounjaro 5 mg/0.5 mL subcutaneou s pen injector INJECT 5MG (0.5ML) BY SUBCUTANE OUS ROUTE WEEKLY active Not Available Not Available No t Available Mounjaro 2.5 mg/0.5 mL subcutaneou s pen injector INJECT 2.5 MG (0.5 ML) SUBCUTANE OUSLY WEEKLY FOR 4 WEEKS 06/09 completed Not Available Not Available Not Available Vitals Date Recorded Body height Heart rate Oxygen saturation Oxygen saturation in Arterial blood by Pulse oximetry Respiratory rate Body temperature Systolic blood pressure Diastolic blood pressure Provider Name and Address Organization Details Last Updated DateTime 3 162.56 cm 86 /min 95 % 95 % 18 /min 97.9 [degF] 140 mm[Hg] 86 mm[Hg] luis angelmike leongeco [place] [facility], 3 16:44:23 Date Recorded Body height Body mass index (BMI) Body weight Heart rate Oxygen saturation Oxygen saturation in Arterial blood by Pulse oximetry Respiratory rate Body temperature Systolic blood pressure Diastolic blood pressure Provider Name and Address Organization Details Last Updated DateTime 3 162.56 cm 31.2 kg/m2 21958.8 1 g 105 /min 95 % 95 [...] Updated DateTime 4 162.56 cm 28.3 kg/m2 25422.7 4 g 100 /min 99 % 99 % 18 /min 97 [degF] 122 mm[Hg] 80 mm[Hg] Valencia [facility], 4 15:12:50 Date Recorded Body height Body mass index (BMI) Body weight Heart rate Oxygen saturation Oxygen saturation in Arterial blood by Pulse oximetry Respiratory rate Systolic blood pressure Diastolic blood pressure Provider Name and Address Organization Details Last Updated DateTime 4 162.56 cm 25.4 kg/m2 56439.6 7 g 107 /min 96 % 96 % 18 /min 100 mm[Hg] 60 mm[Hg] Jackie Srivastava [place] [facility], 4 15:52:17 Date Recorded Body height Body mass index (BMI) Body weight Heart rate Oxygen saturation Oxygen saturation in Arterial blood by Pulse oximetry Body temperature Systolic blood pressure Diastolic blood pressure Provider Name and Address Organization Details Last Updated DateTime 5 162.56 cm 23.7 kg/m2 78978.7 5 g 90 /min 98 % 98 % 96.2 [degF] 110 mm[Hg] 60 mm[Hg] Valencia Case starr [place] [facility], 15:08:35 Social History Question Answer Notes LastModified by Organizat ion Details LastModified Time Tobacco Smoking Status Never Smoker dwayne shensarah marquez [place] [facility], 05/15/2022 14:00:34 Do You Have An Advance Directive? Yes Information not available 12/09/2022 What Was The Date Of Your Most Recent Tobacco Screening? 06/09/2024 Information not available 06/09/2024 Sex: Unknown Functional Status Question Answer Note LastModified by Organizat ion Details LastModified Time Do you use any illicit or recreational drugs? No [email or web address] Information not available 09/13/2021 Do you or have you ever used any other forms of tobacco or nicotine? No [email or web address] Information not available 09/13/2021 What is your level of alcohol consumption? Occasional [email or web address] Information not available 05/15/2022 Mental Status None recorded. Family History Nothing [...] SNOMED-CT Code Diagnosis ICD10 Code Diagnosis Note [id number] Rafita holcomb MD OFFICE [address] [place] [address] 09/13/2021 12:14:47 09/13/2021 15:00:34 Allergic rhinitis 90162304 J30.9 The patient's symptoms are compatible with [...] mouth twice daily. Moderate p ersistent asthma 770696842 J45.40 Patient was placed on a 2-week [...] then should her symptoms increase or worsen. [id number] Rafita holcomb MD OFFICE [address] [place] [address] 10/09/2021 14:58:18 10/09/2021 15:43:44 Allergic rhinitis 96363872 J30.9 She will continue on her fluticason e nasal spray and try Zee 180 mg tablets; 1 tablet by mouth twice daily. Posterior rhinorrhea 758 71307 R09.82 Patient prescribed ipratropiu m bromide 0.06% nasal spray with instructio ns on use. She will call the office should her copious amounts of nasal drip. Asthma 251575534 J45.90 9 PFTs show increased lung function. She denies any increased albuterol use nor does she have any night time awakenings due to her asthma symptoms since starting on the Trelegy. Therefore she will continue on Trelegy 200/62.5/2 5 mcg; 1 inhalation once daily. She will return in 6 months for her asthma evaluation . [id number] Rafita holcomb MD OFFICE [address] [place] [address] 11/06/2021 14:34:49 11/06/2021 17:09:00 Moderate persistent asthma 695381885 J45.40 PFTs show increased lung function. She denies any night time awakenings due to her asthma symptoms and her albuterol use throughout the day is limited. She will therefore continue on her current treatment regimen including Trelegy 200/62.5/2 5 mcg; 1 inhalation once daily. She will return to the office in 6 months for follow up. Allergic rhinitis 452881 04 J30.9 She will continue on her fluticason e and ipratropiu m bromide 0.06% nasal sprays and try Zee 180 mg tablets; 1 tablet by mouth twice daily. [id number] Nemo Lockett MD OFFICE [address] [place] [address] 8 01/17/2022 09:42:27 01/17/2022 10:30:19 Viral upper respiratory tract infection 992533013 J06.9 This is day 4 of an upper respirator y infection and she is improving. She should use guaifenesi n with plenty of water as an expectoran t. She can use Tylenol for muscle aches and headache. She should continue her fluticason e nasal spray but avoid the ipratropiu m now while the mucus is very thick. Moderate p ersistent asthma 745500833 J45.40 Unable to afford Trelegy. I converted her to Advair plus Spiriva yesterday. If these options remain unaffordab le she will call her insurance plan and ask about most affordable ICS/LABA and LAMA options. I shared these terms with the patient [id number] Rafita holcomb MD OFFICE [address] [place] [address] 8 05/15/2022 13:23:32 05/15/2022 14:29:17 Moderate persistent asthma 606288989 J45.40 PFTs show increased lung function. She denies any night time awakenings due to her asthma symptoms and her albuterol use throughout the day is limited. She will therefore continue on her current treatment regimen including Trelegy 200/62.5/2 5 mcg; 1 inhalation once daily. She will return to the office in 6 months for follow up. Allergic rhinitis 614670 04 J30.9 She will continue on her fluticason e and ipratropiu m bromide 0.06% nasal sprays and try Zee 180 mg tablets; 1 tablet by mouth twice daily. [id number] Rafita holcomb MD OFFICE [address] [place] [address] 8 08/08/2022 16:01:54 08/08/2022 16:57:36 Moderate persistent asthma 423522071 J45.40 Appears to be at baseline. She is going to be heading on a cruise between [facility] in [place] and was wondering if she had some prednisone e so she can take this with her. She will continue on her baseline medicines [id number] Rafita holcomb MD OFFICE [address] [place] [address] 12/04/2022 15:44:21 12/04/2022 17:04:27 Moderate persistent asthma 840978387 J45.40 The patient is having a flare [...] any persistent or worsening symptoms. Acute bronchitis 3079968 2 J20.9 The patient's symptoms are most compatible with an acute bronchitis with cough productive of purulent secretions , fever and chills. The patient was begun on an antibiotic . If symptoms do not respond promptly a chest x-ray will be obtained. She will call with any persistent or worsening symptoms. Candidiasis of vagina 72 256222 B37.31 Patient prescribed fluconazol e200 mg to treat her symptoms. [id number] Rafita holcomb MD OFFICE [address] [place] [address] 06/10/2023 14:35:28 06/10/2023 15:55:07 Moderate persistent asthma 532528253 J45.40 The patient is having a flare [...] call with any persistent or worsening symptoms. [id number] Rafita holcomb MD OFFICE [address] [place] [phone] 8 12/10/2023 15:30:38 12/10/2023 16:31:51 Moderate persistent asthma 101857156 J45.40 The patient's asthma is doing extremely well. She is not having any nocturnal awakenings and her short acting beta agonist use during the day is limited. I will continue the patient on Trelegy 200/62.5/2 5 mcg; 1 inhalation once daily and albuterol as needed.She will return to the office in 6 months for follow up. Allergic rhinitis 740317 04 J30.9 She will try Zee 180 mg tablets; 1 - 2 times daily. Type 2 tessa betes mellitus 65125131 E11.9 Congratula kelly on recent weight loss. [id number] Nemo Lockett MD OFFICE [address] [place] [address],[address] [address] 06/09/2024 [id number]|2024-07-05 16:59:00|2024-07-05 16:59:00|ED_ITS|MARCI|Health Information Management|[id number]|"HPI - Skin/Abscess/Foreign Bdy General Chief complaint: Skin/Abscess/Foreign Body <Audrey Sidhu PA-C - Last Filed: 07/07/24 17:42> Stated complaint: Poss swallowed [place]-sent for Xray-no diff swallow <RIA Cho Last Filed: 07/07/24 17:42> Time Seen by Provider: 07/05/24 17:00 <Audrey Sidhu PA-C - Last Filed: 07/07/24 17:42> Focused HPI: This is a 78 year old female that presents to the ER for a possible foreign body. Reports she swallowed a crown while having dental work done. This happened about an hour ago. She has been able to drink since. GENERAL: Well-appearing, well-nourished, and in no acute distress. HEAD: Normocephalic, atraumatic. CHEST: Clear to auscultation. No respiratory distress. HEART: Regular rate and rhythm. NEURO: Alert and oriented x3. Patient screened in triage and initial orders placed. Additional care and disposition to be based upon diagnostic testing and treatment. <Audrey Sidhu PA-C - Last Filed: 07/07/24 17:42> History of Present Illness HPI narrative: agree with MSE <Brook Caruso MD - Last Filed: 07/05/24 19:35> Related Data Home medications: Home Medications Medication Instructions Recorded Confirmed Last Taken Type oxybutynin chloride 10 mg 10 mg PO BID 07/15/19 07/02/24 12/30/23 History tablet,extended release 24 hr amitriptyline 100 mg tablet 100 mg PO HS 04/25/21 07/02/24 12/30/23 History fluticasone propionate 50 2 spray intranasal DAILY PRN 03/19/22 07/02/24 12/31/23 History mcg/actuation nasal Allergy Symptoms spray,suspension (Flonase Allergy Relief) valacyclovir 1 gram tablet 1,000 mg PO DAILY PRN Cold Sores 03/19/22 07/02/24 Unknown History sennosides 8.6 mg tablet (Senna 17.2 mg PO PC PRN constipation 12/23/23 07/02/24 Unknown History Laxative) tirzepatide 7.5 mg/0.5 mL 7.5 mg subcut WEEKLY 03/02/24 07/02/24 Unknown History subcutaneous pen injector (Mounjaro) polyethylene glycol 3350 17 17 g PO DAILY PRN 07/02/24 07/02/24 Unknown History gram/dose oral powder (Miralax) <Audrey Sidhu PA-C - Last Filed: 07/07/24 17:42> Allergies/Adverse reactions: Allergies Allergy/AdvReac Type Severity Reaction Status Date / Time azithromycin Allergy Unknown Swelling Verified 07/05/24 16:48 Sulfa (Sulfonamide Allergy Unknown Rash Verified 07/05/24 16:48 Antibiotics) <Audrey Sidhu PA-C - Last Filed: 07/07/24 17:42> Review of Systems Review of Systems: All systems reviewed & are unremarkable except as noted in HPI and below <Brook Caruso MD - Last Filed: 07/05/24 19:35> PMFSH Past Medical History Medical History: Medical History DM type 2 (diabetes mellitus, type 2) Left bundle branch block Other fracture of left foot, initial encounter for closed fracture Closed nondisplaced fracture of fifth metatarsal bone of left foot Palpitations Pneumonia of left lower lobe due to infectious organism RUQ pain Skin neoplasm Skin cancer Hoarseness Vision abnormalities Weight loss UTI symptoms Hepatic artery dissection Chronic cholecystitis without calculus Dysfunctional gallbladder History of bladder cancer Transitional cell bladder cancer Basal cell carcinoma of arm Anxiety Borderline diabetic Carpal tunnel syndrome of right wrist Arthritis Bladder cancer UTI (urinary tract infection) Polyp of urethra Ovarian cyst Endometriosis GERD (gastroesophageal reflux disease) Hiatal hernia Rectal polyp Ulcer, esophagus Pneumonia Bronchitis HTN (hypertension) Seasonal allergies History of angina Anemia <Audrey Sidhu PA-C - Last Filed: 07/07/24 17:42> Surgical History Surgical History: Surgical History H/O transurethral destruction of bladder lesion History of carpal tunnel release S/P cholecystectomy S/P trigger finger release x5 S/P left knee arthroscopy History of bladder surgery History of mastectomy History of cardiac catheterization Hx of tonsillectomy History of hysterectomy Hx of cholecystectomy <Audrey Sidhu PA-C - Last Filed: 07/07/24 17:42> Family History Family History: Family History Father Family history of coronary artery disease Acute myocardial infarction Mother Family history of coronary artery disease Other Arthritis Diabetes mellitus Family history of allergic disorder Family history of cardiovascular disease Family history of kidney disease Family history of malignant neoplasm Hypertension <Audrey Sidhu PA-C - Last Filed: 07/07/24 17:42> Social History Social History: Social History Smoking status: Never smoker Second hand tobacco smoke exposure: No Alcohol intake: current Drinks per week: 3 Alcohol use details: wine occas Substance use: never Substance use type: does not use Do You Feel Safe in your Home?: Yes Lack of Transportation: No Lack of Food: Never True Current Housing: I Have Housing Concerned About Future Housing: No Difficulty Paying Gas/Electric Bills: No Difficulty Paying for Meds: No Currently Unemployed: No Education: High School Diploma/GED Difficulty w/ Childcare or Family Care: No Living arrangements: alone Occupation/Education: retired Gender identity (if verbalized by the patient): Female Sexual Orientation (if Verbalized by the Patient): Straight or Heterosexual Spiritual care concerns: No Agree to blood products: Yes <Audrey Sidhu PA-C - Last Filed: 07/07/24 17:42> Exam Narrative: EXAMINATION OF ORGAN SYSTEMS/BODY AREAS: Constitutional: Vital signs per nursing GENERAL:[No acute distress, non-toxic appearing.] HEAD: Normal with no signs of head trauma. EYES: EOMI, conjunctiva normal ENT: Hearing grossly intact, clear speech LUNGS: Nonlabored breathing. HEART: [Regular rate and rhythm] ABD: [Soft], [nontender to palpation] EXT: Normal range of motion SKIN: [No rashes or lesions.] NEURO: [Alert and oriented x 3. No gross focal sensory or strength deficits.] PSYCH: Normal affect <Brook Caruso MD - Last Filed: 07/05/24 19:35> Course Vital Signs Vital signs: Vital Signs Temperature 97.8 F 07/05/24 16:54 Pulse Rate 101 H 07/05/24 16:54 Respiratory Rate 16 07/05/24 16:54 Blood Pressure 124/56 L 07/05/24 16:54 Pulse Oximetry 96 07/05/24 16:54 Temperature 97.8 F 07/05/24 19:44 Pulse Rate 99 07/05/24 19:44 Respiratory Rate 17 07/05/24 19:44 Blood Pressure 132/60 07/05/24 19:44 Pulse Oximetry 97 07/05/24 19:44 <Audrey Sidhu PA-C - Last Filed: 07/07/24 17:42> Vital Signs Temperature 97.8 F 07/05/24 16:54 Pulse Rate 101 H 07/05/24 16:54 Respiratory Rate 16 07/05/24 16:54 Blood Pressure 124/56 L 07/05/24 16:54 Pulse Oximetry 96 07/05/24 16:54 Temperature 97.8 F 07/05/24 19:44 Pulse Rate 99 07/05/24 19:44 Respiratory Rate 17 07/05/24 19:44 Blood Pressure 132/60 07/05/24 19:44 Pulse Oximetry 97 07/05/24 19:44 <Brook Caruso MD - Last Filed: 07/05/24 19:35> MDM - Skin/Abscess/Foreign Bdy MDM Narrative Medical decision making narrative: Patient presents here due to concern for possible swallowed crown, it had had popped off during dental procedure and dentist could not find it. X-ray of neck and chest does not show foreign body. Discussed with patient who is very well appearing with clear speech, will discharge with follow-up to dentist <Brook Caruso MD - Last Filed: 07/05/24 19:35> Imaging Data Radiologist's impression: ITS Impressions Chest X-Ray 07/05/24 17:13 IMPRESSION: No acute cardiopulmonary process. Soft Tissue Neck X-Ray 07/05/24 17:15 IMPRESSION: No radiopaque foreign body detected. <Audrey Sidhu PA-C - Last Filed: 07/07/24 17:42> Critical Care Time Critical Care Time Critical Care Time: No <Audrey Sidhu PA-C - Last Filed: 07/07/24 17:42> Discharge Plan Discharge Clinical Impression: Normal exam <Audrey Sidhu PA-C - Last Filed: 07/07/24 17:42> Patient Disposition: Home <Audrey Sidhu PA-C - Last Filed: 07/07/24 17:42> Condition: Stable <Audrey Sidhu PA-C - Last Filed: 07/07/24 17:42> Instructions: Normal Exam (ED) <Audrey Sidhu PA-C - Last Filed: 07/07/24 17:42> Additional Instructions: We did not see a crown on your x-rays today. You can follow up with your dentist and return for any further issues. <Audrey Sidhu PA-C - Last Filed: 07/07/24 17:42> Patient Language: Brazilian <Audrey Sidhu PA-C - Last Filed: 07/07/24 17:42> Prescriptions: No Action valacyclovir 1 gram tablet 1,000 mg PO DAILY PRN (Reason: Cold Sores) Mounjaro 7.5 mg/0.5 mL pen injector 7.5 mg subcut WEEKLY polyethylene glycol 3350 [Miralax] 17 gram/dose powder 17 g PO DAILY PRN ibuprofen 800 mg tablet 800 mg PO TID PRN (Reason: pain) Qty: 90 0RF oxybutynin chloride 10 mg tablet extended release 24hr 10 mg PO BID fluticasone propionate [Flonase Allergy Relief] 50 mcg/actuation spray,suspension 2 spray intranasal DAILY PRN (Reason: Allergy Symptoms) Rx Instructions: administer into each nostril albuterol sulfate 90 mcg/actuation HFA aerosol inhaler 2 inh INHALATION ONCE PRN (Reason: shortness of breath) Qty: 8.5 1RF aspirin [Children's Aspirin] 81 mg Tablet,Chewable 81 mg PO DAILY@0800 30 Days Qty: 30 0RF sennosides [Senna Laxative] 8.6 mg tablet 17.2 mg PO PC PRN (Reason: constipation) amitriptyline 100 mg tablet 100 mg PO HS (DME) blood sugar diagnostic Strip See Rx Instructions .ROUTE .MEDSUPPLY Qty: 200 1RF Rx Instructions: Test Blood Sugar twice daily (DME) lancets [OneTouch UltraSoft Lancets] Mis See Rx Instructions .ROUTE .MEDSUPPLY Qty: 50 0RF Rx Instructions: Use to check blood sugars twice daily (DME) blood sugar diagnostic Strip See Rx Instructions .ROUTE .MEDSUPPLY Qty: 100 1RF Rx Instructions: Use (1) strip to test blood sugar twice a day atorvastatin 80 mg tablet See Rx Instructions .ROUTE .COMPLEX Qty: 100 1RF Dose Instruction: TAKE 1 TABLET BY MOUTH EVERY DAY Rx Instructions: TAKE 1 TABLET BY MOUTH EVERY DAY triamcinolone acetonide 0.1 % cream See Rx Instructions .ROUTE .COMPLEX Qty: 30 3RF Dose Instruction: APPLY TOPICALLY TWICE A DAY NEEDED FOR RASH Rx Instructions: APPLY TOPICALLY TWICE A DAY NEEDED FOR RASH alprazolam 0.5 mg tablet 0.5 mg PO TID PRN (Reason: anxiety) Qty: 90 0RF esomeprazole magnesium 40 mg capsule,delayed release(DR/EC) 40 mg PO DAILY Qty: 90 1RF <Audrey Sidhu PA-C - Last Filed: 07/07/24 17:42> Follow-up/Referrals: Suellen Martinez APRN [Primary Care Provider] - <Audrey Sidhu PA-C - Last Filed: 07/07/24 17:42> "
--- OUTSIDE RECORDS SUMMARY | 2024-07-05 16:50 | XMS_ITS | Encounter Summary ---
Author Organization [facility] Address [address] [place] [address] Phone Care Team Providers Care Claims Processor Name Role Phone Jeremy Bal MD Primary Care Provider [phone] Axel Burnett DO Primary Care Provider [phone] Suellen Martinez NP Primary Care Provider [phone] Encounter Details Date Type Department Care Team (Latest Contact Info) Description 04/22/2013 Orders Only [facility] Scanning, Provider Social History Tobacco Use Types Packs/Day Years Used Date Smoking Tobacco: Never Comments Unknown Sex and Gender Information Value Date Recorded Sex Assigned at Not on file Legal Sex Female 2:34 AM CANDLE MOLDER Gender Identity Female 06/28/2024 10:24 AM CDT [...] documented as of this encounter Care Teams Claims Processor Relationship Specialty Start Date End Date Jeremy Bal MD [address] [place] [address] PCP - General 10/30/11 02/02/19 Axel Burnett DO [address] [place] [address] PCP - General Internal Medicine 02/03/19 07/01/23 Suellen Martinez NP [address] [place] [address] PCP - General Nurse Practitioner 07/02/23 documented as of this encounter
--- OUTSIDE RECORDS SUMMARY | 2024-07-05 16:50 | XMS_ITS | Continuity of Care Document ---
Author Organization [facility] Address [address] [place] [address] Phone Care Team Providers Care Topographical Surveyor Name Role Phone Bren Juarez Unavailable Unavailable [...] Providers Copied on Encounter [place]pat [place], [facility] [place] [address] [place] [address] [address], [place], [place], [id number], [place] tel:[phone] [facility] [place] No Information 2-201 0 Ann Correia. [address] [place] , [address], [place], [address], [place]. tel:[phone] [place]pat [place], [facility] [place] [address] [place] [address] [address], [place], [place], [id number], [place] tel:[phone] [facility] [place] [facility] No Information 201 0 Ann [address] , [address], [place], [place], [facility], [place]. tel:[phone] [facility], [address] [place] [address] [address], [place], [place], [id number], [place] tel:[phone] [facility] [place] No Information 200 9 Ann [address] , [address], [place], [facility], [place]. tel:[phone] Referring Provider: Bren Hylton, [address], [place], [facility]. tel:[phone] Office/outpat ient [place], [facility] [place] [address] [place] [address] [address], [place], [place], [id number], [place] tel:[phone] [facility] [place] No Information 9 Ann Duckworth [facility] , [address], [place], [facility], [place]. tel:[phone] Office/outpat ient Visit, [facility] [place] [address] [place] [address] [address], [place], [place], [id number], [place] tel:[phone] [facility] [place] No Information 9 Lianne Alvarez. [address] , [address], [place], [facility], [place]. tel:[phone] [facility], [address] [place] [address] [address], [place], [place], [address], [place] tel:[phone] [facility] No Information 9-200 8 Ann Correia. [address] , [address], [place], [facility], [place]. tel:[phone] Referring Provider: Archana [address], [place], [facility]. tel:[phone] [facility], [address] [place] [address] [address], [place], [place], [id number], [phone] [facility] No Information Dimitry-0 5-200 8 Juarez Bren. [address] , [address], [place], [facility], . tel:[phone] Office/outpat ient Visit, [facility], [address] [place] [address] [address], [place], [place], [id number], tel:[phone] [facility] [place] No Information Dec-2 0-200 7 Juarez Bren. [address] [place], [place] [address] [place] , [address], [place], [facility], . tel:[phone] Office/outpat ient Visit, [facility], [address] [place] [address] [address], [place], [place], [address], [place] [phone] [facility] No Information Jasson-1 6-200 7 Lianne Alvarez. [address] [place] [address] , [address], [place], [facility], . tel:[phone] Referring Provider: Antonio Boggs [facility] [address], [place], [facility]. tel:[phone] [facility], [address] [place] [address] [address], [place], [place], [id number], [place] tel:[phone] [facility] No Information Mar-0 8-200 7 Lianne Alvarez. [facility] [address], [place], [facility], . tel:[phone] Referring Provider: Antonio Boggs [facility] [address], [place], [facility]. tel:[phone] Family History Family Member Type Diagnosis Age [...]
--- OUTSIDE RECORDS SUMMARY | 2024-07-05 16:50 | XMS_ITS | Clinical Summary ---
Author Organization [facility] Address [address] [place] [address] Care Team Providers Care Cement Mason [employer] Name Role Phone Lion Allen MD Primary Care Provider [phone] Source Comments [facility],non-owned Affiliates and Associated Physician Practices is amultiple site organization consisting of ambulatory clinics and hospital sitesin [place], [place], [place] and [place]. This disclosure is being madepursuant to the Care Everywhere program and may not contain all information available regarding this patient. Last updated 17.[facility] Allergies Active Allergy Reactions Criticality Noted Date Comments Sulfa Drugs Rash Medium 07/18/2017 Reaction: RASH, Azithromycin Swelling Medium 07/18/2017 Medications * Be aware that medications may not be up to date on this document. Alwaysverify current medications with the patient. oxybutynin (DITROPAN) 5 MG tablet Take 1 (one) tablet by mouth 3 times daily Active metFORMIN (GLUCOPHAGE) 1000 MG tablet Take 1 (one) tablet by mouth 2 times daily with morning and evening meal Active atorvastatin (LIPITOR) 80 MG tablet Take 1 (one) tablet by mouth at bedtime Active fluticasone propionate (Flonase) 50 MCG/ACT nasal spray Supply 2 (two) sprays into each nostril once daily Active latanoprost (XALATAN) 0.005 % ophthalmic solution Instill 1 (one) drop into both eyes at bedtime 03/25/19 21 Active ALPRAZolam (XANAX) 0.5 MG tablet Take 1 (one) tablet by mouth anxiety 04/02/19 21 Active glipiZIDE (Glucotrol) 5 MG tablet Take 0.5 (one-half) tablet by mouth every morning 11/10/19 22 Active naproxen (Naprosyn) 500 MG tablet Take 1 (one) tablet by mouth 2 times daily as needed 03/19/19 23 Active Trelegy Ellipta 200-62.5-25 MCG/ACT inhaler Inhale 1 (one) puff by mouth once daily 11/26/19 23 Active albuterol HFA (Proventil; Ventolin; Proair) 108 (90 Base) MCG/ACT inhaler INHALE 2 PUFFS ONCE NEEDED FOR SHORTNESS OF BREATH 09/17/19 24 Active cyclobenzaprine (Flexeril) 10 MG tablet 04/08/19 25 Active esomeprazole (NexIUM) 40 MG capsule 04/12/19 25 Active ibuprofen (Motrin) 800 MG tablet TAKE 1 TABLET ORALLY THREE TIMES A DAY NEEDED FOR PAIN 03/22/19 25 Active Tirzepatide (Mounjaro) 7.5 MG/0.5ML SOPN Inject 7.5 mg subcutaneously every 7 days 09/03/19 24 Active valACYclovir (Valtrex) 1 GM tabletIndications :Herpes simplex infection of genitourinary system Take 1 (one) tablet by mouth once daily 90 tablet 3 04/13/19 25 Active fluconazole (Diflucan) 200 MG tabletIndications :History of candidiasis One by mouth every other day for three doses. 3 tablet 2 04/13/19 25 Active boric acid 600 mg capsuleIndication s:History of candidiasis On capsule in the vagina as needed. 30 capsule 2 04/13/19 25 Active amitriptyline (Elavil) 100 MG tabletIndications :Vulvodynia One tablet by mouth twice daily 180 tablet 3 04/13/19 25 Active nystatin (Mycostatin) 368263 UNIT/GM ointmentIndicatio ns:History of candidiasis MIX WITH TRIAMCINOLONE OINTMENT AND APPLY TO VULVAR TISSUES ONCE DAILY 30 g 3 04/13/19 25 Active triamcinolone acetonide (Kenalog) 0.1 % ointmentIndicatio ns:History of candidiasis Mix with the nystatin ointment and apply daily 30 g 3 04/13/19 Active Active Problems Problem Noted Date Diagnosed Date Hyperlipidemia 12/09/2022 Anxiety 12/09/2022 Type 2 diabetes mellitus 12/04/2021 Essential hypertension 09/13/2021 Moderate persistent asthma 09/13/2021 Allergic rhinitis 09/13/2021 LBBB (left bundle branch block) 05/28/2021 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 Resolved Problems Problem Noted Date Diagnosed Date Resolved Date History of candidiasis 11/25/201704/13 Encounters Date Type Department Care Team Description 06/23/2024 Telephone [facility] - SAP PROJECT MANAGER [address], [facility] [address] [place] [id number] Harriet Cazares MD Med Question 04/29/2024 Refill [facility] - SAP PROJECT MANAGER [address], [facility] [address] [place] [phone] Harriet Cazares MD Refill Request 04/13/2024 2:40 PM CHANNEL PROCESS SUPERVISOR Office Visit [facility] - SAP PROJECT MANAGER [address], [facility] [address] [place] [address] Harriet Cazares MD Vulvodynia (Primary Dx); History of candidiasis; Herpes simplex infection of genitourinary system 04/13/2024 Travel from Last 3 Months Immunizations Immunization Administration Dates Next Due INFLUENZA VACCINE, ADJUVANTE [...] Answer Date Recorded Patient Health Questionnaire-2 Score 0 04/12/2024 Comments No Sex and Gender Information Value Date Recorded Sex Assigned at Not on file Legal Sex Female 6:20 AM CHANNEL PROCESS SUPERVISOR Gender Identity Not on file Sexual Orientation Not on file Last Filed Vital Signs Vital Sign Reading Time Taken Comments Blood Pressure 111/64 04/13/2024 2:43 PM CHANNEL PROCESS SUPERVISOR Pulse - - Temperature 36.9 C (98.4 F) 04/13/2024 2:43 PM CHANNEL PROCESS SUPERVISOR Respiratory Rate - - Oxygen Saturation - - Inhaled Oxygen Concentration - - Weight 64 kg (141 lb) 04/13/2024 2:43 PM CHANNEL PROCESS SUPERVISOR Height 162.6 cm (5' 4.02 ) 12/24/2022 1:58 PM CS T Body Mass Index 24.19 12/24/2022 1:58 PM CHANNEL PROCESS SUPERVISOR Plan of Treatment Upcoming Encounters Date Type Department Care Team (Late st Contact Info) Description 12/14/2024 2:00 PM CDT Office Visit [facility] - SAP PROJECT MANAGER [address], [facility] [address] [place] [address] Harriet Cazares MD [address] [facility] [address] [place] [address] Health Maintenance Due Date Last [...] 2023 11/17/2021, 05/27/2021, 12/14/2020, Additional history exists DIABETES - URINE PROTEIN SCREENING 02/18/2024 MEDICARE AWV CALENDAR YEAR 2024 INFLUENZA VACCINE (Season Ended) 2024 11/17/2021, 11/28/2020, 11/08/2019, Additional history exists DEPRESSION SCREENING Completed 04/13/2024, 12/25/19 23 HEPATITIS B VACCINE Aged Out No longe r eligible based on patient's age to complete this topic HIB VACCINE Aged Out No longer eligi ble based on patient's age to complete this topic HPV VACCINE Aged Out No longer eligi ble based on patient's age to complete this topic MENINGOCOCCAL (Group B) VACCINE SHARED DECISION-MAKING Aged Out No longer eligible based on patient's age to complete this topic MENINGOCOCCAL GROUPS A/C/Y/W VACCINE Aged Out No longer eligible based on patient's age to complete this topic Insurance [facility] AETNA MEDICARE ADV SELF PAY NO INSURANCE Member Subscriber Plan / Payer (Ef fective for All Dates) Name:Mouna Rodriguez Member ID:Not on file Relation to Subscriber:Not on file Name:MOUNA RODRIGUEZ Subscriber ID:Not on file (Home) Address: [address] [place] [address] Payer ID:Not on file Group ID:Not on file Type:Self Pay Address: [place], [place] AETNA MEDICARE ADV Care Teams [employer] [address] Relationship Specialty Start Date End Date Lion Allen MD [address] [place] [address] PCP - General Ophthalmology 12/24/22
--- OUTSIDE RECORDS SUMMARY | 2024-07-05 16:50 | XMS_ITS | Encounter Summary ---
Author Organization [facility] Address [address] [place] [address] Care Team Providers Care Carton Inspector Name Role Phone Jeremy Bal MD Primary Care Provider + Encounter Details Date Type Department Care Team (Latest Contact Info) Description 02/13/2007 Outpatient Historical HIS MATERIALS PLANNING ANALYST Joon Ji MD [address] [facility] [address] [place] [address] Nonspecific Abnormal Electrocardiogram (ECG) (EKG) Social History Tobacco Use Types Packs/Day Years Used Date Smoking Tobacco: Never Assessed Comments Unknown Sex and Gender Information Value Date Recorded Sex Assigned at Not on file Legal Sex Female 5:29 AM PRESS BREAKER Gender Identity Not on file Sexual Orientation Not on file documented as of this encounter Plan of Treatment Not on file documented as of this encounter Visit Diagnoses Diagnosis Nonspecific abnormal electrocardiogram (ECG) (EKG) documented in this encounter Care Teams Carton Inspector Relationship Specialty Start Date End Date Jeremy Bal MD PCP - General Internal Medicine 03/02/12 documented as of this encounter
[2024-07-05 16:54] VITALS: BP 124/56; PULSE 101; RESP 16; TEMP 36.6; O2SAT 96
--- NOTE | 2024-07-05 16:59 | ED.SKABFB ---
HPI - Skin/Abscess/Foreign Bdy General Chief complaint: Skin/Abscess/Foreign Body <Audrey Sidhu PA-C - Last Filed: 07/07/24 17:42> Stated complaint: Poss swallowed [place]-sent for Xray-no diff swallow <Audrey Sidhu PA-C - Last Filed: 07/07/24 17:42> Time Seen by Provider: 07/05/24 17:00 <Audrey Sidhu PA-C - Last Filed: 07/07/24 17:42> Focused HPI: This is a 78 year old female that presents to the ER for a possible foreign body. Reports she swallowed a crown while having dental work done. This happened about an hour ago. She has been able to drink since. GENERAL: Well-appearing, well-nourished, and in no acute distress. HEAD: Normocephalic, atraumatic. CHEST: Clear to auscultation. No respiratory distress. HEART: Regular rate and rhythm. NEURO: Alert and oriented x3. Patient screened in triage and initial orders placed. Additional care and disposition to be based upon diagnostic testing and treatment. <Audrey Sidhu PA-C - Last Filed: 07/07/24 17:42> History of Present Illness HPI narrative: agree with MSE <Brook Caruso MD - Last Filed: 07/05/24 19:35> Related Data Home medications: Home Medications Medication Instructions Recorded Confirmed Last Taken Type oxybutynin chloride 10 mg 10 mg PO BID 07/15/19 07/02/24 12/30/23 History tablet,extended release 24 hr amitriptyline 100 mg tablet 100 mg PO HS 04/25/21 07/02/24 12/30/23 History fluticasone propionate 50 2 spray intranasal DAILY PRN 03/19/22 07/02/24 12/31/23 History mcg/actuation nasal Allergy Symptoms spray,suspension (Flonase Allergy Relief) valacyclovir 1 gram tablet 1,000 mg PO DAILY PRN Cold Sores 03/19/22 07/02/24 Unknown History sennosides 8.6 mg tablet (Senna 17.2 mg PO PC PRN constipation 12/23/23 07/02/24 Unknown History Laxative) tirzepatide 7.5 mg/0.5 mL 7.5 mg subcut WEEKLY 03/02/24 07/02/24 Unknown History subcutaneous pen injector (Mounjaro) polyethylene glycol 3350 17 17 g PO DAILY PRN 07/02/24 07/02/24 Unknown History gram/dose oral powder (Miralax) <Audrey Sidhu PA-C - Last Filed: 07/07/24 17:42> Allergies/Adverse reactions: Allergies Allergy/AdvReac Type Severity Reaction Status Date / Time azithromycin Allergy Unknown Swelling Verified 07/05/24 16:48 Sulfa (Sulfonamide Allergy Unknown Rash Verified 07/05/24 16:48 Antibiotics) <Audrey Sihdu PA-C - Last Filed: 07/07/24 17:42> Review of Systems Review of Systems: All systems reviewed & are unremarkable except as noted in HPI and below <Brook Caruso MD - Last Filed: 07/05/24 19:35> PMFSH Past Medical History Medical History: Medical History DM type 2 (diabetes mellitus, type 2) Left bundle branch block Other fracture of left foot, initial encounter for closed fracture Closed nondisplaced fracture of fifth metatarsal bone of left foot Palpitations Pneumonia of left lower lobe due to infectious organism RUQ pain Skin neoplasm Skin cancer Hoarseness Vision abnormalities Weight loss UTI symptoms Hepatic artery dissection Chronic cholecystitis without calculus Dysfunctional gallbladder History of bladder cancer Transitional cell bladder cancer Basal cell carcinoma of arm Anxiety Borderline diabetic Carpal tunnel syndrome of right wrist Arthritis Bladder cancer UTI (urinary tract infection) Polyp of urethra Ovarian cyst Endometriosis GERD (gastroesophageal reflux disease) Hiatal hernia Rectal polyp Ulcer, esophagus Pneumonia Bronchitis HTN (hypertension) Seasonal allergies History of angina Anemia <Audrey Sidhu PA-C - Last Filed: 07/07/24 17:42> Surgical History Surgical History: Surgical History H/O transurethral destruction of bladder lesion History of carpal tunnel release S/P cholecystectomy S/P trigger finger release x5 S/P left knee arthroscopy History of bladder surgery History of mastectomy History of cardiac catheterization Hx of tonsillectomy History of hysterectomy Hx of cholecystectomy <Audrey Sidhu PA-C - Last Filed: 07/07/24 17:42> Family History Family History: Family History Father Family history of coronary artery disease Acute myocardial infarction Mother Family history of coronary artery disease Other Arthritis Diabetes mellitus Family history of allergic disorder Family history of cardiovascular disease Family history of kidney disease Family history of malignant neoplasm Hypertension <Audrey Sidhu PA-C - Last Filed: 07/07/24 17:42> Social History Social History: Social History Smoking status: Never smoker Second hand tobacco smoke exposure: No Alcohol intake: current Drinks per week: 3 Alcohol use details: wine occas Substance use: never Substance use type: does not use Do You Feel Safe in your Home?: Yes Lack of Transportation: No Lack of Food: Never True Current Housing: I Have Housing Concerned About Future Housing: No Difficulty Paying Gas/Electric Bills: No Difficulty Paying for Meds: No Currently Unemployed: No Education: High School Diploma/GED Difficulty w/ Childcare or Family Care: No Living arrangements: alone Occupation/Education: retired Gender identity (if verbalized by the patient): Female Sexual Orientation (if Verbalized by the Patient): Straight or Heterosexual Spiritual care concerns: No Agree to blood products: Yes <Audrey Sidhu PA-C - Last Filed: 07/07/24 17:42> Exam Narrative: EXAMINATION OF ORGAN SYSTEMS/BODY AREAS: Constitutional: Vital signs per nursing GENERAL:[No acute distress, non-toxic appearing.] HEAD: Normal with no signs of head trauma. EYES: EOMI, conjunctiva normal ENT: Hearing grossly intact, clear speech LUNGS: Nonlabored breathing. HEART: [Regular rate and rhythm] ABD: [Soft], [nontender to palpation] EXT: Normal range of motion SKIN: [No rashes or lesions.] NEURO: [Alert and oriented x 3. No gross focal sensory or strength deficits.] PSYCH: Normal affect <Brook Caruso MD - Last Filed: 07/05/24 19:35> Course Vital Signs Vital signs: Vital Signs Temperature 97.8 F 07/05/24 16:54 Pulse Rate 101 H 07/05/24 16:54 Respiratory Rate 16 07/05/24 16:54 Blood Pressure 124/56 L 07/05/24 16:54 Pulse Oximetry 96 07/05/24 16:54 Temperature 97.8 F 07/05/24 19:44 Pulse Rate 99 07/05/24 19:44 Respiratory Rate 17 07/05/24 19:44 Blood Pressure 132/60 07/05/24 19:44 Pulse Oximetry 97 07/05/24 19:44 <Audrey Sidhu PA-C - Last Filed: 07/07/24 17:42> Vital Signs Temperature 97.8 F 07/05/24 16:54 Pulse Rate 101 H 07/05/24 16:54 Respiratory Rate 16 07/05/24 16:54 Blood Pressure 124/56 L 07/05/24 16:54 Pulse Oximetry 96 07/05/24 16:54 Temperature 97.8 F 07/05/24 19:44 Pulse Rate 99 07/05/24 19:44 Respiratory Rate 17 07/05/24 19:44 Blood Pressure 132/60 07/05/24 19:44 Pulse Oximetry 97 07/05/24 19:44 <Brook Caruso MD - Last Filed: 07/05/24 19:35> MDM - Skin/Abscess/Foreign Bdy MDM Narrative Medical decision making narrative: Patient presents here due to concern for possible swallowed crown, it had had popped off during dental procedure and dentist could not find it. X-ray of neck and chest does not show foreign body. Discussed with patient who is very well appearing with clear speech, will discharge with follow-up to dentist <Brook Caruso MD - Last Filed: 07/05/24 19:35> Imaging Data Radiologist's impression: ITS Impressions Chest X-Ray 07/05/24 17:13 IMPRESSION: No acute cardiopulmonary process. Soft Tissue Neck X-Ray 07/05/24 17:15 IMPRESSION: No radiopaque foreign body detected. <Audrey Sidhu PA-C - Last Filed: 07/07/24 17:42> Critical Care Time Critical Care Time Critical Care Time: No <Audrey Sidhu PA-C - Last Filed: 07/07/24 17:42> Discharge Plan Discharge Clinical Impression: Normal exam <Audrey Sidhu PA-C - Last Filed: 07/07/24 17:42> Patient Disposition: Home <Audrey Sidhu PA-C - Last Filed: 07/07/24 17:42> Condition: Stable <RIA Cho Last Filed: 07/07/24 17:42> Instructions: Normal Exam (ED) <Audrey Sidhu PA-C - Last Filed: 07/07/24 17:42> Additional Instructions: We did not see a crown on your x-rays today. You can follow up with your dentist and return for any further issues. <Audrey Sidhu PA-C - Last Filed: 07/07/24 17:42> Patient Language: Comoran <RIA Cho Last Filed: 07/07/24 17:42> Prescriptions: No Action valacyclovir 1 gram tablet 1,000 mg PO DAILY PRN (Reason: Cold Sores) Mounjaro 7.5 mg/0.5 mL pen injector 7.5 mg subcut WEEKLY polyethylene glycol 3350 [Miralax] 17 gram/dose powder 17 g PO DAILY PRN ibuprofen 800 mg tablet 800 mg PO TID PRN (Reason: pain) Qty: 90 0RF oxybutynin chloride 10 mg tablet extended release 24hr 10 mg PO BID fluticasone propionate [Flonase Allergy Relief] 50 mcg/actuation spray,suspension 2 spray intranasal DAILY PRN (Reason: Allergy Symptoms) Rx Instructions: administer into each nostril albuterol sulfate 90 mcg/actuation HFA aerosol inhaler 2 inh INHALATION ONCE PRN (Reason: shortness of breath) Qty: 8.5 1RF aspirin [Children's Aspirin] 81 mg Tablet,Chewable 81 mg PO DAILY@0800 30 Days Qty: 30 0RF sennosides [Senna Laxative] 8.6 mg tablet 17.2 mg PO PC PRN (Reason: constipation) amitriptyline 100 mg tablet 100 mg PO HS (DME) blood sugar diagnostic Strip See Rx Instructions .ROUTE .MEDSUPPLY Qty: 200 1RF Rx Instructions: Test Blood Sugar twice daily (DME) lancets [OneTouch UltraSoft Lancets] Misc See Rx Instructions .ROUTE .MEDSUPPLY Qty: 50 0RF Rx Instructions: Use to check blood sugars twice daily (DME) blood sugar diagnostic Strip See Rx Instructions .ROUTE .MEDSUPPLY Qty: 100 1RF Rx Instructions: Use (1) strip to test blood sugar twice a day atorvastatin 80 mg tablet See Rx Instructions .ROUTE .COMPLEX Qty: 100 1RF Dose Instruction: TAKE 1 TABLET BY MOUTH EVERY DAY Rx Instructions: TAKE 1 TABLET BY MOUTH EVERY DAY triamcinolone acetonide 0.1 % cream See Rx Instructions .ROUTE .COMPLEX Qty: 30 3RF Dose Instruction: APPLY TOPICALLY TWICE A DAY NEEDED FOR RASH Rx Instructions: APPLY TOPICALLY TWICE A DAY NEEDED FOR RASH alprazolam 0.5 mg tablet 0.5 mg PO TID PRN (Reason: anxiety) Qty: 90 0RF esomeprazole magnesium 40 mg capsule,delayed release(DR/EC) 40 mg PO DAILY Qty: 90 1RF <Audrey Sidhu PA-C - Last Filed: 07/07/24 17:42> Follow-up/Referrals: Suellen Martinez APRN [Primary Care Provider] - <Audrey Sidhu PA-C - Last Filed: 07/07/24 17:42>
--- OUTSIDE RECORDS SUMMARY | 2024-07-05 19:18 | XMS_ITS | Clinical Summary ---
Author Organization [facility] Address [address] [place] [phone] Phone Care Team Providers Care Finishing Pan Operator Name Role Phone Jeremy Bal MD Primary Care Provider + Social History Tobacco Use Types Packs/Day Years Used Date Smoking Tobacco: Never Assessed Comments Unknown Sex and Gender Information Value Date Recorded Sex Assigned at Not on file Legal Sex Female 5:29 AM PHOTOSTAT OPERATOR Gender Identity Not on file Sexual Orientation [...] 2023 Insurance MEDICARE PART A AND B [facility] Care Teams Finishing Pan Operator Relationship Specialty Start Date End Date Jeremy Bal MD PCP - General Internal Medicine 03/02/12
--- OUTSIDE RECORDS SUMMARY | 2024-07-05 19:18 | XMS_ITS | Encounter Summary ---
Author Organization [facility] Address [address] [place] [address] Care Team Providers Care Senior Principal Architect Name Role Phone Jeremy Bal MD Primary Care Provider + Encounter Details Date Type Department Care Team (Latest Contact Info) Description 02/13/2007 Outpatient Historical HIS CARD MISSILE AND MISSILE CHECKOUT TECHNICIAN Joon Rolle MD [address] [facility] [address] [place] [address] Nonspecific Abnormal Electrocardiogram (ECG) (EKG) Social History Tobacco Use Types Packs/Day Years Used Date Smoking Tobacco: Never Assessed Comments Unknown Sex and Gender Information Value Date Recorded Sex Assigned at Not on file Legal Sex Female 5:29 AM RESTORATION TECHNICIAN Gender Identity Not on file Sexual Orientation Not on file documented as of this encounter Plan of Treatment Not on file documented as of this encounter Visit Diagnoses Diagnosis Nonspecific abnormal electrocardiogram (ECG) (EKG) documented in this encounter Care Teams Senior Principal Architect Relationship Specialty Start Date End Date Jeremy Bal MD PCP - General Internal Medicine 03/02/12 documented as of this encounter
--- OUTSIDE RECORDS SUMMARY | 2024-07-05 19:18 | XMS_ITS | Encounter Summary ---
Author Organization [facility] Address [address] [place] [address] Care Team Providers Care Shingler Name Role Phone Jeremy Bal MD Primary Care Provider + Encounter Details Date Type Department Care Team (Latest Contact Info) Description 02/13/2007 Outpatient Historical HIS REMOTE ADVISOR Joon Ji MD [address] [facility] [address] [place] [address] Nonspecific Abnormal Electrocardiogram (ECG) (EKG) Social History Tobacco Use Types Packs/Day Years Used Date Smoking Tobacco: Never Assessed Comments Unknown Sex and Gender Information Value Date Recorded Sex Assigned at Not on file Legal Sex Female 5:29 AM MANAGER PROGRAM MANAGEMENT Gender Identity Not on file Sexual Orientation Not on file documented as of this encounter Plan of Treatment Not on file documented as of this encounter Visit Diagnoses Diagnosis Nonspecific abnormal electrocardiogram (ECG) (EKG) documented in this encounter Care Teams Shingler Relationship Specialty Start Date End Date Jeremy Bal MD PCP - General Internal Medicine 03/02/12 documented as of this encounter
--- OUTSIDE RECORDS SUMMARY | 2024-07-05 19:18 | XMS_ITS | Encounter Summary ---
Author Organization [facility] Address [address] [place] [address] Care Team Providers Care Napper Fixer Name Role Phone Axel Burnett Primary Care Provider Suellen Martinez NP Primary Care Provider [phone] Encounter Details Date Type Department Care Team (Late st Contact Info) Description 10/06/2019 E-Visit [facility] Phys[facility] [address] [place], [place] [id number] Latricia Chun, FIBER MACHINE TENDER [address] [address] RE: COVID-19 Evaluation Social History Tobacco Use Types Packs/Day Years Used Date Smoking Tobacco: Never Smokeless Tobacco: Never Alcohol Use Standard Drinks/Week Comments Yes 0 (1 standard drink = 0.6 oz pur e alcohol) occasional Comments No Sex and Gender Information Value Date Recorded Sex Assigned at Not on file Legal Sex Female 2:34 AM CONSUMER LOAN UNDERWRITER Gender Identity Female 06/28/2024 10:24 AM CDT [...] documented as of this encounter Care Teams Napper Fixer Relationship Specialty Start Date End Date Axel Burnett DO PCP - General Internal Medicine 02/03/19 07/01/23 Suellen Martinez NP [address] [place] [address] PCP - General Nurse Practitioner 07/02/23 documented as of this encounter
--- OUTSIDE RECORDS SUMMARY | 2024-07-05 19:18 | XMS_ITS | Encounter Summary ---
Author Organization [facility] Address [address] [facility] [place] [address] Care Team Providers Care Economic Analyst Name Role Phone LexAxel Taylor CASTILLO Primary Care Provider [phone] Lion Allen MD Primary Care Provider [phone] Encounter Details Date Type Department Care Team (Late Contact Info) Description 03/06/2021 Telephone [facility] [address] [place] [address] Harriet Cazares MD [address] [address] Social History Tobacco Use Types Packs/Day Years Used Date Smoking Tobacco: Never Smokeless Tobacco: Never Comments No Sex and Gender Information Value Date Recorded Sex Assigned at Not on file Legal Sex Female 6:20 AM WHAT JOB TITLES MEAN Gender Identity Not on file Sexual Orientation Not on file documented as of this encounter Plan of Treatment Upcoming Encounters Date Type Department Care Team (Late Contact Info) Description 12/14/2024 2:00 PM CDT Office Visit [facility] - DATA MANAGEMENT MANAGER [address], [facility] [address] [place] [address] Harriet Cazares MD [address] [facility] [address] [place] [address] documented as of this encounter Visit Diagnoses Not on filedocumented in this encounter Care Teams Economic Analyst Relationship Specialty Start Date End Date Axel Burnett DO [address] [facility] [address] [place] [address] PCP - General 11/09/18 12/23/22 Lion Allen MD [address] [place] [address] PCP - General Ophthalmology 12/24/22 documented as of this encounter
--- OUTSIDE RECORDS SUMMARY | 2024-07-05 19:18 | XMS_ITS | Referral Summary ---
Author Organization [facility] Address [address] [place] [address] Care Team Providers Care Log Getter Name Role Phone Suellen Martinez NP Primary Care Provider [phone] Encounters Date Type Department Care Team Description 06/25/2024 2:00 PM CDT - 06/25/2024 11:59 PM CDT Hospital Encounter [id number] [address] [facility] [address] [place] [phone] Hip pain, left; Primary osteoarthritis of left knee Discharge Disposition: Discharge to home or self care 06/25/2024 2:30 PM CDT Office Visit [facility] Orthopaedic Surgery [address] [facility] [address] [place] [address] Nancy Sanchez NP Primary osteoarthritis [...] Rhinitis Administer 1 spray into each nostril clark driver before breakfast 2 05/07/19 19 Active hydroCHLOROthiaz partha (HYDRODIURIL) 25 mg tabletIndication s:hypertension Take 1 tablet (25 mg total) by mouth clark driver before breakfast 0 04/13/19 19 Active latanoprost [...] 1 tablet (1,000 mg total) by mouth clark driver before breakfast 12/02/19 19 Active OneTouch Delica [...] total) by mouth daily with breakfast Active qopfo-9-vsl-epa- dpa-fish oil 1,050-1,200 mg capsule 1 capsule [...] 0.5 tablets (2.5 mg total) by mouth clark driver before breakfast 11/10/19 22 Active fluconazole (DIFLUCAN) [...] (09/03/2019): Added automatically from request for surgery [id number] Trigger finger, left index finger 09/03/2019 Overview (09/03/2019): Added automatically from request for surgery [id number] 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 History of candidiasis [...] on file Legal Sex Female 2:34 AM PUBLIC WORKS MANAGER Gender Identity Female 06/28/2024 10:24 AM CDT Sexual Orientation Not on file Last Filed Vital Signs Vital Sign Reading Time Taken Comments Blood Pressure 108/62 01/05/2024 5:32 PM PUBLIC WORKS MANAGER Pulse 92 01/05/2024 5:32 PM PUBLIC WORKS MANAGER Temperature 36.9 C (98.4 F) 01/05/2024 5:32 PM PUBLIC WORKS MANAGER Respiratory Rate 16 01/05/2024 5:32 PM PUBLIC WORKS MANAGER Oxygen Saturation 96% 01/05/2024 5:32 PM PUBLIC WORKS MANAGER Inhaled Oxygen Concentration - - Weight 64.4 kg (142 lb) 01/05/2024 5:32 PM PUBLIC WORKS MANAGER Height 162.6 cm (5' 4 ) 12/26/2023 11:01 AM PUBLIC WORKS MANAGER Body Mass Index 24.37 12/26/2023 11:01 AM PUBLIC WORKS MANAGER Plan of Treatment Not on file Procedures Procedure Name Priority Date/Time Associated Diagnosis Comments XR KNEE LEFT 4 OR MORE VIEWS Schedule Routine, Read Routine (OP Routine) 06/25/2024 2:35 PM CDT Primary osteoarthritis of left knee XR HIP LEFT W PELVIS 2 OR 3 VIEWS Schedule Routine, Read Routine (OP Routine) 06/25/2024 2:35 PM CDT Hip pain, left WI ARTHROCENTESIS ASPIR&/INJ MAJOR JT/BURSA W/O US Routine [...] by: Roger Saab M.D. us Nancy Sanchez BRIDAL SERVICE SALES AND MANAGEMENT IMG XR PROCEDURES Final R esult * WI ARTHROCENTESIS ASPIR&/INJ MAJOR JT/BURSA W/O US (06/25/2024 [...] with no immediate complications us Nancy Sanchez BRIDAL SERVICE SALES AND MANAGEMENT IN CLINIC/BEDSIDE ORDERAB LES Final Result * [...] Most Recently Relevant to Health Maintenance Insurance [facility] MEDICARE [facility] MEDICARE [facility] AETNA MEDICARE GOLD Care Teams Log Getter Relationship Specialty Start Date End Date Suellen Martinez NP [address] [place] [address] PCP - General Nurse Practitioner 07/02/23
--- OUTSIDE RECORDS SUMMARY | 2024-07-05 19:18 | XMS_ITS | Encounter Summary ---
Author Organization [facility] Address [address] [place] [address] Phone Care Team Providers Care Ship Rigger Apprentice Name Role Phone Axel Burnett DO Primary Care Provider [phone] Suellen Martinez NP Primary Care Provider [phone] Encounter Details Date Type Department Care Team [...] on file Legal Sex Female 2:34 AM COT ASSEMBLER Gender Identity Female 06/28/2024 10:24 AM CDT [...] on filedocumented in this encounter Care Teams Ship Rigger Apprentice Relationship Specialty Start Date End Date Axel Burnett DO PCP - General Internal Medicine 02/03/19 07/01/23 Suellen Martinez NP [address] [place] [address] PCP - General Nurse Practitioner 07/02/23 documented as of this encounter
--- OUTSIDE RECORDS SUMMARY | 2024-07-05 19:18 | XMS_ITS | Clinical Summary ---
Author Organization [facility] Address [address] [place] [address] Care Team Providers Care Sql Manager Name Role Phone Lion Allen MD Primary Care Provider [phone] Source Comments [facility],non-owned Affiliates and Associated Physician Practices is amultiple site organization consisting of ambulatory clinics and hospital sitesin [place], [place], [place] and [place]. This disclosure is being madepursuant to the Care Everywhere program and may not contain all information available regarding this patient. Last updated 17.[facility] Allergies Active Allergy Reactions Criticality Noted Date [...] fluticasone propionate (Flonase) 50 MCG/ACT nasal spray [place] 2 (two) sprays into each nostril once [...] tablet 3 04/13/19 25 Active nystatin (Mycostatin) 939104 UNIT/GM ointmentIndicatio ns:History of candidiasis MIX WITH [...] Description 06/23/2024 Telephone [facility] - CHEF INSTRUCTOR [address], [facility] [address] [place] [phone] Harriet Cazares MD Med Question 04/29/2024 Refill [facility] - CHEF INSTRUCTOR [address], [facility] [address] [place] [phone] Harriet Cazares MD Refill Request 04/13/2024 2:40 PM PSYCHOLOGIST CHIEF Office Visit [facility] - CHEF INSTRUCTOR [address], [facility] [address] [place] [address] Harriet Cazares MD Vulvodynia (Primary [...] on file Legal Sex Female 6:20 AM PSYCHOLOGIST CHIEF Gender Identity Not on file Sexual Orientation Not on file Last Filed Vital Signs Vital Sign Reading Time Taken Comments Blood Pressure 111/64 04/13/2024 2:43 PM PSYCHOLOGIST CHIEF Pulse - - Temperature 36.9 C (98.4 F) 04/13/2024 2:43 PM PSYCHOLOGIST CHIEF Respiratory Rate - - Oxygen Saturation - - Inhaled Oxygen Concentration - - Weight 64 kg (141 lb) 04/13/2024 2:43 PM PSYCHOLOGIST CHIEF Height 162.6 cm (5' 4.02 ) 12/24/2022 1:58 PM CS T Body Mass Index 24.19 12/24/2022 1:58 PM PSYCHOLOGIST CHIEF Plan of Treatment Upcoming Encounters Date Type Department Care Team (Late st Contact Info) Description 12/14/2024 2:00 PM CDT Office Visit [facility] - CHEF INSTRUCTOR [address], [facility] [address] [place] [address] Harriet Cazares MD [address] [facility] [address] [place] [address] Health Maintenance Due Date Last [...] patient's age to complete this topic Insurance [facility] AETNA MEDICARE ADV SELF PAY NO INSURANCE Member Subscriber Plan / Payer (Ef fective for All Dates) Name:Mouna Rodriguez Member ID:Not on file Relation to Subscriber:Not on file Name:MOUNA RODRIGUEZ Subscriber ID:Not on file (Home) Address: [address] [place] [address] Payer ID:Not on file Group ID:Not on file Type:Self Pay Address: [place], [place] AETNA MEDICARE ADV Care Teams Sql Manager Relationship Specialty Start Date End Date Lion Allen MD [address] [place] [address] PCP - General Ophthalmology 12/24/22
--- OUTSIDE RECORDS SUMMARY | 2024-07-05 19:18 | XMS_ITS | Encounter Summary ---
Author Organization [facility] Address [address] [place] [address] Phone Care Team Providers Care Deep Well Contractor Name Role Phone Jeremy Bal MD Primary Care Provider Axel Burnett DO Primary Care Provider [phone] Suellen Martinez NP Primary Care Provider [phone] Encounter Details Date Type Department Care Team (Latest Contact Info) Description 04/22/2013 Orders Only [facility] Scanning, Provider Social History Tobacco Use Types Packs/Day Years Used Date Smoking Tobacco: Never Comments Unknown Sex and Gender Information Value Date Recorded Sex Assigned at Not on file Legal Sex Female 2:34 AM GLASS SANDER BELT Gender Identity Female 06/28/2024 10:24 AM CDT [...] documented as of this encounter Care Teams Deep Well Contractor Relationship Specialty Start Date End Date Jeremy Bal MD [address] [place] [address] PCP - General 10/30/11 02/02/19 Axel Burnett DO [address] [place] [address] PCP - General Internal Medicine 02/03/19 07/01/23 Suellen Martinez NP [address] [place] [address] PCP - General Nurse Practitioner 07/02/23 documented as of this encounter
--- OUTSIDE RECORDS SUMMARY | 2024-07-05 19:18 | XMS_ITS | Continuity of Care Document ---
Author Organization [facility] Address [address] [place] [address] Phone Care Team Providers Care Pointer Helper Name Role Phone Bren Juarez Unavailable [...] Providers Copied on Encounter Office/outpat ient Visit, [facility], [address] [place] [address] [address], [place], [place], [id number], [place] tel:[phone] [facility] [place] No Information 2-201 0 Ann Correia. [address] [facility] [place] , [address], [place], [address], [place]. tel:[phone] Office/outpat ient Visit, [facility], [address] [place] [address] [address], [place], [place], [id number], [place] tel:[phone] [facility] [place] [facility] No Information 201 0 Ann Duckworth [address] , [address], [place], [place], [facility][note 3], [place]. tel:[phone] [facility], [address] [place] [address] [address], [place], [place], [id number], [place] tel:[phone] [facility] [place] No Information 200 9 Ann Duck[address] , [address], [place], [place], [facility][note 3], [place]. tel:[phone] Referring Provider: Bren Hylton, [address] [address], [place], [place], [facility][note 3]. tel:[phone] Office/outpat ient Visit, [facility], [id number] [place] [address] [address], [place], [place], [id number], [place] tel:[phone] [facility] [place] No Information 9 Ann Duckworth [facility] , [address], [place], [place], [facility][note 3], [place]. tel:[phone] Office/outpat ient Visit, [facility], [address] [place] [address] [address], [place], [place], [id number], [place] tel:[phone] [facility] [place] No Information 9 Lianne Alvarez. [address] , [address], [place], [place], [facility][note 3], [place]. tel:[phone] [facility], [address] [place] [address] [address], [place], [place], [id number], [place] tel:[phone] [facility] No Information 9-200 8 Ann Correia. [address] , [address], [place], [facility][note 3], [place]. tel:[phone] Referring Provider: Archana [facility] [address], [place], [place], [facility][note 3]. tel:[phone] Office/outpat ient Visit, [facility], [address] [place] [address] [address], [place], [place], [id number], [phone] SEC [facility] No Information Dimitry-0 5-200 8 Juarez Bren. [address] [facility] , [address], [place], [place], [facility][note 3], . tel:[phone] Office/outpat ient Visit, [facility], [address] [place] [address] [address], [place], [place], [id number], tel:[phone] [facility] [place] No Information Dec-2 0-200 7 Juarez Bren. [address] [place], [place] [address]ate [place] , [address], [place], [place], [facility][note 3], . tel:[phone] Office/outpat ient Visit, [facility], [address] [place] [address] [address], [place], [place], [id number], [place] [phone] [facility] No Information Jasson-1 6-200 7 Lianne Alvarez. [address] [place] [address] , [address], [place], [place], [facility][note 3], . tel:[phone] Referring Provider: Antonio Boggs [facility] [address], [place], [place], [facility][note 3]. tel:[phone] [facility], [address] [place] [address] [address], [place], [place], [id number], [place] tel:[phone] [facility] [place] [facility] No Information Mar-0 8-200 7 Lianne Alvarez. [facility] [address], [place], [place], [facility][note 3], . tel:[phone] Referring Provider: Antonio Boggs [facility] [address], [place], [place], [facility][note 3]. tel:[phone] Family History Family Member Type Diagnosis Age At Onset No Information Payers Payer name Insurance type Covered republican ID Authoriza tion(s) No Information Social History [...]
--- OUTSIDE RECORDS SUMMARY | 2024-07-05 19:18 | XMS_ITS | Clinical Summary ---
Author Organization [facility] Address Pending sale to [facility] [place] [address] Care Team Providers Care Caramel Cutter Machine Name Role Phone Suellen Martinez NP Primary Care Provider [phone] Allergies Active Allergy Reactions Criticality Noted Date [...] Rhinitis Administer 1 spray into each nostril quality assurance technician before breakfast 2 05/07/19 19 Active hydroCHLOROthiaz partha (HYDRODIURIL) 25 mg tabletIndication s:hypertension Take 1 tablet (25 mg total) by mouth quality assurance technician before breakfast 0 04/13/19 19 Active latanoprost [...] 1 tablet (1,000 mg total) by mouth quality assurance technician before breakfast 12/02/19 19 Active OneTouch Delica [...] total) by mouth daily with breakfast Active xyajs-[id number]-euu-epa- dpa-fish oil 1,050-1,200 mg capsule 1 capsule [...] 0.5 tablets (2.5 mg total) by mouth quality assurance technician before breakfast 11/10/19 22 Active fluconazole (DIFLUCAN) [...] (09/03/2019): Added automatically from request for surgery [id number] Trigger finger, left index finger 09/03/2019 Overview (09/03/2019): Added automatically from request for surgery [id number] 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 History of candidiasis 11/25/2017 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 Jennifer glabrata infection 04/20/2014 Arthralgia of hip 06/19/2011 Encounters Date Type Department Care Team Description 06/25/2024 2:30 PM CDT Office Visit [facility] [address] [place] [address] Nancy Sanchez NP Primary osteoarthritis of left knee (Primary Dx); Hip pain, left; Closed displaced fracture of greater trochanter of left femur, initial encounter (HCC); Primary osteoarthritis of left hip; Chronic pain of left knee 06/25/2024 2:00 PM CDT - 06/25/2024 11:59 PM CDT Hospital Encounter [id number] [address] [place] [address] [address] [place] [id number] Hip pain, left; Primary osteoarthritis of left [...] on file Legal 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 Gender Identity Female 06/28/2024 10:24 AM CDT Sexual Orientation Not on file Obstetrics History Last Filed Vital Signs Vital Sign Reading Time Taken Comments Blood Pressure 108/62 01/05/2024 5:32 PM PROSTHETIC AIDES TEACHER Pulse 92 01/05/2024 5:32 PM PROSTHETIC AIDES TEACHER Temperature 36.9 C (98.4 F) 01/05/2024 5:32 PM PROSTHETIC AIDES TEACHER Respiratory Rate 16 01/05/2024 5:32 PM PROSTHETIC AIDES TEACHER Oxygen Saturation 96% 01/05/2024 5:32 PM PROSTHETIC AIDES TEACHER Inhaled Oxygen Concentration - - Weight 64.4 kg (142 lb) 01/05/2024 5:32 PM PROSTHETIC AIDES TEACHER Height 162.6 cm (5' 4 ) 12/26/2023 11:01 AM PROSTHETIC AIDES TEACHER Body Mass Index 24.37 12/26/2023 11:01 AM PROSTHETIC AIDES TEACHER Plan of Treatment Health Maintenance Due Date [...] 06/25/2024 2:35 PM CDT Hip pain, left [place] ARTHROCENTESIS ASPIR&/INJ MAJOR JT/BURSA W/O US Routine [...] signed by: Roger Saab M.D. Nancy Sanchez HAND FILER BALANCE WHEEL IMG XR PROCEDURES Final R esult * [place] ARTHROCENTESIS ASPIR&/INJ MAJOR JT/BURSA W/O US (06/25/2024 [...] well with no immediate complications Nancy Sanchez HAND FILER BALANCE WHEEL IN CLINIC/BEDSIDE ORDERAB LES Final Result * [...] MEDICARE GOLD TNA MEDICARE GOLD Care Teams Caramel Cutter Machine Relationship Specialty Start Date End Date Suellen Martinez NP [address] [place], [place] [id number] PCP - General Nurse Practitioner 07/02/23
[2024-07-05 19:44] VITALS: BP 132/60; PULSE 99; RESP 17; TEMP 36.6; O2SAT 97
== END 2024-07-05 19:45 | disposition home or self-care (01) ==
PROVIDERS: Emergency Provider Emergency Medicine; PCP Nurse Practitioner Family
DX: Z03.821 Encounter for observation for suspected ingested foreign body ruled out (principal); T18.9XXA Foreign body of alimentary tract, part unspecified, initial encounter; E11.9 Type 2 diabetes mellitus without complications; Z85.828 Personal history of other malignant neoplasm of skin; Z85.51 Personal history of malignant neoplasm of bladder; F41.9 Anxiety disorder, unspecified; K21.9 Gastro-esophageal reflux disease without esophagitis; I10 Essential (primary) hypertension; D64.9 Anemia, unspecified
CPT/HCPCS: 70360; 71046; 99283